=== PATIENT | female | born 1965 | race Caucasian/White ===

== ENCOUNTER 2016-07-30 20:09 | Emergency (ER) | payer MEDICAID ==
[2016-07-30 20:09] VITALS: BMI 21.4
[2016-07-30 20:19] VITALS: RESP 16; O2SAT 100
--- NOTE | 2016-07-30 21:01 | C.PDOC ---
History Of Present Illness Patient presents to the ER with to get checked out after falling on Thursday with a questionable LOC. Patient is speaking in complete sentences. Denies any nausea , vomiting, or fever. - HPI Time Seen by Provider: 07/30/16 21:01 Chief Complaint (Nursing): Trauma History Per: Patient History/Exam Limitations: no limitations Onset/Duration Of Symptoms: Days (incident occurred on Thursday) Past Medical History Reviewed: Historical Data, Nursing Documentation, Vital Signs Vital Signs: Last Vital Signs Temp 98.3 F 07/30/16 20:13 Pulse 87 07/30/16 20:13 Resp 16 07/30/16 20:13 BP 120/82 07/30/16 20:13 Pulse Ox 100 07/30/16 23:22 - Medical History PMH: Back Problems, Fibromyalgia, Fractures (Disc fx secondary t fall) - [facility] Procedures IMPLANT OR REPLACEMENT OF SPINAL NEUROSTIMULATOR LEAD(S) (07/10/14) Family History: States: No Known Family Hx - Social History Hx Tobacco Use: Yes Hx Alcohol Use: Yes Hx Substance Use: No - Immunization History Hx Tetanus Toxoid Vaccination: No Hx Influenza Vaccination: No Hx Pneumococcal Vaccination: No Review Of Systems Constitutional: Negative for: Fever, Chills Gastrointestinal: Negative for: Nausea, Vomiting Physical Exam - Physical Exam Appears: Well, Non-toxic Skin: Warm, Dry Oral Mucosa: Moist Chest: Symmetrical Cardiovascular: Rhythm Regular Respiratory: Normal Breath Sounds, No Rales, No Rhonchi, No Wheezing Gastrointestinal/Abdominal: Soft, No Tenderness Neurological/Psych: Oriented x3, Normal Speech, Normal Cognition ED Course And Treatment O2 Sat by Pulse Oximetry: 100 (Room air) Pulse Ox Interpretation: Normal - CT Scan/US CT of head w/o contrast Other Rad Studies (CT/US): Read By Radiologist, Radiology Report Reviewed CT/US Interpretation: IMPRESSION: No acute intracranial pathology is appreciated. Progress Note: CT of head w/o contrast ordered. Reevaluation Time: 23:17 Reassessment Condition: Improved Medical Decision Making Medical Decision Making: Upon provider reevaluation patient is feeling better, is medically stable, and requires no further treatment in the ED at this time. Patient will be discharged home with Rx for antivert . Counseling was provided and all questions were answered regarding diagnosis and need for follow up with the referred clinic. There is agreement to discharge plan. Return if symptoms persist or worsen. Disposition Counseled Patient/Family Regarding: Studies Performed, Diagnosis, Need For Followup - Disposition Referrals: Levar Du MD [Staff Provider] - Disposition: HOME/ ROUTINE Disposition Time: 21:01 Condition: FAIR Additional Instructions: Please return ifyou develop nausea, vomiting or just not feeling right Prescriptions: Meclizine [Meclizine*] 25 mg PO Q6 #30 tab Instructions: Head Injury (ED) - Clinical Impression Clinical Impression: Minor head injury - Scribe Statement The provider has reviewed the documentation as recorded by the Scribe Abdirahman Larson All medical record entries made by the Scribe were at my direction and personally dictated by me. I have reviewed the chart and agree that the record accurately reflects my personal performance of the history, physical exam, medical decision making, and the department course for this patient. I have also personally directed, reviewed, and agree with the discharge instructions and disposition.
[2016-07-30 23:34] VITALS: BP 94/50; PULSE 66; TEMP 98.2
--- NOTE | 2016-07-31 09:07 | CT ---
PROCEDURE: CT HEAD WITHOUT CONTRAST. HISTORY: fall, loc on thursday COMPARISON: None available. TECHNIQUE: Axial computed tomography images were obtained through the head/brain without intravenous contrast. Radiation dose: Total exam DLP = 857 mGy-cm. This CT exam was performed using one or more of the following dose reduction techniques: Automated exposure control, adjustment of the mA and/or kV according to patient size, and/or use of iterative reconstruction technique. FINDINGS: HEMORRHAGE: No intracranial hemorrhage. BRAIN: No mass effect or edema. No atrophy or chronic microvascular ischemic changes. VENTRICLES: Unremarkable. No hydrocephalus. CALVARIUM: Unremarkable. PARANASAL SINUSES: Unremarkable as visualized. No significant inflammatory changes. MASTOID AIR CELLS: Unremarkable as visualized. No inflammatory changes. OTHER FINDINGS: None. IMPRESSION: No acute intracranial abnormality. If focal neurologic deficit persists, consider MRI. These findings were preliminarily reported at 10:57 p.m. on 07/30/[address] She Chowdhury from [facility].
== END 2016-07-30 23:34 | disposition home or self-care (01) ==
LOC: C.ER 20:09
DX: S09.90XA Unspecified injury of head, initial encounter (principal); W19.XXXA Unspecified fall, initial encounter

== ENCOUNTER 2016-11-08 19:58 | Emergency (ER) | payer MEDICAID ==
[2016-11-08 19:58] VITALS: BMI 21.4
[2016-11-08 20:20] VITALS: TEMP 98.9; O2SAT 98
[2016-11-08] MEDS ORDERED: Lidocaine 5% Patch TD STA (21:26)
[2016-11-08] MEDS ORDERED: Lidocaine 5% Patch TD ONE (21:30)
--- NOTE | 2016-11-08 22:25 | C.PDOC ---
History Of Present Illness 50 year old female who presents to the ER with a complaint of back pain; she states she had back surgery 6 years ago and had a stimulator placed. Patient is currently on oxycodon and valium, however, she states the pain is not controlled. She tried to get in contact with her PMD, Dr. Galicia, but could not; she now presents to ER requesting an epidural. Denies recent trauma or urinary symptoms. Time Seen by Provider: 11/08/16 21:09 Chief Complaint (Nursing): Back Pain History Per: Patient History/Exam Limitations: no limitations Onset/Duration Of Symptoms: Days Current Symptoms Are (Timing): Still Present Quality Of Discomfort: Unable To Describe Previous Symptoms: Back Pain Associated Symptoms: None Exacerbating Factor(s): Nothing Recent travel outside of the [place]: No Past Medical History Reviewed: Historical Data, Nursing Documentation, Vital Signs Vital Signs: Last Vital Signs Temp 98.9 F 11/08/16 20:16 Pulse 78 11/08/16 22:27 Resp 16 11/08/16 22:27 BP 110/68 11/08/16 22:27 Pulse Ox 98 11/08/16 22:27 - Medical History PMH: Back Problems, Fibromyalgia, Fractures (Disc fx secondary t fall) - [facility] Procedures IMPLANT OR REPLACEMENT OF SPINAL NEUROSTIMULATOR LEAD(S) (07/10/14) Family History: States: Unknown Family Hx - Social History Hx Tobacco Use: Yes Hx Alcohol Use: Yes Hx Substance Use: No - Immunization History Hx Tetanus Toxoid Vaccination: No Hx Influenza Vaccination: No Hx Pneumococcal Vaccination: No Review Of Systems Genitourinary: Negative for: Dysuria, Incontinence, Hematuria Musculoskeletal: Positive for: Back Pain Physical Exam - Physical Exam Appears: Non-toxic, Other (Uncomfortable) Skin: Normal Color, Warm, Dry Head: Atraumatic, Normacephalic Oral Mucosa: Moist Gastrointestinal/Abdominal: Soft, No Tenderness Back: No CVA Tenderness, No Vertebral Tenderness, Paraspinal Tenderness (Lumbar) Neurological/Psych: Oriented x3, Normal Speech, Normal Cognition ED Course And Treatment O2 Sat by Pulse Oximetry: 98 (Room air) Pulse Ox Interpretation: Normal Progress Note: Explained to patient that epidural will not be done in the ER; administered toradol and applied lidoderm patch. On reevaluation, patient feels better; will discharge home with instructions to follow up with PMD. Disposition - Disposition Disposition: HOME/ ROUTINE Disposition Time: 22:24 Condition: STABLE Additional Instructions: Follow up with your international trade specialist AD. Return to ED if feel worse. Instructions: Chronic Back Pain (ED) - Clinical Impression Clinical Impression: Low back pain - Scribe Statement The provider has reviewed the documentation as recorded by the Scribe Abdirahman Larson All medical record entries made by the Scribe were at my direction and personally dictated by me. I have reviewed the chart and agree that the record accurately reflects my personal performance of the history, physical exam, medical decision making, and the department course for this patient. I have also personally directed, reviewed, and agree with the discharge instructions and disposition.
[2016-11-08 22:28] VITALS: BP 110/68; PULSE 78; RESP 16
== END 2016-11-08 22:27 | disposition home or self-care (01) ==
LOC: C.ER 19:58
DX: M54.5 Low back pain (principal)
CPT/HCPCS: 96372; 99283; J1885

== ENCOUNTER 2017-08-23 11:43 | Inpatient (IN) | payer MEDICAID ==
[2017-08-23 11:44] VITALS: BMI 21.4
[2017-08-23] MEDS ORDERED: Morphine 4 MG/ML VIAL ONE ×2 (13:01→14:25)
[2017-08-23 13:02] LABS: BASO # 0.1 K/uL (0.0-0.2); EOS # 0.1 K/uL (0.0-0.7); EOS % 1.7 % (0.0-4.0); LYMPH # 0.9 K/uL (1.0-4.3); MONO # 0.4 K/uL (0.0-0.8)
[2017-08-23 13:04] LABS: BASO % 0.9 % (0.0-2.0); HEMOGLOBIN 12.4 g/dL (11.0-16.0); LYMPH % 13.4 % (20.0-40.0); MEAN CELL VOLUME 94.9 fL (81.0-99.0); MEAN CORPUSCULAR HEMOGLOBIN 31.4 pg (27.0-31.0); MEAN CORPUSCULAR HGB CONC 33.1 g/dL (33.0-37.0); MEAN PLATELET VOLUME 7.8 fL (7.2-11.7); MONO % 6.3 % (0.0-10.0); NEUT # 5.2 K/uL (1.8-7.0); NEUT % 77.7 % (50.0-75.0); RBC 3.94 Mil/uL (3.80-5.20); RED CELL DISTRIBUTION WIDTH 15.4 % (11.5-14.5); WHITE BLOOD COUNT 6.7 K/uL (4.8-10.8)
[2017-08-23 13:17] LABS: ALB/GLOB RATIO 1.1 (1.0-2.1); ALBUMIN 4.2 g/dL (3.5-5.0); ALT/SGPT 22 U/L (9-52); AST/SGOT 22 U/L (14-36); BLOOD UREA NITROGEN 20 mg/dL (7-17); GFR AFRICAN-AMERICAN > 60; GFR NON-AFRICAN AMERICAN > 60
[2017-08-23] MEDS ORDERED: Iodixanol 320 MG/ML 100 ML BOTTLE IV ONE (13:32)
[2017-08-23] MEDS ORDERED: SODIUM CHLORIDE 0.9% IV STA (13:32)
[2017-08-23] MEDS ORDERED: LIDOCAINE IV STA (13:32)
[2017-08-23 13:53] LABS: LIPASE 3799 U/L (23-300)
[2017-08-23] MEDS ORDERED: Morphine 4 MG/ML VIAL IV STA (13:54)
--- NOTE | 2017-08-23 14:28 | RAD ---
PROCEDURE: CHEST RADIOGRAPH, 1 VIEW HISTORY: Abdominal pain COMPARISON: No prior study available for comparison FINDINGS: LUNGS: Clear. PLEURA: No pneumothorax or pleural fluid seen. CARDIOVASCULAR: Normal. OSSEOUS STRUCTURES: In situ pain stimulator electrodes are seen overlying the mid thoracic region. Electrode leads extend inferiorly from this level and to the right of midline in the abdomen. VISUALIZED UPPER ABDOMEN: Normal. OTHER FINDINGS: None. IMPRESSION: No acute cardiopulmonary disease
--- NOTE | 2017-08-23 14:50 | C.PDOC ---
History Of Present Illness 51 year old female presents to ED for evaluation of progressive worsening of abdominal pain over the past 2 weeks. Pt reports associated nausea and vomiting. Pt complains of chronic back pain, notes having history of spinal surgery in the past. Denies diarrhea, urinary symptoms, fever, chest pain, or shortness of breath. Time Seen by Provider: 08/23/17 12:26 Chief Complaint (Nursing): Abdominal Pain History Per: Patient History/Exam Limitations: no limitations Onset/Duration Of Symptoms: Days Current Symptoms Are (Timing): Still Present Location Of Pain/Discomfort: Diffuse Radiation Of Pain To:: None Quality Of Discomfort: "Pain" Associated Symptoms: Nausea, Vomiting. denies: Diarrhea, Back Pain, Chest Pain Exacerbating Factors: None Alleviating Factors: None Recent travel outside of the [place]: No Additional History Per: Patient Abnormal Vaginal Bleeding: No Past Medical History Reviewed: Historical Data, Nursing Documentation, Vital Signs Vital Signs: Last Vital Signs Temp 98.3 F 08/25/17 15:00 Pulse 72 08/25/17 15:00 Resp 20 08/25/17 15:00 BP 118/81 08/25/17 15:00 Pulse Ox 99 08/25/17 15:00 - Medical History PMH: Back Problems, Fibromyalgia, Fractures (Disc fx secondary t fall) Denies: Chronic Kidney Disease - [facility] Procedures IMPLANT OR REPLACEMENT OF SPINAL NEUROSTIMULATOR LEAD(S) (07/10/14) Family History: States: Unknown Family Hx - Social History Hx Tobacco Use: Yes Hx Alcohol Use: Yes Hx Substance Use: No - Immunization History Hx Tetanus Toxoid Vaccination: No Hx Influenza Vaccination: No Hx Pneumococcal Vaccination: No Review Of Systems Except As Marked, All Systems Reviewed And Found Negative. Constitutional: Negative for: Fever, Chills Cardiovascular: Negative for: Chest Pain, Palpitations Respiratory: Negative for: Shortness of Breath Gastrointestinal: Positive for: Nausea, Vomiting, Abdominal Pain. Negative for : Diarrhea, Constipation, Hematemesis Genitourinary: Negative for: Dysuria, Frequency, Hematuria, Vaginal Discharge Musculoskeletal: Positive for: Back Pain (chronic) Neurological: Negative for: Weakness, Numbness Physical Exam - Physical Exam Appears: Non-toxic, No Acute Distress Skin: Normal Color, Warm, Dry Head: Atraumatic, Normacephalic Eye(s): bilateral: Normal Inspection Oral Mucosa: Moist Chest: Symmetrical Cardiovascular: Rhythm Regular, No Murmur Respiratory: Normal Breath Sounds, No Rales, No Rhonchi, No Wheezing Gastrointestinal/Abdominal: Bowel Sounds, Soft, Tenderness (epigastric), No Guarding, No Rebound Back: No CVA Tenderness Extremity: Normal ROM Neurological/Psych: Oriented x3, Normal Speech ED Course And Treatment - Laboratory Results Result Diagrams: 08/25/17 07:35 08/25/17 07:35 ECG: Interpreted By Me, Viewed By Me ECG Rhythm: Sinus Rhythm ECG Interpretation: No Acute Changes Interpretation Of ECG: Normal intervals, normal axis. No acute ST/T wave changes. Rate From EC (bpm) O2 Sat by Pulse Oximetry: 100 (RA) Pulse Ox Interpretation: Normal - CT Scan/US Abd & Pelvis CT Other Rad Studies (CT/US): Read By Radiologist, Radiology Report Reviewed CT/US Interpretation: IMPRESSION: Mild fatty hepatic infiltration. Suspect underlying acute pancreatitis as detailed above. Clinical correlation with serum lipase recommended. Postoperative changes of the stomach. Clinical correlation with surgical history. See above discussion for additional details and findings. Findings discussed with Dr. Webb at approximately 2:55 p.m with written down and read back verification. Medical Decision Making Medical Decision Making: Plan: Blood work Urinalysis Abd & Pelvis CT EKG CXR Morphine, Zofran, IV fluids Reassess Case discussed with Dr. Sheldon who agrees upon med surge admission for pancreatitis. Disposition Discussed With : Hussein Sheldon Doctor Will See Patient In The: Hospital Counseled Patient/Family Regarding: Studies Performed, Diagnosis - Disposition Disposition: HOSPITALIZED Disposition Time: 15:14 Condition: FAIR - Clinical Impression Clinical Impression: Pancreatitis - Scribe Statement The provider has reviewed the documentation as recorded by the Júnior Gunter All medical record entries made by the Feliibnico were at my direction and personally dictated by me. I have reviewed the chart and agree that the record accurately reflects my personal performance of the history, physical exam, medical decision making, and the department course for this patient. I have also personally directed, reviewed, and agree with the discharge instructions and disposition.
--- NOTE | 2017-08-23 15:00 | CT ---
PROCEDURE: CT abdomen pelvis 08/23/2017. HISTORY: Abdominal pain COMPARISON: No prior TECHNIQUE: Contiguous helical/transaxial images of the abdomen and pelvis performed following intravenous injection of approximately 100 cc Visipaque 320 contrast material. Additional 2D sagittal and coronal reformats generated. Radiation dose: Total exam DLP = mGy-cm This CT exam was performed using one or more of the following dose reduction techniques: Automated exposure control, adjustment of the mA and/or kV according to patient size, and/or use of iterative reconstruction technique. FINDINGS: LOWER THORAX: Lung bases are clear. No infiltrate effusion or basilar pneumothorax. Moderate size hiatal hernia is present. There are postoperative changes seen along the stomach of which extend into the hiatal hernia. Clinical correlation with surgical history. LIVER: The liver exhibits normal size measuring approximately 14.2 cm in CC dimension. . Moderate fatty hepatic infiltration. No obvious hepatic mass or collection. Portal and splenic veins are opacified. GALLBLADDER AND BILE DUCTS: Gallbladder physiologically distended. No evidence of intraluminal gallbladder calculi. PANCREAS: The exhibits what is felt to represent an edematous infiltrated appearance particular at the level of the pancreatic head and midbody with some sparing the pancreatic tail, to represent underlying atrophy and fatty replacement. There also peripancreatic infiltration changes present as well. . Findings could represent an acute pancreatitis. Correlation with serum lipase recommended. No obvious pancreatic masses or collections SPLEEN: Spleen exhibits normal size and attenuation pattern without masses collections or calcifications. ADRENALS: No adrenal lesions. KIDNEYS AND URETERS: Kidneys demonstrate symmetric nephrograms. No evidence of nephrolithiasis or hydronephrosis. . Probable small right renal cyst BLADDER: Grossly unremarkable. Urinary bladder physiologically distended. No evidence of intraluminal urinary bladder calculi. REPRODUCTIVE: Apparent hysterectomy. APPENDIX: The appendix not seen with complete certainty however no obvious inflammatory changes right lower quadrant of the abdomen to suggest acute appendicitis BOWEL: Evaluation of the bowel is limited due to the lack of oral contrast material. As mentioned above, there are postoperative changes of the stomach. Clinical correlation with surgical history recommended. Visualized loops of small bowel exhibit normal contour and caliber. No evidence of acute mechanical small bowel obstruction. Stool and air seen throughout the large bowel. No definitive evidence of abnormal mural wall thickening. PERITONEUM: Unremarkable. No fluid collection. No free air. LYMPH NODES: Unremarkable. No enlarged lymph nodes. VASCULATURE: Unremarkable. No aortic aneurysm. BONES: Apparent fixation hardware attached to the posterior elements of the L4-L5 segments. The aforementioned posterior elements of L4-L5 also appear hypertrophic. Clinical correlation with surgical history. OTHER FINDINGS: None. IMPRESSION: Mild fatty hepatic infiltration. Suspect underlying acute pancreatitis as detailed above. Clinical correlation with serum lipase recommended. Postoperative changes of the stomach. Clinical correlation with surgical history. See above discussion for additional details and findings. Findings discussed with Dr. Webb at approximately 2:55 p.m with written down and read back verification.
--- NOTE | 2017-08-23 15:32 | CP.PCM.HP ---
History of Present Illness - History of Present Illness History of Present Illness: PGY2 Resident - Medicine H&P CC: stomach pain for the past 2 weeks HPI: This 51 year old female with PMHx of Chronic back pain, Scoliosis (wears brace since 05/2017), Fibromyalgia, Lumbar Fractures (2/2 Fall), Degenerative disk dz - presents to ED for evaluation of progressive worsening of abdominal pain over the past 3 weeks. She states it started as an "annoying" discomfort in the mid epigastric region with associated nausea. Into the second week, she began to vomit her food contents roughly 1hr after ingestion, nearly every- other day. She changed her diet to yogurt, however the nausea persisted with vomiting once every 2 days for the past 2 weeks. Her family became worrisome as her abdominal pain increased, spurring todays ED visit. She currently rate the abdominal pain 8/10. It is worst with food and lying flat, better with the pain medications the she takes for her chronic back pain. Her Neurosurgeon, Dr. Florez, told her that her scoliosis has become so severe, that the curvature in her spine is compressing her stomach. He plans to operate on her spine next month (metal shayne insertion). She denies fevers, chills, dizziness, chest pain, SOB, urinary symptoms, LE edema, or any additional acute complaints. PMHx: Chronic back pain, Scoliosis (wears brace since 05/2017), Fibromyalgia, Lumbar Fractures (2/2 Fall), Degenerative disk dz PSHx: spine surgery 2 lumbar disk fracture 2011; spinal neurostimulator 2014; gastric bypass 2007, Meds: see EMR Allergies: seafood, NKDA FamHx: father HLD, paternal grandfather of "stomach" cancer at 47y/o SocHx: 2 cigarettes/d x4 years; 2 tablespoons of wine daily for communion; denies illicit drug use; lives with family; prior work in [employer]. PMD: Dr. Arango Neurosurgeon: Dr. Florez. Review of Systems: -Gen: No fever, No chills, No headache, No lethargy, + weakness. -HEENT: No dizziness, No change in vision, No change in hearing, No sore throat , No dysphagia, No nasal congestion, No mucous. -Cardio: No chest pain, No palpitations, No lower extremity edema, No orthopnea. -Resp: No cough, No dyspnea, No hemoptysis, No wheezing, No pain on inspiration. -GI: +abdominal pain, + nausea/vomiting, No diarrhea/constipation, No hematochezia, No hematemesis. -: No dysuria, No urinary freq, No incontinence, No hematuria, No change in urinary stream. -MSK: + back pain, No muscle weakness, No radiating pain. -Skin: No itching, No rash, No lesions. -Neuro: No confusion, No numbness, No tingling, No focal weakness, No radicular pain, No syncope. -Psych: No anxiety, No depression, No H/I, No S/I, No hallucinations. Present on Admission - Present on Admission Any Indicators Present on Admission: No Past Patient History - Past Medical History & Family History Past Medical History?: Yes - Past Social History Smoking Status: Current Some Days Smoker - CARDIAC Hx Cardiac Disorders: No - PULMONARY Hx Respiratory Disorders: No - NEUROLOGICAL HX Cerebrovascular Accident: Yes (TIA) - HEENT Hx HEENT Problems: No - RENAL Hx Chronic Kidney Disease: No - ENDOCRINE/METABOLIC Hx Endocrine Disorders: No - HEMATOLOGICAL/ONCOLOGICAL Hx Blood Disorders: No - INTEGUMENTARY Hx Dermatological Problems: No - MUSCULOSKELETAL/RHEUMATOLOGICAL Hx Fractures: Yes (Disc fx secondary t fall) - GASTROINTESTINAL Hx Gastrointestinal Disorders: No - GENITOURINARY/GYNECOLOGICAL Hx Genitourinary Disorders: No - PSYCHIATRIC Hx Substance Use: No - SURGICAL HISTORY Hx Surgeries: Yes Hx Orthopedic Surgery: Yes (Back surgery) Other/Comment: Back Surgery - ANESTHESIA Hx Anesthesia: Yes Hx Anesthesia Reactions: No Hx Malignant Hyperthermia: No Meds Allergies/Adverse Reactions: Allergies Allergy/AdvReac Type Severity Reaction Status Date / Time seafood Allergy Uncoded 08/23/17 11:54 Physical Exam - Constitutional Appears: Non-toxic, In Acute Distress, Cachectic - Head Exam Head Exam: ATRAUMATIC, NORMAL INSPECTION - Eye Exam Eye Exam: EOMI, Normal appearance, PERRL - ENT Exam ENT Exam: Mucous Membranes Dry - Neck Exam Neck exam: Positive for: Normal Inspection. Negative for: Lymphadenopathy - Respiratory Exam Respiratory Exam: Decreased Breath Sounds, Clear to Auscultation Bilateral, NORMAL BREATHING PATTERN. absent: Rhonchi, Wheezes - Cardiovascular Exam Cardiovascular Exam: REGULAR RHYTHM, +S1, +S2. absent: Systolic Murmur - GI/Abdominal Exam GI & Abdominal Exam: Guarding, Hypoactive Bowel Sounds, Tenderness (mid epigastric). absent: Distended - Extremities Exam Extremities exam: Positive for: full ROM. Negative for: pedal edema, tenderness - Back Exam Back exam: paraspinal tenderness, tenderness (thoracic paraspinals). absent: NORMAL INSPECTION (scoliosis requring brace; mid thoracic vertical scar 2/2 neuro stim surgery; b/l lateral thoracic horizontal scar 2/2 loose skin removal s/p gastric bypass/weight loss; lumbar vertical scar s/p lumbar vertebrate surgery) - Neurological Exam Neurological exam: Alert, CN II-XII Intact, Oriented x3 - Psychiatric Exam Psychiatric exam: Depressed, Flat Affect - Skin Skin Exam: Dry, Intact, Normal Color, Warm Results - Vital Signs Recent Vital Signs: Last Vital Signs Temp 98.2 F 08/23/17 11:53 Pulse 77 08/23/17 15:16 Resp 16 08/23/17 15:16 BP 127/78 08/23/17 15:16 Pulse Ox 100 08/23/17 15:19 - Labs Result Diagrams: 08/23/17 12:59 08/23/17 12:59 Labs: Laboratory Results - last 24 hr 08/23/17 08/23/17 12:59 12:59 WBC 6.7 RBC 3.94 Hgb 12.4 D Hct 37.4 MCV 94.9 D MCH 31.4 H MCHC 33.1 RDW 15.4 H Plt Count 511 H D MPV 7.8 Neut % (Auto) 77.7 H Lymph % (Auto) 13.4 L [place] % (Auto) 6.3 Eos % (Auto) 1.7 Baso % (Auto) 0.9 Neut # (Auto) 5.2 Lymph # (Auto) 0.9 L [place] # (Auto) 0.4 Eos # (Auto) 0.1 Baso # (Auto) 0.1 Sodium 137 Potassium 3.8 Chloride 104 Carbon Dioxide 18 L Anion Gap 19 BUN 20 H Creatinine 0.7 Est GFR ( Amer) > 60 Est GFR (Non-Af Amer) > 60 Random Glucose 66 Calcium 9.0 Total Bilirubin 0.4 AST 22 ALT 22 Alkaline Phosphatase 160 H Troponin I < 0.0120 Total Protein 8.1 Albumin 4.2 Globulin 3.9 Albumin/Globulin Ratio 1.1 Lipase 3799 H Assessment & Plan - Assessment and Plan (Free Text) Assessment: Acute Pancreatitis * NPO except meds. Advance to liquid in 2d as tolerated * Lactated ringers at 150cc/hr * Labs: Lipase 3799; * Morphine 4mg IVP Q6H PRN pain * Lidocain 5% cream * Zofran 4mg IVP Q6H PRN n/v * CT abd pelvis - fatty hepatic infiltrate; suspected acute pancreatitis, stomach post op changes (gastric bypass 2007). follow up official read. * CXR negative. * EKG no acute changes, no ST changes, 92bpm. follow up official read. * f/u LDH to calculate Ransons criteria after 48hrs * f/u repeat Lipase in AM * f/u abd ultrasound * f/u FLP and AM labs Chronic Back Pain * 2/2 scoliosis, and degenerative disk disease * see pain control above. * Morphine 4mg IVP Q6H PRN pain * Lidocain 5% cream Fibromyalgia * Continue home Amitryptiline and Neurontin. Anxiety * Xanax 0.5mg PO qD PRN Prophylaxis * VTE therapy C/I 2/2 pancreatitis * Hold pepcid * SCDs Case discussed with Dr. Sheldon - Date & Time Date: 08/23/17 Time: 15:31
[2017-08-23 15:48] LABS: SQUAMOUS EPITHIAL 3 /hpf (0-5); URINE BILIRUBIN NEGATIVE (NEGATIVE); URINE BLOOD NEGATIVE (NEGATIVE); URINE CLARITY Clear (Clear); URINE COLOR Yellow (YELLOW); URINE GLUCOSE (UA) NORMAL (Normal); URINE LEUKOCYTE ESTERASE NEG Leu/uL (Negative); URINE PROTEIN 1+ mg/dL (NEGATIVE); URINE UROBILINOGEN NORMAL mg/dL (0.2-1.0)
[2017-08-23 16:45] VITALS: RESP 20
[2017-08-23] MEDS: Morphine 4 MG/ML VIAL IVP PRN (17:53)
[2017-08-23] MEDS: Lactated Ringer's 1,000 ML IV SCH (18:06)
[2017-08-24] MEDS: Lactated Ringer's 1,000 ML IV SCH ×5 (00:40→21:55)
[2017-08-24] MEDS: Morphine 4 MG/ML VIAL IVP PRN ×5 (06:00→23:47)
[2017-08-24 06:52] LABS: LDL CHOLESTEROL 94 mg/dL (0-129)
[2017-08-24 06:53] LABS: ALBUMIN 3.3 g/dL (3.5-5.0); ALT/SGPT 19 U/L (9-52); AST/SGOT 21 U/L (14-36); BLOOD UREA NITROGEN 9 mg/dL (7-17); GFR AFRICAN-AMERICAN > 60; GFR NON-AFRICAN AMERICAN > 60; HDL CHOLESTEROL 64 mg/dL (30-70)
[2017-08-24 06:57] LABS: BASO % 0.3 % (0.0-2.0); EOS # 0.1 K/uL (0.0-0.7); EOS % 0.7 % (0.0-4.0); HEMOGLOBIN 11.8 g/dL (11.0-16.0); LYMPH # 0.9 K/uL (1.0-4.3); LYMPH % 8.7 % (20.0-40.0); MEAN CORPUSCULAR HEMOGLOBIN 31.9 pg (27.0-31.0); MEAN CORPUSCULAR HGB CONC 34.7 g/dL (33.0-37.0); MEAN PLATELET VOLUME 7.7 fL (7.2-11.7); MONO # 0.6 K/uL (0.0-0.8); MONO % 5.8 % (0.0-10.0); NEUT # 9.3 K/uL (1.8-7.0); NEUT % 84.5 % (50.0-75.0); PLATELET COUNT 500 K/uL (130-400); RBC 3.71 Mil/uL (3.80-5.20); RED CELL DISTRIBUTION WIDTH 14.8 % (11.5-14.5)
[2017-08-24 08:16] LABS: LIPASE 2793 U/L (23-300)
--- NOTE | 2017-08-24 08:40 | CP.PCM.PN ---
<Jenni Morales - Last Filed: 08/24/17 14:45> Subjective - Date & Time of Evaluation Date of Evaluation: 08/24/17 Time of Evaluation: 07:00 - Subjective Subjective: Progress note for Dr. Linares Patient seen and examined at bedside. Patient still has abdominal pain, patient denies nausea and vomiting. Objective - Vital Signs/Intake and Output Vital Signs (last 24 hours): Temp Pulse Resp BP Pulse Ox 98.2 F 88 20 121/78 98 08/24/17 08:05 08/24/17 08:05 08/24/17 08:05 08/24/17 08:05 08/24/17 08:05 Intake and Output: 08/24/17 08/24/17 06:59 18:59 Intake Total 1950 Output Total 0 Balance 1950 - Medications Medications: Current Medications Acetaminophen/Butalbital/Caffeine (Fioricet) 1 tab PO DAILY [facility] Alprazolam (Xanax) 0.5 mg PO DAILY PRN PRN Reason: Anxiety Amitriptyline HCl (Elavil) 25 mg PO DAILY [facility] Cyclobenzaprine HCl (Flexeril) 10 mg PO HS [facility] Last Admin: 08/23/17 21:03 Dose: 10 mg Gabapentin (Neurontin) 600 mg PO DAILY [facility] Last Admin: 08/23/17 19:00 Dose: 600 mg Lactated Ringer's (Lactated Ringer's) 1,000 mls @ 150 mls/hr IV .Q6H40M [facility] Last Admin: 08/24/17 00:40 Dose: 150 mls/hr Lidocaine (Lidocaine 5%) 1 gm TOP DAILY [facility] Morphine Sulfate (Morphine) 4 mg IVP Q6H PRN PRN Reason: Pain, severe (8-10) Last Admin: 08/24/17 06:00 Dose: 4 mg Ondansetron HCl (Zofran Inj) 4 mg IVP Q6H PRN PRN Reason: Nausea/Vomiting - Labs Labs: 08/24/17 05:59 08/24/17 05:59 - Additional Findings Additional findings: - Constitutional Appears: Non-toxic, In Acute Distress, Cachectic - Head Exam Head Exam: ATRAUMATIC, NORMAL INSPECTION - Eye Exam Eye Exam: EOMI, Normal appearance, PERRL - ENT Exam ENT Exam: Mucous Membranes Dry - Neck Exam Neck exam: Positive for: Normal Inspection. Negative for: Lymphadenopathy - Respiratory Exam Respiratory Exam: Decreased Breath Sounds, Clear to Auscultation Bilateral, NORMAL BREATHING PATTERN. absent: Rhonchi, Wheezes - Cardiovascular Exam Cardiovascular Exam: REGULAR RHYTHM, +S1, +S2. absent: Systolic Murmur - GI/Abdominal Exam GI & Abdominal Exam: Guarding, Hypoactive Bowel Sounds, Tenderness (mid epigastric). absent: Distended - Extremities Exam Extremities exam: Positive for: full ROM. Negative for: pedal edema, tenderness - Back Exam Back exam: paraspinal tenderness, tenderness of thoracic paraspinal muscles scoliosis requiring brace; mid thoracic vertical scar 2/2 neuro stim surgery bilateral lateral thoracic horizontal scar 2/2 loose skin removal s/p gastric bypass/weight loss lumbar vertical scar s/p lumbar vertebrate surgery - Neurological Exam Neurological exam: Alert, CN II-XII Intact, Oriented x3 - Psychiatric Exam Psychiatric exam: Depressed, Flat Affect - Skin Skin Exam: Dry, Intact, Normal Color, Warm Assessment and Plan - Assessment and Plan (Free Text) Assessment: Acute Pancreatitis * 08/24 Diet: NPO except meds, sips and ice chips as tolerated. * Lactated ringers at 150cc/hr * Labs: * 08/23 Lipase 3799 * 08/24 Lipase: 80860 * [place]'s criteria 1% (1 point due to >10% dec in Hct within 48 hrs) * 08/24 LDH <350 (see above for [place]'s Criteria score) * CT abd pelvis - fatty hepatic infiltrate; suspected acute pancreatitis, stomach post op changes (gastric bypass 2007). * CXR negative. * EKG no acute changes, no ST changes, 92bpm. follow up official read. * Morphine 4mg IVP Q6H PRN pain * Lidocaine 5% cream * Zofran 4mg IVP Q6H PRN n/v * f/u abd ultrasound * f/u FLP and AM labs * 08/24 GI Consult: Dr. Potts Chronic Back Pain * 2/2 scoliosis, and degenerative disk disease * see pain control above. * Morphine 4mg IVP Q6H PRN pain * Lidocaine 5% cream Fibromyalgia * Continue home Amitriptyline and Neurontin. Anxiety * Xanax 0.5mg PO qD PRN Prophylaxis * VTE therapy C/I 2/2 pancreatitis * Hold pepcid * SCDs Jenni Morales DO PGY1 discussed with Dr. Linraes <Sree Linares - Last Filed: 08/24/17 17:47> Objective - Vital Signs/Intake and Output Vital Signs (last 24 hours): Temp Pulse Resp BP Pulse Ox 98.1 F 70 20 111/66 99 08/24/17 16:00 08/24/17 16:00 08/24/17 16:00 08/24/17 16:00 08/24/17 16:00 Intake and Output: 08/24/17 08/24/17 06:59 18:59 Intake Total 1950 1200 Output Total 0 Balance 1950 1200 - Medications Medications: Current Medications Acetaminophen/Butalbital/Caffeine (Fioricet) 1 tab PO DAILY [facility] Last Admin: 08/24/17 11:07 Dose: 1 tab Alprazolam (Xanax) 0.5 mg PO DAILY PRN PRN Reason: Anxiety Amitriptyline HCl (Elavil) [address] [facility] Cyclobenzaprine HCl (Flexeril) [address] [facility] Last Admin: 08/23/17 21:03 Dose: 10 mg Gabapentin (Neurontin) 600 mg PO DAILY [facility] Last Admin: 08/24/17 11:06 Dose: 600 mg Lactated Ringer's (Lactated Ringer's) 1,000 mls @ 150 mls/hr IV .Q6H40M [facility] Last Admin: 08/24/17 15:00 Dose: Not Given Lidocaine (Lidocaine 5%) 1 gm TOP DAILY [facility] Last Admin: 08/24/17 12:15 Dose: Not Given Morphine Sulfate (Morphine) 4 mg IVP Q6H PRN PRN Reason: Pain, severe (8-10) Last Admin: 08/24/17 12:23 Dose: 4 mg Ondansetron HCl (Zofran Inj) 4 mg IVP Q6H PRN PRN Reason: Nausea/Vomiting - Labs Labs: 08/24/17 05:59 08/24/17 05:59 Attending/Attestation - Attestation I have personally seen and examined this patient.: Yes I have fully participated in the care of the patient.: Yes I have reviewed all pertinent clinical information, including history, physical exam and plan: Yes Notes (Text): This is a 51years old female with history of Chronic back pain and Gastric by pass surgery in the past came for abdominal pain. CT abdomen shows acute pancreatitis,no Gall stone,no dilated ducts,n Patient has normal TG,denies alcohol abuse,takes 2 table spoons of vine during daily communion ,she is a smoker.Home meds not likely the cause of pancreatitis US abdomen without gall stone 1.Acute pancreatitis 2.Chronic Back Pain 3.Fibromyalgia 3 Anxiety patient was seen and examined she has epigastric pain and tenderness. No guarding,no rigidity has elevated lipase keep npo,fluids and we will get GI consult d/w resident I agree with the resident's documentation of the assessment and the plan
[2017-08-24 08:46] LABS: EOSINOPHIL 1 % (0-4); LYMPHOCYTE 4 % (20-40); MONOCYTE 8 % (0-10); NEUTROPHIL 87 % (50-75); PLATELET ESTIMATE INCREASED (NORMAL); TOTAL CELLS COUNTED 100
[2017-08-24 08:47] LABS: ANISOCYTOSIS SLIGHT; OVALOCYTES SLIGHT; POIKILOCYTOSIS SLIGHT; TEARDROP CELLS SLIGHT
--- NOTE | 2017-08-24 11:06 | US ---
HISTORY: mid-epigastric abdominal pain, pancreatitis COMPARISON: None. TECHNIQUE: Sonographic evaluation of the abdomen. FINDINGS: LIVER: Measures 13.5 cm. Normal echogenicity of the liver parenchyma. No mass. No intrahepatic bile duct dilatation. GALLBLADDER: Unremarkable. No gallstones. COMMON BILE DUCT: Measures 6 mm. No stones. No dilatation. PANCREAS: Poorly visualized RIGHT KIDNEY: Measures 10.3cm. Normal cortical echogenicity. No calculus or hydronephrosis. Lower pole simple cyst, 9 x 9 x 10 millimeters. No solid mass. LEFT KIDNEY: Measures 9.9cm. Normal echogenicity. No calculus, mass, or hydronephrosis. SPLEEN: Normal in size and contour. No mass. AORTA: No aneurysmal dilatation. IVC: Unremarkable. OTHER FINDINGS: None. IMPRESSION: No evidence of cholelithiasis or cholecystitis. Pancreas poorly visualized due to overlying bowel gas. No evidence of biliary obstruction. Incidental 10 millimeter right lower pole renal cortical cyst.
[2017-08-24] MEDS: Apap-Butalbital-Caffeine 325-50-40mg Tab PO SCH (11:07)
[2017-08-24] MEDS: Lidocaine 5% Oint(35 gm) TOP SCH (12:15)
--- NOTE | 2017-08-24 16:04 | CARD ---
APPROVED REPORT EKG Measurement Heart [id number] <Conclusion> Normal sinus rhythm Normal ECG
[2017-08-25] MEDS: Lactated Ringer's 1,000 ML IV SCH ×4 (06:26→23:06)
[2017-08-25] MEDS: Morphine 4 MG/ML VIAL IVP PRN ×3 (07:16→20:17)
--- NOTE | 2017-08-25 07:18 | CP.PCM.PN ---
Addendum entered and electronically signed by Jenni Morales DO 08/25/17 09:19: per Dr. Mukherjee: begin once daily PPI therapy NSAID avoidance outpatient elective GI endoscopic follow up dedicated pancreatic CT imaging a few weeks following resolution of acute symptoms Original Note: <Jenni Moralse - Last Filed: 08/25/17 09:16> Subjective - Date & Time of Evaluation Date of Evaluation: 08/25/17 Time of Evaluation: 07:12 - Subjective Subjective: Progress Note for Dr. Linares Patient seen and examined at bedside. No acute events overnight. Patient tolerating pain well, but still has midepigastric abdominal pain. Patient states she's feeling better today. Patient states GI doctor came and advanced diet to liquid diet. Patient denies flatus, bowel movements, diarrhea, fever, chills. Patient admits to abdominal pain. Objective - Vital Signs/Intake and Output Vital Signs (last 24 hours): Temp Pulse Resp BP Pulse Ox 99.1 F 92 H 20 115/72 96 08/25/17 00:00 08/25/17 00:00 08/25/17 00:00 08/25/17 00:00 08/25/17 00:00 Intake and Output: 08/25/17 08/25/17 06:59 18:59 Intake Total 2410 Balance 2410 - Medications Medications: Current Medications Acetaminophen/Butalbital/Caffeine (Fioricet) 1 tab PO DAILY [facility] Last Admin: 08/24/17 11:07 Dose: 1 tab Alprazolam (Xanax) 0.5 mg PO DAILY PRN PRN Reason: Anxiety Amitriptyline HCl (Elavil) 25 mg PO HS [facility] Last Admin: 08/24/17 21:05 Dose: 25 mg Cyclobenzaprine HCl (Flexeril) 10 mg PO HS [facility] Last Admin: 08/24/17 21:05 Dose: 10 mg Gabapentin (Neurontin) 600 mg PO DAILY [facility] Last Admin: 08/24/17 11:06 Dose: 600 mg Lactated Ringer's (Lactated Ringer's) 1,000 mls @ 150 mls/hr IV .Q6H40M [facility] Last Admin: 08/25/17 06:26 Dose: Not Given Lidocaine (Lidocaine 5%) 1 gm TOP DAILY [facility] Last Admin: 08/24/17 12:15 Dose: Not Given Morphine Sulfate (Morphine) 4 mg IVP Q6H PRN PRN Reason: Pain, severe (8-10) Last Admin: 08/24/17 23:47 Dose: 4 mg Ondansetron HCl (Zofran Inj) 4 mg IVP Q6H PRN PRN Reason: Nausea/Vomiting - Labs Labs: 08/24/17 05:59 08/24/17 05:59 - Constitutional Appears: Non-toxic, No Acute Distress - Head Exam Head Exam: NORMAL INSPECTION, NORMOCEPHALIC - Eye Exam Eye Exam: EOMI, Normal appearance - Neck Exam Neck Exam: absent: Lymphadenopathy, Tenderness, Thyromegaly - Respiratory Exam Respiratory Exam: Clear to Ausculation Bilateral, NORMAL BREATHING PATTERN. absent: Rhonchi, Wheezes - Cardiovascular Exam Cardiovascular Exam: REGULAR RHYTHM, +S1, +S2. absent: Bradycardia, Tachycardia - GI/Abdominal Exam GI & Abdominal Exam: Soft, Normal Bowel Sounds. absent: Tenderness - Extremities Exam Extremities Exam: Full ROM. absent: Pedal Edema - Back Exam Additional comments: patient has severe scoliosis - Neurological Exam Neurological Exam: Awake, CN II-XII Intact, Oriented x3 - Psychiatric Exam Psychiatric exam: Normal Affect, Normal Mood - Skin Skin Exam: Dry, Intact, Normal Color, Warm Assessment and Plan - Assessment and Plan (Free Text) Assessment: 51F with pasta medical history of scoliosis, degenerative disc disease and fibromyalgia presents with abdominal pain worsening for the past 3 weeks with vomiting beginning the second week, worsens with food and lying back. Her neurosurgeon stated her curvature has been compressing her stomach. There is plan for spinal surgery next month. Patient was found to have pancreatitis on CT abdomen/pelvis. Acute Pancreatitis Social history: daily communion with wine (small sip - 2 tsp), no alcohol history. 08/24 Diet: NPO except meds, sips and ice chips as tolerated. Lactated ringers at 150cc/hr Labs: 08/23 Lipase 3799 5/ Lipase: 70067 [place]'s criteria 1% (1 point due to >10% dec in Hct within 48 hrs) 5/ LDH <350 (see above for [place]'s Criteria score) Imaging: CT abd pelvis - fatty hepatic infiltrate; suspected acute pancreatitis, stomach post op changes (gastric bypass 2007). CXR negative for active disease EKG no acute changes, no ST changes, 92bpm. follow up official read. Abdominal US: no gallstones, gallbladder wall thickness, common bile duct dilatation. f/u FLP and AM labs 08/24 GI Consult: Dr. Potts Morphine 4mg IVP Q6H PRN pain Zofran 4mg IVP Q6H PRN n/v Chronic Back Pain 2/2 scoliosis, and degenerative disk disease see pain control above. Morphine 4mg IVP Q6H PRN pain Lidocaine 5% cream Fibromyalgia Continue home Amitriptyline and Neurontin. Anxiety Xanax 0.5mg PO qD PRN 08/24 hgb drop from 11.8 to 9.6, likely dilutional will monitor hgb /7 Hypokalemia, repleted likely dilutional, no diarrhea, no vomiting, on LR @ 150cc/hr will continue to monitor Prophylaxis VTE therapy C/I 2/2 pancreatitis Hold pepcid SCDs Jenni Morales DO PGY1 discussed with Dr. Linares <Sree Linares - Last Filed: 08/25/17 17:33> Objective - Vital Signs/Intake and Output Vital Signs (last 24 hours): Temp Pulse Resp BP Pulse Ox 98.3 F 72 20 118/81 99 08/25/17 15:00 08/25/17 15:00 08/25/17 15:00 08/25/17 15:00 08/25/17 15:00 Intake and Output: 08/25/17 08/25/17 06:59 18:59 Intake Total 2410 1500 Balance 2410 1500 - Medications Medications: Current Medications Acetaminophen/Butalbital/Caffeine (Fioricet) 1 tab PO DAILY [facility] Last Admin: 08/25/17 10:24 Dose: 1 tab Alprazolam (Xanax) 0.5 mg PO DAILY PRN PRN Reason: Anxiety Amitriptyline HCl (Elavil) 25 mg PO HS [facility] Last Admin: 08/24/17 21:05 Dose: 25 mg Cyclobenzaprine HCl (Flexeril) 10 mg PO HS [facility] Last Admin: 08/24/17 21:05 Dose: 10 mg Gabapentin (Neurontin) 600 mg PO DAILY [facility] Last Admin: 08/25/17 10:24 Dose: 600 mg Lactated Ringer's (Lactated Ringer's) 1,000 mls @ 150 mls/hr IV .Q6H40M [facility] Last Admin: 08/25/17 10:31 Dose: 150 mls/hr Lidocaine (Lidocaine 5%) 1 gm TOP DAILY [facility] Last Admin: 08/25/17 10:36 Dose: 1 gm Morphine Sulfate (Morphine) 4 mg IVP Q6H PRN PRN Reason: Pain, severe (8-10) Last Admin: 08/25/17 14:04 Dose: 4 mg Ondansetron HCl (Zofran Inj) 4 mg IVP Q6H PRN PRN Reason: Nausea/Vomiting Pantoprazole Sodium (Protonix Ec Tab) 40 mg PO DAILY [facility] Last Admin: 08/25/17 10:24 Dose: 40 mg Potassium Chloride (K-Dur 20 Meq Er Tab) 20 meq PO DAILY [facility] Stop: 08/26/17 10:01 Last Admin: 08/25/17 10:24 Dose: 20 meq - Labs Labs: 08/25/17 07:35 08/25/17 07:35 Attending/Attestation - Attestation I have personally seen and examined this patient.: Yes I have fully participated in the care of the patient.: Yes I have reviewed all pertinent clinical information, including history, physical exam and plan: Yes Notes (Text): Seen and examined me today,Looks better today.Her pain is better and able to tolerate liquids D/W Resident Appreciate GI consult Continue protonix,liquid diet and home meds.may upgrade her diet as tolerated tomorrow I agree with the resident's documentation
[2017-08-25 07:56] LABS: BASO % 0.3 % (0.0-2.0); EOS # 0.4 K/uL (0.0-0.7); EOS % 4.6 % (0.0-4.0); LYMPH % 11.7 % (20.0-40.0); MEAN CELL VOLUME 91.9 fL (81.0-99.0); MEAN CORPUSCULAR HEMOGLOBIN 31.6 pg (27.0-31.0); MEAN CORPUSCULAR HGB CONC 34.3 g/dL (33.0-37.0); MEAN PLATELET VOLUME 7.4 fL (7.2-11.7); MONO # 0.6 K/uL (0.0-0.8); MONO % 6.9 % (0.0-10.0); NEUT # 6.3 K/uL (1.8-7.0); NEUT % 76.5 % (50.0-75.0); RBC 3.04 Mil/uL (3.80-5.20); RED CELL DISTRIBUTION WIDTH 14.7 % (11.5-14.5); WHITE BLOOD COUNT 8.2 K/uL (4.8-10.8)
[2017-08-25 08:01] LABS: ALB/GLOB RATIO 0.9 (1.0-2.1); ALBUMIN 2.5 g/dL (3.5-5.0); ALT/SGPT 16 U/L (9-52); AST/SGOT 23 U/L (14-36); BLOOD UREA NITROGEN 6 mg/dL (7-17); CALCIUM 8.4 mg/dl (8.6-10.4); GFR AFRICAN-AMERICAN > 60; GFR NON-AFRICAN AMERICAN > 60; HEMOGLOBIN 9.6 g/dL (11.0-16.0)
--- NOTE | 2017-08-25 08:52 | CP.PCM.CON ---
History of Present Illness - History of Present Illness History of Present Illness: Asked by hospitalist team for a GI consultation on this patient. 51 year old female with history of scoliosis, fibromyalgia, chronic lower back pain, obesity s/p gastric bypass surgery 11 years ago who presents to hospital with complaint of abdominal pain. She describes a progressive epigastric abdominal pain for the past 3 weeks which got worse over the past 2 days. She endorses a sharp 8/10 intensity epigastric pain which radiates to back and was initially associated with nausea and multiple episodes of non bloody emesis. She also reports an associated weight loss of nearly 20 pounds during this time period which she attributes to loss of appetite secondary to pain. She admits to ongoing NSAID use for relief of back pain. She denies fever/chills, melena. No prior endoscopic evaluation. She follows with a surgeon in [place], [place] who is apparently planning lower back surgery next month. Social history: no ETOH use, +smoker 1/4 ppd cigarettes Family history: reviewed, patient denies history of GI malignancy Review of Systems - Review of Systems Review of Systems: - All other comprehensive 12 point review of systems performed, negative - Constitutional Constitutional: Weight Loss - Cardiovascular Cardiovascular: absent: Acrocyanosis, Chest Pain, Chest Pain at Rest, Chest Pain with Activity, Claudication, Diaphoresis, Dyspnea, Dyspnea on Exertion, Edema, Irregular Heart Rhythm, Pain Radiating to Arm/Neck/Jaw, Leg Edema, Leg Ulcers, Lightheadedness, Orthopnea, Palpitations, Paroxysmal Nocturnal Dyspnea, Pedal Edema, Radiating Pain, Rapid Heart Rate, Slow Heart Rate, Syncope, Other - Respiratory Respiratory: absent: Cough, Dyspnea, Hemoptysis, Dyspnea on Exertion, Wheezing, Snoring, Stridor, Pain on Inspiration, Chest Congestion, Excessive Mucous Production, Change in Mucous Color, Pain with Coughing, Other - Gastrointestinal Gastrointestinal: Abdominal Pain, Nausea, Vomiting - Musculoskeletal Musculoskeletal: Back Pain - Neurological Neurological: absent: Abnormal Gait, Abnormal Hearing, Abnormal Movements, Abnormal Speech, Behavioral Changes, Burning Sensations, Confusion, Convulsions , Disequilibrium, Dizziness, Numbness, Focal Weakness, Frequent Falls, Headaches , Lack of Coordination, Loss of Vision, Memory Loss, Paresthesias, Radicular Pain, Restless Legs, Sensory Deficit, Syncope, Tingling, Tremor, Vertigo, Weakness, Other Visual Disturbances, Other Past Patient History - Past Medical History & Family History Past Medical History?: Yes - Past Social History Smoking Status: Current Some Days Smoker - CARDIAC Hx Cardiac Disorders: No - PULMONARY Hx Respiratory Disorders: No - NEUROLOGICAL HX Cerebrovascular Accident: Yes (TIA) - HEENT Hx HEENT Problems: No - RENAL Hx Chronic Kidney Disease: No - ENDOCRINE/METABOLIC Hx Endocrine Disorders: No - HEMATOLOGICAL/ONCOLOGICAL Hx Blood Disorders: No - INTEGUMENTARY Hx Dermatological Problems: No - MUSCULOSKELETAL/RHEUMATOLOGICAL Hx Fractures: Yes (Disc fx secondary t fall) - GASTROINTESTINAL Hx Gastrointestinal Disorders: No - GENITOURINARY/GYNECOLOGICAL Hx Genitourinary Disorders: No - PSYCHIATRIC Hx Substance Use: No - SURGICAL HISTORY Hx Surgeries: Yes Hx Orthopedic Surgery: Yes (Back surgery) Other/Comment: Back Surgery - ANESTHESIA Hx Anesthesia: Yes Hx Anesthesia Reactions: No Hx Malignant Hyperthermia: No Meds Allergies/Adverse Reactions: Allergies Allergy/AdvReac Type Severity Reaction Status Date / Time seafood Allergy Uncoded 08/23/17 11:54 - Medications Medications: Current Medications Acetaminophen/Butalbital/Caffeine (Fioricet) 1 tab PO DAILY [facility] Last Admin: 08/24/17 11:07 Dose: 1 tab Alprazolam (Xanax) 0.5 mg PO DAILY PRN PRN Reason: Anxiety Amitriptyline HCl (Elavil) 25 mg PO HS [facility] Last Admin: 08/24/17 21:05 Dose: 25 mg Cyclobenzaprine HCl (Flexeril) 10 mg PO HS [facility] Last Admin: 08/24/17 21:05 Dose: 10 mg Gabapentin (Neurontin) 600 mg PO DAILY [facility] Last Admin: 08/24/17 11:06 Dose: 600 mg Lactated Ringer's (Lactated Ringer's) 1,000 mls @ 150 mls/hr IV .Q6H40M [facility] Last Admin: 08/25/17 06:26 Dose: Not Given Lidocaine (Lidocaine 5%) 1 gm TOP DAILY [facility] Last Admin: 08/24/17 12:15 Dose: Not Given Morphine Sulfate (Morphine) 4 mg IVP Q6H PRN PRN Reason: Pain, severe (8-10) Last Admin: 08/25/17 07:16 Dose: 4 mg Ondansetron HCl (Zofran Inj) 4 mg IVP Q6H PRN PRN Reason: Nausea/Vomiting Physical Exam - Constitutional Appears: Non-toxic, No Acute Distress - Head Exam Head Exam: NORMAL INSPECTION - Eye Exam Eye Exam: EOMI, Normal appearance - ENT Exam ENT Exam: Mucous Membranes Moist - Respiratory Exam Respiratory Exam: Clear to Auscultation Bilateral - Cardiovascular Exam Cardiovascular Exam: +S1, +S2 - GI/Abdominal Exam GI & Abdominal Exam: Normal Bowel Sounds, Soft, Tenderness Additional comments: epigastric tenderness to palpation no palpable hepato/splenomegaly - Extremities Exam Extremities exam: Positive for: normal inspection - Back Exam Back exam: vertebral tenderness - Neurological Exam Neurological exam: Alert, CN II-XII Intact, Oriented x3, Reflexes Normal - Psychiatric Exam Psychiatric exam: Normal Affect, Normal Mood - Skin Skin Exam: Dry, Intact, Normal Color, Warm Results - Vital Signs Recent Vital Signs: Last Vital Signs Temp 97.9 F 08/25/17 08:09 Pulse 70 08/25/17 08:09 Resp 20 08/25/17 08:09 BP 97/61 L 08/25/17 08:09 Pulse Ox 98 08/25/17 08:09 - Labs Result Diagrams: 08/25/17 07:35 08/25/17 07:35 Labs: Laboratory Results - last 24 hr 08/24/17 08/25/17 08/25/17 05:59 07:35 07:35 WBC 8.2 RBC 3.04 L Hgb 9.6 L D Hct 27.9 L MCV 91.9 MCH 31.6 H MCHC 34.3 RDW 14.7 H Plt Count 422 H MPV 7.4 Neut % (Auto) 76.5 H Lymph % (Auto) 11.7 L Stokes % (Auto) 6.9 Eos % (Auto) 4.6 H Baso % (Auto) 0.3 Neut # (Auto) 6.3 Lymph # (Auto) 1.0 Stokes # (Auto) 0.6 Eos # (Auto) 0.4 Baso # (Auto) 0.0 Neutrophils % (Manual) 87 H Lymphocytes % (Manual) 4 L Monocytes % (Manual) 8 Eosinophils % (Manual) 1 Platelet Estimate Increased H Poikilocytosis (manual Slight Anisocytosis (manual) Slight Tear Drop Cells Slight Ovalocytes Slight Sodium 137 Potassium 3.2 L Chloride 104 Carbon Dioxide 24 Anion Gap 12 BUN 6 L Creatinine 0.5 L Est GFR ( Amer) > 60 Est GFR (Non-Af Amer) > 60 Random Glucose 43 L Calcium 8.4 L Phosphorus 2.6 Magnesium 1.7 Total Bilirubin 0.3 AST 23 ALT 16 Alkaline Phosphatase 104 Total Protein 5.3 L Albumin 2.5 L D Globulin 2.9 Albumin/Globulin Ratio 0.9 L Assessment & Plan - Assessment and Plan (Free Text) Assessment: Chronic lower back pain, scoliosis Fibromylagia Obesity s/p gastric bypass Abdominal pain - acute pancreatitis, etiology unclear though could be related to PUD given ongoing recent NSAID use CT and US imaging reviewed by me showing rosa isela-pancreatic edema, no evidence of cholelithiasis Plan: - Full liquid diet as tolerated - Begin once daily PPI therapy - Continue with IVF hydration, supportive care, pain control - Anti-emetic therapy PRN - Patient would benefit from dedicated pancreatic CT imaging a few weeks following resolution of acute symptoms - NSAID avoidance - Patient would also benefit from outpatient elective GI endoscopic follow up. Will continue to monitor patient clinical course.
[2017-08-25] MEDS: Potassium Chloride 20 mEq ER Tab PO SCH (10:24)
[2017-08-25] MEDS: Pantoprazole 40 mg EC Tab PO SCH (10:24)
[2017-08-25] MEDS: Apap-Butalbital-Caffeine 325-50-40mg Tab PO SCH (10:24)
[2017-08-25] MEDS: Lidocaine 5% Oint(35 gm) TOP SCH (10:36)
[2017-08-26] MEDS: Lactated Ringer's 1,000 ML IV SCH ×4 (00:33→12:25)
[2017-08-26] MEDS: Morphine 4 MG/ML VIAL IVP PRN ×3 (02:45→16:11)
[2017-08-26 07:19] LABS: BASO % 0.6 % (0.0-2.0); EOS # 0.4 K/uL (0.0-0.7); EOS % 5.6 % (0.0-4.0); HEMOGLOBIN 9.6 g/dL (11.0-16.0); LYMPH # 1.3 K/uL (1.0-4.3); LYMPH % 19.1 % (20.0-40.0); MEAN CELL VOLUME 92.4 fL (81.0-99.0); MEAN CORPUSCULAR HEMOGLOBIN 31.5 pg (27.0-31.0); MEAN CORPUSCULAR HGB CONC 34.1 g/dL (33.0-37.0); MEAN PLATELET VOLUME 7.9 fL (7.2-11.7); MONO # 0.5 K/uL (0.0-0.8); MONO % 7.1 % (0.0-10.0); NEUT # 4.6 K/uL (1.8-7.0); NEUT % 67.6 % (50.0-75.0); RBC 3.04 Mil/uL (3.80-5.20); RED CELL DISTRIBUTION WIDTH 14.6 % (11.5-14.5); WHITE BLOOD COUNT 6.8 K/uL (4.8-10.8)
[2017-08-26 07:47] LABS: ALB/GLOB RATIO 0.8 (1.0-2.1); ALBUMIN 2.4 g/dL (3.5-5.0); ALT/SGPT 26 U/L (9-52); AST/SGOT 23 U/L (14-36); BLOOD UREA NITROGEN 6 mg/dL (7-17); CALCIUM 8.8 mg/dl (8.6-10.4); GFR AFRICAN-AMERICAN > 60; GFR NON-AFRICAN AMERICAN > 60
[2017-08-26] MEDS: Potassium Chloride 20 mEq ER Tab PO SCH (09:03)
[2017-08-26] MEDS: Pantoprazole 40 mg EC Tab PO SCH (09:03)
--- NOTE | 2017-08-26 10:26 | CP.PCM.PN ---
Objective - Vital Signs/Intake and Output Vital Signs (last 24 hours): Temp Pulse Resp BP Pulse Ox 98 F 73 20 100/62 100 08/26/17 07:48 08/26/17 07:48 08/26/17 07:48 08/26/17 07:48 08/26/17 07:48 Intake and Output: 08/26/17 08/26/17 06:59 18:59 Intake Total 2940 Balance 2940 - Medications Medications: Current Medications Acetaminophen/Butalbital/Caffeine (Fioricet) 1 tab PO DAILY [facility] Last Admin: 08/25/17 10:24 Dose: 1 tab Alprazolam (Xanax) 0.5 mg PO DAILY PRN PRN Reason: Anxiety Amitriptyline HCl (Elavil) 25 mg PO HS [facility] Last Admin: 08/25/17 21:20 Dose: 25 mg Cyclobenzaprine HCl (Flexeril) 10 mg PO HS [facility] Last Admin: 08/25/17 21:20 Dose: 10 mg Gabapentin (Neurontin) 600 mg PO DAILY [facility] Last Admin: 08/26/17 09:03 Dose: 600 mg Lactated Ringer's (Lactated Ringer's) 1,000 mls @ 150 mls/hr IV .Q6H40M [facility] Last Admin: 08/26/17 07:36 Dose: 150 mls/hr Lidocaine (Lidocaine 5%) 1 gm TOP DAILY [facility] Last Admin: 08/25/17 10:36 Dose: 1 gm Morphine Sulfate (Morphine) 4 mg IVP Q6H PRN PRN Reason: Pain, severe (8-10) Last Admin: 08/26/17 09:03 Dose: 4 mg Ondansetron HCl (Zofran Inj) 4 mg IVP Q6H PRN PRN Reason: Nausea/Vomiting Pantoprazole Sodium (Protonix Ec Tab) 40 mg PO DAILY [facility] Last Admin: 08/26/17 09:03 Dose: 40 mg - Labs Labs: 08/26/17 06:59 08/26/17 06:59 Assessment and Plan - Assessment and Plan (Free Text) Assessment: 51F with pasta medical history of scoliosis, degenerative disc disease and fibromyalgia presents with abdominal pain worsening for the past 3 weeks with vomiting beginning the second week, worsens with food and lying back. Her neurosurgeon stated her curvature has been compressing her stomach. There is plan for spinal surgery next month. Patient was found to have pancreatitis on CT abdomen/pelvis. Acute Pancreatitis Social history: daily communion with wine (small sip - 2 tsp), no alcohol history. 08/24 Diet: NPO except meds, sips and ice chips as tolerated. 08/25 Diet: liquid diet Lactated ringers at 150cc/hr Labs: 08/23 Lipase 3799 08/24 Lipase: 18548 Alphonso's criteria 1% (1 point due to >10% dec in Hct within 48 hrs) 08/24 LDH <350 (see above for Alphonso's Criteria score) Imaging: CT abd pelvis - fatty hepatic infiltrate; suspected acute pancreatitis, stomach post op changes (gastric bypass 2007). CXR negative for active disease EKG no acute changes, no ST changes, 92bpm. follow up official read. Abdominal US: no gallstones, gallbladder wall thickness, common bile duct dilatation. f/u FLP and AM labs 08/24 GI Consult: Dr. Potts per Dr. Mukherjee: begin once daily PPI therapy, NSAID avoidance, outpatient elective GI endoscopic follow up, dedicated pancreatic CT imaging a few weeks following resolution of acute symptoms Morphine 4mg IVP Q6H PRN pain Zofran 4mg IVP Q6H PRN n/v Chronic Back Pain 2/2 scoliosis, and degenerative disk disease see pain control above. Morphine 4mg IVP Q6H PRN pain Lidocaine 5% cream Fibromyalgia Continue home Amitriptyline and Neurontin. Anxiety Xanax 0.5mg PO qD PRN 08/24 hgb drop from 11.8 to 9.6, likely dilutional will monitor hgb /7 Hypokalemia, repleted likely dilutional, no diarrhea, no vomiting, on LR @ 150cc/hr will continue to monitor Prophylaxis VTE therapy C/I 2/2 pancreatitis Hold pepcid SCDs Jenni Morales DO PGY1 discussed with Dr. Linares
--- NOTE | 2017-08-26 10:36 | CP.PCM.DIS ---
Addendum entered and electronically signed by Jenni Morales DO 08/26/17 16:29: addendum Patient discharged with instructions to: follow up with primary care doctor continue taking PPI, avoid NSAID take Zofran as needed for nausea follow up with GI doctor for CT scan of pancreas, endoscopy and further evaluation and treatment as well as EUS in one month. Patient advised to eat softer diet initially at home and slowly advance to regular diet keeping a higher fiber diet for her constipation. Patient to return to Emergency room if abdominal pain, nausea, vomiting, extreme abdominal pain. Original Note: <Jenni Morales - Last Filed: 08/26/17 15:50> Provider - Provider Date of Admission: 08/23/17 15:10 Attending physician: Sree Linares MD Consults: GI Dr. Katlyn Mukherjee Time Spent in preparation of Discharge (in minutes): 35 Diagnosis - Discharge Diagnosis (1) Pancreatitis Status: Resolved Comment: resolving. no abdominal pain 08/26 Hospital Course - Lab Results Lab Results: Most Recent Lab Values WBC 6.8 K/uL (4.8-10.8) 08/26/17 06:59 RBC 3.04 Mil/uL (3.80-5.20) L 08/26/17 06:59 Hgb 9.6 g/dL (11.0-16.0) L 08/26/17 06:59 Hct 28.0 % (34.0-47.0) L 08/26/17 06:59 MCV 92.4 fL (81.0-99.0) 08/26/17 06:59 MCH 31.5 pg (27.0-31.0) H 08/26/17 06:59 MCHC 34.1 g/dL (33.0-37.0) 08/26/17 06:59 RDW 14.6 % (11.5-14.5) H 08/26/17 06:59 Plt Count 419 K/uL (130-400) H 08/26/17 06:59 MPV 7.9 fL (7.2-11.7) 08/26/17 06:59 Neut % (Auto) 67.6 % (50.0-75.0) 08/26/17 06:59 Lymph % (Auto) 19.1 % (20.0-40.0) L 08/26/17 06:59 [place] % (Auto) 7.1 % (0.0-10.0) 08/26/17 06:59 Eos % (Auto) 5.6 % (0.0-4.0) H 08/26/17 06:59 Baso % (Auto) 0.6 % (0.0-2.0) 08/26/17 06:59 Neut # (Auto) 4.6 K/uL (1.8-7.0) 08/26/17 06:59 Lymph # (Auto) 1.3 K/uL (1.0-4.3) 08/26/17 06:59 [place] # (Auto) 0.5 K/uL (0.0-0.8) 08/26/17 06:59 Eos # (Auto) 0.4 K/uL (0.0-0.7) 08/26/17 06:59 Baso # (Auto) 0.0 K/uL (0.0-0.2) 08/26/17 06:59 Neutrophils % (Manual) 87 % (50-75) H 08/24/17 05:59 Lymphocytes % (Manual) 4 % (20-40) L 08/24/17 05:59 Monocytes % (Manual) 8 % (0-10) 08/24/17 05:59 Eosinophils % (Manual) 1 % (0-4) 08/24/17 05:59 Platelet Estimate Increased (NORMAL) H 08/24/17 05:59 Poikilocytosis (manual Slight 08/24/17 05:59 Anisocytosis (manual) Slight 08/24/17 05:59 Tear Drop Cells Slight 08/24/17 05:59 Ovalocytes Slight 08/24/17 05:59 Sodium 141 mmol/L (132-148) 08/26/17 06:59 Potassium 4.0 mmol/L (3.6-5.2) 08/26/17 06:59 Chloride 104 mmol/L (98-107) 08/26/17 06:59 Carbon Dioxide 31 mmol/L (22-30) H 08/26/17 06:59 Anion Gap 10 (10-20) 08/26/17 06:59 BUN 6 mg/dL (7-17) L 05/09/18 06:59 Creatinine 0.5 mg/dL (0.7-1.2) L 08/26/17 06:59 Est GFR ( Amer) > 60 05 06:59 Est GFR (Non-Af Amer) > 60 08/26/17 06:59 Random Glucose 77 mg/dL (65-105) 08/26/17 06:59 Hemoglobin A1c 5.1 % (4.2-6.5) 08/24/17 05:59 Calcium 8.8 mg/dl (8.6-10.4) 08/26/17 06:59 Phosphorus 2.8 mg/dL (2.5-4.5) 08/26/17 06:59 Magnesium 1.7 mg/dL (1.6-2.3) 08/26/17 06:59 Total Bilirubin 0.6 mg/dL (0.2-1.3) 08/26/17 06:59 AST 23 U/L (14-36) 08/26/17 06:59 ALT 26 U/L (9-52) 08/26/17 06:59 Alkaline Phosphatase 104 U/L (38-126) 08/26/17 06:59 Lactate Dehydrogenase 334 U/L (313-618) 08/24/17 05:59 Troponin I < 0.0120 ng/mL (0.00-0.120) 08/23/17 12:59 Total Protein 5.4 g/dL (6.3-8.3) L 08/26/17 06:59 Albumin 2.4 g/dL (3.5-5.0) L 08/26/17 06:59 Globulin 2.9 gm/dL (2.2-3.9) 08/26/17 06:59 Albumin/Globulin Ratio 0.8 (1.0-2.1) L 08/26/17 06:59 Triglycerides 114 mg/dL (0-149) 08/24/17 05:59 Cholesterol 198 mg/dL (0-199) 08/24/17 05:59 LDL Cholesterol Direct 94 mg/dL (0-129) 08/24/17 05:59 HDL Cholesterol 64 mg/dL (30-70) 08/24/17 05:59 Lipase 2793 U/L (23-300) H 08/24/17 05:59 Free T4 1.17 ng/dL (0.78-2.19) 08/24/17 05:59 TSH 3rd Generation 0.62 mIU/L (0.46-4.68) 08/24/17 05:59 Urine Color Yellow (YELLOW) 08/23/17 15:36 Urine Clarity Clear (Clear) 08/23/17 15:36 Urine pH 5.0 (5.0-8.0) 08/23/17 15:36 Ur Specific [place] 1.047 (1.003-1.030) H 08/23/17 15:36 Urine Protein 1+ mg/dL (NEGATIVE) H 08/23/17 15:36 Urine Glucose (UA) Normal mg/dL (Normal) 08/23/17 15:36 Urine Ketones 2+ mg/dL (NEGATIVE) H 08/23/17 15:36 Urine Blood Negative (NEGATIVE) 08/23/17 15:36 Urine Nitrate Negative (NEGATIVE) 08/23/17 15:36 Urine Bilirubin Negative (NEGATIVE) 08/23/17 15:36 Urine Urobilinogen Normal mg/dL (0.2-1.0) 08/23/17 15:36 Ur Leukocyte Esterase Neg Rbayan/uL (Negative) 08/23/17 15:36 Urine WBC (Auto) 2 /hpf (0-5) 08/23/17 15:36 Urine RBC (Auto) 2 /hpf (0-3) 08/23/17 15:36 Ur Squamous Epith Cells 3 /hpf (0-5) 08/23/17 15:36 - Hospital Course Hospital Course: Hospital Stay Patient was treated for pancreatitis with LR @150cc/hr. Patient's diet was advanced as tolerated. Patient seen by GI consult, who recommended to follow up outpatient for endoscopy. Patient states she feels much better on day of discharge. Patient denies abdominal pain and admits to . Patient denied fever , chills, nausea, vomiting. Diarrhea. Patient discharged with instructions to: follow up with primary care doctor avoid NSAID take PPI follow up with GI doctor for endoscopy and further evaluation and treatment as well as EUS in one month. Patient advised to eat softer diet initially at home and slowly advance to regular diet keeping a higher fiber diet for her constipation. Patient to return to Emergency room if abdominal pain, nausea, vomiting, extreme abdominal pain. Discharge Medications: PPI Zofran continue home medications try to avoid taking percocet as necessary because of increased risk of constipation - Date & Time of H&P Date of H&P: 08/26/17 Time of H&P: 12:42 Discharge Exam - Head Exam Head Exam: NORMAL INSPECTION, NORMOCEPHALIC Discharge Plan - Discharge Medications Prescriptions: Ondansetron HCl [Zofran] 4 mg PO Q6H #20 tablet Pantoprazole [Protonix EC Tab] 40 mg PO DAILY #30 ect - Follow Up Plan Condition: FAIR Disposition: OTHER INSTITUTION Instructions: Pancreatitis (DC) Additional Instructions: Patient discharged with instructions to: follow up with primary care doctor continue taking PPI, avoid NSAID take Zofran as needed for nausea follow up with GI doctor for CT scan of pancreas, endoscopy and further evaluation and treatment as well as EUS in one month. Patient advised to eat softer diet initially at home and slowly advance to regular diet keeping a higher fiber diet for her constipation. Patient to return to Emergency room if abdominal pain, nausea, vomiting, extreme abdominal pain. Referrals: Jesus Potts MD [Staff Provider] - <Sree Linares - Last Filed: 08/26/17 16:44> Provider - Provider Date of Admission: 08/23/17 15:10 Attending physician: Sree Lianres MD Hospital Course - Lab Results Lab Results: Most Recent Lab Values WBC 6.8 K/uL (4.8-10.8) 08/26/17 06:59 RBC 3.04 Mil/uL (3.80-5.20) L 08/26/17 06:59 Hgb 9.6 g/dL (11.0-16.0) L 08/26/17 06:59 Hct 28.0 % (34.0-47.0) L 08/26/17 06:59 MCV 92.4 fL (81.0-99.0) 08/26/17 06:59 MCH 31.5 pg (27.0-31.0) H 08/26/17 06:59 MCHC 34.1 g/dL (33.0-37.0) 08/26/17 06:59 RDW 14.6 % (11.5-14.5) H 08/26/17 06:59 Plt Count 419 K/uL (130-400) H 08/26/17 06:59 MPV 7.9 fL (7.2-11.7) 08/26/17 06:59 Neut % (Auto) 67.6 % (50.0-75.0) 08/26/17 06:59 Lymph % (Auto) 19.1 % (20.0-40.0) L 08/26/17 06:59 [place] % (Auto) 7.1 % (0.0-10.0) 08/26/17 06:59 Eos % (Auto) 5.6 % (0.0-4.0) H 08/26/17 06:59 Baso % (Auto) 0.6 % (0.0-2.0) 08/26/17 06:59 Neut # (Auto) 4.6 K/uL (1.8-7.0) 08/26/17 06:59 Lymph # (Auto) 1.3 K/uL (1.0-4.3) 08/26/17 06:59 [place] # (Auto) 0.5 K/uL (0.0-0.8) 08/26/17 06:59 Eos # (Auto) 0.4 K/uL (0.0-0.7) 08/26/17 06:59 Baso # (Auto) 0.0 K/uL (0.0-0.2) 08/26/17 06:59 Neutrophils % (Manual) 87 % (50-75) H 08/24/17 05:59 Lymphocytes % (Manual) 4 % (20-40) L 08/24/17 05:59 Monocytes % (Manual) 8 % (0-10) 08/24/17 05:59 Eosinophils % (Manual) 1 % (0-4) 08/24/17 05:59 Platelet Estimate Increased (NORMAL) H 08/24/17 05:59 Poikilocytosis (manual Slight 08/24/17 05:59 Anisocytosis (manual) Slight 08/24/17 05:59 Tear Drop Cells Slight 08/24/17 05:59 Ovalocytes Slight 08/24/17 05:59 Sodium 141 mmol/L (132-148) 08/26/17 06:59 Potassium 4.0 mmol/L (3.6-5.2) 08/26/17 06:59 Chloride 104 mmol/L (98-107) 08/26/17 06:59 Carbon Dioxide 31 mmol/L (22-30) H 08/26/17 06:59 Anion Gap 10 (10-20) 08/26/17 06:59 BUN 6 mg/dL (7-17) L 08/26/17 06:59 Creatinine 0.5 mg/dL (0.7-1.2) L 08/26/17 06:59 Est GFR ( Amer) > 60 05 06:59 Est GFR (Non-Af Amer) > 60 08/26/17 06:59 Random Glucose 77 mg/dL (65-105) 08/26/17 06:59 Hemoglobin A1c 5.1 % (4.2-6.5) 08/24/17 05:59 Calcium 8.8 mg/dl (8.6-10.4) 08/26/17 06:59 Phosphorus 2.8 mg/dL (2.5-4.5) 08/26/17 06:59 Magnesium 1.7 mg/dL (1.6-2.3) 08/26/17 06:59 Total Bilirubin 0.6 mg/dL (0.2-1.3) 08/26/17 06:59 AST 23 U/L (14-36) 08/26/17 06:59 ALT 26 U/L (9-52) 08/26/17 06:59 Alkaline Phosphatase 104 U/L (38-126) 08/26/17 06:59 Lactate Dehydrogenase 334 U/L (313-618) 08/24/17 05:59 Troponin I < 0.0120 ng/mL (0.00-0.120) 08/23/17 12:59 Total Protein 5.4 g/dL (6.3-8.3) L 08/26/17 06:59 Albumin 2.4 g/dL (3.5-5.0) L 08/26/17 06:59 Globulin 2.9 gm/dL (2.2-3.9) 08/26/17 06:59 Albumin/Globulin Ratio 0.8 (1.0-2.1) L 08/26/17 06:59 Triglycerides 114 mg/dL (0-149) 08/24/17 05:59 Cholesterol 198 mg/dL (0-199) 08/24/17 05:59 LDL Cholesterol Direct 94 mg/dL (0-129) 08/24/17 05:59 HDL Cholesterol 64 mg/dL (30-70) 08/24/17 05:59 Lipase 2793 U/L (23-300) H 08/24/17 05:59 Free T4 1.17 ng/dL (0.78-2.19) 08/24/17 05:59 TSH 3rd Generation 0.62 mIU/L (0.46-4.68) 08/24/17 05:59 Urine Color Yellow (YELLOW) 08/23/17 15:36 Urine Clarity Clear (Clear) 08/23/17 15:36 Urine pH 5.0 (5.0-8.0) 08/23/17 15:36 Ur Specific [place] 1.047 (1.003-1.030) H 08/23/17 15:36 Urine Protein 1+ mg/dL (NEGATIVE) H 08/23/17 15:36 Urine Glucose (UA) Normal mg/dL (Normal) 08/23/17 15:36 Urine Ketones 2+ mg/dL (NEGATIVE) H 08/23/17 15:36 Urine Blood Negative (NEGATIVE) 08/23/17 15:36 Urine Nitrate Negative (NEGATIVE) 08/23/17 15:36 Urine Bilirubin Negative (NEGATIVE) 08/23/17 15:36 Urine Urobilinogen Normal mg/dL (0.2-1.0) 08/23/17 15:36 Ur Leukocyte Esterase Neg Brayan/uL (Negative) 08/23/17 15:36 Urine WBC (Auto) 2 /hpf (0-5) 08/23/17 15:36 Urine RBC (Auto) 2 /hpf (0-3) 08/23/17 15:36 Ur Squamous Epith Cells 3 /hpf (0-5) 08/23/17 15:36 Attending/Attestation - Attestation I have personally seen and examined this patient.: Yes I have fully participated in the care of the patient.: Yes I have reviewed all pertinent clinical information, including history, physical exam and plan: Yes Notes (Text): Seen and examined this morning. No pain,doing better. Tolerating liquids. Tolerating full diet Discharge plan discussed with the resident.
[2017-08-26] MEDS: Apap-Butalbital-Caffeine 325-50-40mg Tab PO SCH (12:23)
--- NOTE | 2017-08-26 12:28 | CP.PCM.PN ---
<oNe Gunter - Last Filed: 08/26/17 12:28> Subjective - Date & Time of Evaluation Date of Evaluation: 08/26/17 Time of Evaluation: 09:15 - Subjective Subjective: PGY4 GI follow-up Pt seen and examined bedside Denies any abd pain Tolerated diet yesterday + BM ROS: 12 point ROS conducted, neg other than above Objective - Vital Signs/Intake and Output Vital Signs (last 24 hours): Temp Pulse Resp BP Pulse Ox 98 F 73 20 100/62 100 08/26/17 07:48 08/26/17 07:48 08/26/17 07:48 08/26/17 07:48 08/26/17 07:48 Intake and Output: 08/26/17 08/26/17 06:59 18:59 Intake Total 2940 Balance 2940 - Medications Medications: Current Medications Acetaminophen/Butalbital/Caffeine (Fioricet) 1 tab PO DAILY [facility] Last Admin: 08/26/17 12:23 Dose: 1 tab Alprazolam (Xanax) 0.5 mg PO DAILY PRN PRN Reason: Anxiety Amitriptyline HCl (Elavil) 25 mg PO HS [facility] Last Admin: 08/25/17 21:20 Dose: 25 mg Cyclobenzaprine HCl (Flexeril) 10 mg PO HS [facility] Last Admin: 08/25/17 21:20 Dose: 10 mg Gabapentin (Neurontin) 600 mg PO DAILY [facility] Last Admin: 08/26/17 09:03 Dose: 600 mg Lactated Ringer's (Lactated Ringer's) 1,000 mls @ 150 mls/hr IV .Q6H40M [facility] Last Admin: 08/26/17 12:25 Dose: Not Given Lidocaine (Lidocaine 5%) 1 gm TOP DAILY [facility] Last Admin: 08/25/17 10:36 Dose: 1 gm Morphine Sulfate (Morphine) 4 mg IVP Q6H PRN PRN Reason: Pain, severe (8-10) Last Admin: 08/26/17 09:03 Dose: 4 mg Ondansetron HCl (Zofran Inj) 4 mg IVP Q6H PRN PRN Reason: Nausea/Vomiting Pantoprazole Sodium (Protonix Ec Tab) 40 mg PO DAILY [facility] Last Admin: 08/26/17 09:03 Dose: 40 mg - Labs Labs: 08/26/17 06:59 08/26/17 06:59 - Constitutional Appears: Well, No Acute Distress - Head Exam Head Exam: ATRAUMATIC, NORMOCEPHALIC - Eye Exam Eye Exam: Normal appearance - ENT Exam ENT Exam: Mucous Membranes Moist - Neck Exam Neck Exam: Normal Inspection - Respiratory Exam Respiratory Exam: Clear to Ausculation Bilateral, NORMAL BREATHING PATTERN. absent: Rales, Rhonchi, Wheezes, Respiratory Distress - Cardiovascular Exam Cardiovascular Exam: REGULAR RHYTHM, +S1, +S2 - GI/Abdominal Exam GI & Abdominal Exam: Soft, Normal Bowel Sounds. absent: Distended, Firm, Guarding, Rigid, Tenderness, Organomegaly, Rebound - Extremities Exam Extremities Exam: absent: Joint Swelling, Pedal Edema - Neurological Exam Neurological Exam: Alert, Awake, Oriented x3 - Skin Skin Exam: Dry, Intact, Normal Color, Warm Assessment and Plan - Assessment and Plan (Free Text) Assessment: acute pancreatitis, etiology unknown, idiopathic Chronic lower back pain, scoliosis Fibromylagia Obesity s/p gastric bypass CT and US imaging reviewed by me showing rosa isela-pancreatic edema, no evidence of cholelithiasis Plan: - advance diet as tolerated - continue once daily PPI therapy - Continue with IVF hydration, supportive care, pain control - Anti-emetic therapy PRN - recommend outpt EUS w/ Dr. Potts as oupt in 1 month - NSAID avoidance - Patient would also benefit from outpatient elective GI endoscopic follow up. D/W Dr. potts <Jesus Potts - Last Filed: 08/26/17 14:03> Objective - Vital Signs/Intake and Output Vital Signs (last 24 hours): Temp Pulse Resp BP Pulse Ox 98 F 73 20 100/62 100 08/26/17 07:48 08/26/17 07:48 08/26/17 07:48 08/26/17 07:48 08/26/17 07:48 Intake and Output: 08/26/17 08/26/17 06:59 18:59 Intake Total 2940 Balance 2940 - Medications Medications: Current Medications Acetaminophen/Butalbital/Caffeine (Fioricet) 1 tab PO DAILY [facility] Last Admin: 08/26/17 12:23 Dose: 1 tab Alprazolam (Xanax) 0.5 mg PO DAILY PRN PRN Reason: Anxiety Amitriptyline HCl (Elavil) 25 mg PO HS [facility] Last Admin: 08/25/17 21:20 Dose: 25 mg Cyclobenzaprine HCl (Flexeril) 10 mg PO HS [facility] Last Admin: 08/25/17 21:20 Dose: 10 mg Gabapentin (Neurontin) 600 mg PO DAILY [facility] Last Admin: 08/26/17 09:03 Dose: 600 mg Lactated Ringer's (Lactated Ringer's) 1,000 mls @ 150 mls/hr IV .Q6H40M [facility] Last Admin: 08/26/17 12:25 Dose: Not Given Lidocaine (Lidocaine 5%) 1 gm TOP DAILY [facility] Last Admin: 08/26/17 12:50 Dose: 1 gm Morphine Sulfate (Morphine) 4 mg IVP Q6H PRN PRN Reason: Pain, severe (8-10) Last Admin: 08/26/17 09:03 Dose: 4 mg Ondansetron HCl (Zofran Inj) 4 mg IVP Q6H PRN PRN Reason: Nausea/Vomiting Pantoprazole Sodium (Protonix Ec Tab) 40 mg PO DAILY [facility] Last Admin: 08/26/17 09:03 Dose: 40 mg - Labs Labs: 08/26/17 06:59 08/26/17 06:59 Attending/Attestation - Attestation I have personally seen and examined this patient.: Yes I have fully participated in the care of the patient.: Yes I have reviewed all pertinent clinical information, including history, physical exam and plan: Yes Notes (Text): 08/26/17 14:03 51 year old female with acute pancreatitis of uncertain etiology. Resolved/ mild. Low fat diet. Ok for discharge. Outpatient EUS in 4 weeks.
[2017-08-26] MEDS: Lidocaine 5% Oint(35 gm) TOP SCH (12:50)
[2017-08-26 16:54] VITALS: BP 109/69; PULSE 80; TEMP 98.7; O2SAT 97
== END 2017-08-26 20:45 | disposition home or self-care (01) | DRG 204 ==
LOC: C.ER 11:43 → C.9E 15:10 → C.3T 15:29
PROVIDERS: ADMIT Hospitalist; ATTEND Internal Medicine
DX: K85.90 Acute pancreatitis without necrosis or infection, unspecified (principal); K27.9 Peptic ulcer, site unspecified, unspecified as acute or chronic, without hemorrhage or perforation; F41.9 Anxiety disorder, unspecified; K59.00 Constipation, unspecified; M41.9 Scoliosis, unspecified; M79.7 Fibromyalgia; Z86.73 Personal history of transient ischemic attack (TIA), and cerebral infarction without residual deficits; Z98.84 Bariatric surgery status; M51.36 Other intervertebral disc degeneration, lumbar region; F17.210 Nicotine dependence, cigarettes, uncomplicated

== ENCOUNTER 2017-10-23 14:45 | Emergency (ER) | payer MEDICAID ==
[2017-10-23 14:50] VITALS: BMI 14.8
--- NOTE | 2017-10-23 16:15 | C.PDOC ---
History Of Present Illness 51 y/o female with history of Stroke, Scoliosis, Kyphosis and Fibromyalgia presents to ED with c/o dizziness, slurring speech and falling asleep after obtaining monthly medication of oxycodone. Patient takes oxycodone 30mg daily for pain and states this month when she took medication although label had same dose, symptoms developed. Patient states she is pending Spinal surgery and is concern she is having a stroke since she has hx of prior stroke. . Patient denies headache, nausea, vomiting, fever or any other complaints at this time. Time Seen by Provider: 10/23/17 15:05 Chief Complaint (Nursing): Weakness/Neurological Deficit History Per: Patient History/Exam Limitations: no limitations Onset/Duration Of Symptoms: Days Current Symptoms Are (Timing): Still Present Past Medical History Reviewed: Historical Data, Nursing Documentation, Vital Signs Vital Signs: Last Vital Signs Temp 98.0 F 10/23/17 14:53 Pulse 81 10/23/17 14:53 Resp 16 10/23/17 14:53 BP 118/81 10/23/17 14:53 Pulse Ox 97 10/23/17 16:42 - Medical History PMH: Back Problems, Fibromyalgia, Fractures (Disc fx secondary t fall) Surgical History: No Surg Hx - [facility] IMPLANT OR REPLACEMENT OF SPINAL NEUROSTIMULATOR LEAD(S) (07/10/14) Family History: States: No Known Family Hx - Social History Hx Tobacco Use: Yes Hx Alcohol Use: Yes Hx Substance Use: No - Immunization History Hx Tetanus Toxoid Vaccination: No Hx Influenza Vaccination: No Hx Pneumococcal Vaccination: No Review Of Systems Constitutional: Negative for: Fever, Chills Gastrointestinal: Negative for: Nausea, Vomiting Neurological: Positive for: Weakness, Change in Speech, Dizziness. Negative for : Headache Physical Exam - Physical Exam Appears: Other (pettite, frail and thin. Severe spinal deformity) Skin: Warm, Dry, No Rash Head: Atraumatic Eye(s): bilateral: Normal Inspection Oral Mucosa: Moist Neck: Normal ROM, Supple Cardiovascular: Rhythm Regular Respiratory: Normal Breath Sounds, No Rales, No Rhonchi, No Wheezing Gastrointestinal/Abdominal: Soft, No Tenderness, No Guarding, No Rebound Extremity: No Pedal Edema, Capillary Refill (<2 seconds), Other (weakness to lower extremities) Neurological/Psych: Oriented x3, Normal Speech, Normal Cognition, Normal Motor, Normal Sensation ED Course And Treatment O2 Sat by Pulse Oximetry: 97 (RA) Pulse Ox Interpretation: Normal Medical Decision Making Medical Decision Making: Progress: Looked at HOSTESS HOST Aware, patient medication is unchanged from last month. Patient's main concern was to determine if her symptoms were from her medication or from stroke. CT head unremarcable. Patient will be discharged. Disposition Counseled Patient/Family Regarding: Diagnosis, Need For Followup - Disposition Disposition: HOME/ ROUTINE Disposition Time: 17:45 Condition: STABLE Instructions: Chronic Pain (DC) Forms: [facility] ([place] Islander), General Discharge Instructions - Clinical Impression Clinical Impression: Chronic pain - Scribe Statement The provider has reviewed the documentation as recorded by the Feliibnico Monzon All medical record entries made by the Feliibnico were at my direction and personally dictated by me. I have reviewed the chart and agree that the record accurately reflects my personal performance of the history, physical exam, medical decision making, and the department course for this patient. I have also personally directed, reviewed, and agree with the discharge instructions and disposition.
--- NOTE | 2017-10-23 16:35 | CT ---
PROCEDURE: CT HEAD WITHOUT CONTRAST. HISTORY: Slurred speech COMPARISON: Comparison made with CT scan of the brain 07/30/2014. TECHNIQUE: Contiguous helical/ transaxial sections were obtained through the head/brain without intravenous contrast. Radiation dose: Total exam DLP = 873.67 mGy-cm. This CT exam was performed using one or more of the following dose reduction techniques: Automated exposure control, adjustment of the mA and/or kV according to patient size, and/or use of iterative reconstruction technique. FINDINGS: HEMORRHAGE: No acute parenchymal, subarachnoid nor extra-axial hemorrhage. BRAIN: No evidence of large acute infarct however note that the possibility of a small hyperacute infarct cannot be exclude on this study. Note again made of a small round/elliptical shaped extra-axial calcification which appears contiguous with the the inner table left posterior temporal region. This could represent a small exostosis or or osteoma. Is not felt to represent a meningioma. Ventricular and sulcal size are within range normal for this patient's stated age. Minimal vascular calcifications both carotid siphons and left vertebral artery VENTRICLES: No obstructive hydrocephalus. CALVARIUM: There are no acute calvarial fractures. PARANASAL SINUSES: Unremarkable as visualized. No significant inflammatory changes. MASTOID AIR CELLS: Unremarkable as visualized. No inflammatory changes. OTHER FINDINGS: None. IMPRESSION: No acute intracranial hemorrhage or large acute infarcts seen. Note possibility of a small hyperacute infarct cannot be excluded clinical correlation recommended
[2017-10-23 18:03] VITALS: BP 119/81; PULSE 101; RESP 18; TEMP 97.8; O2SAT 96
== END 2017-10-23 18:18 | disposition home or self-care (01) ==
LOC: C.ER 14:45
DX: G89.29 Other chronic pain (principal)

== ENCOUNTER 2017-11-03 20:12 | Inpatient (IN) | payer MEDICAID ==
[2017-11-03 20:12] VITALS: BMI 14.8
[2017-11-03] MEDS ORDERED: Sodium Chloride 0.9% 500 ML IV ONE ×2 (20:29→20:47)
[2017-11-03] MEDS ORDERED: Sodium Chloride 0.9% 1,000 ML IV ONE ×2 (20:30→22:29)
--- NOTE | 2017-11-03 20:33 | C.PDOC ---
History Of Present Illness 51 year old female presents to the ER with a complaint of weakness for the past few days. Patient has not eaten in the past 2 days. Patient has a Hx of MS and chronic back pain. Denies fever or chills. Chief Complaint (Nursing): Weakness/Neurological Deficit History Per: Patient History/Exam Limitations: no limitations Onset/Duration Of Symptoms: Days Current Symptoms Are (Timing): Still Present Seizure Or Post-ictal Symptoms: None Fall Associated With With Symptoms: No Recent travel outside of the [place]: No Past Medical History Reviewed: Historical Data, Nursing Documentation, Vital Signs Vital Signs: Last Vital Signs Temp 97.8 F 11/03/17 20:16 Pulse 155 H 11/03/17 20:16 Resp 25 H 11/03/17 20:16 BP 116/80 11/03/17 20:16 Pulse Ox 94 L 11/03/17 23:16 - Medical History PMH: Back Problems, Fibromyalgia, Fractures (Disc fx secondary t fall), Multiple Sclerosis - [facility] Procedures IMPLANT OR REPLACEMENT OF SPINAL NEUROSTIMULATOR LEAD(S) (07/10/14) Family History: States: Unknown Family Hx - Social History Hx Tobacco Use: Yes Hx Alcohol Use: Yes Hx Substance Use: No - Immunization History Hx Tetanus Toxoid Vaccination: No Hx Influenza Vaccination: No Hx Pneumococcal Vaccination: No Review Of Systems Constitutional: Positive for: Weakness. Negative for: Fever, Chills Cardiovascular: Negative for: Chest Pain, Palpitations Respiratory: Negative for: Cough, Shortness of Breath Gastrointestinal: Negative for: Nausea, Vomiting Genitourinary: Negative for: Dysuria, Hematuria Physical Exam - Physical Exam Appears: In Acute Distress Skin: Warm, Dry, Pale Head: Atraumatic, Normacephalic Eye(s): bilateral: Normal Inspection Oral Mucosa: Moist Neck: Normal, Supple Chest: Symmetrical, No Tenderness Cardiovascular: Rhythm Regular (Tachycardic) Respiratory: Normal Breath Sounds, No Rales, No Rhonchi, No Wheezing Gastrointestinal/Abdominal: Soft, No Tenderness Back: No CVA Tenderness Extremity: Normal ROM (x4) Neurological/Psych: Oriented x3, Normal Speech ED Course And Treatment - Laboratory Results Result Diagrams: 11/03/17 20:42 11/03/17 20:42 O2 Sat by Pulse Oximetry: 94 (Room air) Pulse Ox Interpretation: Normal Progress Note: Blood work, EKG, CXR, and urinalysis ordered. Cardizem, morphine , and IV fluids administered. Dr. Chavez notified and will come evaluation patient for ICU. Dr. Dan notified for admission. Disposition Discussed With Dr.: Kevin Dan Doctor Will See Patient In The: Hospital Counseled Patient/Family Regarding: Diagnosis - Disposition Disposition: HOSPITALIZED Disposition Time: 23:33 Condition: GUARDED Forms: [facility] (Urdu) - POA Present On Arrival: None - Clinical Impression Clinical Impression: Pneumonia, Sepsis, Muscle weakness, Multiple sclerosis - Scribe Statement The provider has reviewed the documentation as recorded by the Scribe Abdirahman Larson All medical record entries made by the Scribe were at my direction and personally dictated by me. I have reviewed the chart and agree that the record accurately reflects my personal performance of the history, physical exam, medical decision making, and the department course for this patient. I have also personally directed, reviewed, and agree with the discharge instructions and disposition.
[2017-11-03 20:47] LABS: HEMOGLOBIN 10.5 g/dL (11.0-16.0)
[2017-11-03] MEDS ORDERED: Sodium Chloride 0.9% 1,000 ML ONE ×3 (20:47→23:24)
[2017-11-03 20:52] LABS: MEAN CELL VOLUME 98.6 fL (81.0-99.0); MEAN CORPUSCULAR HGB CONC 33.5 g/dL (33.0-37.0); MEAN PLATELET VOLUME 8.6 fL (7.2-11.7); PLATELET COUNT 370 K/uL (130-400); RBC 3.19 Mil/uL (3.80-5.20); RED CELL DISTRIBUTION WIDTH 21.3 % (11.5-14.5)
[2017-11-03 20:54] LABS: INR 1.5
[2017-11-03 20:59] LABS: ALB/GLOB RATIO 0.9 (1.0-2.1); ALBUMIN 3.1 g/dL (3.5-5.0); ALT/SGPT 151 U/L (9-52); AST/SGOT 25 U/L (14-36); BLOOD UREA NITROGEN 21 mg/dL (7-17); GFR AFRICAN-AMERICAN > 60; GFR NON-AFRICAN AMERICAN 53
[2017-11-03] MEDS ORDERED: Morphine 4 MG/ML VIAL IV STA ×2 (21:00→21:10)
[2017-11-03 21:02] LABS: PROTHROMBIN TIME 16.9 SECONDS (9.7-12.2)
[2017-11-03 21:17] LABS: LYMPH # 0.4 K/uL (1.0-4.3); MONO # 0.2 K/uL (0.0-0.8); NEUT # 6.4 K/uL (1.8-7.0)
[2017-11-03 21:19] LABS: BANDS 6 % (0-2); LYMPHOCYTE 9 % (20-40); MONOCYTE 1 % (0-10); NEUTROPHIL 84 % (50-75); TOTAL CELLS COUNTED 100
[2017-11-03 21:20] LABS: ANISOCYTOSIS SLIGHT; HYPOCHROMIC SLIGHT; PLATELET ESTIMATE NORMAL (NORMAL); POIKILOCYTOSIS SLIGHT; TARGET CELLS SLIGHT
[2017-11-03 21:21] LABS: GIANT PLATELETS PRESENT; LARGE PLATELETS PRESENT; MICROCYTOSIS SLIGHT; POLYCHROMIC SLIGHT
[2017-11-03] MEDS ORDERED: Dextrose 50% SYRINGE Inj (50 ml) ONE (21:42)
[2017-11-03] MEDS ORDERED: Dextrose 50% SYRINGE Inj (50 ml) IV STA (21:45)
[2017-11-03] MEDS ORDERED: cefTRIAXone IV 1 gm in Dextros 50 ML IVPB ONE ×2 (22:21→22:32)
[2017-11-03] MEDS ORDERED: Azithromycin 500mg/250ML NS 500 MG/250 ML BAG IV STA (22:22)
[2017-11-03 23:00] LABS: ARTERIAL BLOOD GAS HCO3 15.6 mmol/L (21-28); ARTERIAL BLOOD GAS O2 SAT 86.7 % (95-98); ARTERIAL BLOOD GAS PCO2 25 mm/Hg (35-45); ARTERIAL BLOOD GAS PH 7.32 (7.35-7.45); ARTERIAL BLOOD GAS PO2 50 mm/Hg (80-100); ARTERIAL BLOOD GAS TCO2 13.7 mmol/L (22-28)
[2017-11-03] MEDS ORDERED: Albuterol-Ipratrop 3 mg / 0.5 (3 ml) UD INH STA (23:03)
[2017-11-03] MEDS ORDERED: Albuterol-Ipratrop 3 mg / 0.5 (3 ml) UD ONE (23:08)
--- NOTE | 2017-11-03 23:28 | PCM.SEPTIC ---
Sepsis Progress Note - Reassessment Type Date of Evaluation: 11/03/17 Time of Evaluation: 23:00 Reassessment Type: Non-invasive reassessment - Non Invasive Reassessment Were the most recent vital sign reviewed: Yes Vital Sign (Latest): Temp Pulse Resp BP Pulse Ox 97.8 F 155 H 25 H 116/80 94 L 11/03/17 20:16 11/03/17 20:16 11/03/17 20:16 11/03/17 20:16 11/03/17 23:16 Cardiovascular: Yes: Tachycardia Respiratory: Yes: Decreased Breath Sounds Capillary Refill: Normal (Less than 2 sec) Pulses: Normal Radial, Normal Dorsalis Pedis, Normal Posterior Tibialis Skin: Warm, Dry Fluid Challenge performed: Yes
--- NOTE | 2017-11-03 23:28 | CP.PCM.HP ---
<Leah Graham - Last Filed: 11/04/17 05:14> History of Present Illness - History of Present Illness History of Present Illness: Medicine Note for Hospitalist Service CC: shortness of breath, productive cough, weakness HPI: This 51 year old female with PMHx of Chronic back pain, Scoliosis (wears brace since 05/2017), Fibromyalgia, Lumbar Fractures (2/2 Fall), Degenerative disk disease, recently admitted 08/2017 for pancreatitis presents to the ED fever , chills, productive cough and weakness x 1 week. History obtained from ICU attending, as family was no longer at bedside and patient was in distress. She presented with similar symptoms to [facility] ED on 10/23 and spent 1 night in [facility] 10/25. On this admission patient was found to be running in atrial flutter with HR 150s, sepsis 2/2 RML, RLL pnemonia with lactate of 5.1, and hypotensive. She was given multiple doses of IV cardizem and was later started on cardizem drip. She is currently on BiPAP. ROS: unattainable from patient PMHx: Chronic back pain, Scoliosis (wears brace since 05/2017), Fibromyalgia, Lumbar Fractures (2/2 Fall), Degenerative disk dz PSHx: spine surgery 05/22 lumbar disk fracture 2011; spinal neurostimulator 2014; gastric bypass 2007, Meds: see EMR Allergies: seafood, NKDA FamHx: father HLD, paternal grandfather of "stomach" cancer at 47y/o SocHx: 2 cigarettes/d x4 years; 2 tablespoons of wine daily for communion; denies illicit drug use; lives with family; prior work in [employer]. PMD: Dr. Arango Neurosurgeon: Dr. Florez Present on Admission - Present on Admission Any Indicators Present on Admission: No Past Patient History - Past Medical History & Family History Past Medical History?: Yes - Past Social History Smoking Status: Light Smoker < 10 Cigarettes Daily - CARDIAC Hx Cardiac Disorders: No - PULMONARY Hx Respiratory Disorders: No - NEUROLOGICAL Hx Multiple Sclerosis: Yes - HEENT Hx HEENT Problems: No - RENAL Hx Chronic Kidney Disease: No - ENDOCRINE/METABOLIC Hx Endocrine Disorders: No - HEMATOLOGICAL/ONCOLOGICAL Hx Blood Disorders: No - INTEGUMENTARY Hx Dermatological Problems: No - MUSCULOSKELETAL/RHEUMATOLOGICAL Hx Fractures: Yes (Disc fx secondary t fall) - GASTROINTESTINAL Hx Gastrointestinal Disorders: No - GENITOURINARY/GYNECOLOGICAL Hx Genitourinary Disorders: No - PSYCHIATRIC Hx Substance Use: No - SURGICAL HISTORY Hx Surgeries: Yes Hx Orthopedic Surgery: Yes (Back surgery) Other/Comment: Back Surgery - ANESTHESIA Hx Anesthesia: Yes Hx Anesthesia Reactions: No Hx Malignant Hyperthermia: No Meds Allergies/Adverse Reactions: Allergies Allergy/AdvReac Type Severity Reaction Status Date / Time seafood Allergy Uncoded 11/03/17 20:20 Physical Exam - Constitutional Appears: Toxic, Chronically Ill - Head Exam Head Exam: ATRAUMATIC, NORMAL INSPECTION, NORMOCEPHALIC - Eye Exam Eye Exam: EOMI, Normal appearance, PERRL. absent: Nystagmus, Scleral icterus - ENT Exam ENT Exam: Mucous Membranes Dry - Respiratory Exam Respiratory Exam: Decreased Breath Sounds (RML, RLL ) - Cardiovascular Exam Cardiovascular Exam: Tachycardia, Irregular Rhythm - GI/Abdominal Exam GI & Abdominal Exam: Normal Bowel Sounds, Soft. absent: Distended, Tenderness - Extremities Exam Extremities exam: Positive for: normal inspection, pedal pulses present. Negative for: pedal edema, tenderness - Back Exam Back exam: NORMAL INSPECTION. absent: CVA tenderness (L), CVA tenderness (R) - Neurological Exam Neurological exam: Alert, CN II-XII Intact, Oriented x3 - Psychiatric Exam Psychiatric exam: Normal Affect, Normal Mood - Skin Skin Exam: Dry, Intact, Normal Color, Warm Results - Vital Signs Recent Vital Signs: Last Vital Signs Temp 97.8 F 11/03/17 20:16 Pulse 155 H 11/03/17 20:16 Resp 25 H 11/03/17 20:16 BP 116/80 11/03/17 20:16 Pulse Ox 94 L 11/03/17 23:16 - Labs Result Diagrams: 11/03/17 20:42 11/03/17 20:42 Labs: Laboratory Results - last 24 hr 11/03/17 11/03/17 11/03/17 20:42 20:42 20:42 WBC 7.0 RBC 3.19 L Hgb 10.5 L Hct 31.4 L MCV 98.6 D MCH 33.0 H MCHC 33.5 RDW 21.3 H Plt Count 370 MPV 8.6 Neut % (Auto) 91.0 H Lymph % (Auto) 6.0 L [place] % (Auto) 3.0 Eos % (Auto) 0.0 Baso % (Auto) 0.0 Neut # (Auto) 6.4 Lymph # (Auto) 0.4 L [place] # (Auto) 0.2 Eos # (Auto) 0.0 Baso # (Auto) 0.0 Neutrophils % (Manual) 84 H Band Neutrophils % 6 H Lymphocytes % (Manual) 9 L Monocytes % (Manual) 1 Platelet Estimate Normal Large Platelets Present Giant Platelets Present Polychromasia Slight Hypochromasia (manual) Slight Poikilocytosis (manual Slight Anisocytosis (manual) Slight Microcytosis (manual) Slight Macrocytosis (manual) Slight Target Cells Slight PT 16.9 H INR 1.5 APTT 34 Puncture Site pCO2 pO2 HCO3 ABG pH ABG Total CO2 ABG O2 Saturation ABG Base Excess Romero Test ABG Potassium Glucose Lactate Liter Flow Crit Value Called To Crit Value Called By Crit Value Read Back Blood Gas Notified Time Sodium 136 Potassium 4.2 Chloride 103 Carbon Dioxide 17 L Anion Gap 20 BUN 21 H Creatinine 1.1 Est GFR ( Amer) > 60 Est GFR (Non-Af Amer) 53 Random Glucose 79 Lactic Acid Calcium 9.0 Total Bilirubin 1.3 AST 25 ALT 151 H D Alkaline Phosphatase 406 H D Troponin I < 0.0120 Total Protein 6.7 Albumin 3.1 L D Globulin 3.6 Albumin/Globulin Ratio 0.9 L Arterial Blood Potassium Blood Type Antibody Screen 11/03/17 11/03/17 11/03/17 20:42 22:36 22:55 WBC RBC Hgb Hct MCV MCH MCHC RDW Plt Count MPV Neut % (Auto) Lymph % (Auto) [place] % (Auto) Eos % (Auto) Baso % (Auto) Neut # (Auto) Lymph # (Auto) [place] # (Auto) Eos # (Auto) Baso # (Auto) Neutrophils % (Manual) Band Neutrophils % Lymphocytes % (Manual) Monocytes % (Manual) Platelet Estimate Large Platelets Giant Platelets Polychromasia Hypochromasia (manual) Poikilocytosis (manual Anisocytosis (manual) Microcytosis (manual) Macrocytosis (manual) Target Cells PT INR APTT Puncture Site Rra pCO2 25 L pO2 50 L HCO3 15.6 L ABG pH 7.32 L ABG Total CO2 13.7 L ABG O2 Saturation 86.7 L ABG Base Excess -11.4 L Romero Test Na ABG Potassium 3.4 L Glucose 129 H Lactate 5.1 H* Liter Flow 2.0 Crit Value Called To Cj dougherty Crit Value Called By Dakota Crit Value Read Back Y Blood Gas Notified Time 2300 Sodium 137.0 Potassium Chloride 106.0 Carbon Dioxide Anion Gap BUN Creatinine Est GFR ( Amer) Est GFR (Non-Af Amer) Random Glucose Lactic Acid 4.5 H* Calcium Total Bilirubin AST ALT Alkaline Phosphatase Troponin I Total Protein Albumin Globulin Albumin/Globulin Ratio Arterial Blood Potassium 3.4 L Blood Type A NEGATIVE Antibody Screen Negative Assessment & Plan - Assessment and Plan (Free Text) Plan: Sepsis 2/2 RML, RLL PNA - Afebrile, no leukocytosis, left shift noted with lactate 5.1 with repeat 6.0 - Prelim reading of CT shows RML, RLL PNA - Official CT Chest reading: - Vera cultures pending - IVF, Zosyn Respiratory Failure - Hypoxic on ABG - Currently on BiPAP Atrial Flutter - Was given multiple doses of Cardizem, Cardizem Drip and Lopressor Anemia - F/u iron studies Hx MS - Currently not on medication - Diagnosed 8 years ago as per son - No findings noted on current or previous CT Scans Hx Pancreatitis - Noted on 08/2017 admission - Recommended outpatient EUS Chronic Back Pain - Secondary to Scoliosis Fibromylagia - Continue Gabapentin, Amitriptyline Prophylactic Measures - GI PPX: Protonix, florastor - DVT PPX: SCDs, Lovenox DW Leah Keen DO, PGY-2 <Kevin Dan - Last Filed: 11/04/17 06:26> Results - Vital Signs Recent Vital Signs: Last Vital Signs Temp 98.6 F 11/04/17 00:40 Pulse 130 H 11/04/17 05:44 Resp 17 11/04/17 03:00 BP 96/58 L 11/04/17 03:00 Pulse Ox 94 L 11/04/17 00:00 - Labs Result Diagrams: 11/03/17 20:42 11/03/17 20:42 Labs: Laboratory Results - last 24 hr 11/03/17 11/03/17 11/03/17 20:42 20:42 20:42 WBC 7.0 RBC 3.19 L Hgb 10.5 L Hct 31.4 L MCV 98.6 D MCH 33.0 H MCHC 33.5 RDW 21.3 H Plt Count 370 MPV 8.6 Neut % (Auto) 91.0 H Lymph % (Auto) 6.0 L [place] % (Auto) 3.0 Eos % (Auto) 0.0 Baso % (Auto) 0.0 Neut # (Auto) 6.4 Lymph # (Auto) 0.4 L [place] # (Auto) 0.2 Eos # (Auto) 0.0 Baso # (Auto) 0.0 Neutrophils % (Manual) 84 H Band Neutrophils % 6 H Lymphocytes % (Manual) 9 L Monocytes % (Manual) 1 Platelet Estimate Normal Large Platelets Present Giant Platelets Present Polychromasia Slight Hypochromasia (manual) Slight Poikilocytosis (manual Slight Anisocytosis (manual) Slight Microcytosis (manual) Slight Macrocytosis (manual) Slight Target Cells Slight PT 16.9 H INR 1.5 APTT 34 Puncture Site pCO2 pO2 HCO3 ABG pH ABG Total CO2 ABG O2 Saturation ABG Base Excess Romero Test ABG Potassium A-a O2 Difference Respiratory Index Glucose Lactate Liter Flow Vent Mode FiO2 Inspiratory BiPAP Expiratory BiPAP Crit Value Called To Crit Value Called By Crit Value Read Back Blood Gas Notified Time Sodium 136 Potassium 4.2 Chloride 103 Carbon Dioxide 17 L Anion Gap 20 BUN 21 H Creatinine 1.1 Est GFR ( Amer) > 60 Est GFR (Non-Af Amer) 53 Random Glucose 79 Lactic Acid Calcium 9.0 Total Bilirubin 1.3 AST 25 ALT 151 H D Alkaline Phosphatase 406 H D Troponin I < 0.0120 Total Protein 6.7 Albumin 3.1 L D Globulin 3.6 Albumin/Globulin Ratio 0.9 L Arterial Blood Potassium Blood Type Antibody Screen 11/03/17 11/03/17 11/03/17 20:42 22:36 22:55 WBC RBC Hgb Hct MCV MCH MCHC RDW Plt Count MPV Neut % (Auto) Lymph % (Auto) [place] % (Auto) Eos % (Auto) Baso % (Auto) Neut # (Auto) Lymph # (Auto) [place] # (Auto) Eos # (Auto) Baso # (Auto) Neutrophils % (Manual) Band Neutrophils % Lymphocytes % (Manual) Monocytes % (Manual) Platelet Estimate Large Platelets Giant Platelets Polychromasia Hypochromasia (manual) Poikilocytosis (manual Anisocytosis (manual) Microcytosis (manual) Macrocytosis (manual) Target Cells PT INR APTT Puncture Site Rra pCO2 25 L pO2 50 L HCO3 15.6 L ABG pH 7.32 L ABG Total CO2 13.7 L ABG O2 Saturation 86.7 L ABG Base Excess -11.4 L Romero Test Na ABG Potassium 3.4 L A-a O2 Difference Respiratory Index Glucose 129 H Lactate 5.1 H* Liter Flow 2.0 Vent Mode FiO2 Inspiratory BiPAP Expiratory BiPAP Crit Value Called To Cj dougherty Crit Value Called By Dakota Crit Value Read Back Y Blood Gas Notified Time 2300 Sodium 137.0 Potassium Chloride 106.0 Carbon Dioxide Anion Gap BUN Creatinine Est GFR ( Amer) Est GFR (Non-Af Amer) Random Glucose Lactic Acid 4.5 H* Calcium Total Bilirubin AST ALT Alkaline Phosphatase Troponin I Total Protein Albumin Globulin Albumin/Globulin Ratio Arterial Blood Potassium 3.4 L Blood Type A NEGATIVE Antibody Screen Negative 11/04/17 11/04/17 03:06 05:00 WBC RBC Hgb Hct MCV MCH MCHC RDW Plt Count MPV Neut % (Auto) Lymph % (Auto) [place] % (Auto) Eos % (Auto) Baso % (Auto) Neut # (Auto) Lymph # (Auto) [place] # (Auto) Eos # (Auto) Baso # (Auto) Neutrophils % (Manual) Band Neutrophils % Lymphocytes % (Manual) Monocytes % (Manual) Platelet Estimate Large Platelets Giant Platelets Polychromasia Hypochromasia (manual) Poikilocytosis (manual Anisocytosis (manual) Microcytosis (manual) Macrocytosis (manual) Target Cells PT INR APTT Puncture Site Rb pCO2 29 L pO2 75 L HCO3 16.1 L ABG pH 7.29 L ABG Total CO2 14.8 L ABG O2 Saturation 95.3 ABG Base Excess -11.2 L Romero Test Na ABG Potassium 3.2 L A-a O2 Difference 602.0 Respiratory Index 8.0 Glucose 103 Lactate 4.1 H* Liter Flow Vent Mode Bipap FiO2 100.0 Inspiratory BiPAP 10 Expiratory BiPAP 5 Crit Value Called To Howard rivera Crit Value Called By Shine mds nurse Crit Value Read Back Y Blood Gas Notified Time 535 Sodium 138.0 Potassium Chloride 112.0 H Carbon Dioxide Anion Gap BUN Creatinine Est GFR ( Amer) Est GFR (Non-Af Amer) Random Glucose Lactic Acid 6.0 H* Calcium Total Bilirubin AST ALT Alkaline Phosphatase Troponin I Total Protein Albumin Globulin Albumin/Globulin Ratio Arterial Blood Potassium 3.2 L Blood Type Antibody Screen Assessment & Plan - Date & Time Date: 11/04/17 (I have seen and examined the patient. I agree with the findings and plan of care as documented by Dr. Graham. Patient with acute respiratory failure due to pnemonia. Zosyn for now. Sputum and blood cultures. Code sepsis called. BIPAP. Also with atrial flutter. Cardizem drip. Admit to ICU. Monitor for acute changes.) Time: 06:25 Attending/Attestation - Attestation I have personally seen and examined this patient.: Yes I have fully participated in the care of the patient.: Yes I have reviewed all pertinent clinical information: Yes
[2017-11-03] MEDS ORDERED: Digoxin 500 mcg/2ml (0.5 mg/2ml) Inj ONE (23:30)
--- NOTE | 2017-11-04 00:21 | CP.PCM.CON ---
History of Present Illness - History of Present Illness History of Present Illness: 51 year old female with h/o scoliosis,multiple sclerosis,fibromyalgia,chronic back pain,gastric bypass surgery 11yrs ago presents to the ER with a complaint of weakness for the past few days. Patient has not eaten in the past 2 days. Denies fever or chills.Cough and difficulty breathing x 1 day. was seen in [facility] ER 10/23/17 for weakness and 10/25 [facility] [place] (stayed overnight) In ER patient in atrial flutter with rapid rate received IV cardizem,became hypotensive.BP improved with fluids.Lactic acid elevated at 5.1 history from patient and son Review of Systems - Review of Systems Systems not reviewed;Unavailable: Unstable Vital Signs - Constitutional Constitutional: Anorexia, Weight Loss, Weakness. absent: Chills - EENT Eyes: absent: Blurred Vision, Change in Vision Ears: absent: Ear Pain Nose/Mouth/Throat: absent: Nasal Congestion, Sore Throat - Cardiovascular Cardiovascular: Rapid Heart Rate. absent: Chest Pain - Respiratory Respiratory: Cough, Dyspnea. absent: Chest Congestion - Gastrointestinal Gastrointestinal: Nausea. absent: Abdominal Pain, Vomiting - Genitourinary Genitourinary: absent: Dysuria - Musculoskeletal Musculoskeletal: Stiffness - Integumentary Integumentary: absent: Bleeding Lesions - Neurological Neurological: absent: Confusion, Tremor Past Patient History - Past Medical History & Family History Past Medical History?: Yes - Past Social History Smoking Status: Light Smoker < 10 Cigarettes Daily Home Situation {Lives}: With Family - CARDIAC Hx Cardiac Disorders: No - PULMONARY Hx Respiratory Disorders: No - NEUROLOGICAL Hx Multiple Sclerosis: Yes - HEENT Hx HEENT Problems: No - RENAL Hx Chronic Kidney Disease: No - ENDOCRINE/METABOLIC Hx Endocrine Disorders: No - HEMATOLOGICAL/ONCOLOGICAL Hx Blood Disorders: No - INTEGUMENTARY Hx Dermatological Problems: No - MUSCULOSKELETAL/RHEUMATOLOGICAL Hx Fractures: Yes (Disc fx secondary t fall) - GASTROINTESTINAL Hx Gastrointestinal Disorders: No - GENITOURINARY/GYNECOLOGICAL Hx Genitourinary Disorders: No - PSYCHIATRIC Hx Substance Use: No - SURGICAL HISTORY Hx Surgeries: Yes Hx Orthopedic Surgery: Yes (Back surgery) Other/Comment: Back Surgery - ANESTHESIA Hx Anesthesia: Yes Hx Anesthesia Reactions: No Hx Malignant Hyperthermia: No Meds Allergies/Adverse Reactions: Allergies Allergy/AdvReac Type Severity Reaction Status Date / Time seafood Allergy Uncoded 11/03/17 20:20 - Medications Medications: Current Medications Sodium Chloride (Sodium Chloride 0.9%) 1,000 mls @ 100 mls/hr IV .Q10H ONE Stop: 11/04/17 06:29 Last Admin: 11/03/17 21:40 Dose: 100 mls/hr Diltiazem HCl 125 mg/ Dextrose 125 mls @ 10 mls/hr IV .[id number] EMPERATRIZ; 10 MG/HR PRN Reason: Protocol Last Admin: 11/04/17 00:00 Dose: 10 mls/hr Physical Exam - Constitutional Appears: In Acute Distress, Cachectic, Chronically Ill - Head Exam Head Exam: ATRAUMATIC, NORMAL INSPECTION, NORMOCEPHALIC - Eye Exam Eye Exam: EOMI, PERRL. absent: Conjunctival injection, Scleral icterus - ENT Exam ENT Exam: Mucous Membranes Dry - Neck Exam Neck exam: Positive for: Normal Inspection - Respiratory Exam Respiratory Exam: absent: Respiratory Distress Additional comments: rales right mid and lower chest - Cardiovascular Exam Cardiovascular Exam: Tachycardia, Irregular Rhythm - GI/Abdominal Exam GI & Abdominal Exam: Normal Bowel Sounds, Soft. absent: Tenderness - Extremities Exam Extremities exam: Positive for: normal inspection, pedal edema, pedal pulses present - Neurological Exam Neurological exam: Alert, Oriented x3 - Skin Skin Exam: Normal Color, Warm Results - Vital Signs Recent Vital Signs: Last Vital Signs Temp 98.6 F 11/03/17 23:10 Pulse 157 H 11/04/17 00:00 Resp 18 11/04/17 00:00 BP 127/79 11/04/17 00:00 Pulse Ox 94 L 11/04/17 00:00 - Labs Result Diagrams: 11/03/17 20:42 11/03/17 20:42 Labs: Laboratory Results - last 24 hr 11/03/17 11/03/17 11/03/17 20:42 20:42 20:42 WBC 7.0 RBC 3.19 L Hgb 10.5 L Hct 31.4 L MCV 98.6 D MCH 33.0 H MCHC 33.5 RDW 21.3 H Plt Count 370 MPV 8.6 Neut % (Auto) 91.0 H Lymph % (Auto) 6.0 L Brown % (Auto) 3.0 Eos % (Auto) 0.0 Baso % (Auto) 0.0 Neut # (Auto) 6.4 Lymph # (Auto) 0.4 L Brown # (Auto) 0.2 Eos # (Auto) 0.0 Baso # (Auto) 0.0 Neutrophils % (Manual) 84 H Band Neutrophils % 6 H Lymphocytes % (Manual) 9 L Monocytes % (Manual) 1 Platelet Estimate Normal Large Platelets Present Giant Platelets Present Polychromasia Slight Hypochromasia (manual) Slight Poikilocytosis (manual Slight Anisocytosis (manual) Slight Microcytosis (manual) Slight Macrocytosis (manual) Slight Target Cells Slight PT 16.9 H INR 1.5 APTT 34 Puncture Site pCO2 pO2 HCO3 ABG pH ABG Total CO2 ABG O2 Saturation ABG Base Excess Romero Test ABG Potassium Glucose Lactate Liter Flow Crit Value Called To Crit Value Called By Crit Value Read Back Blood Gas Notified Time Sodium 136 Potassium 4.2 Chloride 103 Carbon Dioxide 17 L Anion Gap 20 BUN 21 H Creatinine 1.1 Est GFR ( Amer) > 60 Est GFR (Non-Af Amer) 53 Random Glucose 79 Lactic Acid Calcium 9.0 Total Bilirubin 1.3 AST 25 ALT 151 H D Alkaline Phosphatase 406 H D Troponin I < 0.0120 Total Protein 6.7 Albumin 3.1 L D Globulin 3.6 Albumin/Globulin Ratio 0.9 L Arterial Blood Potassium Blood Type Antibody Screen 11/03/17 11/03/17 11/03/17 20:42 22:36 22:55 WBC RBC Hgb Hct MCV MCH MCHC RDW Plt Count MPV Neut % (Auto) Lymph % (Auto) Brown % (Auto) Eos % (Auto) Baso % (Auto) Neut # (Auto) Lymph # (Auto) Brown # (Auto) Eos # (Auto) Baso # (Auto) Neutrophils % (Manual) Band Neutrophils % Lymphocytes % (Manual) Monocytes % (Manual) Platelet Estimate Large Platelets Giant Platelets Polychromasia Hypochromasia (manual) Poikilocytosis (manual Anisocytosis (manual) Microcytosis (manual) Macrocytosis (manual) Target Cells PT INR APTT Puncture Site Rra pCO2 25 L pO2 50 L HCO3 15.6 L ABG pH 7.32 L ABG Total CO2 13.7 L ABG O2 Saturation 86.7 L ABG Base Excess -11.4 L Romero Test Na ABG Potassium 3.4 L Glucose 129 H Lactate 5.1 H* Liter Flow 2.0 Crit Value Called To Cj dougherty Crit Value Called By Dakota Crit Value Read Back Y Blood Gas Notified Time 2300 Sodium 137.0 Potassium Chloride 106.0 Carbon Dioxide Anion Gap BUN Creatinine Est GFR ( Amer) Est GFR (Non-Af Amer) Random Glucose Lactic Acid 4.5 H* Calcium Total Bilirubin AST ALT Alkaline Phosphatase Troponin I Total Protein Albumin Globulin Albumin/Globulin Ratio Arterial Blood Potassium 3.4 L Blood Type A NEGATIVE Antibody Screen Negative - EKG Data EKG Interpreted by: Myself - Imaging and Cardiology CT scan - chest Status: Image reviewed by me, Report reviewed by me Assessment & Plan - Assessment and Plan (Free Text) Assessment: 1.Right sided Pneumonia/Respiratory failure BIPAP Antibiotics follow up cultures 2.h/o Multiple sclerosis not on medications- 3.Fibromyalgia/chronic back pain /scoliosis on multiple pain meds 4.Anemia Chronic
[2017-11-04] MEDS ORDERED: Metoprolol 1 mg/ml Inj IVP ONE ×3 (00:57→08:39)
[2017-11-04] MEDS ORDERED: Sodium Chloride 0.9% 1,000 ML IV SCH ×2 (01:00→07:00)
[2017-11-04] MEDS ORDERED: Dextrose 5%/0.9% NS 1,000 ML IV SCH (01:30)
[2017-11-04] MEDS: Piperacill/Tazo 3.375gm in Dex 3.375 GM/50 ML BAG IVPB SCH ×4 (04:02→22:05)
[2017-11-04 05:35] LABS: ARTERIAL BLOOD GAS HCO3 16.1 mmol/L (21-28); ARTERIAL BLOOD GAS O2 SAT 95.3 % (95-98); ARTERIAL BLOOD GAS PCO2 29 mm/Hg (35-45); ARTERIAL BLOOD GAS PH 7.29 (7.35-7.45); ARTERIAL BLOOD GAS PO2 75 mm/Hg (80-100); ARTERIAL BLOOD GAS TCO2 14.8 mmol/L (22-28)
[2017-11-04 06:22] LABS: HEMOGLOBIN 8.2 g/dL (11.0-16.0); MEAN CELL VOLUME 100.1 fL (81.0-99.0); MEAN CORPUSCULAR HEMOGLOBIN 33.5 pg (27.0-31.0); MEAN CORPUSCULAR HGB CONC 33.5 g/dL (33.0-37.0); MEAN PLATELET VOLUME 8.5 fL (7.2-11.7); PLATELET COUNT 196 K/uL (130-400); RBC 2.44 Mil/uL (3.80-5.20); RED CELL DISTRIBUTION WIDTH 21.3 % (11.5-14.5); WHITE BLOOD COUNT 4.4 K/uL (4.8-10.8)
[2017-11-04 06:33] LABS: ALB/GLOB RATIO 0.7 (1.0-2.1); ALBUMIN 1.9 g/dL (3.5-5.0); ALT/SGPT 92 U/L (9-52); AST/SGOT 22 U/L (14-36); BLOOD UREA NITROGEN 16 mg/dL (7-17); CALCIUM 7.4 mg/dl (8.6-10.4); GFR AFRICAN-AMERICAN > 60; GFR NON-AFRICAN AMERICAN > 60
[2017-11-04 06:53] LABS: IRON 10 ug/dL (37-170); TOTAL IRON BINDING CAPACITY 145 ug/dL (250-450)
[2017-11-04 06:54] LABS: % IRON SATURATION 6.9 (20-55)
[2017-11-04 07:35] LABS: FOLATE 13.4 ng/mL
--- NOTE | 2017-11-04 08:19 | CP.PCM.PN ---
Subjective - Date & Time of Evaluation Date of Evaluation: 11/04/17 Time of Evaluation: 08:15 - Subjective Subjective: Medical Attending Note: patient seen at bedside this morning. Patient reports would like to eat. Patient is currently on Bipap however tachycardic and hypertensive on the monitor. Patient reports she has low back pain and has been going on for 2 years. Unable to discern further history since patient is on Bipap. Objective - Vital Signs/Intake and Output Vital Signs (last 24 hours): Temp Pulse Resp BP Pulse Ox 98.2 F 128 H 18 90/63 L 100 11/04/17 04:00 11/04/17 06:00 11/04/17 06:00 11/04/17 06:00 11/04/17 05:55 Intake and Output: 11/04/17 11/04/17 06:59 18:59 Intake Total 1600 Output Total 400 Balance 1200 - Medications Medications: Current Medications Acetaminophen/Butalbital/Caffeine (Fioricet) 1 tab PO DAILY [facility] Amitriptyline HCl (Elavil) 25 mg PO DAILY [facility] Enoxaparin Sodium (Lovenox) 30 mg SC DAILY [facility] Gabapentin (Neurontin) 600 mg PO DAILY [facility] Piperacillin Sod/Tazobactam Sod (Zosyn 3.375 Gm Iv Premix) 3.375 gm in 50 mls @ 100 mls/hr IVPB Q6H EMPERATRIZ PRN Reason: Protocol Last Admin: 11/04/17 04:02 Dose: 100 mls/hr Dextrose/Sodium Chloride (Dextrose 5%/0.9% Ns 1000 Ml) 1,000 mls @ 100 mls/hr IV .Q10H [facility] Last Admin: 11/04/17 01:30 Dose: 100 mls/hr Ibuprofen (Motrin Tab) 400 mg PO Q6H PRN PRN Reason: Fever >100.4 F Pantoprazole Sodium (Protonix Inj) 40 mg IVP DAILY [facility] Saccharomyces Boulardii (Florastor) 250 mg PO BID [facility] - Labs Labs: 11/04/17 06:10 11/04/17 06:10 PT 16.9 SECONDS (9.7-12.2) H 11/03/17 20:42 INR 1.5 11/03/17 20:42 APTT 34 SECONDS (21-34) 11/03/17 20:42 - Constitutional Appears: Unkempt, Agitated, Cachectic, Chronically Ill - Head Exam Head Exam: NORMAL INSPECTION - Eye Exam Eye Exam: EOMI - ENT Exam ENT Exam: Mucous Membranes Dry - Respiratory Exam Respiratory Exam: Decreased Breath Sounds. absent: Rales, Stridor Additional comments: on bipap - GI/Abdominal Exam GI & Abdominal Exam: Guarding (mild guarding), Soft, Normal Bowel Sounds. absent: Distended, Firm, Rigid, Tenderness, Rebound - Extremities Exam Extremities Exam: absent: Pedal Edema, Tenderness Additional comments: scds b/l - Neurological Exam Neurological Exam: Alert, Awake, Oriented x3 - Skin Skin Exam: Dry, Intact, Normal Color, Warm Additional comments: multiple tatoos-->do not appear infected Assessment and Plan - Assessment and Plan (Free Text) Assessment: 1) Acute Respiratory Distress Pneumonia Health Care Associated Pneumonia Sepsis Assessment/Plan * Criteria: Afebrile, no leukocytosis, left shift noted with lactate 5.1 with repeat 6.0 * in the ED, given Rocephin and Azithromycin in the ED * Patient is currently on Bipap * Possible HCAP prior hospitalization * Lactate: 4.5-->6.0-->4.4 * pending ABG for this morning * Prelim reading of CT shows RML, RLL PNA-->pending official read of CT Chest * Infectious Disease (Dr. Veras) on board-->help appreciated * Duonebs RQ4 PRN shortness of breathe * Florastor 250mg PO BID * Zosyn 3.375 gm IV Q6H (active since 11/04/17) 2) Atrial Flutter with rapid rate Assessment/Plan * Unclear if related to sepsis * Became Hypotensive-->brought to ICU * Given Cardizem 20mg IVPX1, Cardizem 5mg IVP X3 in the ED * Cardizem drip d/c overnight * Given Metoprol 5mg IVP X1 * Needed IV fluids to increase blood pressure * Cardiology avionics electronics technician (Dr. Contreras) avionics electronics technician-->help appreciated * Ordered for echocardiogram * Will need to f/u if patient will need chemical anticoagulation or not. * Prelim reading of CT shows RML, RLL PNA-->pending official read of CT Chest * Order for a1c, TSH, Free T4, lipid panel to check for cardiac risk factors 3)History of Chronic Back Pain History of Scoliosis Fibromylagia Assessment/Plan * Will need to check with either PMD or the [place] to confirm medications * held gabapentin given respiratory status * held amitriptyline-->cardio side effects and patient is currently in flutter 4) Tobacco History Assessment/Plan * Start Nicotone Patch 5) History of Gastric Bypass Assessment/Plan * About 11 years ago * Order for a1c, TSH, Free T4, lipid panel to check for cardiac risk factors * Will start MVI 1 tab PO daily 6) Anemia Assessment/Plan * H/H downtrending; Received IV fluids * Iron low, TIBC low, * will need to check ferritin, reticulocyte count * B12 normal, folate within range 7) Unclear regarding to Multiple Sclerosis Hx Assessment/Plan * Currently not on medication * Diagnosed 8 years ago as per son * Will need to clarify with son how was diagnosed 8) Hx Pancreatitis * Noted on 08/2017 admission * Recommended outpatient EUS 9) Transaminitis * possible acute phase reactant * Check abd US * Check hepatitis panel * Check HIV 10) Electrolyte abnormalities * Will need to be replete 11) Abdominal Pain * check lipase, amylase * order for abdominal US 12) Prophylactic Measures * GI PPX: Protonix 40mg PO daily * Florastor 250mg PO bid * Lovenox 30mg subq daily
[2017-11-04 08:57] LABS: ABG ALLEN TEST POS; ARTERIAL BLOOD GAS HCO3 17.8 mmol/L (21-28); ARTERIAL BLOOD GAS O2 SAT 97.4 % (95-98); ARTERIAL BLOOD GAS PCO2 26 mm/Hg (35-45); ARTERIAL BLOOD GAS PH 7.36 (7.35-7.45); ARTERIAL BLOOD GAS PO2 93 mm/Hg (80-100); ARTERIAL BLOOD GAS TCO2 15.5 mmol/L (22-28)
[2017-11-04] MEDS ORDERED: Albumin Human 25% (12.5 gm/50 ml) IV ONE ×2 (09:10→16:41)
[2017-11-04 09:23] LABS: LYMPH # 0.4 K/uL (1.0-4.3); MONO # 0.2 K/uL (0.0-0.8); NEUT # 3.8 K/uL (1.8-7.0)
[2017-11-04 09:28] LABS: BANDS 20 % (0-2); LYMPHOCYTE 7 % (20-40); METAMYELOCYTE 3 % (0-0); MONOCYTE 7 % (0-10); NEUTROPHIL 63 % (50-75); PLATELET ESTIMATE NORMAL (NORMAL); TOTAL CELLS COUNTED 100
[2017-11-04 09:29] LABS: ANISOCYTOSIS MODERATE; HYPOCHROMIC SLIGHT
[2017-11-04 09:30] LABS: TARGET CELLS SLIGHT; TOXIC GRANULATION PRESENT
[2017-11-04 09:38] LABS: AMYLASE 67 U/L (30-110); LIPASE 62 U/L (23-300)
[2017-11-04] MEDS: Enoxaparin 30 mg Syringe SC SCH (09:45)
[2017-11-04] MEDS ORDERED: Potassium Phosphate 15 MMOLE in Sodium Chloride 0.9% 250 ML IVPB ONE (10:00)
[2017-11-04 10:11] LABS: HEPATITIS B SURFACE AG Negative (NEGATIVE)
[2017-11-04] MEDS: Saccharomyces Boulardi 250 mg Cap PO SCH ×3 (10:16→18:19)
[2017-11-04 10:17] LABS: HEPATITIS A IGM NEGATIVE (NEGATIVE); HEPATITIS B CORE AB NEGATIVE (NEGATIVE)
[2017-11-04 10:19] LABS: HIV 1&2 ANTIBODY NEGATIVE (NEGATIVE)
[2017-11-04 10:28] LABS: HEPATITIS C ANTIBODY NEGATIVE (NEGATIVE)
[2017-11-04] MEDS: Azithromycin 500 MG in Sodium Chloride 0.9% 250 ML IVPB SCH (10:48)
[2017-11-04] MEDS ORDERED: Vancomycin 1 gm/NS 200 ml 1 GM/200 ML BAG IVPB STA (11:10)
[2017-11-04] MEDS: Apap-Butalbital-Caffeine 325-50-40mg Tab PO SCH (11:59)
[2017-11-04] MEDS ORDERED: Albuterol-Ipratrop 3 mg / 0.5 (3 ml) UD INH SCH (12:00)
[2017-11-04 12:02] LABS: SQUAMOUS EPITHIAL 1 /hpf (0-5); URINE BILIRUBIN NEGATIVE (NEGATIVE); URINE BLOOD NEGATIVE (NEGATIVE); URINE CLARITY Clear (Clear); URINE COLOR Yellow (YELLOW); URINE GLUCOSE (UA) NORMAL (Normal); URINE LEUKOCYTE ESTERASE NEG Leu/uL (Negative); URINE PROTEIN NEGATIVE (NEGATIVE); URINE UROBILINOGEN NORMAL mg/dL (0.2-1.0)
--- NOTE | 2017-11-04 12:21 | CT ---
Date of service: 11/03/2017 PROCEDURE: CT Chest without contrast HISTORY: SOB/ tachycardia COMPARISON: None. TECHNIQUE: Contiguous axial images were obtained through the chest without intravenous contrast enhancement. Sagittal and coronal reconstructions were performed. Radiation dose (DLP): 205.15 mGy-cm. This CT exam was performed using one or more of the following dose reduction techniques: Automated exposure control, adjustment of the mA and/or kV according to patient size, and/or use of iterative reconstruction technique. FINDINGS: LUNGS: Extensive right lower lobe consolidation. Consolidation in the right middle lobe. Patchy infiltrates throughout the right upper lobe. No left-sided infiltrate. Likely multi lobar pneumonia in the right lung. No pulmonary mass. MEDIASTINUM: Unremarkable thoracic aorta. No aneurysm. Normal sized heart. Main pulmonary artery unremarkable. No vascular congestion. No lymphadenopathy. Small hiatal hernia. PLEURA: No pleural fluid. No pneumothorax. BONES: No fracture. No destructive lesion. UPPER ABDOMEN: Multiple surgical clips about the stomach consistent with prior partial gastrectomy. Please correlate with history. OTHER FINDINGS: None. IMPRESSION: Multi lobar pneumonia in the right lung. Small hiatal hernia. The preliminary findings for this examination were reported by [facility] at 10:54 p.m. on 11/03/2017. There is concurrence of this report with the preliminary findings.
--- NOTE | 2017-11-04 12:31 | RAD ---
Date of service: 11/03/2017 PROCEDURE: CHEST RADIOGRAPH, 1 VIEW HISTORY: chest pain COMPARISON: None available. FINDINGS: LUNGS: Extensive infiltrate right mid and lower lung. Possible pneumonia. No left-sided infiltrate. PLEURA: No pneumothorax or pleural fluid seen. CARDIOVASCULAR: Normal. OSSEOUS STRUCTURES: No significant abnormalities. VISUALIZED UPPER ABDOMEN: Normal. OTHER FINDINGS: None. IMPRESSION: Extensive right mid and lower lung infiltrate.
--- NOTE | 2017-11-04 13:08 | PCM.PROC ---
Procedures Attestation:: I certify that I have explained the specified Operation(s) or Procedure(s), risks, benefits and reasonable alternatives to the Patient and/or other person responsible. The opportunity was given to ask questions and all questions answered - Central Line Placement Right Internal Jugular Triple Lumen Catheter Aseptic technique was employed throughout the procedure: Hand Hygiene done prior to procedure, Full sterile barriers (mask, hair cover, sterile gown, sterile gloves), Full body sterile drape, Chloraprep Antiseptic: 30 second prep for IJ or SC sites CVP Time Out Performed: Yes Pt. Placed on Pulse Ox Monitor: Yes Central Line Prep: Chlorhexidine-Alcohol Combination Local Anesthesia Used: Lidocaine 1% Amount of Anesthesia Used (mls): 1 Ultrasound Used for Placement: Yes Central Line Lumen Inserted: triple Central Line Length: 16 cm Post Procedure: Sutured in Place, Good Blood Return, All Ports Aspirated, Flushed, Capped, Sterile Dressing Applied Secured by: Suture Post procedure dressing: Chlorhexidine disc (Biopatch) Post Procedure X-Ray: Yes Patient Tolerated Procedure: Well Immediate Complications: None
--- NOTE | 2017-11-04 13:14 | US ---
Date of service: 11/04/2017 HISTORY: transaminitis COMPARISON: Abdomen ultrasound exam 08/24/2017. TECHNIQUE: Sonographic evaluation of the abdomen. FINDINGS: LIVER: Measures 12.8 cm. Diffusely increased echogenicity of the liver parenchyma is now seen in the interval suggestive of diffuse fatty infiltration. No mass. No intrahepatic bile duct dilatation. GALLBLADDER: Unremarkable. No gallstones. COMMON BILE DUCT: Measures 5.7 mm. No stones. No dilatation. PANCREAS: The pancreas is obscured by overlying bowel gas. RIGHT KIDNEY: Measures 10.5cm. Previously demonstrated small lower pole right renal cyst is not identified currently, possibly due to its small size. No calculus, mass, or hydronephrosis. LEFT KIDNEY: Measures 10.2cm. Normal echogenicity. No calculus, mass, or hydronephrosis. SPLEEN: Normal in size and contour. No mass. AORTA: No aneurysmal dilatation. IVC: Unremarkable. OTHER FINDINGS: Incidental note is made of a right pleural effusion IMPRESSION: 1. Hyperechoic hepatic parenchyma in the interval may indicate diffuse fatty infiltration though other etiologies are possible. No common bile duct or intrahepatic biliary dilatation is identified throughout. 2. Moderately distended but otherwise unremarkable appearing gallbladder. 3. Pancreas is poorly visualized due to extensive overlying bowel or stomach gas. 4. Previously demonstrated small right renal cyst is not identified currently. 5. Incidental right pleural effusion is noted.
--- NOTE | 2017-11-04 14:12 | CP.CCUPN ---
<Kendra Pate - Last Filed: 11/04/17 18:24> CCU Subjective - Physician Review Subjective (Free Text): 11/04/17 13:49 51 yo F w/ PMHx of chronic back pain, scoliosis, fibromyalgia, multiple sclerosis, gastric bypass, presented to ED with weakness, anorexia, dyspnea, cough x1day. In ED pt found to be in A flutter w/ rapid rate @155. Cardizem given and pt became hypotensive; however responded to IVF. Admitted to ICU for sepsis management. 11/04/17 18:23 CCU Objective - Vital Signs / Intake & Output Vital Signs (Last 4 hours): Vital Signs Temp Pulse Resp BP Pulse Ox 11/04/17 13:16 120 H 11/04/17 13:00 120 H 100 11/04/17 12:53 119 H 91/58 L 89 L 11/04/17 12:00 98.4 F 122 H 27 H 100 11/04/17 11:53 99/63 L 11/04/17 11:44 130 H 11/04/17 11:18 91/61 L 11/04/17 11:00 121 H 26 H 100 11/04/17 10:00 119 H 17 11/04/17 09:54 118 H 22 91/67 L 81 L Intake and Output (Last 8hrs): Intake & Output 11/03/17 11/04/17 11/04/17 22:59 06:59 14:59 Intake Total 1600 1220.0 Output Total 400 300 Balance 1200 920.0 Weight 105 lb 124 lb 4.8 oz Intake: Intake, IV Amount 1600 1220.0 Left Wrist 600 650 Left wrist 2 170.0 Right Antecubital 1000 Right Forearm 0 400 Output: Urine 400 300 Urine, Voided 400 300 Other: # Voids Urine, Voided 1 - Medications Active Medications: Active Medications Generic Name Dose Route Start Last Admin Trade Name Freq PRN Reason Stop Dose Admin Acetaminophen/Butalbital/Caffeine 1 tab 11/04/17 10:00 11/04/17 11:59 Fioricet PO Not Given DAILY EMPERATRIZ Albuterol/Ipratropium 3 ml 11/04/17 08:25 Duoneb 3 Mg/0.5 Mg (3 Ml) Ud INH RQ4 PRN Shortness of Breath Amitriptyline HCl 25 mg 11/04/17 10:00 Elavil PO DAILY EMPERATRIZ Enoxaparin Sodium 30 mg 11/04/17 10:00 11/04/17 09:45 Lovenox SC 30 mg DAILY EMPERATRIZ Administration Gabapentin 600 mg 11/04/17 10:00 Neurontin PO DAILY EMPERATRIZ Piperacillin Sod/Tazobactam Sod 3.375 gm in 50 mls @ 100 mls/hr 11/04/17 05: 00 11/04/17 12:05 Zosyn 3.375 Gm Iv Premix IVPB 100 mls/hr Q6H EMPERATRIZ Administration Protocol Potassium Phosphate 15 mmole/ 255 mls @ 42.5 mls/hr 11/04/17 10:00 11/04/17 10:37 Sodium Chloride IVPB 11/04/17 15:59 42.5 mls/hr ONCE ONE Administration Sodium Bicarbonate 100 meq/ 1,100 mls @ 75 mls/hr 11/04/17 10:00 11/04/17 10: 36 Sodium Chloride IV 75 mls/hr .[id number] EMPERATRIZ Administration Azithromycin 500 mg/ Sodium 250 mls @ 250 mls/hr 11/04/17 10:00 11/04/17 10: 48 Chloride IVPB 250 mls/hr DAILY EMPERATRIZ Administration Protocol Multivitamins/Vitamin C 10 ml/ 1,035.9052 mls @ 42 mls/hr 11/04/17 18:00 Chromium/Copper/Manganese/ IV 11/05/17 17:59 Zinc 1 ml/ Magnesium Sulfate 6 .Q24H ONE meq/ Sodium Chloride 35 meq/ Calcium Gluconate 4.5 meq/ Potassium Phosphate 15 mmole/ Amino Acids Magnesium Sulfate/Dextrose 1 gm in 100 mls @ 200 mls/hr 11/04/17 13:15 Magnesium Sulfate 1 Gm/100 Ml D5w IVPB 11/04/17 15:44 Q2H EMPERATRIZ Ibuprofen 400 mg 11/04/17 01:02 Motrin Tab PO Q6H PRN Fever >100.4 F Nicotine 1 patch 11/04/17 10:00 11/04/17 12:05 Nicoderm Cq TD 1 patch DAILY EMPERATRIZ Administration Pantoprazole Sodium 40 mg 11/04/17 10:00 11/04/17 09:45 Protonix Inj IVP 40 mg DAILY EMPERATRIZ Administration Saccharomyces Boulardii 250 mg 11/04/17 08:00 11/04/17 11:59 Florastor PO Not Given BID EMPERATRIZ Vitamin A 1 ea 11/04/17 10:30 Vitamin A & D Oint Ud Foilpak TOP Q6H PRN Dry mouth - Patient Studies Lab Studies: Lab Studies 11/04/17 11/04/17 11/04/17 Range/Units 11:46 11:00 09:25 WBC (4.8-10.8) K/uL RBC (3.80-5.20) Mil/uL Hgb (11.0-16.0) g/dL Hct (34.0-47.0) % MCV (81.0-99.0) fL MCH (27.0-31.0) pg MCHC (33.0-37.0) g/dL RDW (11.5-14.5) % Plt Count (130-400) K/uL MPV (7.2-11.7) fL Neut % (Auto) (50.0-75.0) % Lymph % (Auto) (20.0-40.0) % [place] % (Auto) (0.0-10.0) % Eos % (Auto) (0.0-4.0) % Baso % (Auto) (0.0-2.0) % Neut # (Auto) (1.8-7.0) K/uL Lymph # (Auto) (1.0-4.3) K/uL [place] # (Auto) (0.0-0.8) K/uL Eos # (Auto) (0.0-0.7) K/uL Baso # (Auto) (0.0-0.2) K/uL Neutrophils % (Manual) (50-75) % Band Neutrophils % (0-2) % Lymphocytes % (Manual) (20-40) % Monocytes % (Manual) (0-10) % Metamyelocytes % (0-0) % Toxic Granulation Dohle Bodies Platelet Estimate (NORMAL) Large Platelets Giant Platelets Polychromasia Hypochromasia (manual) Poikilocytosis (manual Anisocytosis (manual) Microcytosis (manual) Macrocytosis (manual) Target Cells Retic Count (0.5-1.5) % PT (9.7-12.2) SECONDS INR APTT (21-34) SECONDS Puncture Site pCO2 (35-45) mm/Hg pO2 (80-100) mm/Hg HCO3 (21-28) mmol/L ABG pH (7.35-7.45) ABG Total CO2 (22-28) mmol/L ABG O2 Saturation (95-98) % ABG Base Excess (-2.0-3.0) mmol/L Romero Test ABG Potassium (3.6-5.2) mmol/L A-a O2 Difference mm/Hg Respiratory Index Glucose (65-105) mg/dl Lactate (0.7-2.1) mmol/L Liter Flow Vent Mode FiO2 % Inspiratory BiPAP Expiratory BiPAP Crit Value Called To Crit Value Called By Crit Value Read Back Blood Gas Notified Time Sodium (132-148) mmol/L Potassium (3.6-5.2) mmol/L Chloride (98-107) mmol/L Carbon Dioxide (22-30) mmol/L Anion Gap (10-20) BUN (7-17) mg/dL Creatinine (0.7-1.2) mg/dL Est GFR ( Amer) Est GFR (Non-Af Amer) Random Glucose (65-105) mg/dL Lactic Acid (0.7-2.1) mmol/L Calcium (8.6-10.4) mg/dl Phosphorus (2.5-4.5) mg/dL Magnesium (1.6-2.3) mg/dL Iron (37-170) ug/dL TIBC (250-450) ug/dL % Saturation (20-55) Ferritin ng/mL Total Bilirubin (0.2-1.3) mg/dL AST (14-36) U/L ALT (9-52) U/L Alkaline Phosphatase (38-126) U/L Troponin I (0.00-0.120) ng/mL Total Protein (6.3-8.3) g/dL Albumin (3.5-5.0) g/dL Globulin (2.2-3.9) gm/dL Albumin/Globulin Ratio (1.0-2.1) Amylase (30-110) U/L Lipase (23-300) U/L Vitamin B12 (239-931) pg/mL Folate ng/mL Arterial Blood Potassium (3.6-5.2) mmol/L Urine Color Yellow (YELLOW) Urine Clarity Clear (Clear) Urine pH 5.0 (5.0-8.0) Ur Specific Desdemona 1.013 (1.003-1.030) Urine Protein Negative (NEGATIVE) mg/dL Urine Glucose (UA) Normal (Normal) mg/dL Urine Ketones Negative (NEGATIVE) mg/dL Urine Blood Negative (NEGATIVE) Urine Nitrate Negative (NEGATIVE) Urine Bilirubin Negative (NEGATIVE) Urine Urobilinogen Normal (0.2-1.0) mg/dL Ur Leukocyte Esterase Neg (Negative) Brayan/uL Urine WBC (Auto) 2 (0-5) /hpf Urine RBC (Auto) < 1 (0-3) /hpf Ur Squamous Epith Cells 1 (0-5) /hpf Hepatitis A IgM Ab Negative (NEGATIVE) Hep Bs Antigen Negative (NEGATIVE) Hep B Core IgM Ab Negative (NEGATIVE) Hepatitis C Antibody Negative (NEGATIVE) HIV 1&2 Antibody Screen (NEGATIVE) Ur L.pneumophila Ag Negative (NEGATIVE) Blood Type Antibody Screen 11/04/17 11/04/17 11/04/17 Range/Units 08:53 06:10 06:10 WBC (4.8-10.8) K/uL RBC (3.80-5.20) Mil/uL Hgb (11.0-16.0) g/dL Hct (34.0-47.0) % MCV (81.0-99.0) fL MCH (27.0-31.0) pg MCHC (33.0-37.0) g/dL RDW (11.5-14.5) % Plt Count (130-400) K/uL MPV (7.2-11.7) fL Neut % (Auto) (50.0-75.0) % Lymph % (Auto) (20.0-40.0) % [place] % (Auto) (0.0-10.0) % Eos % (Auto) (0.0-4.0) % Baso % (Auto) (0.0-2.0) % Neut # (Auto) (1.8-7.0) K/uL Lymph # (Auto) (1.0-4.3) K/uL [place] # (Auto) (0.0-0.8) K/uL Eos # (Auto) (0.0-0.7) K/uL Baso # (Auto) (0.0-0.2) K/uL Neutrophils % (Manual) (50-75) % Band Neutrophils % (0-2) % Lymphocytes % (Manual) (20-40) % Monocytes % (Manual) (0-10) % Metamyelocytes % (0-0) % Toxic Granulation Dohle Bodies Platelet Estimate (NORMAL) Large Platelets Giant Platelets Polychromasia Hypochromasia (manual) Poikilocytosis (manual Anisocytosis (manual) Microcytosis (manual) Macrocytosis (manual) Target Cells Retic Count (0.5-1.5) % PT (9.7-12.2) SECONDS INR APTT (21-34) SECONDS Puncture Site Rr pCO2 26 L (35-45) mm/Hg pO2 93 (80-100) mm/Hg HCO3 17.8 L (21-28) mmol/L ABG pH 7.36 (7.35-7.45) ABG Total CO2 15.5 L (22-28) mmol/L ABG O2 Saturation 97.4 (95-98) % ABG Base Excess -9.1 L (-2.0-3.0) mmol/L Romero Test Pos ABG Potassium 2.8 L (3.6-5.2) mmol/L A-a O2 Difference 516.0 mm/Hg Respiratory Index 5.5 Glucose 111 H (65-105) mg/dl Lactate 3.6 H (0.7-2.1) mmol/L Liter Flow Vent Mode Bipap FiO2 90.0 % Inspiratory BiPAP 15 Expiratory BiPAP 8 Crit Value Called To Crit Value Called By Crit Value Read Back Blood Gas Notified Time Sodium 140.0 (132-148) mmol/L Potassium (3.6-5.2) mmol/L Chloride 114.0 H (98-107) mmol/L Carbon Dioxide (22-30) mmol/L Anion Gap (10-20) BUN (7-17) mg/dL Creatinine (0.7-1.2) mg/dL Est GFR ( Amer) Est GFR (Non-Af Amer) Random Glucose (65-105) mg/dL Lactic Acid (0.7-2.1) mmol/L Calcium (8.6-10.4) mg/dl Phosphorus (2.5-4.5) mg/dL Magnesium (1.6-2.3) mg/dL Iron 10 L (37-170) ug/dL TIBC 145 L (250-450) ug/dL % Saturation 6.9 L (20-55) Ferritin 351.0 ng/mL Total Bilirubin (0.2-1.3) mg/dL AST (14-36) U/L ALT (9-52) U/L Alkaline Phosphatase (38-126) U/L Troponin I (0.00-0.120) ng/mL Total Protein (6.3-8.3) g/dL Albumin (3.5-5.0) g/dL Globulin (2.2-3.9) gm/dL Albumin/Globulin Ratio (1.0-2.1) Amylase 67 (30-110) U/L Lipase 62 (23-300) U/L Vitamin B12 > 1000 H (239-931) pg/mL Folate 13.4 ng/mL Arterial Blood Potassium 2.8 L (3.6-5.2) mmol/L Urine Color (YELLOW) Urine Clarity (Clear) Urine pH (5.0-8.0) Ur Specific [place]ona (1.003-1.030) Urine Protein (NEGATIVE) mg/dL Urine Glucose (UA) (Normal) mg/dL Urine Ketones (NEGATIVE) mg/dL Urine Blood (NEGATIVE) Urine Nitrate (NEGATIVE) Urine Bilirubin (NEGATIVE) Urine Urobilinogen (0.2-1.0) mg/dL Ur Leukocyte Esterase (Negative) Brayan/uL Urine WBC (Auto) (0-5) /hpf Urine RBC (Auto) (0-3) /hpf Ur Squamous Epith Cells (0-5) /hpf Hepatitis A IgM Ab (NEGATIVE) Hep Bs Antigen (NEGATIVE) Hep B Core IgM Ab (NEGATIVE) Hepatitis C Antibody (NEGATIVE) HIV 1&2 Antibody Screen Negative (NEGATIVE) Ur L.pneumophila Ag (NEGATIVE) Blood Type Antibody Screen 11/04/17 11/04/17 11/04/17 Range/Units 06:10 06:10 06:10 WBC 4.4 L (4.8-10.8) K/uL RBC 2.44 L (3.80-5.20) Mil/uL Hgb 8.2 L D (11.0-16.0) g/dL Hct 24.5 L (34.0-47.0) % MCV 100.1 H (81.0-99.0) fL MCH 33.5 H (27.0-31.0) pg MCHC 33.5 (33.0-37.0) g/dL RDW 21.3 H (11.5-14.5) % Plt Count 196 D (130-400) K/uL MPV 8.5 (7.2-11.7) fL Neut % (Auto) 86.0 H (50.0-75.0) % Lymph % (Auto) 9.0 L (20.0-40.0) % [place] % (Auto) 5.0 (0.0-10.0) % Eos % (Auto) 0.0 (0.0-4.0) % Baso % (Auto) 0.0 (0.0-2.0) % Neut # (Auto) 3.8 (1.8-7.0) K/uL Lymph # (Auto) 0.4 L (1.0-4.3) K/uL [place] # (Auto) 0.2 (0.0-0.8) K/uL Eos # (Auto) 0.0 (0.0-0.7) K/uL Baso # (Auto) 0.0 (0.0-0.2) K/uL Neutrophils % (Manual) 63 (50-75) % Band Neutrophils % 20 H* (0-2) % Lymphocytes % (Manual) 7 L (20-40) % Monocytes % (Manual) 7 (0-10) % Metamyelocytes % 3 H (0-0) % Toxic Granulation Present Dohle Bodies Present Platelet Estimate Normal (NORMAL) Large Platelets Giant Platelets Polychromasia Hypochromasia (manual) Slight Poikilocytosis (manual Anisocytosis (manual) Moderate Microcytosis (manual) Macrocytosis (manual) Moderate Target Cells Slight Retic Count 2.2 H (0.5-1.5) % PT (9.7-12.2) SECONDS INR APTT (21-34) SECONDS Puncture Site pCO2 (35-45) mm/Hg pO2 (80-100) mm/Hg HCO3 (21-28) mmol/L ABG pH (7.35-7.45) ABG Total CO2 (22-28) mmol/L ABG O2 Saturation (95-98) % ABG Base Excess (-2.0-3.0) mmol/L Romero Test ABG Potassium (3.6-5.2) mmol/L A-a O2 Difference mm/Hg Respiratory Index Glucose (65-105) mg/dl Lactate (0.7-2.1) mmol/L Liter Flow Vent Mode FiO2 % Inspiratory BiPAP Expiratory BiPAP Crit Value Called To Crit Value Called By Crit Value Read Back Blood Gas Notified Time Sodium 139 (132-148) mmol/L Potassium 3.5 L (3.6-5.2) mmol/L Chloride 112 H (98-107) mmol/L Carbon Dioxide 13 L (22-30) mmol/L Anion Gap 18 (10-20) BUN 16 (7-17) mg/dL Creatinine 0.7 (0.7-1.2) mg/dL Est GFR ( Amer) > 60 Est GFR (Non-Af Amer) > 60 Random Glucose 102 (65-105) mg/dL Lactic Acid 4.4 H* (0.7-2.1) mmol/L Calcium 7.4 L (8.6-10.4) mg/dl Phosphorus 1.7 L (2.5-4.5) mg/dL Magnesium 1.6 (1.6-2.3) mg/dL Iron (37-170) ug/dL TIBC (250-450) ug/dL % Saturation (20-55) Ferritin ng/mL Total Bilirubin 0.9 (0.2-1.3) mg/dL AST 22 (14-36) U/L ALT 92 H D (9-52) U/L Alkaline Phosphatase 199 H D (38-126) U/L Troponin I (0.00-0.120) ng/mL Total Protein 4.5 L (6.3-8.3) g/dL Albumin 1.9 L D (3.5-5.0) g/dL Globulin 2.6 (2.2-3.9) gm/dL Albumin/Globulin Ratio 0.7 L (1.0-2.1) Amylase (30-110) U/L Lipase (23-300) U/L Vitamin B12 (239-931) pg/mL Folate ng/mL Arterial Blood Potassium (3.6-5.2) mmol/L Urine Color (YELLOW) Urine Clarity (Clear) Urine pH (5.0-8.0) Ur Specific [place] (1.003-1.030) Urine Protein (NEGATIVE) mg/dL Urine Glucose (UA) (Normal) mg/dL Urine Ketones (NEGATIVE) mg/dL Urine Blood (NEGATIVE) Urine Nitrate (NEGATIVE) Urine Bilirubin (NEGATIVE) Urine Urobilinogen (0.2-1.0) mg/dL Ur Leukocyte Esterase (Negative) Brayan/uL Urine WBC (Auto) (0-5) /hpf Urine RBC (Auto) (0-3) /hpf Ur Squamous Epith Cells (0-5) /hpf Hepatitis A IgM Ab (NEGATIVE) Hep Bs Antigen (NEGATIVE) Hep B Core IgM Ab (NEGATIVE) Hepatitis C Antibody (NEGATIVE) HIV 1&2 Antibody Screen (NEGATIVE) Ur L.pneumophila Ag (NEGATIVE) Blood Type Antibody Screen 11/04/17 11/04/17 11/03/17 Range/Units 05:00 03:06 22:55 WBC (4.8-10.8) K/uL RBC (3.80-5.20) Mil/uL Hgb (11.0-16.0) g/dL Hct (34.0-47.0) % MCV (81.0-99.0) fL MCH (27.0-31.0) pg MCHC (33.0-37.0) g/dL RDW (11.5-14.5) % Plt Count (130-400) K/uL MPV (7.2-11.7) fL Neut % (Auto) (50.0-75.0) % Lymph % (Auto) (20.0-40.0) % [place] % (Auto) (0.0-10.0) % Eos % (Auto) (0.0-4.0) % Baso % (Auto) (0.0-2.0) % Neut # (Auto) (1.8-7.0) K/uL Lymph # (Auto) (1.0-4.3) K/uL [place] # (Auto) (0.0-0.8) K/uL Eos # (Auto) (0.0-0.7) K/uL Baso # (Auto) (0.0-0.2) K/uL Neutrophils % (Manual) (50-75) % Band Neutrophils % (0-2) % Lymphocytes % (Manual) (20-40) % Monocytes % (Manual) (0-10) % Metamyelocytes % (0-0) % Toxic Granulation Dohle Bodies Platelet Estimate (NORMAL) Large Platelets Giant Platelets Polychromasia Hypochromasia (manual) Poikilocytosis (manual Anisocytosis (manual) Microcytosis (manual) Macrocytosis (manual) Target Cells Retic Count (0.5-1.5) % PT (9.7-12.2) SECONDS INR APTT (21-34) SECONDS Puncture Site Rb Rra pCO2 29 L 25 L (35-45) mm/Hg pO2 75 L 50 L (80-100) mm/Hg HCO3 16.1 L 15.6 L (21-28) mmol/L ABG pH 7.29 L 7.32 L (7.35-7.45) ABG Total CO2 14.8 L 13.7 L (22-28) mmol/L ABG O2 Saturation 95.3 86.7 L (95-98) % ABG Base Excess -11.2 L -11.4 L (-2.0-3.0) mmol/L Romero Test Na Na ABG Potassium 3.2 L 3.4 L (3.6-5.2) mmol/L A-a O2 Difference 602.0 mm/Hg Respiratory Index 8.0 Glucose 103 129 H (65-105) mg/dl Lactate 4.1 H* 5.1 H* (0.7-2.1) mmol/L Liter Flow 2.0 Vent Mode Bipap FiO2 100.0 % Inspiratory BiPAP 10 Expiratory BiPAP 5 Crit Value Called To Howard Corona md 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 Lendl Crit Value Read Back Y Y Blood Gas Notified Time 535 2300 Sodium 138.0 137.0 (132-148) mmol/L Potassium (3.6-5.2) mmol/L Chloride 112.0 H 106.0 (98-107) mmol/L Carbon Dioxide (22-30) mmol/L Anion Gap (10-20) BUN (7-17) mg/dL Creatinine (0.7-1.2) mg/dL Est GFR ( Amer) Est GFR (Non-Af Amer) Random Glucose (65-105) mg/dL Lactic Acid 6.0 H* (0.7-2.1) mmol/L Calcium (8.6-10.4) mg/dl Phosphorus (2.5-4.5) mg/dL Magnesium (1.6-2.3) mg/dL Iron (37-170) ug/dL TIBC (250-450) ug/dL % Saturation (20-55) Ferritin ng/mL Total Bilirubin (0.2-1.3) mg/dL AST (14-36) U/L ALT (9-52) U/L Alkaline Phosphatase (38-126) U/L Troponin I (0.00-0.120) ng/mL Total Protein (6.3-8.3) g/dL Albumin (3.5-5.0) g/dL Globulin (2.2-3.9) gm/dL Albumin/Globulin Ratio (1.0-2.1) Amylase (30-110) U/L Lipase (23-300) U/L Vitamin B12 (239-931) pg/mL Folate ng/mL Arterial Blood Potassium 3.2 L 3.4 L (3.6-5.2) mmol/L Urine Color (YELLOW) Urine Clarity (Clear) Urine pH (5.0-8.0) Ur Specific [place]demona (1.003-1.030) Urine Protein (NEGATIVE) mg/dL Urine Glucose (UA) (Normal) mg/dL Urine Ketones (NEGATIVE) mg/dL Urine Blood (NEGATIVE) Urine Nitrate (NEGATIVE) Urine Bilirubin (NEGATIVE) Urine Urobilinogen (0.2-1.0) mg/dL Ur Leukocyte Esterase (Negative) Brayan/uL Urine WBC (Auto) (0-5) /hpf Urine RBC (Auto) (0-3) /hpf Ur Squamous Epith Cells (0-5) /hpf Hepatitis A IgM Ab (NEGATIVE) Hep Bs Antigen (NEGATIVE) Hep B Core IgM Ab (NEGATIVE) Hepatitis C Antibody (NEGATIVE) HIV 1&2 Antibody Screen (NEGATIVE) Ur L.pneumophila Ag (NEGATIVE) Blood Type Antibody Screen 11/03/17 11/03/17 11/03/17 Range/Units 22:36 20:42 20:42 WBC (4.8-10.8) K/uL RBC (3.80-5.20) Mil/uL Hgb (11.0-16.0) g/dL Hct (34.0-47.0) % MCV (81.0-99.0) fL MCH (27.0-31.0) pg MCHC (33.0-37.0) g/dL RDW (11.5-14.5) % Plt Count (130-400) K/uL MPV (7.2-11.7) fL Neut % (Auto) (50.0-75.0) % Lymph % (Auto) (20.0-40.0) % [place] % (Auto) (0.0-10.0) % Eos % (Auto) (0.0-4.0) % Baso % (Auto) (0.0-2.0) % Neut # (Auto) (1.8-7.0) K/uL Lymph # (Auto) (1.0-4.3) K/uL [place] # (Auto) (0.0-0.8) K/uL Eos # (Auto) (0.0-0.7) K/uL Baso # (Auto) (0.0-0.2) K/uL Neutrophils % (Manual) (50-75) % Band Neutrophils % (0-2) % Lymphocytes % (Manual) (20-40) % Monocytes % (Manual) (0-10) % Metamyelocytes % (0-0) % Toxic Granulation Dohle Bodies Platelet Estimate (NORMAL) Large Platelets Giant Platelets Polychromasia Hypochromasia (manual) Poikilocytosis (manual Anisocytosis (manual) Microcytosis (manual) Macrocytosis (manual) Target Cells Retic Count (0.5-1.5) % PT (9.7-12.2) SECONDS INR APTT (21-34) SECONDS Puncture Site pCO2 (35-45) mm/Hg pO2 (80-100) mm/Hg HCO3 (21-28) mmol/L ABG pH (7.35-7.45) ABG Total CO2 (22-28) mmol/L ABG O2 Saturation (95-98) % ABG Base Excess (-2.0-3.0) mmol/L Romero Test ABG Potassium (3.6-5.2) mmol/L A-a O2 Difference mm/Hg Respiratory Index Glucose (65-105) mg/dl Lactate (0.7-2.1) mmol/L Liter Flow Vent Mode FiO2 % Inspiratory BiPAP Expiratory BiPAP Crit Value Called To Crit Value Called By Crit Value Read Back Blood Gas Notified Time Sodium 136 (132-148) mmol/L Potassium 4.2 (3.6-5.2) mmol/L Chloride 103 (98-107) mmol/L Carbon Dioxide 17 L (22-30) mmol/L Anion Gap 20 (10-20) BUN 21 H (7-17) mg/dL Creatinine 1.1 (0.7-1.2) mg/dL Est GFR ( Amer) > 60 Est GFR (Non-Af Amer) 53 Random Glucose 79 (65-105) mg/dL Lactic Acid 4.5 H* (0.7-2.1) mmol/L Calcium 9.0 (8.6-10.4) mg/dl Phosphorus (2.5-4.5) mg/dL Magnesium (1.6-2.3) mg/dL Iron (37-170) ug/dL TIBC (250-450) ug/dL % Saturation (20-55) Ferritin ng/mL Total Bilirubin 1.3 (0.2-1.3) mg/dL AST 25 (14-36) U/L ALT 151 H D (9-52) U/L Alkaline Phosphatase 406 H D (38-126) U/L Troponin I < 0.0120 (0.00-0.120) ng/mL Total Protein 6.7 (6.3-8.3) g/dL Albumin 3.1 L D (3.5-5.0) g/dL Globulin 3.6 (2.2-3.9) gm/dL Albumin/Globulin Ratio 0.9 L (1.0-2.1) Amylase (30-110) U/L Lipase (23-300) U/L Vitamin B12 (239-931) pg/mL Folate ng/mL Arterial Blood Potassium (3.6-5.2) mmol/L Urine Color (YELLOW) Urine Clarity (Clear) Urine pH (5.0-8.0) Ur Specific [place]demona (1.003-1.030) Urine Protein (NEGATIVE) mg/dL Urine Glucose (UA) (Normal) mg/dL Urine Ketones (NEGATIVE) mg/dL Urine Blood (NEGATIVE) Urine Nitrate (NEGATIVE) Urine Bilirubin (NEGATIVE) Urine Urobilinogen (0.2-1.0) mg/dL Ur Leukocyte Esterase (Negative) Brayan/uL Urine WBC (Auto) (0-5) /hpf Urine RBC (Auto) (0-3) /hpf Ur Squamous Epith Cells (0-5) /hpf Hepatitis A IgM Ab (NEGATIVE) Hep Bs Antigen (NEGATIVE) Hep B Core IgM Ab (NEGATIVE) Hepatitis C Antibody (NEGATIVE) HIV 1&2 Antibody Screen (NEGATIVE) Ur L.pneumophila Ag (NEGATIVE) Blood Type A NEGATIVE Antibody Screen Negative 11/03/17 11/03/17 Range/Units 20:42 20:42 WBC 7.0 (4.8-10.8) K/uL RBC 3.19 L (3.80-5.20) Mil/uL Hgb 10.5 L (11.0-16.0) g/dL Hct 31.4 L (34.0-47.0) % MCV 98.6 D (81.0-99.0) fL MCH 33.0 H (27.0-31.0) pg MCHC 33.5 (33.0-37.0) g/dL RDW 21.3 H (11.5-14.5) % Plt Count 370 (130-400) K/uL MPV 8.6 (7.2-11.7) fL Neut % (Auto) 91.0 H (50.0-75.0) % Lymph % (Auto) 6.0 L (20.0-40.0) % [place] % (Auto) 3.0 (0.0-10.0) % Eos % (Auto) 0.0 (0.0-4.0) % Baso % (Auto) 0.0 (0.0-2.0) % Neut # (Auto) 6.4 (1.8-7.0) K/uL Lymph # (Auto) 0.4 L (1.0-4.3) K/uL [place] # (Auto) 0.2 (0.0-0.8) K/uL Eos # (Auto) 0.0 (0.0-0.7) K/uL Baso # (Auto) 0.0 (0.0-0.2) K/uL Neutrophils % (Manual) 84 H (50-75) % Band Neutrophils % 6 H (0-2) % Lymphocytes % (Manual) 9 L (20-40) % Monocytes % (Manual) 1 (0-10) % Metamyelocytes % (0-0) % Toxic Granulation Dohle Bodies Platelet Estimate Normal (NORMAL) Large Platelets Present Giant Platelets Present Polychromasia Slight Hypochromasia (manual) Slight Poikilocytosis (manual Slight Anisocytosis (manual) Slight Microcytosis (manual) Slight Macrocytosis (manual) Slight Target Cells Slight Retic Count (0.5-1.5) % PT 16.9 H (9.7-12.2) SECONDS INR 1.5 APTT 34 (21-34) SECONDS Puncture Site pCO2 (35-45) mm/Hg pO2 (80-100) mm/Hg HCO3 (21-28) mmol/L ABG pH (7.35-7.45) ABG Total CO2 (22-28) mmol/L ABG O2 Saturation (95-98) % ABG Base Excess (-2.0-3.0) mmol/L Romero Test ABG Potassium (3.6-5.2) mmol/L A-a O2 Difference mm/Hg Respiratory Index Glucose (65-105) mg/dl Lactate (0.7-2.1) mmol/L Liter Flow Vent Mode FiO2 % Inspiratory BiPAP Expiratory BiPAP Crit Value Called To Crit Value Called By Crit Value Read Back Blood Gas Notified Time Sodium (132-148) mmol/L Potassium (3.6-5.2) mmol/L Chloride (98-107) mmol/L Carbon Dioxide (22-30) mmol/L Anion Gap (10-20) BUN (7-17) mg/dL Creatinine (0.7-1.2) mg/dL Est GFR ( Amer) Est GFR (Non-Af Amer) Random Glucose (65-105) mg/dL Lactic Acid (0.7-2.1) mmol/L Calcium (8.6-10.4) mg/dl Phosphorus (2.5-4.5) mg/dL Magnesium (1.6-2.3) mg/dL Iron (37-170) ug/dL TIBC (250-450) ug/dL % Saturation (20-55) Ferritin ng/mL Total Bilirubin (0.2-1.3) mg/dL AST (14-36) U/L ALT (9-52) U/L Alkaline Phosphatase (38-126) U/L Troponin I (0.00-0.120) ng/mL Total Protein (6.3-8.3) g/dL Albumin (3.5-5.0) g/dL Globulin (2.2-3.9) gm/dL Albumin/Globulin Ratio (1.0-2.1) Amylase (30-110) U/L Lipase (23-300) U/L Vitamin B12 (239-931) pg/mL Folate ng/mL Arterial Blood Potassium (3.6-5.2) mmol/L Urine Color (YELLOW) Urine Clarity (Clear) Urine pH (5.0-8.0) Ur Specific [place] (1.003-1.030) Urine Protein (NEGATIVE) mg/dL Urine Glucose (UA) (Normal) mg/dL Urine Ketones (NEGATIVE) mg/dL Urine Blood (NEGATIVE) Urine Nitrate (NEGATIVE) Urine Bilirubin (NEGATIVE) Urine Urobilinogen (0.2-1.0) mg/dL Ur Leukocyte Esterase (Negative) Brayan/uL Urine WBC (Auto) (0-5) /hpf Urine RBC (Auto) (0-3) /hpf Ur Squamous Epith Cells (0-5) /hpf Hepatitis A IgM Ab (NEGATIVE) Hep Bs Antigen (NEGATIVE) Hep B Core IgM Ab (NEGATIVE) Hepatitis C Antibody (NEGATIVE) HIV 1&2 Antibody Screen (NEGATIVE) Ur L.pneumophila Ag (NEGATIVE) Blood Type Antibody Screen Laboratory Results - last 24 hr 11/03/17 11/03/17 11/03/17 20:42 20:42 20:42 WBC 7.0 RBC 3.19 L Hgb 10.5 L Hct 31.4 L MCV 98.6 D MCH 33.0 H MCHC 33.5 RDW 21.3 H Plt Count 370 MPV 8.6 Neut % (Auto) 91.0 H Lymph % (Auto) 6.0 L [place] % (Auto) 3.0 Eos % (Auto) 0.0 Baso % (Auto) 0.0 Neut # (Auto) 6.4 Lymph # (Auto) 0.4 L [place] # (Auto) 0.2 Eos # (Auto) 0.0 Baso # (Auto) 0.0 Neutrophils % (Manual) 84 H Band Neutrophils % 6 H Lymphocytes % (Manual) 9 L Monocytes % (Manual) 1 Metamyelocytes % Toxic Granulation Dohle Bodies Platelet Estimate Normal Large Platelets Present Giant Platelets Present Polychromasia Slight Hypochromasia (manual) Slight Poikilocytosis (manual Slight Anisocytosis (manual) Slight Microcytosis (manual) Slight Macrocytosis (manual) Slight Target Cells Slight Retic Count PT 16.9 H INR 1.5 APTT 34 Puncture Site pCO2 pO2 HCO3 ABG pH ABG Total CO2 ABG O2 Saturation ABG Base Excess Romero Test ABG Potassium A-a O2 Difference Respiratory Index Glucose Lactate Liter Flow Vent Mode FiO2 Inspiratory BiPAP Expiratory BiPAP Crit Value Called To Crit Value Called By Crit Value Read Back Blood Gas Notified Time Sodium 136 Potassium 4.2 Chloride 103 Carbon Dioxide 17 L Anion Gap 20 BUN 21 H Creatinine 1.1 Est GFR ( Amer) > 60 Est GFR (Non-Af Amer) 53 Random Glucose 79 Lactic Acid Calcium 9.0 Phosphorus Magnesium Iron TIBC % Saturation Ferritin Total Bilirubin 1.3 AST 25 ALT 151 H D Alkaline Phosphatase 406 H D Troponin I < 0.0120 Total Protein 6.7 Albumin 3.1 L D Globulin 3.6 Albumin/Globulin Ratio 0.9 L Amylase Lipase Vitamin B12 Folate Arterial Blood Potassium Urine Color Urine Clarity Urine pH Ur Specific [place] Urine Protein Urine Glucose (UA) Urine Ketones Urine Blood Urine Nitrate Urine Bilirubin Urine Urobilinogen Ur Leukocyte Esterase Urine WBC (Auto) Urine RBC (Auto) Ur Squamous Epith Cells Hepatitis A IgM Ab Hep Bs Antigen Hep B Core IgM Ab Hepatitis C Antibody HIV 1&2 Antibody Screen Ur L.pneumophila Ag Blood Type Antibody Screen 11/03/17 11/03/17 11/03/17 20:42 22:36 22:55 WBC RBC Hgb Hct MCV MCH MCHC RDW Plt Count MPV Neut % (Auto) Lymph % (Auto) [place] % (Auto) Eos % (Auto) Baso % (Auto) Neut # (Auto) Lymph # (Auto) [place] # (Auto) Eos # (Auto) Baso # (Auto) Neutrophils % (Manual) Band Neutrophils % Lymphocytes % (Manual) Monocytes % (Manual) Metamyelocytes % Toxic Granulation Dohle Bodies Platelet Estimate Large Platelets Giant Platelets Polychromasia Hypochromasia (manual) Poikilocytosis (manual Anisocytosis (manual) Microcytosis (manual) Macrocytosis (manual) Target Cells Retic Count PT INR APTT Puncture Site Rra pCO2 25 L pO2 50 L HCO3 15.6 L ABG pH 7.32 L ABG Total CO2 13.7 L ABG O2 Saturation 86.7 L ABG Base Excess -11.4 L Romero Test Na ABG Potassium 3.4 L A-a O2 Difference Respiratory Index Glucose 129 H Lactate 5.1 H* Liter Flow 2.0 Vent Mode FiO2 Inspiratory BiPAP Expiratory BiPAP Crit Value Called To Cj dougherty Crit Value Called By Dakota Crit Value Read Back Y Blood Gas Notified Time 2300 Sodium 137.0 Potassium Chloride 106.0 Carbon Dioxide Anion Gap BUN Creatinine Est GFR ( Amer) Est GFR (Non-Af Amer) Random Glucose Lactic Acid 4.5 H* Calcium Phosphorus Magnesium Iron TIBC % Saturation Ferritin Total Bilirubin AST ALT Alkaline Phosphatase Troponin I Total Protein Albumin Globulin Albumin/Globulin Ratio Amylase Lipase Vitamin B12 Folate Arterial Blood Potassium 3.4 L Urine Color Urine Clarity Urine pH Ur Specific [place] Urine Protein Urine Glucose (UA) Urine Ketones Urine Blood Urine Nitrate Urine Bilirubin Urine Urobilinogen Ur Leukocyte Esterase Urine WBC (Auto) Urine RBC (Auto) Ur Squamous Epith Cells Hepatitis A IgM Ab Hep Bs Antigen Hep B Core IgM Ab Hepatitis C Antibody HIV 1&2 Antibody Screen Ur L.pneumophila Ag Blood Type A NEGATIVE Antibody Screen Negative 11/04/17 11/04/17 11/04/17 03:06 05:00 06:10 WBC 4.4 L RBC 2.44 L Hgb 8.2 L D Hct 24.5 L MCV 100.1 H MCH 33.5 H MCHC 33.5 RDW 21.3 H Plt Count 196 D MPV 8.5 Neut % (Auto) 86.0 H Lymph % (Auto) 9.0 L [place] % (Auto) 5.0 Eos % (Auto) 0.0 Baso % (Auto) 0.0 Neut # (Auto) 3.8 Lymph # (Auto) 0.4 L [place] # (Auto) 0.2 Eos # (Auto) 0.0 Baso # (Auto) 0.0 Neutrophils % (Manual) 63 Band Neutrophils % 20 H* Lymphocytes % (Manual) 7 L Monocytes % (Manual) 7 Metamyelocytes % 3 H Toxic Granulation Present Dohle Bodies Present Platelet Estimate Normal Large Platelets Giant Platelets Polychromasia Hypochromasia (manual) Slight Poikilocytosis (manual Anisocytosis (manual) Moderate Microcytosis (manual) Macrocytosis (manual) Moderate Target Cells Slight Retic Count 2.2 H PT INR APTT Puncture Site Rb pCO2 29 L pO2 75 L HCO3 16.1 L ABG pH 7.29 L ABG Total CO2 14.8 L ABG O2 Saturation 95.3 ABG Base Excess -11.2 L Romero Test Na ABG Potassium 3.2 L A-a O2 Difference 602.0 Respiratory Index 8.0 Glucose 103 Lactate 4.1 H* Liter Flow Vent Mode Bipap FiO2 100.0 Inspiratory BiPAP 10 Expiratory BiPAP 5 Crit Value Called To Howard rn 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 Crit Value Read Back Y Blood Gas Notified Time 535 Sodium 138.0 Potassium Chloride 112.0 H Carbon Dioxide Anion Gap BUN Creatinine Est GFR ( Amer) Est GFR (Non-Af Amer) Random Glucose Lactic Acid 6.0 H* Calcium Phosphorus Magnesium Iron TIBC % Saturation Ferritin Total Bilirubin AST ALT Alkaline Phosphatase Troponin I Total Protein Albumin Globulin Albumin/Globulin Ratio Amylase Lipase Vitamin B12 Folate Arterial Blood Potassium 3.2 L Urine Color Urine Clarity Urine pH Ur Specific [place] Urine Protein Urine Glucose (UA) Urine Ketones Urine Blood Urine Nitrate Urine Bilirubin Urine Urobilinogen Ur Leukocyte Esterase Urine WBC (Auto) Urine RBC (Auto) Ur Squamous Epith Cells Hepatitis A IgM Ab Hep Bs Antigen Hep B Core IgM Ab Hepatitis C Antibody HIV 1&2 Antibody Screen Ur L.pneumophila Ag Blood Type Antibody Screen 11/04/17 11/04/17 11/04/17 06:10 06:10 06:10 WBC RBC Hgb Hct MCV MCH MCHC RDW Plt Count MPV Neut % (Auto) Lymph % (Auto) [place] % (Auto) Eos % (Auto) Baso % (Auto) Neut # (Auto) Lymph # (Auto) [place] # (Auto) Eos # (Auto) Baso # (Auto) Neutrophils % (Manual) Band Neutrophils % Lymphocytes % (Manual) Monocytes % (Manual) Metamyelocytes % Toxic Granulation Dohle Bodies Platelet Estimate Large Platelets Giant Platelets Polychromasia Hypochromasia (manual) Poikilocytosis (manual Anisocytosis (manual) Microcytosis (manual) Macrocytosis (manual) Target Cells Retic Count PT INR APTT Puncture Site pCO2 pO2 HCO3 ABG pH ABG Total CO2 ABG O2 Saturation ABG Base Excess Romero Test ABG Potassium A-a O2 Difference Respiratory Index Glucose Lactate Liter Flow Vent Mode FiO2 Inspiratory BiPAP Expiratory BiPAP Crit Value Called To Crit Value Called By Crit Value Read Back Blood Gas Notified Time Sodium 139 Potassium 3.5 L Chloride 112 H Carbon Dioxide 13 L Anion Gap 18 BUN 16 Creatinine 0.7 Est GFR ( Amer) > 60 Est GFR (Non-Af Amer) > 60 Random Glucose 102 Lactic Acid 4.4 H* Calcium 7.4 L Phosphorus 1.7 L Magnesium 1.6 Iron 10 L TIBC 145 L % Saturation 6.9 L Ferritin Total Bilirubin 0.9 AST 22 ALT 92 H D Alkaline Phosphatase 199 H D Troponin I Total Protein 4.5 L Albumin 1.9 L D Globulin 2.6 Albumin/Globulin Ratio 0.7 L Amylase Lipase Vitamin B12 Folate Arterial Blood Potassium Urine Color Urine Clarity Urine pH Ur Specific [place] Urine Protein Urine Glucose (UA) Urine Ketones Urine Blood Urine Nitrate Urine Bilirubin Urine Urobilinogen Ur Leukocyte Esterase Urine WBC (Auto) Urine RBC (Auto) Ur Squamous Epith Cells Hepatitis A IgM Ab Hep Bs Antigen Hep B Core IgM Ab Hepatitis C Antibody HIV 1&2 Antibody Screen Negative Ur L.pneumophila Ag Blood Type Antibody Screen 11/04/17 11/04/17 11/04/17 06:10 08:53 09:25 WBC RBC Hgb Hct MCV MCH MCHC RDW Plt Count MPV Neut % (Auto) Lymph % (Auto) [place] % (Auto) Eos % (Auto) Baso % (Auto) Neut # (Auto) Lymph # (Auto) [place] # (Auto) Eos # (Auto) Baso # (Auto) Neutrophils % (Manual) Band Neutrophils % Lymphocytes % (Manual) Monocytes % (Manual) Metamyelocytes % Toxic Granulation Dohle Bodies Platelet Estimate Large Platelets Giant Platelets Polychromasia Hypochromasia (manual) Poikilocytosis (manual Anisocytosis (manual) Microcytosis (manual) Macrocytosis (manual) Target Cells Retic Count PT INR APTT Puncture Site Rr pCO2 26 L pO2 93 HCO3 17.8 L ABG pH 7.36 ABG Total CO2 15.5 L ABG O2 Saturation 97.4 ABG Base Excess -9.1 L Romero Test Pos ABG Potassium 2.8 L A-a O2 Difference 516.0 Respiratory Index 5.5 Glucose 111 H Lactate 3.6 H Liter Flow Vent Mode Bipap FiO2 90.0 Inspiratory BiPAP 15 Expiratory BiPAP 8 Crit Value Called To Crit Value Called By Crit Value Read Back Blood Gas Notified Time Sodium 140.0 Potassium Chloride 114.0 H Carbon Dioxide Anion Gap BUN Creatinine Est GFR ( Amer) Est GFR (Non-Af Amer) Random Glucose Lactic Acid Calcium Phosphorus Magnesium Iron TIBC % Saturation Ferritin 351.0 Total Bilirubin AST ALT Alkaline Phosphatase Troponin I Total Protein Albumin Globulin Albumin/Globulin Ratio Amylase 67 Lipase 62 Vitamin B12 > 1000 H Folate 13.4 Arterial Blood Potassium 2.8 L Urine Color Urine Clarity Urine pH Ur Specific [place] Urine Protein Urine Glucose (UA) Urine Ketones Urine Blood Urine Nitrate Urine Bilirubin Urine Urobilinogen Ur Leukocyte Esterase Urine WBC (Auto) Urine RBC (Auto) Ur Squamous Epith Cells Hepatitis A IgM Ab Negative Hep Bs Antigen Negative Hep B Core IgM Ab Negative Hepatitis C Antibody Negative HIV 1&2 Antibody Screen Ur L.pneumophila Ag Blood Type Antibody Screen 11/04/17 11/04/17 11:00 11:46 WBC RBC Hgb Hct MCV MCH MCHC RDW Plt Count MPV Neut % (Auto) Lymph % (Auto) [place] % (Auto) Eos % (Auto) Baso % (Auto) Neut # (Auto) Lymph # (Auto) [place] # (Auto) Eos # (Auto) Baso # (Auto) Neutrophils % (Manual) Band Neutrophils % Lymphocytes % (Manual) Monocytes % (Manual) Metamyelocytes % Toxic Granulation Dohle Bodies Platelet Estimate Large Platelets Giant Platelets Polychromasia Hypochromasia (manual) Poikilocytosis (manual Anisocytosis (manual) Microcytosis (manual) Macrocytosis (manual) Target Cells Retic Count PT INR APTT Puncture Site pCO2 pO2 HCO3 ABG pH ABG Total CO2 ABG O2 Saturation ABG Base Excess Romero Test ABG Potassium A-a O2 Difference Respiratory Index Glucose Lactate Liter Flow Vent Mode FiO2 Inspiratory BiPAP Expiratory BiPAP Crit Value Called To Crit Value Called By Crit Value Read Back Blood Gas Notified Time Sodium Potassium Chloride Carbon Dioxide Anion Gap BUN Creatinine Est GFR ( Amer) Est GFR (Non-Af Amer) Random Glucose Lactic Acid Calcium Phosphorus Magnesium Iron TIBC % Saturation Ferritin Total Bilirubin AST ALT Alkaline Phosphatase Troponin I Total Protein Albumin Globulin Albumin/Globulin Ratio Amylase Lipase Vitamin B12 Folate Arterial Blood Potassium Urine Color Yellow Urine Clarity Clear Urine pH 5.0 Ur Specific [place] 1.013 Urine Protein Negative Urine Glucose (UA) Normal Urine Ketones Negative Urine Blood Negative Urine Nitrate Negative Urine Bilirubin Negative Urine Urobilinogen Normal Ur Leukocyte Esterase Neg Urine WBC (Auto) 2 Urine RBC (Auto) < 1 Ur Squamous Epith Cells 1 Hepatitis A IgM Ab Hep Bs Antigen Hep B Core IgM Ab Hepatitis C Antibody HIV 1&2 Antibody Screen Ur L.pneumophila Ag Negative Blood Type Antibody Screen EKG/Cardiology Studies: Cardiology / EKG Studies 11/03/17 20:23 EKG [ELECTROCARDIOGRAM] Stat Comment: Mode Of Transportation: BED Reason For Exam: cp 11/03/17 20:28 ELECTROCARDIOGRAM Stat Comment: Mode Of Transportation: BED Reason For Exam: chest pain Fingerstick Blood Sugar Results: 144 Critical Care Progress Note - Nutrition Nutrition: Nutrition Category Date Time Status Regular Diet [DIET] Diets 11/04/17 Breakfast Active Assessment/Plan - Assessment and Plan (Free Text) Assessment: 51 yo F w/ PMHx of chronic back pain, scoliosis, fibromyalgia, multiple sclerosis, gastric bypass, presented to ED with weakness, anorexia, dyspnea, cough x1day. In ED pt found to be in A flutter w/ rapid rate @155. Cardizem given and pt became hypotensive; however responded to IVF. Admitted to ICU for sepsis management. 1. septic shock 2/2 to right sided multilobar PNA -CT shows right sided multilobar PNA -ID consult Dr. Veras -Azithromycin 500mg -zosyn 3.375 q6 -vanco 1g q12 2. A flutter -Dr. Contreras cardio consult -EKG shows no a flutter -cleared from cardio 3. Electrolyte abnormalities -monitor and replete as needed Ppx -SCD -Lovenox 30mg - Date & Time Date: 11/04/17 Time: 18:41 <Lamont Luther - Last Filed: 11/04/17 18:50> CCU Objective - Vital Signs / Intake & Output Vital Signs (Last 4 hours): Vital Signs Temp Pulse Resp BP Pulse Ox 11/04/17 18:00 116 H 28 H 100 11/04/17 17:55 116 H 24 11/04/17 17:47 120 H 15 135/96 H 93 L 11/04/17 17:00 116 H 22 100 11/04/17 16:53 117 H 30 H 100 11/04/17 16:00 98.8 F 117 H 93 L 11/04/17 15:53 88/54 L 11/04/17 15:00 117 H 96 11/04/17 14:54 89/57 L Intake and Output (Last 8hrs): Intake & Output 11/04/17 11/04/17 11/04/17 06:59 14:59 22:59 Intake Total 1600 1562.5 777.0 Output Total 400 500 225 Balance 1200 1062.5 552.0 Weight 124 lb 4.8 oz Intake: Intake, IV Amount 1600 1562.5 777.0 Left Wrist 600 650 Left wrist 2 212.5 135.0 Right Antecubital 1000 Right Distal Port 42 Internal Jugular Right Forearm 0 400 Right Medial Port 100 400 Internal Jugular Right Proximal Port 200 200 Internal Jugular Output: Urine 400 500 225 Urine, Voided 400 500 225 Other: # Voids Urine, Voided 1 - Medications Active Medications: Active Medications Generic Name Dose Route Start Last Admin Trade Name Freq PRN Reason Stop Dose Admin Acetaminophen/Butalbital/Caffeine 1 tab 11/04/17 10:00 11/04/17 11:59 Fioricet PO Not Given DAILY EMPERATRIZ Albuterol/Ipratropium 3 ml 11/04/17 08:25 Duoneb 3 Mg/0.5 Mg (3 Ml) Ud INH RQ4 PRN Shortness of Breath Amitriptyline HCl 25 mg 11/04/17 10:00 Elavil PO DAILY EMPERATRIZ Enoxaparin Sodium 30 mg 11/04/17 10:00 11/04/17 09:45 Lovenox SC 30 mg DAILY EMPERATRIZ Administration Gabapentin 600 mg 11/04/17 10:00 Neurontin PO DAILY EMPERATRIZ Piperacillin Sod/Tazobactam Sod 3.375 gm in 50 mls @ 100 mls/hr 11/04/17 05: 00 11/04/17 16:08 Zosyn 3.375 Gm Iv Premix IVPB 100 mls/hr Q6H EMPERATRIZ Administration Protocol Sodium Bicarbonate 100 meq/ 1,100 mls @ 75 mls/hr 11/04/17 10:00 11/04/17 10: 36 Sodium Chloride IV 75 mls/hr .[id number] EMPERATRIZ Administration Azithromycin 500 mg/ Sodium 250 mls @ 250 mls/hr 11/04/17 10:00 11/04/17 10: 48 Chloride IVPB 250 mls/hr DAILY EMPERATRIZ Administration Protocol Multivitamins/Vitamin C 10 ml/ 1,035.9052 mls @ 42 mls/hr 11/04/17 18:00 17:20 Chromium/Copper/Manganese/ IV 11/05/17 17:59 42 mls/hr Zinc 1 ml/ Magnesium Sulfate 6 .Q24H ONE Administration meq/ Sodium Chloride 35 meq/ Calcium Gluconate 4.5 meq/ Potassium Phosphate 15 mmole/ Amino Acids Vancomycin/Sodium Chloride 1 gm in 200 mls @ 133.333 mls/hr 11/05/17 01:00 Vancomycin 1 Gm/Ns 200 Ml IVPB Q12H EMPERATRIZ Protocol Ibuprofen 400 mg 11/04/17 01:02 Motrin Tab PO Q6H PRN Fever >100.4 F Nicotine 1 patch 11/04/17 10:00 11/04/17 12:05 Nicoderm Cq TD 1 patch DAILY EMPERATRIZ Administration Pantoprazole Sodium 40 mg 11/04/17 10:00 11/04/17 09:45 Protonix Inj IVP 40 mg DAILY EMPERATRIZ Administration Saccharomyces Boulardii 250 mg 11/04/17 08:00 11/04/17 18:19 Florastor PO Not Given BID EMPERATRIZ Vitamin A 1 ea 11/04/17 10:30 Vitamin A & D Oint Ud Foilpak TOP Q6H PRN Dry mouth - Patient Studies Lab Studies: Lab Studies 11/04/17 11/04/17 11/04/17 Range/Units 11:46 11:00 09:25 WBC (4.8-10.8) K/uL RBC (3.80-5.20) Mil/uL Hgb (11.0-16.0) g/dL Hct (34.0-47.0) % MCV (81.0-99.0) fL MCH (27.0-31.0) pg MCHC (33.0-37.0) g/dL RDW (11.5-14.5) % Plt Count (130-400) K/uL MPV (7.2-11.7) fL Neut % (Auto) (50.0-75.0) % Lymph % (Auto) (20.0-40.0) % [place] % (Auto) (0.0-10.0) % Eos % (Auto) (0.0-4.0) % Baso % (Auto) (0.0-2.0) % Neut # (Auto) (1.8-7.0) K/uL Lymph # (Auto) (1.0-4.3) K/uL [place] # (Auto) (0.0-0.8) K/uL Eos # (Auto) (0.0-0.7) K/uL Baso # (Auto) (0.0-0.2) K/uL Neutrophils % (Manual) (50-75) % Band Neutrophils % (0-2) % Lymphocytes % (Manual) (20-40) % Monocytes % (Manual) (0-10) % Metamyelocytes % (0-0) % Toxic Granulation Dohle Bodies Platelet Estimate (NORMAL) Large Platelets Giant Platelets Polychromasia Hypochromasia (manual) Poikilocytosis (manual Anisocytosis (manual) Microcytosis (manual) Macrocytosis (manual) Target Cells Retic Count (0.5-1.5) % PT (9.7-12.2) SECONDS INR APTT (21-34) SECONDS Puncture Site pCO2 (35-45) mm/Hg pO2 (80-100) mm/Hg HCO3 (21-28) mmol/L ABG pH (7.35-7.45) ABG Total CO2 (22-28) mmol/L ABG O2 Saturation (95-98) % ABG Base Excess (-2.0-3.0) mmol/L Romero Test ABG Potassium (3.6-5.2) mmol/L A-a O2 Difference mm/Hg Respiratory Index Glucose (65-105) mg/dl Lactate (0.7-2.1) mmol/L Liter Flow Vent Mode FiO2 % Inspiratory BiPAP Expiratory BiPAP Crit Value Called To Crit Value Called By Crit Value Read Back Blood Gas Notified Time Sodium (132-148) mmol/L Potassium (3.6-5.2) mmol/L Chloride (98-107) mmol/L Carbon Dioxide (22-30) mmol/L Anion Gap (10-20) BUN (7-17) mg/dL Creatinine (0.7-1.2) mg/dL Est GFR ( Amer) Est GFR (Non-Af Amer) Random Glucose (65-105) mg/dL Lactic Acid (0.7-2.1) mmol/L Calcium (8.6-10.4) mg/dl Phosphorus (2.5-4.5) mg/dL Magnesium (1.6-2.3) mg/dL Iron (37-170) ug/dL TIBC (250-450) ug/dL % Saturation (20-55) Ferritin ng/mL Total Bilirubin (0.2-1.3) mg/dL AST (14-36) U/L ALT (9-52) U/L Alkaline Phosphatase (38-126) U/L Troponin I (0.00-0.120) ng/mL Total Protein (6.3-8.3) g/dL Albumin (3.5-5.0) g/dL Globulin (2.2-3.9) gm/dL Albumin/Globulin Ratio (1.0-2.1) Amylase (30-110) U/L Lipase (23-300) U/L Vitamin B12 (239-931) pg/mL Folate ng/mL Arterial Blood Potassium (3.6-5.2) mmol/L Urine Color Yellow (YELLOW) Urine Clarity Clear (Clear) Urine pH 5.0 (5.0-8.0) Ur Specific [place] 1.013 (1.003-1.030) Urine Protein Negative (NEGATIVE) mg/dL Urine Glucose (UA) Normal (Normal) mg/dL Urine Ketones Negative (NEGATIVE) mg/dL Urine Blood Negative (NEGATIVE) Urine Nitrate Negative (NEGATIVE) Urine Bilirubin Negative (NEGATIVE) Urine Urobilinogen Normal (0.2-1.0) mg/dL Ur Leukocyte Esterase Neg (Negative) Brayan/uL Urine WBC (Auto) 2 (0-5) /hpf Urine RBC (Auto) < 1 (0-3) /hpf Ur Squamous Epith Cells 1 (0-5) /hpf Hepatitis A IgM Ab Negative (NEGATIVE) Hep Bs Antigen Negative (NEGATIVE) Hep B Core IgM Ab Negative (NEGATIVE) Hepatitis C Antibody Negative (NEGATIVE) HIV 1&2 Antibody Screen (NEGATIVE) Ur L.pneumophila Ag Negative (NEGATIVE) Blood Type Antibody Screen 11/04/17 11/04/17 11/04/17 Range/Units 08:53 06:10 06:10 WBC (4.8-10.8) K/uL RBC (3.80-5.20) Mil/uL Hgb (11.0-16.0) g/dL Hct (34.0-47.0) % MCV (81.0-99.0) fL MCH (27.0-31.0) pg MCHC (33.0-37.0) g/dL RDW (11.5-14.5) % Plt Count (130-400) K/uL MPV (7.2-11.7) fL Neut % (Auto) (50.0-75.0) % Lymph % (Auto) (20.0-40.0) % [place] % (Auto) (0.0-10.0) % Eos % (Auto) (0.0-4.0) % Baso % (Auto) (0.0-2.0) % Neut # (Auto) (1.8-7.0) K/uL Lymph # (Auto) (1.0-4.3) K/uL [place] # (Auto) (0.0-0.8) K/uL Eos # (Auto) (0.0-0.7) K/uL Baso # (Auto) (0.0-0.2) K/uL Neutrophils % (Manual) (50-75) % Band Neutrophils % (0-2) % Lymphocytes % (Manual) (20-40) % Monocytes % (Manual) (0-10) % Metamyelocytes % (0-0) % Toxic Granulation Dohle Bodies Platelet Estimate (NORMAL) Large Platelets Giant Platelets Polychromasia Hypochromasia (manual) Poikilocytosis (manual Anisocytosis (manual) Microcytosis (manual) Macrocytosis (manual) Target Cells Retic Count (0.5-1.5) % PT (9.7-12.2) SECONDS INR APTT (21-34) SECONDS Puncture Site Rr pCO2 26 L (35-45) mm/Hg pO2 93 (80-100) mm/Hg HCO3 17.8 L (21-28) mmol/L ABG pH 7.36 (7.35-7.45) ABG Total CO2 15.5 L (22-28) mmol/L ABG O2 Saturation 97.4 (95-98) % ABG Base Excess -9.1 L (-2.0-3.0) mmol/L Romero Test Pos ABG Potassium 2.8 L (3.6-5.2) mmol/L A-a O2 Difference 516.0 mm/Hg Respiratory Index 5.5 Glucose 111 H (65-105) mg/dl Lactate 3.6 H (0.7-2.1) mmol/L Liter Flow Vent Mode Bipap FiO2 90.0 % Inspiratory BiPAP 15 Expiratory BiPAP 8 Crit Value Called To Crit Value Called By Crit Value Read Back Blood Gas Notified Time Sodium 140.0 (132-148) mmol/L Potassium (3.6-5.2) mmol/L Chloride 114.0 H (98-107) mmol/L Carbon Dioxide (22-30) mmol/L Anion Gap (10-20) BUN (7-17) mg/dL Creatinine (0.7-1.2) mg/dL Est GFR ( Amer) Est GFR (Non-Af Amer) Random Glucose (65-105) mg/dL Lactic Acid (0.7-2.1) mmol/L Calcium (8.6-10.4) mg/dl Phosphorus (2.5-4.5) mg/dL Magnesium (1.6-2.3) mg/dL Iron 10 L (37-170) ug/dL TIBC 145 L (250-450) ug/dL % Saturation 6.9 L (20-55) Ferritin 351.0 ng/mL Total Bilirubin (0.2-1.3) mg/dL AST (14-36) U/L ALT (9-52) U/L Alkaline Phosphatase (38-126) U/L Troponin I (0.00-0.120) ng/mL Total Protein (6.3-8.3) g/dL Albumin (3.5-5.0) g/dL Globulin (2.2-3.9) gm/dL Albumin/Globulin Ratio (1.0-2.1) Amylase 67 (30-110) U/L Lipase 62 (23-300) U/L Vitamin B12 > 1000 H (239-931) pg/mL Folate 13.4 ng/mL Arterial Blood Potassium 2.8 L (3.6-5.2) mmol/L Urine Color (YELLOW) Urine Clarity (Clear) Urine pH (5.0-8.0) Ur Specific [place] (1.003-1.030) Urine Protein (NEGATIVE) mg/dL Urine Glucose (UA) (Normal) mg/dL Urine Ketones (NEGATIVE) mg/dL Urine Blood (NEGATIVE) Urine Nitrate (NEGATIVE) Urine Bilirubin (NEGATIVE) Urine Urobilinogen (0.2-1.0) mg/dL Ur Leukocyte Esterase (Negative) Brayan/uL Urine WBC (Auto) (0-5) /hpf Urine RBC (Auto) (0-3) /hpf Ur Squamous Epith Cells (0-5) /hpf Hepatitis A IgM Ab (NEGATIVE) Hep Bs Antigen (NEGATIVE) Hep B Core IgM Ab (NEGATIVE) Hepatitis C Antibody (NEGATIVE) HIV 1&2 Antibody Screen Negative (NEGATIVE) Ur L.pneumophila Ag (NEGATIVE) Blood Type Antibody Screen 11/04/17 11/04/17 11/04/17 Range/Units 06:10 06:10 06:10 WBC 4.4 L (4.8-10.8) K/uL RBC 2.44 L (3.80-5.20) Mil/uL Hgb 8.2 L D (11.0-16.0) g/dL Hct 24.5 L (34.0-47.0) % MCV 100.1 H (81.0-99.0) fL MCH 33.5 H (27.0-31.0) pg MCHC 33.5 (33.0-37.0) g/dL RDW 21.3 H (11.5-14.5) % Plt Count 196 D (130-400) K/uL MPV 8.5 (7.2-11.7) fL Neut % (Auto) 86.0 H (50.0-75.0) % Lymph % (Auto) 9.0 L (20.0-40.0) % [place] % (Auto) 5.0 (0.0-10.0) % Eos % (Auto) 0.0 (0.0-4.0) % Baso % (Auto) 0.0 (0.0-2.0) % Neut # (Auto) 3.8 (1.8-7.0) K/uL Lymph # (Auto) 0.4 L (1.0-4.3) K/uL [place] # (Auto) 0.2 (0.0-0.8) K/uL Eos # (Auto) 0.0 (0.0-0.7) K/uL Baso # (Auto) 0.0 (0.0-0.2) K/uL Neutrophils % (Manual) 63 (50-75) % Band Neutrophils % 20 H* (0-2) % Lymphocytes % (Manual) 7 L (20-40) % Monocytes % (Manual) 7 (0-10) % Metamyelocytes % 3 H (0-0) % Toxic Granulation Present Dohle Bodies Present Platelet Estimate Normal (NORMAL) Large Platelets Giant Platelets Polychromasia Hypochromasia (manual) Slight Poikilocytosis (manual Anisocytosis (manual) Moderate Microcytosis (manual) Macrocytosis (manual) Moderate Target Cells Slight Retic Count 2.2 H (0.5-1.5) % PT (9.7-12.2) SECONDS INR APTT (21-34) SECONDS Puncture Site pCO2 (35-45) mm/Hg pO2 (80-100) mm/Hg HCO3 (21-28) mmol/L ABG pH (7.35-7.45) ABG Total CO2 (22-28) mmol/L ABG O2 Saturation (95-98) % ABG Base Excess (-2.0-3.0) mmol/L Romero Test ABG Potassium (3.6-5.2) mmol/L A-a O2 Difference mm/Hg Respiratory Index Glucose (65-105) mg/dl Lactate (0.7-2.1) mmol/L Liter Flow Vent Mode FiO2 % Inspiratory BiPAP Expiratory BiPAP Crit Value Called To Crit Value Called By Crit Value Read Back Blood Gas Notified Time Sodium 139 (132-148) mmol/L Potassium 3.5 L (3.6-5.2) mmol/L Chloride 112 H (98-107) mmol/L Carbon Dioxide 13 L (22-30) mmol/L Anion Gap 18 (10-20) BUN 16 (7-17) mg/dL Creatinine 0.7 (0.7-1.2) mg/dL Est GFR ( Amer) > 60 Est GFR (Non-Af Amer) > 60 Random Glucose 102 (65-105) mg/dL Lactic Acid 4.4 H* (0.7-2.1) mmol/L Calcium 7.4 L (8.6-10.4) mg/dl Phosphorus 1.7 L (2.5-4.5) mg/dL Magnesium 1.6 (1.6-2.3) mg/dL Iron (37-170) ug/dL TIBC (250-450) ug/dL % Saturation (20-55) Ferritin ng/mL Total Bilirubin 0.9 (0.2-1.3) mg/dL AST 22 (14-36) U/L ALT 92 H D (9-52) U/L Alkaline Phosphatase 199 H D (38-126) U/L Troponin I (0.00-0.120) ng/mL Total Protein 4.5 L (6.3-8.3) g/dL Albumin 1.9 L D (3.5-5.0) g/dL Globulin 2.6 (2.2-3.9) gm/dL Albumin/Globulin Ratio 0.7 L (1.0-2.1) Amylase (30-110) U/L Lipase (23-300) U/L Vitamin B12 (239-931) pg/mL Folate ng/mL Arterial Blood Potassium (3.6-5.2) mmol/L Urine Color (YELLOW) Urine Clarity (Clear) Urine pH (5.0-8.0) Ur Specific [place]ona (1.003-1.030) Urine Protein (NEGATIVE) mg/dL Urine Glucose (UA) (Normal) mg/dL Urine Ketones (NEGATIVE) mg/dL Urine Blood (NEGATIVE) Urine Nitrate (NEGATIVE) Urine Bilirubin (NEGATIVE) Urine Urobilinogen (0.2-1.0) mg/dL Ur Leukocyte Esterase (Negative) Brayan/uL Urine WBC (Auto) (0-5) /hpf Urine RBC (Auto) (0-3) /hpf Ur Squamous Epith Cells (0-5) /hpf Hepatitis A IgM Ab (NEGATIVE) Hep Bs Antigen (NEGATIVE) Hep B Core IgM Ab (NEGATIVE) Hepatitis C Antibody (NEGATIVE) HIV 1&2 Antibody Screen (NEGATIVE) Ur L.pneumophila Ag (NEGATIVE) Blood Type Antibody Screen 11/04/17 11/04/17 11/03/17 Range/Units 05:00 03:06 22:55 WBC (4.8-10.8) K/uL RBC (3.80-5.20) Mil/uL Hgb (11.0-16.0) g/dL Hct (34.0-47.0) % MCV (81.0-99.0) fL MCH (27.0-31.0) pg MCHC (33.0-37.0) g/dL RDW (11.5-14.5) % Plt Count (130-400) K/uL MPV (7.2-11.7) fL Neut % (Auto) (50.0-75.0) % Lymph % (Auto) (20.0-40.0) % [place] % (Auto) (0.0-10.0) % Eos % (Auto) (0.0-4.0) % Baso % (Auto) (0.0-2.0) % Neut # (Auto) (1.8-7.0) K/uL Lymph # (Auto) (1.0-4.3) K/uL [place] # (Auto) (0.0-0.8) K/uL Eos # (Auto) (0.0-0.7) K/uL Baso # (Auto) (0.0-0.2) K/uL Neutrophils % (Manual) (50-75) % Band Neutrophils % (0-2) % Lymphocytes % (Manual) (20-40) % Monocytes % (Manual) (0-10) % Metamyelocytes % (0-0) % Toxic Granulation Dohle Bodies Platelet Estimate (NORMAL) Large Platelets Giant Platelets Polychromasia Hypochromasia (manual) Poikilocytosis (manual Anisocytosis (manual) Microcytosis (manual) Macrocytosis (manual) Target Cells Retic Count (0.5-1.5) % PT (9.7-12.2) SECONDS INR APTT (21-34) SECONDS Puncture Site Rb Rra pCO2 29 L 25 L (35-45) mm/Hg pO2 75 L 50 L (80-100) mm/Hg HCO3 16.1 L 15.6 L (21-28) mmol/L ABG pH 7.29 L 7.32 L (7.35-7.45) ABG Total CO2 14.8 L 13.7 L (22-28) mmol/L ABG O2 Saturation 95.3 86.7 L (95-98) % ABG Base Excess -11.2 L -11.4 L (-2.0-3.0) mmol/L Romero Test Na Na ABG Potassium 3.2 L 3.4 L (3.6-5.2) mmol/L A-a O2 Difference 602.0 mm/Hg Respiratory Index 8.0 Glucose 103 129 H (65-105) mg/dl Lactate 4.1 H* 5.1 H* (0.7-2.1) mmol/L Liter Flow 2.0 Vent Mode Bipap FiO2 100.0 % Inspiratory BiPAP 10 Expiratory BiPAP 5 Crit Value Called To Howard Corona md 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 Lendl Crit Value Read Back Y Y Blood Gas Notified Time 535 2300 Sodium 138.0 137.0 (132-148) mmol/L Potassium (3.6-5.2) mmol/L Chloride 112.0 H 106.0 (98-107) mmol/L Carbon Dioxide (22-30) mmol/L Anion Gap (10-20) BUN (7-17) mg/dL Creatinine (0.7-1.2) mg/dL Est GFR ( Amer) Est GFR (Non-Af Amer) Random Glucose (65-105) mg/dL Lactic Acid 6.0 H* (0.7-2.1) mmol/L Calcium (8.6-10.4) mg/dl Phosphorus (2.5-4.5) mg/dL Magnesium (1.6-2.3) mg/dL Iron (37-170) ug/dL TIBC (250-450) ug/dL % Saturation (20-55) Ferritin ng/mL Total Bilirubin (0.2-1.3) mg/dL AST (14-36) U/L ALT (9-52) U/L Alkaline Phosphatase (38-126) U/L Troponin I (0.00-0.120) ng/mL Total Protein (6.3-8.3) g/dL Albumin (3.5-5.0) g/dL Globulin (2.2-3.9) gm/dL Albumin/Globulin Ratio (1.0-2.1) Amylase (30-110) U/L Lipase (23-300) U/L Vitamin B12 (239-931) pg/mL Folate ng/mL Arterial Blood Potassium 3.2 L 3.4 L (3.6-5.2) mmol/L Urine Color (YELLOW) Urine Clarity (Clear) Urine pH (5.0-8.0) Ur Specific [place] (1.003-1.030) Urine Protein (NEGATIVE) mg/dL Urine Glucose (UA) (Normal) mg/dL Urine Ketones (NEGATIVE) mg/dL Urine Blood (NEGATIVE) Urine Nitrate (NEGATIVE) Urine Bilirubin (NEGATIVE) Urine Urobilinogen (0.2-1.0) mg/dL Ur Leukocyte Esterase (Negative) Brayan/uL Urine WBC (Auto) (0-5) /hpf Urine RBC (Auto) (0-3) /hpf Ur Squamous Epith Cells (0-5) /hpf Hepatitis A IgM Ab (NEGATIVE) Hep Bs Antigen (NEGATIVE) Hep B Core IgM Ab (NEGATIVE) Hepatitis C Antibody (NEGATIVE) HIV 1&2 Antibody Screen (NEGATIVE) Ur L.pneumophila Ag (NEGATIVE) Blood Type Antibody Screen 11/03/17 11/03/17 11/03/17 Range/Units 22:36 20:42 20:42 WBC (4.8-10.8) K/uL RBC (3.80-5.20) Mil/uL Hgb (11.0-16.0) g/dL Hct (34.0-47.0) % MCV (81.0-99.0) fL MCH (27.0-31.0) pg MCHC (33.0-37.0) g/dL RDW (11.5-14.5) % Plt Count (130-400) K/uL MPV (7.2-11.7) fL Neut % (Auto) (50.0-75.0) % Lymph % (Auto) (20.0-40.0) % [place] % (Auto) (0.0-10.0) % Eos % (Auto) (0.0-4.0) % Baso % (Auto) (0.0-2.0) % Neut # (Auto) (1.8-7.0) K/uL Lymph # (Auto) (1.0-4.3) K/uL [place] # (Auto) (0.0-0.8) K/uL Eos # (Auto) (0.0-0.7) K/uL Baso # (Auto) (0.0-0.2) K/uL Neutrophils % (Manual) (50-75) % Band Neutrophils % (0-2) % Lymphocytes % (Manual) (20-40) % Monocytes % (Manual) (0-10) % Metamyelocytes % (0-0) % Toxic Granulation Dohle Bodies Platelet Estimate (NORMAL) Large Platelets Giant Platelets Polychromasia Hypochromasia (manual) Poikilocytosis (manual Anisocytosis (manual) Microcytosis (manual) Macrocytosis (manual) Target Cells Retic Count (0.5-1.5) % PT (9.7-12.2) SECONDS INR APTT (21-34) SECONDS Puncture Site pCO2 (35-45) mm/Hg pO2 (80-100) mm/Hg HCO3 (21-28) mmol/L ABG pH (7.35-7.45) ABG Total CO2 (22-28) mmol/L ABG O2 Saturation (95-98) % ABG Base Excess (-2.0-3.0) mmol/L Romero Test ABG Potassium (3.6-5.2) mmol/L A-a O2 Difference mm/Hg Respiratory Index Glucose (65-105) mg/dl Lactate (0.7-2.1) mmol/L Liter Flow Vent Mode FiO2 % Inspiratory BiPAP Expiratory BiPAP Crit Value Called To Crit Value Called By Crit Value Read Back Blood Gas Notified Time Sodium 136 (132-148) mmol/L Potassium 4.2 (3.6-5.2) mmol/L Chloride 103 (98-107) mmol/L Carbon Dioxide 17 L (22-30) mmol/L Anion Gap 20 (10-20) BUN 21 H (7-17) mg/dL Creatinine 1.1 (0.7-1.2) mg/dL Est GFR ( Amer) > 60 Est GFR (Non-Af Amer) 53 Random Glucose 79 (65-105) mg/dL Lactic Acid 4.5 H* (0.7-2.1) mmol/L Calcium 9.0 (8.6-10.4) mg/dl Phosphorus (2.5-4.5) mg/dL Magnesium (1.6-2.3) mg/dL Iron (37-170) ug/dL TIBC (250-450) ug/dL % Saturation (20-55) Ferritin ng/mL Total Bilirubin 1.3 (0.2-1.3) mg/dL AST 25 (14-36) U/L ALT 151 H D (9-52) U/L Alkaline Phosphatase 406 H D (38-126) U/L Troponin I < 0.0120 (0.00-0.120) ng/mL Total Protein 6.7 (6.3-8.3) g/dL Albumin 3.1 L D (3.5-5.0) g/dL Globulin 3.6 (2.2-3.9) gm/dL Albumin/Globulin Ratio 0.9 L (1.0-2.1) Amylase (30-110) U/L Lipase (23-300) U/L Vitamin B12 (239-931) pg/mL Folate ng/mL Arterial Blood Potassium (3.6-5.2) mmol/L Urine Color (YELLOW) Urine Clarity (Clear) Urine pH (5.0-8.0) Ur Specific [place] (1.003-1.030) Urine Protein (NEGATIVE) mg/dL Urine Glucose (UA) (Normal) mg/dL Urine Ketones (NEGATIVE) mg/dL Urine Blood (NEGATIVE) Urine Nitrate (NEGATIVE) Urine Bilirubin (NEGATIVE) Urine Urobilinogen (0.2-1.0) mg/dL Ur Leukocyte Esterase (Negative) Brayan/uL Urine WBC (Auto) (0-5) /hpf Urine RBC (Auto) (0-3) /hpf Ur Squamous Epith Cells (0-5) /hpf Hepatitis A IgM Ab (NEGATIVE) Hep Bs Antigen (NEGATIVE) Hep B Core IgM Ab (NEGATIVE) Hepatitis C Antibody (NEGATIVE) HIV 1&2 Antibody Screen (NEGATIVE) Ur L.pneumophila Ag (NEGATIVE) Blood Type A NEGATIVE Antibody Screen Negative 11/03/17 11/03/17 Range/Units 20:42 20:42 WBC 7.0 (4.8-10.8) K/uL RBC 3.19 L (3.80-5.20) Mil/uL Hgb 10.5 L (11.0-16.0) g/dL Hct 31.4 L (34.0-47.0) % MCV 98.6 D (81.0-99.0) fL MCH 33.0 H (27.0-31.0) pg MCHC 33.5 (33.0-37.0) g/dL RDW 21.3 H (11.5-14.5) % Plt Count 370 (130-400) K/uL MPV 8.6 (7.2-11.7) fL Neut % (Auto) 91.0 H (50.0-75.0) % Lymph % (Auto) 6.0 L (20.0-40.0) % [place] % (Auto) 3.0 (0.0-10.0) % Eos % (Auto) 0.0 (0.0-4.0) % Baso % (Auto) 0.0 (0.0-2.0) % Neut # (Auto) 6.4 (1.8-7.0) K/uL Lymph # (Auto) 0.4 L (1.0-4.3) K/uL [place] # (Auto) 0.2 (0.0-0.8) K/uL Eos # (Auto) 0.0 (0.0-0.7) K/uL Baso # (Auto) 0.0 (0.0-0.2) K/uL Neutrophils % (Manual) 84 H (50-75) % Band Neutrophils % 6 H (0-2) % Lymphocytes % (Manual) 9 L (20-40) % Monocytes % (Manual) 1 (0-10) % Metamyelocytes % (0-0) % Toxic Granulation Dohle Bodies Platelet Estimate Normal (NORMAL) Large Platelets Present Giant Platelets Present Polychromasia Slight Hypochromasia (manual) Slight Poikilocytosis (manual Slight Anisocytosis (manual) Slight Microcytosis (manual) Slight Macrocytosis (manual) Slight Target Cells Slight Retic Count (0.5-1.5) % PT 16.9 H (9.7-12.2) SECONDS INR 1.5 APTT 34 (21-34) SECONDS Puncture Site pCO2 (35-45) mm/Hg pO2 (80-100) mm/Hg HCO3 (21-28) mmol/L ABG pH (7.35-7.45) ABG Total CO2 (22-28) mmol/L ABG O2 Saturation (95-98) % ABG Base Excess (-2.0-3.0) mmol/L Romero Test ABG Potassium (3.6-5.2) mmol/L A-a O2 Difference mm/Hg Respiratory Index Glucose (65-105) mg/dl Lactate (0.7-2.1) mmol/L Liter Flow Vent Mode FiO2 % Inspiratory BiPAP Expiratory BiPAP Crit Value Called To Crit Value Called By Crit Value Read Back Blood Gas Notified Time Sodium (132-148) mmol/L Potassium (3.6-5.2) mmol/L Chloride (98-107) mmol/L Carbon Dioxide (22-30) mmol/L Anion Gap (10-20) BUN (7-17) mg/dL Creatinine (0.7-1.2) mg/dL Est GFR ( Amer) Est GFR (Non-Af Amer) Random Glucose (65-105) mg/dL Lactic Acid (0.7-2.1) mmol/L Calcium (8.6-10.4) mg/dl Phosphorus (2.5-4.5) mg/dL Magnesium (1.6-2.3) mg/dL Iron (37-170) ug/dL TIBC (250-450) ug/dL % Saturation (20-55) Ferritin ng/mL Total Bilirubin (0.2-1.3) mg/dL AST (14-36) U/L ALT (9-52) U/L Alkaline Phosphatase (38-126) U/L Troponin I (0.00-0.120) ng/mL Total Protein (6.3-8.3) g/dL Albumin (3.5-5.0) g/dL Globulin (2.2-3.9) gm/dL Albumin/Globulin Ratio (1.0-2.1) Amylase (30-110) U/L Lipase (23-300) U/L Vitamin B12 (239-931) pg/mL Folate ng/mL Arterial Blood Potassium (3.6-5.2) mmol/L Urine Color (YELLOW) Urine Clarity (Clear) Urine pH (5.0-8.0) Ur Specific [place] (1.003-1.030) Urine Protein (NEGATIVE) mg/dL Urine Glucose (UA) (Normal) mg/dL Urine Ketones (NEGATIVE) mg/dL Urine Blood (NEGATIVE) Urine Nitrate (NEGATIVE) Urine Bilirubin (NEGATIVE) Urine Urobilinogen (0.2-1.0) mg/dL Ur Leukocyte Esterase (Negative) Brayan/uL Urine WBC (Auto) (0-5) /hpf Urine RBC (Auto) (0-3) /hpf Ur Squamous Epith Cells (0-5) /hpf Hepatitis A IgM Ab (NEGATIVE) Hep Bs Antigen (NEGATIVE) Hep B Core IgM Ab (NEGATIVE) Hepatitis C Antibody (NEGATIVE) HIV 1&2 Antibody Screen (NEGATIVE) Ur L.pneumophila Ag (NEGATIVE) Blood Type Antibody Screen Laboratory Results - last 24 hr 11/03/17 11/03/17 11/03/17 20:42 20:42 20:42 WBC 7.0 RBC 3.19 L Hgb 10.5 L Hct 31.4 L MCV 98.6 D MCH 33.0 H MCHC 33.5 RDW 21.3 H Plt Count 370 MPV 8.6 Neut % (Auto) 91.0 H Lymph % (Auto) 6.0 L [place] % (Auto) 3.0 Eos % (Auto) 0.0 Baso % (Auto) 0.0 Neut # (Auto) 6.4 Lymph # (Auto) 0.4 L [place] # (Auto) 0.2 Eos # (Auto) 0.0 Baso # (Auto) 0.0 Neutrophils % (Manual) 84 H Band Neutrophils % 6 H Lymphocytes % (Manual) 9 L Monocytes % (Manual) 1 Metamyelocytes % Toxic Granulation Dohle Bodies Platelet Estimate Normal Large Platelets Present Giant Platelets Present Polychromasia Slight Hypochromasia (manual) Slight Poikilocytosis (manual Slight Anisocytosis (manual) Slight Microcytosis (manual) Slight Macrocytosis (manual) Slight Target Cells Slight Retic Count PT 16.9 H INR 1.5 APTT 34 Puncture Site pCO2 pO2 HCO3 ABG pH ABG Total CO2 ABG O2 Saturation ABG Base Excess Romero Test ABG Potassium A-a O2 Difference Respiratory Index Glucose Lactate Liter Flow Vent Mode FiO2 Inspiratory BiPAP Expiratory BiPAP Crit Value Called To Crit Value Called By Crit Value Read Back Blood Gas Notified Time Sodium 136 Potassium 4.2 Chloride 103 Carbon Dioxide 17 L Anion Gap 20 BUN 21 H Creatinine 1.1 Est GFR ( Amer) > 60 Est GFR (Non-Af Amer) 53 Random Glucose 79 Lactic Acid Calcium 9.0 Phosphorus Magnesium Iron TIBC % Saturation Ferritin Total Bilirubin 1.3 AST 25 ALT 151 H D Alkaline Phosphatase 406 H D Troponin I < 0.0120 Total Protein 6.7 Albumin 3.1 L D Globulin 3.6 Albumin/Globulin Ratio 0.9 L Amylase Lipase Vitamin B12 Folate Arterial Blood Potassium Urine Color Urine Clarity Urine pH Ur Specific [place] Urine Protein Urine Glucose (UA) Urine Ketones Urine Blood Urine Nitrate Urine Bilirubin Urine Urobilinogen Ur Leukocyte Esterase Urine WBC (Auto) Urine RBC (Auto) Ur Squamous Epith Cells Hepatitis A IgM Ab Hep Bs Antigen Hep B Core IgM Ab Hepatitis C Antibody HIV 1&2 Antibody Screen Ur L.pneumophila Ag Blood Type Antibody Screen 11/03/17 11/03/17 11/03/17 20:42 22:36 22:55 WBC RBC Hgb Hct MCV MCH MCHC RDW Plt Count MPV Neut % (Auto) Lymph % (Auto) [place] % (Auto) Eos % (Auto) Baso % (Auto) Neut # (Auto) Lymph # (Auto) [place] # (Auto) Eos # (Auto) Baso # (Auto) Neutrophils % (Manual) Band Neutrophils % Lymphocytes % (Manual) Monocytes % (Manual) Metamyelocytes % Toxic Granulation Dohle Bodies Platelet Estimate Large Platelets Giant Platelets Polychromasia Hypochromasia (manual) Poikilocytosis (manual Anisocytosis (manual) Microcytosis (manual) Macrocytosis (manual) Target Cells Retic Count PT INR APTT Puncture Site Rra pCO2 25 L pO2 50 L HCO3 15.6 L ABG pH 7.32 L ABG Total CO2 13.7 L ABG O2 Saturation 86.7 L ABG Base Excess -11.4 L Romero Test Na ABG Potassium 3.4 L A-a O2 Difference Respiratory Index Glucose 129 H Lactate 5.1 H* Liter Flow 2.0 Vent Mode FiO2 Inspiratory BiPAP Expiratory BiPAP Crit Value Called To Cj dougherty Crit Value Called By [place] Crit Value Read Back Y Blood Gas Notified Time 2300 Sodium 137.0 Potassium Chloride 106.0 Carbon Dioxide Anion Gap BUN Creatinine Est GFR ( Amer) Est GFR (Non-Af Amer) Random Glucose Lactic Acid 4.5 H* Calcium Phosphorus Magnesium Iron TIBC % Saturation Ferritin Total Bilirubin AST ALT Alkaline Phosphatase Troponin I Total Protein Albumin Globulin Albumin/Globulin Ratio Amylase Lipase Vitamin B12 Folate Arterial Blood Potassium 3.4 L Urine Color Urine Clarity Urine pH Ur Specific [place] Urine Protein Urine Glucose (UA) Urine Ketones Urine Blood Urine Nitrate Urine Bilirubin Urine Urobilinogen Ur Leukocyte Esterase Urine WBC (Auto) Urine RBC (Auto) Ur Squamous Epith Cells Hepatitis A IgM Ab Hep Bs Antigen Hep B Core IgM Ab Hepatitis C Antibody HIV 1&2 Antibody Screen Ur L.pneumophila Ag Blood Type A NEGATIVE Antibody Screen Negative 11/04/17 11/04/17 11/04/17 03:06 05:00 06:10 WBC 4.4 L RBC 2.44 L Hgb 8.2 L D Hct 24.5 L MCV 100.1 H MCH 33.5 H MCHC 33.5 RDW 21.3 H Plt Count 196 D MPV 8.5 Neut % (Auto) 86.0 H Lymph % (Auto) 9.0 L [place] % (Auto) 5.0 Eos % (Auto) 0.0 Baso % (Auto) 0.0 Neut # (Auto) 3.8 Lymph # (Auto) 0.4 L [place] # (Auto) 0.2 Eos # (Auto) 0.0 Baso # (Auto) 0.0 Neutrophils % (Manual) 63 Band Neutrophils % 20 H* Lymphocytes % (Manual) 7 L Monocytes % (Manual) 7 Metamyelocytes % 3 H Toxic Granulation Present Dohle Bodies Present Platelet Estimate Normal Large Platelets Giant Platelets Polychromasia Hypochromasia (manual) Slight Poikilocytosis (manual Anisocytosis (manual) Moderate Microcytosis (manual) Macrocytosis (manual) Moderate Target Cells Slight Retic Count 2.2 H PT INR APTT Puncture Site Rb pCO2 29 L pO2 75 L HCO3 16.1 L ABG pH 7.29 L ABG Total CO2 14.8 L ABG O2 Saturation 95.3 ABG Base Excess -11.2 L Romero Test Na ABG Potassium 3.2 L A-a O2 Difference 602.0 Respiratory Index 8.0 Glucose 103 Lactate 4.1 H* Liter Flow Vent Mode Bipap FiO2 100.0 Inspiratory BiPAP 10 Expiratory BiPAP 5 Crit Value Called To Howard rn 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 Crit Value Read Back Y Blood Gas Notified Time 535 Sodium 138.0 Potassium Chloride 112.0 H Carbon Dioxide Anion Gap BUN Creatinine Est GFR ( Amer) Est GFR (Non-Af Amer) Random Glucose Lactic Acid 6.0 H* Calcium Phosphorus Magnesium Iron TIBC % Saturation Ferritin Total Bilirubin AST ALT Alkaline Phosphatase Troponin I Total Protein Albumin Globulin Albumin/Globulin Ratio Amylase Lipase Vitamin B12 Folate Arterial Blood Potassium 3.2 L Urine Color Urine Clarity Urine pH Ur Specific [place] Urine Protein Urine Glucose (UA) Urine Ketones Urine Blood Urine Nitrate Urine Bilirubin Urine Urobilinogen Ur Leukocyte Esterase Urine WBC (Auto) Urine RBC (Auto) Ur Squamous Epith Cells Hepatitis A IgM Ab Hep Bs Antigen Hep B Core IgM Ab Hepatitis C Antibody HIV 1&2 Antibody Screen Ur L.pneumophila Ag Blood Type Antibody Screen 11/04/17 11/04/17 11/04/17 06:10 06:10 06:10 WBC RBC Hgb Hct MCV MCH MCHC RDW Plt Count MPV Neut % (Auto) Lymph % (Auto) [place] % (Auto) Eos % (Auto) Baso % (Auto) Neut # (Auto) Lymph # (Auto) [place] # (Auto) Eos # (Auto) Baso # (Auto) Neutrophils % (Manual) Band Neutrophils % Lymphocytes % (Manual) Monocytes % (Manual) Metamyelocytes % Toxic Granulation Dohle Bodies Platelet Estimate Large Platelets Giant Platelets Polychromasia Hypochromasia (manual) Poikilocytosis (manual Anisocytosis (manual) Microcytosis (manual) Macrocytosis (manual) Target Cells Retic Count PT INR APTT Puncture Site pCO2 pO2 HCO3 ABG pH ABG Total CO2 ABG O2 Saturation ABG Base Excess Romero Test ABG Potassium A-a O2 Difference Respiratory Index Glucose Lactate Liter Flow Vent Mode FiO2 Inspiratory BiPAP Expiratory BiPAP Crit Value Called To Crit Value Called By Crit Value Read Back Blood Gas Notified Time Sodium 139 Potassium 3.5 L Chloride 112 H Carbon Dioxide 13 L Anion Gap 18 BUN 16 Creatinine 0.7 Est GFR ( Amer) > 60 Est GFR (Non-Af Amer) > 60 Random Glucose 102 Lactic Acid 4.4 H* Calcium 7.4 L Phosphorus 1.7 L Magnesium 1.6 Iron 10 L TIBC 145 L % Saturation 6.9 L Ferritin Total Bilirubin 0.9 AST 22 ALT 92 H D Alkaline Phosphatase 199 H D Troponin I Total Protein 4.5 L Albumin 1.9 L D Globulin 2.6 Albumin/Globulin Ratio 0.7 L Amylase Lipase Vitamin B12 Folate Arterial Blood Potassium Urine Color Urine Clarity Urine pH Ur Specific [place] Urine Protein Urine Glucose (UA) Urine Ketones Urine Blood Urine Nitrate Urine Bilirubin Urine Urobilinogen Ur Leukocyte Esterase Urine WBC (Auto) Urine RBC (Auto) Ur Squamous Epith Cells Hepatitis A IgM Ab Hep Bs Antigen Hep B Core IgM Ab Hepatitis C Antibody HIV 1&2 Antibody Screen Negative Ur L.pneumophila Ag Blood Type Antibody Screen 11/04/17 11/04/17 11/04/17 06:10 08:53 09:25 WBC RBC Hgb Hct MCV MCH MCHC RDW Plt Count MPV Neut % (Auto) Lymph % (Auto) [place] % (Auto) Eos % (Auto) Baso % (Auto) Neut # (Auto) Lymph # (Auto) [place] # (Auto) Eos # (Auto) Baso # (Auto) Neutrophils % (Manual) Band Neutrophils % Lymphocytes % (Manual) Monocytes % (Manual) Metamyelocytes % Toxic Granulation Dohle Bodies Platelet Estimate Large Platelets Giant Platelets Polychromasia Hypochromasia (manual) Poikilocytosis (manual Anisocytosis (manual) Microcytosis (manual) Macrocytosis (manual) Target Cells Retic Count PT INR APTT Puncture Site Rr pCO2 26 L pO2 93 HCO3 17.8 L ABG pH 7.36 ABG Total CO2 15.5 L ABG O2 Saturation 97.4 ABG Base Excess -9.1 L Romero Test Pos ABG Potassium 2.8 L A-a O2 Difference 516.0 Respiratory Index 5.5 Glucose 111 H Lactate 3.6 H Liter Flow Vent Mode Bipap FiO2 90.0 Inspiratory BiPAP 15 Expiratory BiPAP 8 Crit Value Called To Crit Value Called By Crit Value Read Back Blood Gas Notified Time Sodium 140.0 Potassium Chloride 114.0 H Carbon Dioxide Anion Gap BUN Creatinine Est GFR ( Amer) Est GFR (Non-Af Amer) Random Glucose Lactic Acid Calcium Phosphorus Magnesium Iron TIBC % Saturation Ferritin 351.0 Total Bilirubin AST ALT Alkaline Phosphatase Troponin I Total Protein Albumin Globulin Albumin/Globulin Ratio Amylase 67 Lipase 62 Vitamin B12 > 1000 H Folate 13.4 Arterial Blood Potassium 2.8 L Urine Color Urine Clarity Urine pH Ur Specific [place] Urine Protein Urine Glucose (UA) Urine Ketones Urine Blood Urine Nitrate Urine Bilirubin Urine Urobilinogen Ur Leukocyte Esterase Urine WBC (Auto) Urine RBC (Auto) Ur Squamous Epith Cells Hepatitis A IgM Ab Negative Hep Bs Antigen Negative Hep B Core IgM Ab Negative Hepatitis C Antibody Negative HIV 1&2 Antibody Screen Ur L.pneumophila Ag Blood Type Antibody Screen 11/04/17 11/04/17 11:00 11:46 WBC RBC Hgb Hct MCV MCH MCHC RDW Plt Count MPV Neut % (Auto) Lymph % (Auto) [place] % (Auto) Eos % (Auto) Baso % (Auto) Neut # (Auto) Lymph # (Auto) [place] # (Auto) Eos # (Auto) Baso # (Auto) Neutrophils % (Manual) Band Neutrophils % Lymphocytes % (Manual) Monocytes % (Manual) Metamyelocytes % Toxic Granulation Dohle Bodies Platelet Estimate Large Platelets Giant Platelets Polychromasia Hypochromasia (manual) Poikilocytosis (manual Anisocytosis (manual) Microcytosis (manual) Macrocytosis (manual) Target Cells Retic Count PT INR APTT Puncture Site pCO2 pO2 HCO3 ABG pH ABG Total CO2 ABG O2 Saturation ABG Base Excess Romero Test ABG Potassium A-a O2 Difference Respiratory Index Glucose Lactate Liter Flow Vent Mode FiO2 Inspiratory BiPAP Expiratory BiPAP Crit Value Called To Crit Value Called By Crit Value Read Back Blood Gas Notified Time Sodium Potassium Chloride Carbon Dioxide Anion Gap BUN Creatinine Est GFR ( Amer) Est GFR (Non-Af Amer) Random Glucose Lactic Acid Calcium Phosphorus Magnesium Iron TIBC % Saturation Ferritin Total Bilirubin AST ALT Alkaline Phosphatase Troponin I Total Protein Albumin Globulin Albumin/Globulin Ratio Amylase Lipase Vitamin B12 Folate Arterial Blood Potassium Urine Color Yellow Urine Clarity Clear Urine pH 5.0 Ur Specific [place] 1.013 Urine Protein Negative Urine Glucose (UA) Normal Urine Ketones Negative Urine Blood Negative Urine Nitrate Negative Urine Bilirubin Negative Urine Urobilinogen Normal Ur Leukocyte Esterase Neg Urine WBC (Auto) 2 Urine RBC (Auto) < 1 Ur Squamous Epith Cells 1 Hepatitis A IgM Ab Hep Bs Antigen Hep B Core IgM Ab Hepatitis C Antibody HIV 1&2 Antibody Screen Ur L.pneumophila Ag Negative Blood Type Antibody Screen EKG/Cardiology Studies: Cardiology / EKG Studies 11/03/17 20:23 EKG [ELECTROCARDIOGRAM] Stat Comment: Mode Of Transportation: BED Reason For Exam: cp 11/03/17 20:28 ELECTROCARDIOGRAM Stat Comment: Mode Of Transportation: BED Reason For Exam: chest pain Critical Care Progress Note - Nutrition Nutrition: Nutrition Category Date Time Status Regular Diet [DIET] Diets 11/04/17 Breakfast Active Attending/Attestation - Attestation I have personally seen and examined this patient.: Yes I have fully participated in the care of the patient.: Yes I have reviewed all pertinent clinical information: Yes Notes (Text): 11/04/17 18:49 patient seen and examined Being treated for respiratory insufficiency/right lung pneumonia Continue IV antibiotics Continue BiPAP Follow-up ABG Follow-up culture and sensitivity PPN
--- NOTE | 2017-11-04 14:28 | RAD ---
Date of service: 11/04/2017 HISTORY: TLC placement COMPARISON: Comparison chest 11/03/2017 FINDINGS: Interval placement right IJ triple-lumen catheter tip in the SVC. LUNGS: Interval progression patchy infiltrate changes seen in the right mid to lower lung field with some early infiltrate changes suspected in the right upper lobe. Note that the right lung base is obscured by a right hand artifact with partial obscuration left lung base by hand artifact as well. PLEURA: No obvious pneumothorax. Evaluation for small of right-sided effusion limited as above CARDIOVASCULAR: Normal. OSSEOUS STRUCTURES: No significant abnormalities. VISUALIZED UPPER ABDOMEN: Normal. OTHER FINDINGS: None. IMPRESSION: Slightly limited study as described. Interval placement right IJ triple-lumen catheter tip in the SVC. Interval progression patchy infiltrate changes seen throughout most of the right lung as above. No evidence of pneumothorax
--- NOTE | 2017-11-04 14:36 | CP.PCM.CON ---
History of Present Illness - History of Present Illness History of Present Illness: dictated Past Patient History - Past Medical History & Family History Past Medical History?: Yes - Past Social History Smoking Status: Light Smoker < 10 Cigarettes Daily - CARDIAC Hx Cardiac Disorders: No - PULMONARY Hx Respiratory Disorders: No - NEUROLOGICAL Hx Multiple Sclerosis: Yes - HEENT Hx HEENT Problems: No - RENAL Hx Chronic Kidney Disease: No - ENDOCRINE/METABOLIC Hx Endocrine Disorders: No - HEMATOLOGICAL/ONCOLOGICAL Hx Blood Disorders: No - INTEGUMENTARY Hx Dermatological Problems: No - MUSCULOSKELETAL/RHEUMATOLOGICAL Hx Fractures: Yes (Disc fx secondary t fall) - GASTROINTESTINAL Hx Gastrointestinal Disorders: No - GENITOURINARY/GYNECOLOGICAL Hx Genitourinary Disorders: No - PSYCHIATRIC Hx Substance Use: No - SURGICAL HISTORY Hx Surgeries: Yes Hx Orthopedic Surgery: Yes (Back surgery) Other/Comment: Back Surgery - ANESTHESIA Hx Anesthesia: Yes Hx Anesthesia Reactions: No Hx Malignant Hyperthermia: No Meds Allergies/Adverse Reactions: Allergies Allergy/AdvReac Type Severity Reaction Status Date / Time seafood Allergy Uncoded 11/03/17 20:20 - Medications Medications: Current Medications Acetaminophen/Butalbital/Caffeine (Fioricet) 1 tab PO DAILY [facility] Last Admin: 11/04/17 11:59 Dose: Not Given Albuterol/Ipratropium (Duoneb 3 Mg/0.5 Mg (3 Ml) Ud) 3 ml INH RQ4 PRN PRN Reason: Shortness of Breath Amitriptyline HCl (Elavil) 25 mg PO DAILY [facility] Enoxaparin Sodium (Lovenox) 30 mg SC DAILY [facility] Last Admin: 11/04/17 09:45 Dose: 30 mg Gabapentin (Neurontin) 600 mg PO DAILY [facility] Piperacillin Sod/Tazobactam Sod (Zosyn 3.375 Gm Iv Premix) 3.375 gm in 50 mls @ 100 mls/hr IVPB Q6H EMPERATRIZ PRN Reason: Protocol Last Admin: 11/04/17 12:05 Dose: 100 mls/hr Potassium Phosphate 15 mmole/ (Sodium Chloride) 255 mls @ 42.5 mls/hr IVPB ONCE ONE Stop: 11/04/17 15:59 Last Admin: 11/04/17 10:37 Dose: 42.5 mls/hr Sodium Bicarbonate 100 meq/ (Sodium Chloride) 1,100 mls @ 75 mls/hr IV .[id number] [facility] Last Admin: 11/04/17 10:36 Dose: 75 mls/hr Azithromycin 500 mg/ Sodium (Chloride) 250 mls @ 250 mls/hr IVPB DAILY EMPERATRIZ PRN Reason: Protocol Last Admin: 11/04/17 10:48 Dose: 250 mls/hr Multivitamins/Vitamin C 10 ml/Chromium/Copper/Manganese/Zinc 1 ml/ Magnesium Sulfate 6 meq/ Sodium Chloride 35 meq/Calcium Gluconate 4.5 meq/Potassium Phosphate 15 mmole/Amino Acids 1,035.9052 mls @ 42 mls/hr IV .Q24H ONE Stop: 11/05/17 17:59 Magnesium Sulfate/Dextrose (Magnesium Sulfate 1 Gm/100 Ml D5w) 1 gm in 100 mls @ 200 mls/hr IVPB Q2H EMPERATRIZ Stop: 11/04/17 15:44 Vancomycin HCl 1,000 mg/ (Sodium Chloride) 250 mls @ 166.6 mls/hr IVPB Q12H EMPERATRIZ PRN Reason: Protocol Ibuprofen (Motrin Tab) 400 mg PO Q6H PRN PRN Reason: Fever >100.4 F Nicotine (Nicoderm Cq) 1 patch TD DAILY [facility] Last Admin: 11/04/17 12:05 Dose: 1 patch Pantoprazole Sodium (Protonix Inj) 40 mg IVP DAILY [facility] Last Admin: 11/04/17 09:45 Dose: 40 mg Saccharomyces Boulardii (Florastor) 250 mg PO BID [facility] Last Admin: 11/04/17 11:59 Dose: Not Given Vitamin A (Vitamin A & D Oint Ud Foilpak) 1 ea TOP Q6H PRN PRN Reason: Dry mouth Results - Vital Signs Recent Vital Signs: Last Vital Signs Temp 98.4 F 11/04/17 12:00 Pulse 120 H 11/04/17 13:16 Resp 27 H 11/04/17 12:00 BP 91/58 L 11/04/17 12:53 Pulse Ox 100 11/04/17 13:00 - Labs Result Diagrams: 11/04/17 06:10 11/04/17 06:10 Labs: Laboratory Results - last 24 hr 11/03/17 11/03/17 11/03/17 20:42 20:42 20:42 WBC 7.0 RBC 3.19 L Hgb 10.5 L Hct 31.4 L MCV 98.6 D MCH 33.0 H MCHC 33.5 RDW 21.3 H Plt Count 370 MPV 8.6 Neut % (Auto) 91.0 H Lymph % (Auto) 6.0 L [place] % (Auto) 3.0 Eos % (Auto) 0.0 Baso % (Auto) 0.0 Neut # (Auto) 6.4 Lymph # (Auto) 0.4 L [place] # (Auto) 0.2 Eos # (Auto) 0.0 Baso # (Auto) 0.0 Neutrophils % (Manual) 84 H Band Neutrophils % 6 H Lymphocytes % (Manual) 9 L Monocytes % (Manual) 1 Metamyelocytes % Toxic Granulation Dohle Bodies Platelet Estimate Normal Large Platelets Present Giant Platelets Present Polychromasia Slight Hypochromasia (manual) Slight Poikilocytosis (manual Slight Anisocytosis (manual) Slight Microcytosis (manual) Slight Macrocytosis (manual) Slight Target Cells Slight Retic Count PT 16.9 H INR 1.5 APTT 34 Puncture Site pCO2 pO2 HCO3 ABG pH ABG Total CO2 ABG O2 Saturation ABG Base Excess Romero Test ABG Potassium A-a O2 Difference Respiratory Index Glucose Lactate Liter Flow Vent Mode FiO2 Inspiratory BiPAP Expiratory BiPAP Crit Value Called To Crit Value Called By Crit Value Read Back Blood Gas Notified Time Sodium 136 Potassium 4.2 Chloride 103 Carbon Dioxide 17 L Anion Gap 20 BUN 21 H Creatinine 1.1 Est GFR ( Amer) > 60 Est GFR (Non-Af Amer) 53 Random Glucose 79 Lactic Acid Calcium 9.0 Phosphorus Magnesium Iron TIBC % Saturation Ferritin Total Bilirubin 1.3 AST 25 ALT 151 H D Alkaline Phosphatase 406 H D Troponin I < 0.0120 Total Protein 6.7 Albumin 3.1 L D Globulin 3.6 Albumin/Globulin Ratio 0.9 L Amylase Lipase Vitamin B12 Folate Arterial Blood Potassium Urine Color Urine Clarity Urine pH Ur Specific [place] Urine Protein Urine Glucose (UA) Urine Ketones Urine Blood Urine Nitrate Urine Bilirubin Urine Urobilinogen Ur Leukocyte Esterase Urine WBC (Auto) Urine RBC (Auto) Ur Squamous Epith Cells Hepatitis A IgM Ab Hep Bs Antigen Hep B Core IgM Ab Hepatitis C Antibody HIV 1&2 Antibody Screen Ur L.pneumophila Ag Blood Type Antibody Screen 11/03/17 11/03/17 11/03/17 20:42 22:36 22:55 WBC RBC Hgb Hct MCV MCH MCHC RDW Plt Count MPV Neut % (Auto) Lymph % (Auto) [place] % (Auto) Eos % (Auto) Baso % (Auto) Neut # (Auto) Lymph # (Auto) [place] # (Auto) Eos # (Auto) Baso # (Auto) Neutrophils % (Manual) Band Neutrophils % Lymphocytes % (Manual) Monocytes % (Manual) Metamyelocytes % Toxic Granulation Dohle Bodies Platelet Estimate Large Platelets Giant Platelets Polychromasia Hypochromasia (manual) Poikilocytosis (manual Anisocytosis (manual) Microcytosis (manual) Macrocytosis (manual) Target Cells Retic Count PT INR APTT Puncture Site Rra pCO2 25 L pO2 50 L HCO3 15.6 L ABG pH 7.32 L ABG Total CO2 13.7 L ABG O2 Saturation 86.7 L ABG Base Excess -11.4 L Romero Test Na ABG Potassium 3.4 L A-a O2 Difference Respiratory Index Glucose 129 H Lactate 5.1 H* Liter Flow 2.0 Vent Mode FiO2 Inspiratory BiPAP Expiratory BiPAP Crit Value Called To Cj dougherty Crit Value Called By [place] Crit Value Read Back Y Blood Gas Notified Time 2300 Sodium 137.0 Potassium Chloride 106.0 Carbon Dioxide Anion Gap BUN Creatinine Est GFR ( Amer) Est GFR (Non-Af Amer) Random Glucose Lactic Acid 4.5 H* Calcium Phosphorus Magnesium Iron TIBC % Saturation Ferritin Total Bilirubin AST ALT Alkaline Phosphatase Troponin I Total Protein Albumin Globulin Albumin/Globulin Ratio Amylase Lipase Vitamin B12 Folate Arterial Blood Potassium 3.4 L Urine Color Urine Clarity Urine pH Ur Specific [place] Urine Protein Urine Glucose (UA) Urine Ketones Urine Blood Urine Nitrate Urine Bilirubin Urine Urobilinogen Ur Leukocyte Esterase Urine WBC (Auto) Urine RBC (Auto) Ur Squamous Epith Cells Hepatitis A IgM Ab Hep Bs Antigen Hep B Core IgM Ab Hepatitis C Antibody HIV 1&2 Antibody Screen Ur L.pneumophila Ag Blood Type A NEGATIVE Antibody Screen Negative 11/04/17 11/04/17 11/04/17 03:06 05:00 06:10 WBC 4.4 L RBC 2.44 L Hgb 8.2 L D Hct 24.5 L MCV 100.1 H MCH 33.5 H MCHC 33.5 RDW 21.3 H Plt Count 196 D MPV 8.5 Neut % (Auto) 86.0 H Lymph % (Auto) 9.0 L [place] % (Auto) 5.0 Eos % (Auto) 0.0 Baso % (Auto) 0.0 Neut # (Auto) 3.8 Lymph # (Auto) 0.4 L [place] # (Auto) 0.2 Eos # (Auto) 0.0 Baso # (Auto) 0.0 Neutrophils % (Manual) 63 Band Neutrophils % 20 H* Lymphocytes % (Manual) 7 L Monocytes % (Manual) 7 Metamyelocytes % 3 H Toxic Granulation Present Dohle Bodies Present Platelet Estimate Normal Large Platelets Giant Platelets Polychromasia Hypochromasia (manual) Slight Poikilocytosis (manual Anisocytosis (manual) Moderate Microcytosis (manual) Macrocytosis (manual) Moderate Target Cells Slight Retic Count 2.2 H PT INR APTT Puncture Site Rb pCO2 29 L pO2 75 L HCO3 16.1 L ABG pH 7.29 L ABG Total CO2 14.8 L ABG O2 Saturation 95.3 ABG Base Excess -11.2 L Romero Test Na ABG Potassium 3.2 L A-a O2 Difference 602.0 Respiratory Index 8.0 Glucose 103 Lactate 4.1 H* Liter Flow Vent Mode Bipap FiO2 100.0 Inspiratory BiPAP 10 Expiratory BiPAP 5 Crit Value Called To Howard rn Crit Value Called By Shine concierge Crit Value Read Back Y Blood Gas Notified Time 535 Sodium 138.0 Potassium Chloride 112.0 H Carbon Dioxide Anion Gap BUN Creatinine Est GFR ( Amer) Est GFR (Non-Af Amer) Random Glucose Lactic Acid 6.0 H* Calcium Phosphorus Magnesium Iron TIBC % Saturation Ferritin Total Bilirubin AST ALT Alkaline Phosphatase Troponin I Total Protein Albumin Globulin Albumin/Globulin Ratio Amylase Lipase Vitamin B12 Folate Arterial Blood Potassium 3.2 L Urine Color Urine Clarity Urine pH Ur Specific [place] Urine Protein Urine Glucose (UA) Urine Ketones Urine Blood Urine Nitrate Urine Bilirubin Urine Urobilinogen Ur Leukocyte Esterase Urine WBC (Auto) Urine RBC (Auto) Ur Squamous Epith Cells Hepatitis A IgM Ab Hep Bs Antigen Hep B Core IgM Ab Hepatitis C Antibody HIV 1&2 Antibody Screen Ur L.pneumophila Ag Blood Type Antibody Screen 11/04/17 11/04/17 11/04/17 06:10 06:10 06:10 WBC RBC Hgb Hct MCV MCH MCHC RDW Plt Count MPV Neut % (Auto) Lymph % (Auto) [place] % (Auto) Eos % (Auto) Baso % (Auto) Neut # (Auto) Lymph # (Auto) [place] # (Auto) Eos # (Auto) Baso # (Auto) Neutrophils % (Manual) Band Neutrophils % Lymphocytes % (Manual) Monocytes % (Manual) Metamyelocytes % Toxic Granulation Dohle Bodies Platelet Estimate Large Platelets Giant Platelets Polychromasia Hypochromasia (manual) Poikilocytosis (manual Anisocytosis (manual) Microcytosis (manual) Macrocytosis (manual) Target Cells Retic Count PT INR APTT Puncture Site pCO2 pO2 HCO3 ABG pH ABG Total CO2 ABG O2 Saturation ABG Base Excess Romero Test ABG Potassium A-a O2 Difference Respiratory Index Glucose Lactate Liter Flow Vent Mode FiO2 Inspiratory BiPAP Expiratory BiPAP Crit Value Called To Crit Value Called By Crit Value Read Back Blood Gas Notified Time Sodium 139 Potassium 3.5 L Chloride 112 H Carbon Dioxide 13 L Anion Gap 18 BUN 16 Creatinine 0.7 Est GFR ( Amer) > 60 Est GFR (Non-Af Amer) > 60 Random Glucose 102 Lactic Acid 4.4 H* Calcium 7.4 L Phosphorus 1.7 L Magnesium 1.6 Iron 10 L TIBC 145 L % Saturation 6.9 L Ferritin Total Bilirubin 0.9 AST 22 ALT 92 H D Alkaline Phosphatase 199 H D Troponin I Total Protein 4.5 L Albumin 1.9 L D Globulin 2.6 Albumin/Globulin Ratio 0.7 L Amylase Lipase Vitamin B12 Folate Arterial Blood Potassium Urine Color Urine Clarity Urine pH Ur Specific [place] Urine Protein Urine Glucose (UA) Urine Ketones Urine Blood Urine Nitrate Urine Bilirubin Urine Urobilinogen Ur Leukocyte Esterase Urine WBC (Auto) Urine RBC (Auto) Ur Squamous Epith Cells Hepatitis A IgM Ab Hep Bs Antigen Hep B Core IgM Ab Hepatitis C Antibody HIV 1&2 Antibody Screen Negative Ur L.pneumophila Ag Blood Type Antibody Screen 11/04/17 11/04/17 11/04/17 06:10 08:53 09:25 WBC RBC Hgb Hct MCV MCH MCHC RDW Plt Count MPV Neut % (Auto) Lymph % (Auto) [place] % (Auto) Eos % (Auto) Baso % (Auto) Neut # (Auto) Lymph # (Auto) [place] # (Auto) Eos # (Auto) Baso # (Auto) Neutrophils % (Manual) Band Neutrophils % Lymphocytes % (Manual) Monocytes % (Manual) Metamyelocytes % Toxic Granulation Dohle Bodies Platelet Estimate Large Platelets Giant Platelets Polychromasia Hypochromasia (manual) Poikilocytosis (manual Anisocytosis (manual) Microcytosis (manual) Macrocytosis (manual) Target Cells Retic Count PT INR APTT Puncture Site Rr pCO2 26 L pO2 93 HCO3 17.8 L ABG pH 7.36 ABG Total CO2 15.5 L ABG O2 Saturation 97.4 ABG Base Excess -9.1 L Romero Test Pos ABG Potassium 2.8 L A-a O2 Difference 516.0 Respiratory Index 5.5 Glucose 111 H Lactate 3.6 H Liter Flow Vent Mode Bipap FiO2 90.0 Inspiratory BiPAP 15 Expiratory BiPAP 8 Crit Value Called To Crit Value Called By Crit Value Read Back Blood Gas Notified Time Sodium 140.0 Potassium Chloride 114.0 H Carbon Dioxide Anion Gap BUN Creatinine Est GFR ( Amer) Est GFR (Non-Af Amer) Random Glucose Lactic Acid Calcium Phosphorus Magnesium Iron TIBC % Saturation Ferritin 351.0 Total Bilirubin AST ALT Alkaline Phosphatase Troponin I Total Protein Albumin Globulin Albumin/Globulin Ratio Amylase 67 Lipase 62 Vitamin B12 > 1000 H Folate 13.4 Arterial Blood Potassium 2.8 L Urine Color Urine Clarity Urine pH Ur Specific [place] Urine Protein Urine Glucose (UA) Urine Ketones Urine Blood Urine Nitrate Urine Bilirubin Urine Urobilinogen Ur Leukocyte Esterase Urine WBC (Auto) Urine RBC (Auto) Ur Squamous Epith Cells Hepatitis A IgM Ab Negative Hep Bs Antigen Negative Hep B Core IgM Ab Negative Hepatitis C Antibody Negative HIV 1&2 Antibody Screen Ur L.pneumophila Ag Blood Type Antibody Screen 11/04/17 11/04/17 11:00 11:46 WBC RBC Hgb Hct MCV MCH MCHC RDW Plt Count MPV Neut % (Auto) Lymph % (Auto) [place] % (Auto) Eos % (Auto) Baso % (Auto) Neut # (Auto) Lymph # (Auto) [place] # (Auto) Eos # (Auto) Baso # (Auto) Neutrophils % (Manual) Band Neutrophils % Lymphocytes % (Manual) Monocytes % (Manual) Metamyelocytes % Toxic Granulation Dohle Bodies Platelet Estimate Large Platelets Giant Platelets Polychromasia Hypochromasia (manual) Poikilocytosis (manual Anisocytosis (manual) Microcytosis (manual) Macrocytosis (manual) Target Cells Retic Count PT INR APTT Puncture Site pCO2 pO2 HCO3 ABG pH ABG Total CO2 ABG O2 Saturation ABG Base Excess Romero Test ABG Potassium A-a O2 Difference Respiratory Index Glucose Lactate Liter Flow Vent Mode FiO2 Inspiratory BiPAP Expiratory BiPAP Crit Value Called To Crit Value Called By Crit Value Read Back Blood Gas Notified Time Sodium Potassium Chloride Carbon Dioxide Anion Gap BUN Creatinine Est GFR ( Amer) Est GFR (Non-Af Amer) Random Glucose Lactic Acid Calcium Phosphorus Magnesium Iron TIBC % Saturation Ferritin Total Bilirubin AST ALT Alkaline Phosphatase Troponin I Total Protein Albumin Globulin Albumin/Globulin Ratio Amylase Lipase Vitamin B12 Folate Arterial Blood Potassium Urine Color Yellow Urine Clarity Clear Urine pH 5.0 Ur Specific [place] 1.013 Urine Protein Negative Urine Glucose (UA) Normal Urine Ketones Negative Urine Blood Negative Urine Nitrate Negative Urine Bilirubin Negative Urine Urobilinogen Normal Ur Leukocyte Esterase Neg Urine WBC (Auto) 2 Urine RBC (Auto) < 1 Ur Squamous Epith Cells 1 Hepatitis A IgM Ab Hep Bs Antigen Hep B Core IgM Ab Hepatitis C Antibody HIV 1&2 Antibody Screen Ur L.pneumophila Ag Negative Blood Type Antibody Screen
[2017-11-04] MEDS: Magnesium Sulfate 1 gm in D5W 1 GM/100 ML BAG IVPB SCH ×2 (14:52→16:07)
--- NOTE | 2017-11-04 17:07 | CARD ---
APPROVED REPORT Date of service: 11/03/2017 EKG Measurement Heart [id number] <Conclusion> Sinus tachycardia Septal infarct, age undetermined Abnormal ECG
--- NOTE | 2017-11-04 17:08 | CARD ---
APPROVED REPORT Date of service: 11/03/2017 EKG Measurement Heart [id number] <Conclusion> Atrial flutter Cannot rule out Anterior infarct, age undetermined T wave abnormality, consider lateral ischemia Abnormal ECG
--- NOTE | 2017-11-04 17:19 | CP.PCM.CON ---
History of Present Illness - History of Present Illness History of Present Illness: PGY-[address] Contreras, Reason for consult- Atrial Flutter Pt is a 51 year old female with PMHx Scoliosis, MS, fibromyalgia, chronic back pain, lumbar fractures 2/2 fall, degenerative disc disease, and recent admission for pancreatitis (08/2017) who presented to ED with fever, chills, productive cough, and weakness for one week. Patient was seen at bedside with her mother and her son, who stated that she had been feeling lethargic and had lost her appetite, unable to eat, for several days leading up to her admission, which they believed to be due to scoliosis and stress. Pt's family also noted that she has planned to have surgery on her fractured vertebrae, but her orthopedist had wanted her to gain weight before having the surgery as patient is very underweight. Patient has been found to have RML and RLL lobe pneumonia with positive lactate and has been hypotensive and tachycardic with HRs as high as 150s. Review of Systems - Constitutional Constitutional: Fatigue, Weakness. absent: Headache - Cardiovascular Cardiovascular: Rapid Heart Rate. absent: Chest Pain, Irregular Heart Rhythm - Respiratory Respiratory: Dyspnea Additional comments: On BiPap - Musculoskeletal Musculoskeletal: Back Pain, Deformity Additional comments: Severe scoliosis Past Patient History - Past Medical History & Family History Past Medical History?: Yes - Past Social History Smoking Status: Light Smoker < 10 Cigarettes Daily - CARDIAC Hx Cardiac Disorders: No - PULMONARY Hx Respiratory Disorders: No - NEUROLOGICAL Hx Multiple Sclerosis: Yes - HEENT Hx HEENT Problems: No - RENAL Hx Chronic Kidney Disease: No - ENDOCRINE/METABOLIC Hx Endocrine Disorders: No - HEMATOLOGICAL/ONCOLOGICAL Hx Blood Disorders: No - INTEGUMENTARY Hx Dermatological Problems: No - MUSCULOSKELETAL/RHEUMATOLOGICAL Hx Fractures: Yes (Disc fx secondary t fall) - GASTROINTESTINAL Hx Gastrointestinal Disorders: No - GENITOURINARY/GYNECOLOGICAL Hx Genitourinary Disorders: No - PSYCHIATRIC Hx Substance Use: No - SURGICAL HISTORY Hx Surgeries: Yes Hx Orthopedic Surgery: Yes (Back surgery) Other/Comment: Back Surgery - ANESTHESIA Hx Anesthesia: Yes Hx Anesthesia Reactions: No Hx Malignant Hyperthermia: No Meds Allergies/Adverse Reactions: Allergies Allergy/AdvReac Type Severity Reaction Status Date / Time seafood Allergy Uncoded 11/03/17 20:20 - Medications Medications: Current Medications Acetaminophen/Butalbital/Caffeine (Fioricet) 1 tab PO DAILY [facility] Last Admin: 11/04/17 11:59 Dose: Not Given Albuterol/Ipratropium (Duoneb 3 Mg/0.5 Mg (3 Ml) Ud) 3 ml INH RQ4 PRN PRN Reason: Shortness of Breath Amitriptyline HCl (Elavil) 25 mg PO DAILY [facility] Enoxaparin Sodium (Lovenox) 30 mg SC DAILY [facility] Last Admin: 11/04/17 09:45 Dose: 30 mg Gabapentin (Neurontin) 600 mg PO DAILY [facility] Piperacillin Sod/Tazobactam Sod (Zosyn 3.375 Gm Iv Premix) 3.375 gm in 50 mls @ 100 mls/hr IVPB Q6H [facility] PRN Reason: Protocol Last Admin: 11/04/17 16:08 Dose: 100 mls/hr Sodium Bicarbonate 100 meq/ (Sodium Chloride) 1,100 mls @ 75 mls/hr IV .[id number] [facility] Last Admin: 11/04/17 10:36 Dose: 75 mls/hr Azithromycin 500 mg/ Sodium (Chloride) 250 mls @ 250 mls/hr IVPB DAILY [facility] PRN Reason: Protocol Last Admin: 11/04/17 10:48 Dose: 250 mls/hr Multivitamins/Vitamin C 10 ml/Chromium/Copper/Manganese/Zinc 1 ml/ Magnesium Sulfate 6 meq/ Sodium Chloride 35 meq/Calcium Gluconate 4.5 meq/Potassium Phosphate 15 mmole/Amino Acids 1,035.9052 mls @ 42 mls/hr IV .Q24H ONE Stop: 11/05/17 17:59 Vancomycin/Sodium Chloride (Vancomycin 1 Gm/Ns 200 Ml) 1 gm in 200 mls @ 133.333 mls/hr IVPB Q12H [facility] PRN Reason: Protocol Ibuprofen (Motrin Tab) 400 mg PO Q6H PRN PRN Reason: Fever >100.4 F Nicotine (Nicoderm Cq) 1 patch TD DAILY [facility] Last Admin: 11/04/17 12:05 Dose: 1 patch Pantoprazole Sodium (Protonix Inj) 40 mg IVP DAILY [facility] Last Admin: 11/04/17 09:45 Dose: 40 mg Saccharomyces Boulardii (Florastor) 250 mg PO BID [facility] Last Admin: 11/04/17 11:59 Dose: Not Given Vitamin A (Vitamin A & D Oint Ud Foilpak) 1 ea TOP Q6H PRN PRN Reason: Dry mouth Physical Exam - Constitutional Appears: Toxic Additional comments: Frail appearing - Eye Exam Eye Exam: EOMI, Normal appearance, PERRL - Respiratory Exam Respiratory Exam: Accessory Muscle Use, Clear to Auscultation Bilateral Additional comments: On BiPap - Cardiovascular Exam Cardiovascular Exam: Tachycardia, REGULAR RHYTHM, +S1, +S2 - Extremities Exam Extremities exam: Negative for: joint swelling, pedal edema - Skin Skin Exam: Dry Results - Vital Signs Recent Vital Signs: Last Vital Signs Temp 98.8 F 11/04/17 16:00 Pulse 119 H 11/04/17 16:00 Resp 27 H 11/04/17 12:00 BP 88/54 L 11/04/17 15:53 Pulse Ox 93 L 11/04/17 16:00 - Labs Result Diagrams: 11/04/17 06:10 11/04/17 06:10 Labs: Laboratory Results - last 24 hr 11/03/17 11/03/17 11/03/17 20:42 20:42 20:42 WBC 7.0 RBC 3.19 L Hgb 10.5 L Hct 31.4 L MCV 98.6 D MCH 33.0 H MCHC 33.5 RDW 21.3 H Plt Count 370 MPV 8.6 Neut % (Auto) 91.0 H Lymph % (Auto) 6.0 L Edwards % (Auto) 3.0 Eos % (Auto) 0.0 Baso % (Auto) 0.0 Neut # (Auto) 6.4 Lymph # (Auto) 0.4 L Edwards # (Auto) 0.2 Eos # (Auto) 0.0 Baso # (Auto) 0.0 Neutrophils % (Manual) 84 H Band Neutrophils % 6 H Lymphocytes % (Manual) 9 L Monocytes % (Manual) 1 Metamyelocytes % Toxic Granulation Dohle Bodies Platelet Estimate Normal Large Platelets Present Giant Platelets Present Polychromasia Slight Hypochromasia (manual) Slight Poikilocytosis (manual Slight Anisocytosis (manual) Slight Microcytosis (manual) Slight Macrocytosis (manual) Slight Target Cells Slight Retic Count PT 16.9 H INR 1.5 APTT 34 Puncture Site pCO2 pO2 HCO3 ABG pH ABG Total CO2 ABG O2 Saturation ABG Base Excess Romero Test ABG Potassium A-a O2 Difference Respiratory Index Glucose Lactate Liter Flow Vent Mode FiO2 Inspiratory BiPAP Expiratory BiPAP Crit Value Called To Crit Value Called By Crit Value Read Back Blood Gas Notified Time Sodium 136 Potassium 4.2 Chloride 103 Carbon Dioxide 17 L Anion Gap 20 BUN 21 H Creatinine 1.1 Est GFR ( Amer) > 60 Est GFR (Non-Af Amer) 53 Random Glucose 79 Lactic Acid Calcium 9.0 Phosphorus Magnesium Iron TIBC % Saturation Ferritin Total Bilirubin 1.3 AST 25 ALT 151 H D Alkaline Phosphatase 406 H D Troponin I < 0.0120 Total Protein 6.7 Albumin 3.1 L D Globulin 3.6 Albumin/Globulin Ratio 0.9 L Amylase Lipase Vitamin B12 Folate Arterial Blood Potassium Urine Color Urine Clarity Urine pH Ur Specific [place] Urine Protein Urine Glucose (UA) Urine Ketones Urine Blood Urine Nitrate Urine Bilirubin Urine Urobilinogen Ur Leukocyte Esterase Urine WBC (Auto) Urine RBC (Auto) Ur Squamous Epith Cells Hepatitis A IgM Ab Hep Bs Antigen Hep B Core IgM Ab Hepatitis C Antibody HIV 1&2 Antibody Screen Ur L.pneumophila Ag Blood Type Antibody Screen 11/03/17 11/03/17 11/03/17 20:42 22:36 22:55 WBC RBC Hgb Hct MCV MCH MCHC RDW Plt Count MPV Neut % (Auto) Lymph % (Auto) Edwards % (Auto) Eos % (Auto) Baso % (Auto) Neut # (Auto) Lymph # (Auto) Edwards # (Auto) Eos # (Auto) Baso # (Auto) Neutrophils % (Manual) Band Neutrophils % Lymphocytes % (Manual) Monocytes % (Manual) Metamyelocytes % Toxic Granulation Dohle Bodies Platelet Estimate Large Platelets Giant Platelets Polychromasia Hypochromasia (manual) Poikilocytosis (manual Anisocytosis (manual) Microcytosis (manual) Macrocytosis (manual) Target Cells Retic Count PT INR APTT Puncture Site Rra pCO2 25 L pO2 50 L HCO3 15.6 L ABG pH 7.32 L ABG Total CO2 13.7 L ABG O2 Saturation 86.7 L ABG Base Excess -11.4 L Romero Test Na ABG Potassium 3.4 L A-a O2 Difference Respiratory Index Glucose 129 H Lactate 5.1 H* Liter Flow 2.0 Vent Mode FiO2 Inspiratory BiPAP Expiratory BiPAP Crit Value Called To Cj dougherty Crit Value Called By [place] Crit Value Read Back Y Blood Gas Notified Time 2300 Sodium 137.0 Potassium Chloride 106.0 Carbon Dioxide Anion Gap BUN Creatinine Est GFR ( Amer) Est GFR (Non-Af Amer) Random Glucose Lactic Acid 4.5 H* Calcium Phosphorus Magnesium Iron TIBC % Saturation Ferritin Total Bilirubin AST ALT Alkaline Phosphatase Troponin I Total Protein Albumin Globulin Albumin/Globulin Ratio Amylase Lipase Vitamin B12 Folate Arterial Blood Potassium 3.4 L Urine Color Urine Clarity Urine pH Ur Specific [place] Urine Protein Urine Glucose (UA) Urine Ketones Urine Blood Urine Nitrate Urine Bilirubin Urine Urobilinogen Ur Leukocyte Esterase Urine WBC (Auto) Urine RBC (Auto) Ur Squamous Epith Cells Hepatitis A IgM Ab Hep Bs Antigen Hep B Core IgM Ab Hepatitis C Antibody HIV 1&2 Antibody Screen Ur L.pneumophila Ag Blood Type A NEGATIVE Antibody Screen Negative 11/04/17 11/04/17 11/04/17 03:06 05:00 06:10 WBC 4.4 L RBC 2.44 L Hgb 8.2 L D Hct 24.5 L MCV 100.1 H MCH 33.5 H MCHC 33.5 RDW 21.3 H Plt Count 196 D MPV 8.5 Neut % (Auto) 86.0 H Lymph % (Auto) 9.0 L Edwards % (Auto) 5.0 Eos % (Auto) 0.0 Baso % (Auto) 0.0 Neut # (Auto) 3.8 Lymph # (Auto) 0.4 L Edwards # (Auto) 0.2 Eos # (Auto) 0.0 Baso # (Auto) 0.0 Neutrophils % (Manual) 63 Band Neutrophils % 20 H* Lymphocytes % (Manual) 7 L Monocytes % (Manual) 7 Metamyelocytes % 3 H Toxic Granulation Present Dohle Bodies Present Platelet Estimate Normal Large Platelets Giant Platelets Polychromasia Hypochromasia (manual) Slight Poikilocytosis (manual Anisocytosis (manual) Moderate Microcytosis (manual) Macrocytosis (manual) Moderate Target Cells Slight Retic Count 2.2 H PT INR APTT Puncture Site Rb pCO2 29 L pO2 75 L HCO3 16.1 L ABG pH 7.29 L ABG Total CO2 14.8 L ABG O2 Saturation 95.3 ABG Base Excess -11.2 L Romero Test Na ABG Potassium 3.2 L A-a O2 Difference 602.0 Respiratory Index 8.0 Glucose 103 Lactate 4.1 H* Liter Flow Vent Mode Bipap FiO2 100.0 Inspiratory BiPAP 10 Expiratory BiPAP 5 Crit Value Called To Howard rivera Crit 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 Crit Value Read Back Y Blood Gas Notified Time 535 Sodium 138.0 Potassium Chloride 112.0 H Carbon Dioxide Anion Gap BUN Creatinine Est GFR ( Amer) Est GFR (Non-Af Amer) Random Glucose Lactic Acid 6.0 H* Calcium Phosphorus Magnesium Iron TIBC % Saturation Ferritin Total Bilirubin AST ALT Alkaline Phosphatase Troponin I Total Protein Albumin Globulin Albumin/Globulin Ratio Amylase Lipase Vitamin B12 Folate Arterial Blood Potassium 3.2 L Urine Color Urine Clarity Urine pH Ur Specific [place] Urine Protein Urine Glucose (UA) Urine Ketones Urine Blood Urine Nitrate Urine Bilirubin Urine Urobilinogen Ur Leukocyte Esterase Urine WBC (Auto) Urine RBC (Auto) Ur Squamous Epith Cells Hepatitis A IgM Ab Hep Bs Antigen Hep B Core IgM Ab Hepatitis C Antibody HIV 1&2 Antibody Screen Ur L.pneumophila Ag Blood Type Antibody Screen 11/04/17 11/04/17 11/04/17 06:10 06:10 06:10 WBC RBC Hgb Hct MCV MCH MCHC RDW Plt Count MPV Neut % (Auto) Lymph % (Auto) Edwards % (Auto) Eos % (Auto) Baso % (Auto) Neut # (Auto) Lymph # (Auto) Edwards # (Auto) Eos # (Auto) Baso # (Auto) Neutrophils % (Manual) Band Neutrophils % Lymphocytes % (Manual) Monocytes % (Manual) Metamyelocytes % Toxic Granulation Dohle Bodies Platelet Estimate Large Platelets Giant Platelets Polychromasia Hypochromasia (manual) Poikilocytosis (manual Anisocytosis (manual) Microcytosis (manual) Macrocytosis (manual) Target Cells Retic Count PT INR APTT Puncture Site pCO2 pO2 HCO3 ABG pH ABG Total CO2 ABG O2 Saturation ABG Base Excess Romero Test ABG Potassium A-a O2 Difference Respiratory Index Glucose Lactate Liter Flow Vent Mode FiO2 Inspiratory BiPAP Expiratory BiPAP Crit Value Called To Crit Value Called By Crit Value Read Back Blood Gas Notified Time Sodium 139 Potassium 3.5 L Chloride 112 H Carbon Dioxide 13 L Anion Gap 18 BUN 16 Creatinine 0.7 Est GFR ( Amer) > 60 Est GFR (Non-Af Amer) > 60 Random Glucose 102 Lactic Acid 4.4 H* Calcium 7.4 L Phosphorus 1.7 L Magnesium 1.6 Iron 10 L TIBC 145 L % Saturation 6.9 L Ferritin Total Bilirubin 0.9 AST 22 ALT 92 H D Alkaline Phosphatase 199 H D Troponin I Total Protein 4.5 L Albumin 1.9 L D Globulin 2.6 Albumin/Globulin Ratio 0.7 L Amylase Lipase Vitamin B12 Folate Arterial Blood Potassium Urine Color Urine Clarity Urine pH Ur Specific [place] Urine Protein Urine Glucose (UA) Urine Ketones Urine Blood Urine Nitrate Urine Bilirubin Urine Urobilinogen Ur Leukocyte Esterase Urine WBC (Auto) Urine RBC (Auto) Ur Squamous Epith Cells Hepatitis A IgM Ab Hep Bs Antigen Hep B Core IgM Ab Hepatitis C Antibody HIV 1&2 Antibody Screen Negative Ur L.pneumophila Ag Blood Type Antibody Screen 11/04/17 11/04/17 11/04/17 06:10 08:53 09:25 WBC RBC Hgb Hct MCV MCH MCHC RDW Plt Count MPV Neut % (Auto) Lymph % (Auto) Edwards % (Auto) Eos % (Auto) Baso % (Auto) Neut # (Auto) Lymph # (Auto) Edwards # (Auto) Eos # (Auto) Baso # (Auto) Neutrophils % (Manual) Band Neutrophils % Lymphocytes % (Manual) Monocytes % (Manual) Metamyelocytes % Toxic Granulation Dohle Bodies Platelet Estimate Large Platelets Giant Platelets Polychromasia Hypochromasia (manual) Poikilocytosis (manual Anisocytosis (manual) Microcytosis (manual) Macrocytosis (manual) Target Cells Retic Count PT INR APTT Puncture Site Rr pCO2 26 L pO2 93 HCO3 17.8 L ABG pH 7.36 ABG Total CO2 15.5 L ABG O2 Saturation 97.4 ABG Base Excess -9.1 L Romero Test Pos ABG Potassium 2.8 L A-a O2 Difference 516.0 Respiratory Index 5.5 Glucose 111 H Lactate 3.6 H Liter Flow Vent Mode Bipap FiO2 90.0 Inspiratory BiPAP 15 Expiratory BiPAP 8 Crit Value Called To Crit Value Called By Crit Value Read Back Blood Gas Notified Time Sodium 140.0 Potassium Chloride 114.0 H Carbon Dioxide Anion Gap BUN Creatinine Est GFR ( Amer) Est GFR (Non-Af Amer) Random Glucose Lactic Acid Calcium Phosphorus Magnesium Iron TIBC % Saturation Ferritin 351.0 Total Bilirubin AST ALT Alkaline Phosphatase Troponin I Total Protein Albumin Globulin Albumin/Globulin Ratio Amylase 67 Lipase 62 Vitamin B12 > 1000 H Folate 13.4 Arterial Blood Potassium 2.8 L Urine Color Urine Clarity Urine pH Ur Specific [place] Urine Protein Urine Glucose (UA) Urine Ketones Urine Blood Urine Nitrate Urine Bilirubin Urine Urobilinogen Ur Leukocyte Esterase Urine WBC (Auto) Urine RBC (Auto) Ur Squamous Epith Cells Hepatitis A IgM Ab Negative Hep Bs Antigen Negative Hep B Core IgM Ab Negative Hepatitis C Antibody Negative HIV 1&2 Antibody Screen Ur L.pneumophila Ag Blood Type Antibody Screen 11/04/17 11/04/17 11:00 11:46 WBC RBC Hgb Hct MCV MCH MCHC RDW Plt Count MPV Neut % (Auto) Lymph % (Auto) Edwards % (Auto) Eos % (Auto) Baso % (Auto) Neut # (Auto) Lymph # (Auto) Edwards # (Auto) Eos # (Auto) Baso # (Auto) Neutrophils % (Manual) Band Neutrophils % Lymphocytes % (Manual) Monocytes % (Manual) Metamyelocytes % Toxic Granulation Dohle Bodies Platelet Estimate Large Platelets Giant Platelets Polychromasia Hypochromasia (manual) Poikilocytosis (manual Anisocytosis (manual) Microcytosis (manual) Macrocytosis (manual) Target Cells Retic Count PT INR APTT Puncture Site pCO2 pO2 HCO3 ABG pH ABG Total CO2 ABG O2 Saturation ABG Base Excess Romero Test ABG Potassium A-a O2 Difference Respiratory Index Glucose Lactate Liter Flow Vent Mode FiO2 Inspiratory BiPAP Expiratory BiPAP Crit Value Called To Crit Value Called By Crit Value Read Back Blood Gas Notified Time Sodium Potassium Chloride Carbon Dioxide Anion Gap BUN Creatinine Est GFR ( Amer) Est GFR (Non-Af Amer) Random Glucose Lactic Acid Calcium Phosphorus Magnesium Iron TIBC % Saturation Ferritin Total Bilirubin AST ALT Alkaline Phosphatase Troponin I Total Protein Albumin Globulin Albumin/Globulin Ratio Amylase Lipase Vitamin B12 Folate Arterial Blood Potassium Urine Color Yellow Urine Clarity Clear Urine pH 5.0 Ur Specific [place] 1.013 Urine Protein Negative Urine Glucose (UA) Normal Urine Ketones Negative Urine Blood Negative Urine Nitrate Negative Urine Bilirubin Negative Urine Urobilinogen Normal Ur Leukocyte Esterase Neg Urine WBC (Auto) 2 Urine RBC (Auto) < 1 Ur Squamous Epith Cells 1 Hepatitis A IgM Ab Hep Bs Antigen Hep B Core IgM Ab Hepatitis C Antibody HIV 1&2 Antibody Screen Ur L.pneumophila Ag Negative Blood Type Antibody Screen Assessment & Plan (1) Sepsis Assessment and Plan: 2/2 RML and RLL Pneumonia Lactate 4.4 BP 90s/60s HR 120s-150s Abx per ID Status: Acute (2) Sinus tachycardia Assessment and Plan: 2/2 Pneumonia EKG shows sinus tachycardia with HR in the 150s. No evidence of atrial flutter. Treat pneumonia with Abx per Infectious disease Patient is cleared from a cardiac standpoint Status: Acute
[2017-11-04] MEDS ORDERED: PPN #1 IV ONE (18:00)
[2017-11-05] MEDS: Vancomycin 1 gm/NS 200 ml 1 GM/200 ML BAG IVPB SCH ×2 (01:13→12:08)
[2017-11-05] MEDS: oxyCODONE 30 mg Immediate Release Tab PO PRN ×2 (04:52→18:22)
[2017-11-05] MEDS: Piperacill/Tazo 3.375gm in Dex 3.375 GM/50 ML BAG IVPB SCH ×4 (04:53→23:09)
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
[2017-11-05 05:25] LABS: ABG ALLEN TEST POS; ARTERIAL BLOOD GAS HCO3 24.9 mmol/L (21-28); ARTERIAL BLOOD GAS HEMOGLOBIN 9.6 g/dL (11.7-17.4); ARTERIAL BLOOD GAS O2 SAT 97.4 % (95-98); ARTERIAL BLOOD GAS PCO2 34 mm/Hg (35-45); ARTERIAL BLOOD GAS PH 7.45 (7.35-7.45); ARTERIAL BLOOD GAS PO2 242 mm/Hg (80-100); ARTERIAL BLOOD GAS TCO2 24.6 mmol/L (22-28)
[2017-11-05 06:49] LABS: ALB/GLOB RATIO 0.9 (1.0-2.1); ALT/SGPT 68 U/L (9-52); AST/SGOT 22 U/L (14-36); BLOOD UREA NITROGEN 11 mg/dL (7-17); CALCIUM 7.4 mg/dl (8.6-10.4); GFR AFRICAN-AMERICAN > 60; GFR NON-AFRICAN AMERICAN > 60; HDL CHOLESTEROL 16 mg/dL (30-70)
[2017-11-05 06:51] LABS: BASO % 0.1 % (0.0-2.0); HEMOGLOBIN 6.7 g/dL (11.0-16.0); LYMPH # 0.3 K/uL (1.0-4.3); LYMPH % 1.6 % (20.0-40.0); MEAN CELL VOLUME 98.5 fL (81.0-99.0); MEAN CORPUSCULAR HEMOGLOBIN 31.9 pg (27.0-31.0); MEAN CORPUSCULAR HGB CONC 32.4 g/dL (33.0-37.0); MEAN PLATELET VOLUME 8.2 fL (7.2-11.7); MONO # 0.1 K/uL (0.0-0.8); MONO % 0.9 % (0.0-10.0); NEUT % 97.4 % (50.0-75.0); PLATELET COUNT 91 K/uL (130-400); RBC 2.08 Mil/uL (3.80-5.20); RED CELL DISTRIBUTION WIDTH 21.8 % (11.5-14.5); WHITE BLOOD COUNT 15.4 K/uL (4.8-10.8)
[2017-11-05 06:57] LABS: LDL CHOLESTEROL < 30 mg/dL (0-129)
[2017-11-05] MEDS ORDERED: Potassium Phosphate 15 MMOLE in Sodium Chloride 0.9% 250 ML IVPB ONE (07:16)
[2017-11-05] MEDS ORDERED: Albumin Human 25% (12.5 gm/50 ml) IV ONE (07:18)
[2017-11-05] MEDS ORDERED: Potassium Chloride 20 mEq ER Tab PO ONE (07:45)
[2017-11-05 08:04] LABS: HEMOGLOBIN 6.6 g/dL (11.0-16.0); MEAN CELL VOLUME 96.9 fL (81.0-99.0); MEAN CORPUSCULAR HEMOGLOBIN 32.7 pg (27.0-31.0); MEAN CORPUSCULAR HGB CONC 33.8 g/dL (33.0-37.0); MEAN PLATELET VOLUME 8.2 fL (7.2-11.7); RBC 2.01 Mil/uL (3.80-5.20); RED CELL DISTRIBUTION WIDTH 20.7 % (11.5-14.5); WHITE BLOOD COUNT 15.6 K/uL (4.8-10.8)
[2017-11-05] MEDS: Albuterol-Ipratrop 3 mg / 0.5 (3 ml) UD INH PRN (08:11)
[2017-11-05 08:35] LABS: ANISOCYTOSIS MODERATE; BANDS 35 % (0-2); HYPOCHROMIC MODERATE; LYMPHOCYTE 1 % (20-40); METAMYELOCYTE 1 % (0-0); MONOCYTE 4 % (0-10); MYELOCYTE 1 % (0-0); NEUTROPHIL 58 % (50-75); PLATELET ESTIMATE DECREASED (NORMAL); TOTAL CELLS COUNTED 100
[2017-11-05 08:36] LABS: TARGET CELLS MODERATE; TOXIC GRANULATION PRESENT
[2017-11-05] MEDS: Enoxaparin 30 mg Syringe SC SCH (09:06)
[2017-11-05] MEDS: Saccharomyces Boulardi 250 mg Cap PO SCH ×2 (09:06→18:23)
[2017-11-05] MEDS: Apap-Butalbital-Caffeine 325-50-40mg Tab PO SCH (09:06)
[2017-11-05 10:18] LABS: LYMPH # 0.3 K/uL (1.0-4.3); MONO # 0.3 K/uL (0.0-0.8)
[2017-11-05] MEDS: Azithromycin 500 MG in Sodium Chloride 0.9% 250 ML IVPB SCH (10:21)
--- NOTE | 2017-11-05 10:51 | RAD ---
Date of service: 11/05/2017 HISTORY: Pneumonia. COMPARISON: November 04, 2017. X-ray chest. 11/03/2017. CT thorax. FINDINGS: LUNGS: Stable multilobar infiltrates right lung. PLEURA: No significant pleural effusion identified, no pneumothorax apparent. CARDIOVASCULAR: No radiographic findings to suggest acute or significant cardiovascular disease. Venous access catheter in stable, satisfactory position. OSSEOUS STRUCTURES: No significant abnormalities. VISUALIZED UPPER ABDOMEN: Normal. OTHER FINDINGS: None. IMPRESSION: Stable, extensive right middle lobe, right lower lobe infiltrate. Similar less pronounced changes right upper lobe.
[2017-11-05] MEDS: Albuterol-Ipratrop 3 mg / 0.5 (3 ml) UD INH SCH ×4 (11:00→23:48)
[2017-11-05] MEDS: Acetylcysteine 20% Inhal Soln (4ml) INH SCH ×3 (11:00→20:48)
[2017-11-05] MEDS: guaiFENesin 600 mg ER Tab PO SCH ×2 (12:07→17:00)
--- NOTE | 2017-11-05 12:47 | CARD ---
APPROVED REPORT Date of service: 11/04/2017 EXAM: LIMITED Two-dimensional and M-mode echocardiogram. INDICATION Abnormal EKG/Arrhythmia PT ON 100% BREATHING MASK, SUPINE Mitral Valve E/A ratio0.0 TDI E/Lateral E'0.0E/Medial E'0.0 Tricuspid Valve TR Peak [id number] Peak [id number] LEFT VENTRICLE The left ventricle looks grossly normal size. Left ventricle systolic function is grossly normal. RIGHT VENTRICLE The right ventricle looks normal size. The right ventricular systolic function appears normal. ATRIA The left atrium size is normal. The right atrium size is normal. AORTIC VALVE The aortic valve is not visualized. MITRAL VALVE The mitral valve leaflets appear normal and open well. There is no evidence of mitral valve prolapse. There is no mitral valve stenosis. There is no mitral valve regurgitation noted. TRICUSPID VALVE The tricuspid valve looks normal. There is mild tricuspid regurgitation. Right ventricular systolic pressure is estimated at less than 30 mmHg. There is no pulmonary hypertension. There is no tricuspid valve stenosis. PULMONIC VALVE The pulmonic valve is not well visualized. PERICARDIAL EFFUSION There is no pericardial effusion. <Conclusion> Technically limited study. Only subxiphoid view available. The left ventricle is grossly normal size. Left ventricle systolic function is grossly normal. The right ventricle size and functiona look normal The left and right atrial size is normal. There is mild tricuspid regurgitation.
--- NOTE | 2017-11-05 13:19 | CP.CCUPN ---
<PateKendra - Last Filed: 11/05/17 15:05> CCU Subjective - Physician Review Subjective (Free Text): 51 yo F w/ PMHx of chronic back pain, scoliosis, fibromyalgia, multiple sclerosis, gastric bypass, presented to ED with weakness, anorexia, dyspnea, cough x1day. In ED pt found to be in A flutter w/ rapid rate @155. Cardizem given and pt became hypotensive; however responded to IVF. Admitted to ICU for sepsis 2/2 right multilobar PNA Pt seen and examined at bedside, in no acute distress. 11/05/17 13:18 CCU Objective - Vital Signs / Intake & Output Vital Signs (Last 4 hours): Vital Signs Temp Pulse Resp BP Pulse Ox 11/05/17 12:45 98.2 F 119 H 22 96/62 L 11/05/17 12:02 122 H 13 96/62 L 97 11/05/17 12:00 98.2 F 126 H 17 95 11/05/17 11:00 121 H 17 91 L 11/05/17 10:02 123 H 30 H 105/70 98 11/05/17 10:00 122 H 24 98 Intake and Output (Last 8hrs): Intake & Output 11/04/17 11/05/17 11/05/17 22:59 06:59 14:59 Intake Total 1270.0 936 1013 Output Total 425 560 230 Balance 845.0 376 783 Weight 124 lb 12.8 oz Intake: Intake, IV Amount 1270.0 936 1013 Left wrist 2 135.0 Right Distal Port 210 336 252 Internal Jugular Right Medial Port 725 600 411 Internal Jugular Right Proximal Port 200 350 Internal Jugular Blood Product 0 Red Blood Cells Cpd As1 0 Lr Unit [id number] Output: Urine 425 560 230 Urine, Voided 425 560 230 - Physical Exam Head: Positive for: Atraumatic, Normocephalic Extroacular Muscles: Positive for: EOMI Respiratory/Chest: Positive for: Decreased Breath Sounds, Tachypneic. Negative for: Clear to Auscultation, Respiratory Distress, Accessory Muscle Use Cardiovascular: Positive for: Normal S1, S2, Tachycardic Abdomen: Positive for: Normal Bowel Sounds. Negative for: Distention Upper Extremity: Negative for: Cyanosis Lower Extremity: Negative for: Edema Neurological: Positive for: GCS=15 Psychiatric: Positive for: Alert, Oriented x 3 - Medications Active Medications: Active Medications Generic Name Dose Route Start Last Admin Trade Name Freq PRN Reason Stop Dose Admin Acetaminophen/Butalbital/Caffeine 1 tab 11/04/17 10:00 11/05/17 09:06 Fioricet PO 1 tab DAILY EMPERATRIZ Administration Acetylcysteine 4 ml 11/05/17 09:30 11/05/17 11:00 Acetylcysteine 20% INH 4 ml RQ6 EMPERATRIZ Administration Albuterol/Ipratropium 3 ml 11/05/17 12:00 11/05/17 11:00 Duoneb 3 Mg/0.5 Mg (3 Ml) Ud INH 3 ml RQ4 EMPERATRIZ Administration Amitriptyline HCl 25 mg 11/04/17 10:00 Elavil PO DAILY EMPERATRIZ Enoxaparin Sodium 30 mg 11/04/17 10:00 11/05/17 09:06 Lovenox SC 30 mg DAILY EMPERATRIZ Administration Gabapentin 600 mg 11/04/17 10:00 Neurontin PO DAILY EMPERATRIZ Guaifenesin 600 mg 11/05/17 10:00 11/05/17 12:07 Mucinex La PO 600 mg BID EMPERATRIZ Administration Piperacillin Sod/Tazobactam Sod 3.375 gm in 50 mls @ 100 mls/hr 11/04/17 05: 00 11/05/17 10:20 Zosyn 3.375 Gm Iv Premix IVPB 100 mls/hr Q6H EMPERATRIZ Administration Protocol Azithromycin 500 mg/ Sodium 250 mls @ 250 mls/hr 11/04/17 10:00 11/05/17 10: 21 Chloride IVPB 250 mls/hr DAILY EMPERATRIZ Administration Protocol Multivitamins/Vitamin C 10 ml/ 1,035.9052 mls @ 42 mls/hr 11/04/17 18:00 17:20 Chromium/Copper/Manganese/ IV 11/05/17 17:59 42 mls/hr Zinc 1 ml/ Magnesium Sulfate 6 .Q24H ONE Administration meq/ Sodium Chloride 35 meq/ Calcium Gluconate 4.5 meq/ Potassium Phosphate 15 mmole/ Amino Acids Vancomycin/Sodium Chloride 1 gm in 200 mls @ 133.333 mls/hr 11/05/17 01:00 12:08 Vancomycin 1 Gm/Ns 200 Ml IVPB 133.333 mls/hr Q12H EMPERATRIZ Administration Protocol Multivitamins/Vitamin C 10 ml/ 1,035.9052 mls @ 42 mls/hr 11/05/17 18:00 Chromium/Copper/Manganese/ IV 11/06/17 17:59 Zinc 1 ml/ Magnesium Sulfate 6 .Q24H ONE meq/ Sodium Chloride 35 meq/ Calcium Gluconate 4.5 meq/ Potassium Phosphate 15 mmole/ Amino Acids Ibuprofen 400 mg 11/04/17 01:02 11/04/17 21:34 Motrin Tab PO 400 mg Q6H PRN Administration Fever >100.4 F Nicotine 1 patch 11/04/17 10:00 11/05/17 09:07 Nicoderm Cq TD 1 patch DAILY EMPERATRIZ Administration Oxycodone HCl 30 mg 11/05/17 04:25 11/05/17 04:52 Oxycodone Immediate Release Tab PO 30 mg Q8H PRN Administration FOR BACK PAIN Pantoprazole Sodium 40 mg 11/04/17 10:00 11/05/17 09:07 Protonix Inj IVP 40 mg DAILY EMPERATRIZ Administration Saccharomyces Boulardii 250 mg 11/04/17 08:00 11/05/17 09:06 Florastor PO 250 mg BID EMPERATRIZ Administration Vitamin A 1 ea 11/04/17 10:30 Vitamin A & D Oint Ud Foilpak TOP Q6H PRN Dry mouth - Patient Studies Lab Studies: Microbiology Studies 11/04/17 06:12 MRSA Culture (Admit) - Final Naris MRSA NOT DETECTED 11/04/17 11:46 Urine Culture - Final Urine No Growth (<1,000 CFU/ML) Lab Studies 11/05/17 11/05/17 11/05/17 Range/Units 10:37 07:56 06:24 WBC 15.6 H 15.4 H D (4.8-10.8) K/uL RBC 2.01 L 2.08 L (3.80-5.20) Mil/uL Hgb 6.6 L 6.7 L (11.0-16.0) g/dL Hct 19.5 L 20.5 L (34.0-47.0) % MCV 96.9 98.5 (81.0-99.0) fL MCH 32.7 H 31.9 H (27.0-31.0) pg MCHC 33.8 32.4 L (33.0-37.0) g/dL RDW 20.7 H 21.8 H (11.5-14.5) % Plt Count 93 L 91 L D (130-400) K/uL MPV 8.2 8.2 (7.2-11.7) fL Neut % (Auto) 96.0 H 97.4 H (50.0-75.0) % Lymph % (Auto) 2.0 L 1.6 L (20.0-40.0) % [place] % (Auto) 2.0 0.9 (0.0-10.0) % Eos % (Auto) 0.0 0.0 (0.0-4.0) % Baso % (Auto) 0.0 0.1 (0.0-2.0) % Neut # (Auto) 15.0 H 15.0 H (1.8-7.0) K/uL Lymph # (Auto) 0.3 L 0.3 L (1.0-4.3) K/uL [place] # (Auto) 0.3 0.1 (0.0-0.8) K/uL Eos # (Auto) 0.0 0.0 (0.0-0.7) K/uL Baso # (Auto) 0.0 0.0 (0.0-0.2) K/uL Neutrophils % (Manual) 58 (50-75) % Band Neutrophils % 35 H* (0-2) % Lymphocytes % (Manual) 1 L (20-40) % Monocytes % (Manual) 4 (0-10) % Metamyelocytes % 1 H (0-0) % Myelocytes % 1 H (0-0) % Toxic Granulation Present Dohle Bodies Present Platelet Estimate Decreased L (NORMAL) Hypochromasia (manual) Moderate Anisocytosis (manual) Moderate Target Cells Moderate Puncture Site pCO2 (35-45) mm/Hg pO2 (80-100) mm/Hg HCO3 (21-28) mmol/L ABG pH (7.35-7.45) ABG Total CO2 (22-28) mmol/L ABG O2 Saturation (95-98) % ABG Base Excess (-2.0-3.0) mmol/L ABG Hemoglobin (11.7-17.4) g/dL ABG Carboxyhemoglobin (0.5-1.5) % POC ABG HHb (Measured) (0.0-5.0) % ABG Methemoglobin (0.0-3.0) % Romero Test A-a O2 Difference mm/Hg Respiratory Index Hgb O2 Saturation (95.0-98.0) % FiO2 % Sodium (132-148) mmol/L Potassium (3.6-5.2) mmol/L Chloride (98-107) mmol/L Carbon Dioxide (22-30) mmol/L Anion Gap (10-20) BUN (7-17) mg/dL Creatinine (0.7-1.2) mg/dL Est GFR ( Amer) Est GFR (Non-Af Amer) POC Glucose (mg/dL) (65-110) mg/dL Random Glucose (65-105) mg/dL Calcium (8.6-10.4) mg/dl Phosphorus (2.5-4.5) mg/dL Magnesium (1.6-2.3) mg/dL Total Bilirubin (0.2-1.3) mg/dL AST (14-36) U/L ALT (9-52) U/L Alkaline Phosphatase (38-126) U/L Total Protein (6.3-8.3) g/dL Albumin (3.5-5.0) g/dL Globulin (2.2-3.9) gm/dL Albumin/Globulin Ratio (1.0-2.1) Triglycerides (0-149) mg/dL Cholesterol (0-199) mg/dL LDL Cholesterol Direct (0-129) mg/dL HDL Cholesterol (30-70) mg/dL Procalcitonin (0.19-0.49) NG/ML TSH 3rd Generation (0.46-4.68) mIU/L Blood Type A NEGATIVE Antibody Screen Negative 11/05/17 11/05/17 11/05/17 Range/Units 06:22 06:22 05:00 WBC (4.8-10.8) K/uL RBC (3.80-5.20) Mil/uL Hgb (11.0-16.0) g/dL Hct (34.0-47.0) % MCV (81.0-99.0) fL MCH (27.0-31.0) pg MCHC (33.0-37.0) g/dL RDW (11.5-14.5) % Plt Count (130-400) K/uL MPV (7.2-11.7) fL Neut % (Auto) (50.0-75.0) % Lymph % (Auto) (20.0-40.0) % [place] % (Auto) (0.0-10.0) % Eos % (Auto) (0.0-4.0) % Baso % (Auto) (0.0-2.0) % Neut # (Auto) (1.8-7.0) K/uL Lymph # (Auto) (1.0-4.3) K/uL [place] # (Auto) (0.0-0.8) K/uL Eos # (Auto) (0.0-0.7) K/uL Baso # (Auto) (0.0-0.2) K/uL Neutrophils % (Manual) (50-75) % Band Neutrophils % (0-2) % Lymphocytes % (Manual) (20-40) % Monocytes % (Manual) (0-10) % Metamyelocytes % (0-0) % Myelocytes % (0-0) % Toxic Granulation Dohle Bodies Platelet Estimate (NORMAL) Hypochromasia (manual) Anisocytosis (manual) Target Cells Puncture Site Rr pCO2 34 L (35-45) mm/Hg pO2 242 H (80-100) mm/Hg HCO3 24.9 (21-28) mmol/L ABG pH 7.45 (7.35-7.45) ABG Total CO2 24.6 (22-28) mmol/L ABG O2 Saturation 97.4 (95-98) % ABG Base Excess -0.1 (-2.0-3.0) mmol/L ABG Hemoglobin 9.6 L (11.7-17.4) g/dL ABG Carboxyhemoglobin 0 L (0.5-1.5) % POC ABG HHb (Measured) 2.6 (0.0-5.0) % ABG Methemoglobin 1.0 (0.0-3.0) % Romero Test Pos A-a O2 Difference 429.0 mm/Hg Respiratory Index 1.8 Hgb O2 Saturation 96.5 (95.0-98.0) % FiO2 100.0 % Sodium 145 (132-148) mmol/L Potassium 3.0 L (3.6-5.2) mmol/L Chloride 109 H (98-107) mmol/L Carbon Dioxide 24 (22-30) mmol/L Anion Gap 15 (10-20) BUN 11 (7-17) mg/dL Creatinine 0.7 (0.7-1.2) mg/dL Est GFR ( Amer) > 60 Est GFR (Non-Af Amer) > 60 POC Glucose (mg/dL) (65-110) mg/dL Random Glucose 76 (65-105) mg/dL Calcium 7.4 L (8.6-10.4) mg/dl Phosphorus 2.1 L (2.5-4.5) mg/dL Magnesium 2.3 (1.6-2.3) mg/dL Total Bilirubin 1.0 (0.2-1.3) mg/dL AST 22 (14-36) U/L ALT 68 H D (9-52) U/L Alkaline Phosphatase 158 H D (38-126) U/L Total Protein 4.3 L (6.3-8.3) g/dL Albumin 2.0 L (3.5-5.0) g/dL Globulin 2.3 (2.2-3.9) gm/dL Albumin/Globulin Ratio 0.9 L (1.0-2.1) Triglycerides 172 H D (0-149) mg/dL Cholesterol 71 (0-199) mg/dL LDL Cholesterol Direct < 30 (0-129) mg/dL HDL Cholesterol 16 L (30-70) mg/dL Procalcitonin 13.90 H (0.19-0.49) NG/ML TSH 3rd Generation 0.64 (0.46-4.68) mIU/L Blood Type Antibody Screen 11/03/17 11/03/17 11/03/17 Range/Units 22:12 21:35 21:33 WBC (4.8-10.8) K/uL RBC (3.80-5.20) Mil/uL Hgb (11.0-16.0) g/dL Hct (34.0-47.0) % MCV (81.0-99.0) fL MCH (27.0-31.0) pg MCHC (33.0-37.0) g/dL RDW (11.5-14.5) % Plt Count (130-400) K/uL MPV (7.2-11.7) fL Neut % (Auto) (50.0-75.0) % Lymph % (Auto) (20.0-40.0) % [place] % (Auto) (0.0-10.0) % Eos % (Auto) (0.0-4.0) % Baso % (Auto) (0.0-2.0) % Neut # (Auto) (1.8-7.0) K/uL Lymph # (Auto) (1.0-4.3) K/uL [place] # (Auto) (0.0-0.8) K/uL Eos # (Auto) (0.0-0.7) K/uL Baso # (Auto) (0.0-0.2) K/uL Neutrophils % (Manual) (50-75) % Band Neutrophils % (0-2) % Lymphocytes % (Manual) (20-40) % Monocytes % (Manual) (0-10) % Metamyelocytes % (0-0) % Myelocytes % (0-0) % Toxic Granulation Dohle Bodies Platelet Estimate (NORMAL) Hypochromasia (manual) Anisocytosis (manual) Target Cells Puncture Site pCO2 (35-45) mm/Hg pO2 (80-100) mm/Hg HCO3 (21-28) mmol/L ABG pH (7.35-7.45) ABG Total CO2 (22-28) mmol/L ABG O2 Saturation (95-98) % ABG Base Excess (-2.0-3.0) mmol/L ABG Hemoglobin (11.7-17.4) g/dL ABG Carboxyhemoglobin (0.5-1.5) % POC ABG HHb (Measured) (0.0-5.0) % ABG Methemoglobin (0.0-3.0) % Romero Test A-a O2 Difference mm/Hg Respiratory Index Hgb O2 Saturation (95.0-98.0) % FiO2 % Sodium (132-148) mmol/L Potassium (3.6-5.2) mmol/L Chloride (98-107) mmol/L Carbon Dioxide (22-30) mmol/L Anion Gap (10-20) BUN (7-17) mg/dL Creatinine (0.7-1.2) mg/dL Est GFR ( Amer) Est GFR (Non-Af Amer) POC Glucose (mg/dL) 144 H 64 L 59 L (65-110) mg/dL Random Glucose (65-105) mg/dL Calcium (8.6-10.4) mg/dl Phosphorus (2.5-4.5) mg/dL Magnesium (1.6-2.3) mg/dL Total Bilirubin (0.2-1.3) mg/dL AST (14-36) U/L ALT (9-52) U/L Alkaline Phosphatase (38-126) U/L Total Protein (6.3-8.3) g/dL Albumin (3.5-5.0) g/dL Globulin (2.2-3.9) gm/dL Albumin/Globulin Ratio (1.0-2.1) Triglycerides (0-149) mg/dL Cholesterol (0-199) mg/dL LDL Cholesterol Direct (0-129) mg/dL HDL Cholesterol (30-70) mg/dL Procalcitonin (0.19-0.49) NG/ML TSH 3rd Generation (0.46-4.68) mIU/L Blood Type Antibody Screen 11/03/17 Range/Units 20:25 WBC (4.8-10.8) K/uL RBC (3.80-5.20) Mil/uL Hgb (11.0-16.0) g/dL Hct (34.0-47.0) % MCV (81.0-99.0) fL MCH (27.0-31.0) pg MCHC (33.0-37.0) g/dL RDW (11.5-14.5) % Plt Count (130-400) K/uL MPV (7.2-11.7) fL Neut % (Auto) (50.0-75.0) % Lymph % (Auto) (20.0-40.0) % [place] % (Auto) (0.0-10.0) % Eos % (Auto) (0.0-4.0) % Baso % (Auto) (0.0-2.0) % Neut # (Auto) (1.8-7.0) K/uL Lymph # (Auto) (1.0-4.3) K/uL [place] # (Auto) (0.0-0.8) K/uL Eos # (Auto) (0.0-0.7) K/uL Baso # (Auto) (0.0-0.2) K/uL Neutrophils % (Manual) (50-75) % Band Neutrophils % (0-2) % Lymphocytes % (Manual) (20-40) % Monocytes % (Manual) (0-10) % Metamyelocytes % (0-0) % Myelocytes % (0-0) % Toxic Granulation Dohle Bodies Platelet Estimate (NORMAL) Hypochromasia (manual) Anisocytosis (manual) Target Cells Puncture Site pCO2 (35-45) mm/Hg pO2 (80-100) mm/Hg HCO3 (21-28) mmol/L ABG pH (7.35-7.45) ABG Total CO2 (22-28) mmol/L ABG O2 Saturation (95-98) % ABG Base Excess (-2.0-3.0) mmol/L ABG Hemoglobin (11.7-17.4) g/dL ABG Carboxyhemoglobin (0.5-1.5) % POC ABG HHb (Measured) (0.0-5.0) % ABG Methemoglobin (0.0-3.0) % Romero Test A-a O2 Difference mm/Hg Respiratory Index Hgb O2 Saturation (95.0-98.0) % FiO2 % Sodium (132-148) mmol/L Potassium (3.6-5.2) mmol/L Chloride (98-107) mmol/L Carbon Dioxide (22-30) mmol/L Anion Gap (10-20) BUN (7-17) mg/dL Creatinine (0.7-1.2) mg/dL Est GFR ( Amer) Est GFR (Non-Af Amer) POC Glucose (mg/dL) 67 (65-110) mg/dL Random Glucose (65-105) mg/dL Calcium (8.6-10.4) mg/dl Phosphorus (2.5-4.5) mg/dL Magnesium (1.6-2.3) mg/dL Total Bilirubin (0.2-1.3) mg/dL AST (14-36) U/L ALT (9-52) U/L Alkaline Phosphatase (38-126) U/L Total Protein (6.3-8.3) g/dL Albumin (3.5-5.0) g/dL Globulin (2.2-3.9) gm/dL Albumin/Globulin Ratio (1.0-2.1) Triglycerides (0-149) mg/dL Cholesterol (0-199) mg/dL LDL Cholesterol Direct (0-129) mg/dL HDL Cholesterol (30-70) mg/dL Procalcitonin (0.19-0.49) NG/ML TSH 3rd Generation (0.46-4.68) mIU/L Blood Type Antibody Screen Laboratory Results - last 24 hr 11/03/17 11/03/17 11/03/17 20:25 21:33 21:35 WBC RBC Hgb Hct MCV MCH MCHC RDW Plt Count MPV Neut % (Auto) Lymph % (Auto) [place] % (Auto) Eos % (Auto) Baso % (Auto) Neut # (Auto) Lymph # (Auto) [place] # (Auto) Eos # (Auto) Baso # (Auto) Neutrophils % (Manual) Band Neutrophils % Lymphocytes % (Manual) Monocytes % (Manual) Metamyelocytes % Myelocytes % Toxic Granulation Dohle Bodies Platelet Estimate Hypochromasia (manual) Anisocytosis (manual) Target Cells Puncture Site pCO2 pO2 HCO3 ABG pH ABG Total CO2 ABG O2 Saturation ABG Base Excess ABG Hemoglobin ABG Carboxyhemoglobin POC ABG HHb (Measured) ABG Methemoglobin Romero Test A-a O2 Difference Respiratory Index Hgb O2 Saturation FiO2 Sodium Potassium Chloride Carbon Dioxide Anion Gap BUN Creatinine Est GFR ( Amer) Est GFR (Non-Af Amer) POC Glucose (mg/dL) 67 59 L 64 L Random Glucose Calcium Phosphorus Magnesium Total Bilirubin AST ALT Alkaline Phosphatase Total Protein Albumin Globulin Albumin/Globulin Ratio Triglycerides Cholesterol LDL Cholesterol Direct HDL Cholesterol Procalcitonin TSH 3rd Generation Blood Type Antibody Screen 11/03/17 11/05/17 11/05/17 22:12 05:00 06:22 WBC RBC Hgb Hct MCV MCH MCHC RDW Plt Count MPV Neut % (Auto) Lymph % (Auto) [place] % (Auto) Eos % (Auto) Baso % (Auto) Neut # (Auto) Lymph # (Auto) [place] # (Auto) Eos # (Auto) Baso # (Auto) Neutrophils % (Manual) Band Neutrophils % Lymphocytes % (Manual) Monocytes % (Manual) Metamyelocytes % Myelocytes % Toxic Granulation Dohle Bodies Platelet Estimate Hypochromasia (manual) Anisocytosis (manual) Target Cells Puncture Site Rr pCO2 34 L pO2 242 H HCO3 24.9 ABG pH 7.45 ABG Total CO2 24.6 ABG O2 Saturation 97.4 ABG Base Excess -0.1 ABG Hemoglobin 9.6 L ABG Carboxyhemoglobin 0 L POC ABG HHb (Measured) 2.6 ABG Methemoglobin 1.0 Romero Test Pos A-a O2 Difference 429.0 Respiratory Index 1.8 Hgb O2 Saturation 96.5 FiO2 100.0 Sodium 145 Potassium 3.0 L Chloride 109 H Carbon Dioxide 24 Anion Gap 15 BUN 11 Creatinine 0.7 Est GFR ( Amer) > 60 Est GFR (Non-Af Amer) > 60 POC Glucose (mg/dL) 144 H Random Glucose 76 Calcium 7.4 L Phosphorus 2.1 L Magnesium 2.3 Total Bilirubin 1.0 AST 22 ALT 68 H D Alkaline Phosphatase 158 H D Total Protein 4.3 L Albumin 2.0 L Globulin 2.3 Albumin/Globulin Ratio 0.9 L Triglycerides 172 H D Cholesterol 71 LDL Cholesterol Direct < 30 HDL Cholesterol 16 L Procalcitonin TSH 3rd Generation 0.64 Blood Type Antibody Screen 11/05/17 11/05/17 11/05/17 06:22 06:24 07:56 WBC 15.4 H D 15.6 H RBC 2.08 L 2.01 L Hgb 6.7 L 6.6 L Hct 20.5 L 19.5 L MCV 98.5 96.9 MCH 31.9 H 32.7 H MCHC 32.4 L 33.8 RDW 21.8 H 20.7 H Plt Count 91 L D 93 L MPV 8.2 8.2 Neut % (Auto) 97.4 H 96.0 H Lymph % (Auto) 1.6 L 2.0 L [place] % (Auto) 0.9 2.0 Eos % (Auto) 0.0 0.0 Baso % (Auto) 0.1 0.0 Neut # (Auto) 15.0 H 15.0 H Lymph # (Auto) 0.3 L 0.3 L [place] # (Auto) 0.1 0.3 Eos # (Auto) 0.0 0.0 Baso # (Auto) 0.0 0.0 Neutrophils % (Manual) 58 Band Neutrophils % 35 H* Lymphocytes % (Manual) 1 L Monocytes % (Manual) 4 Metamyelocytes % 1 H Myelocytes % 1 H Toxic Granulation Present Dohle Bodies Present Platelet Estimate Decreased L Hypochromasia (manual) Moderate Anisocytosis (manual) Moderate Target Cells Moderate Puncture Site pCO2 pO2 HCO3 ABG pH ABG Total CO2 ABG O2 Saturation ABG Base Excess ABG Hemoglobin ABG Carboxyhemoglobin POC ABG HHb (Measured) ABG Methemoglobin Romero Test A-a O2 Difference Respiratory Index Hgb O2 Saturation FiO2 Sodium Potassium Chloride Carbon Dioxide Anion Gap BUN Creatinine Est GFR ( Amer) Est GFR (Non-Af Amer) POC Glucose (mg/dL) Random Glucose Calcium Phosphorus Magnesium Total Bilirubin AST ALT Alkaline Phosphatase Total Protein Albumin Globulin Albumin/Globulin Ratio Triglycerides Cholesterol LDL Cholesterol Direct HDL Cholesterol Procalcitonin 13.90 H TSH 3rd Generation Blood Type Antibody Screen 11/05/17 10:37 WBC RBC Hgb Hct MCV MCH MCHC RDW Plt Count MPV Neut % (Auto) Lymph % (Auto) [place] % (Auto) Eos % (Auto) Baso % (Auto) Neut # (Auto) Lymph # (Auto) [place] # (Auto) Eos # (Auto) Baso # (Auto) Neutrophils % (Manual) Band Neutrophils % Lymphocytes % (Manual) Monocytes % (Manual) Metamyelocytes % Myelocytes % Toxic Granulation Dohle Bodies Platelet Estimate Hypochromasia (manual) Anisocytosis (manual) Target Cells Puncture Site pCO2 pO2 HCO3 ABG pH ABG Total CO2 ABG O2 Saturation ABG Base Excess ABG Hemoglobin ABG Carboxyhemoglobin POC ABG HHb (Measured) ABG Methemoglobin Romero Test A-a O2 Difference Respiratory Index Hgb O2 Saturation FiO2 Sodium Potassium Chloride Carbon Dioxide Anion Gap BUN Creatinine Est GFR ( Amer) Est GFR (Non-Af Amer) POC Glucose (mg/dL) Random Glucose Calcium Phosphorus Magnesium Total Bilirubin AST ALT Alkaline Phosphatase Total Protein Albumin Globulin Albumin/Globulin Ratio Triglycerides Cholesterol LDL Cholesterol Direct HDL Cholesterol Procalcitonin TSH 3rd Generation Blood Type A NEGATIVE Antibody Screen Negative Fingerstick Blood Sugar Results: 144 Review of Systems - Constitutional Constitutional: absent: Fever, Chills - Cardiovascular Cardiovascular: absent: Chest Pain, Palpitations - Respiratory Respiratory: absent: Dyspnea - Gastrointestinal Gastrointestinal: absent: Nausea, Vomiting - Neurological Neurological: absent: Dizziness, Headaches Critical Care Progress Note - Nutrition Nutrition: Nutrition Category Date Time Status Regular Diet [DIET] Diets 11/04/17 Breakfast Active Assessment/Plan - Assessment and Plan (Free Text) Assessment: 51 yo F w/ PMHx of chronic back pain, scoliosis, fibromyalgia, multiple sclerosis, gastric bypass, presented to ED with weakness, anorexia, dyspnea, cough x1day. In ED pt found to be in A flutter w/ rapid rate @155. Cardizem given and pt became hypotensive; however responded to IVF. Admitted to ICU for sepsis 2/2 right multilobar PNA 1. sepsis 2/2 to right sided multilobar PNA -WBC 15.6 -Bands 35 -CT shows right sided multilobar PNA -spO2 100 on NC -ID consult Dr. Veras -Azithromycin 500mg -zosyn 3.375 q6 -vanco 1g q12 -guaifenesin -acetylcysteine 2. Acute anemia -Hgb dropped from 10.5 on admission to 6.6 -transfuse 2U PRBC(11/05) -f/u stool occult -f/u am labs 2. A flutter -Dr. Contreras cardio consult -EKG shows no a flutter -cleared from cardio 3. Electrolyte abnormalities -monitor and replete as needed -kphos -albumin 25% Ppx -SCD -Lovenox 30mg <Tadeo Feldman - Last Filed: 11/05/17 16:10> CCU Objective - Vital Signs / Intake & Output Vital Signs (Last 4 hours): Vital Signs Temp Pulse Resp BP Pulse Ox 11/05/17 15:16 111 H 19 92/65 L 100 11/05/17 15:15 97.2 F L 112 H 20 100/72 11/05/17 15:14 97.2 F L 112 H 20 100/72 11/05/17 15:02 118 H 16 100/72 100 11/05/17 15:00 118 H 25 H 99 11/05/17 14:46 116 H 15 99/69 L 98 11/05/17 14:32 115 H 12 89/68 L 100 11/05/17 14:16 115 H 9 L 95/68 L 100 11/05/17 14:01 116 H 20 96/70 L 100 11/05/17 14:00 117 H 22 100 11/05/17 13:46 115 H 20 100/71 100 11/05/17 13:45 97.4 F L 113 H 20 96/70 L 11/05/17 13:31 115 H 19 94/68 L 100 11/05/17 13:18 115/73 11/05/17 13:15 98.0 F 114 H 20 115/73 11/05/17 13:01 118 H 18 93/64 L 100 11/05/17 13:00 98.0 F 120 H 14 93/64 L 95 11/05/17 12:45 98.2 F 119 H 22 96/62 L Intake and Output (Last 8hrs): Intake & Output 11/05/17 11/05/17 11/05/17 06:59 14:59 22:59 Intake Total 936 1159 367 Output Total 560 375 Balance 376 784 367 Weight 124 lb 12.8 oz Intake: Intake, IV Amount 936 1159 42 Right Distal Port 336 336 42 Internal Jugular Right Medial Port 600 473 Internal Jugular Right Proximal Port 350 Internal Jugular Blood Product 0 325 Red Blood Cells Cpd As1 0 325 Lr Unit [id number] Red Blood Cells Cpd As1 0 Lr Unit [id number] Output: Urine 560 375 Urine, Voided 560 375 - Medications Active Medications: Active Medications Generic Name Dose Route Start Last Admin Trade Name Freq PRN Reason Stop Dose Admin Acetaminophen/Butalbital/Caffeine 1 tab 11/04/17 10:00 11/05/17 09:06 Fioricet PO 1 tab DAILY EMPERATRIZ Administration Acetylcysteine 4 ml 11/05/17 09:30 11/05/17 11:00 Acetylcysteine 20% INH 4 ml RQ6 EMPERATRIZ Administration Albuterol/Ipratropium 3 ml 11/05/17 12:00 11/05/17 11:00 Duoneb 3 Mg/0.5 Mg (3 Ml) Ud INH 3 ml RQ4 EMPERATRIZ Administration Amitriptyline HCl 25 mg 11/04/17 10:00 Elavil PO DAILY EMPERATRIZ Enoxaparin Sodium 30 mg 11/04/17 10:00 11/05/17 09:06 Lovenox SC 30 mg DAILY EMPERATRIZ Administration Gabapentin 600 mg 11/04/17 10:00 Neurontin PO DAILY EMPERATRIZ Guaifenesin 600 mg 11/05/17 10:00 11/05/17 12:07 Mucinex La PO 600 mg BID EMPERATRIZ Administration Piperacillin Sod/Tazobactam Sod 3.375 gm in 50 mls @ 100 mls/hr 11/04/17 05: 00 11/05/17 10:20 Zosyn 3.375 Gm Iv Premix IVPB 100 mls/hr Q6H EMPERATRIZ Administration Protocol Azithromycin 500 mg/ Sodium 250 mls @ 250 mls/hr 11/04/17 10:00 11/05/17 10: 21 Chloride IVPB 250 mls/hr DAILY EMPERATRIZ Administration Protocol Multivitamins/Vitamin C 10 ml/ 1,035.9052 mls @ 42 mls/hr 11/04/17 18:00 17:20 Chromium/Copper/Manganese/ IV 11/05/17 17:59 42 mls/hr Zinc 1 ml/ Magnesium Sulfate 6 .Q24H ONE Administration meq/ Sodium Chloride 35 meq/ Calcium Gluconate 4.5 meq/ Potassium Phosphate 15 mmole/ Amino Acids Vancomycin/Sodium Chloride 1 gm in 200 mls @ 133.333 mls/hr 11/05/17 01:00 12:08 Vancomycin 1 Gm/Ns 200 Ml IVPB 133.333 mls/hr Q12H EMPERATRIZ Administration Protocol Multivitamins/Vitamin C 10 ml/ 1,035.9052 mls @ 42 mls/hr 11/05/17 18:00 Chromium/Copper/Manganese/ IV 11/06/17 17:59 Zinc 1 ml/ Magnesium Sulfate 6 .Q24H ONE meq/ Sodium Chloride 35 meq/ Calcium Gluconate 4.5 meq/ Potassium Phosphate 15 mmole/ Amino Acids Ibuprofen 400 mg 11/04/17 01:02 11/04/17 21:34 Motrin Tab PO 400 mg Q6H PRN Administration Fever >100.4 F Nicotine 1 patch 11/04/17 10:00 11/05/17 09:07 Nicoderm Cq TD 1 patch DAILY EMPERATRIZ Administration Oxycodone HCl 30 mg 11/05/17 04:25 11/05/17 04:52 Oxycodone Immediate Release Tab PO 30 mg Q8H PRN Administration FOR BACK PAIN Pantoprazole Sodium 40 mg 11/04/17 10:00 11/05/17 09:07 Protonix Inj IVP 40 mg DAILY EMPERATRIZ Administration Saccharomyces Boulardii 250 mg 11/04/17 08:00 11/05/17 09:06 Florastor PO 250 mg BID EMPERATRIZ Administration Vitamin A 1 ea 11/04/17 10:30 Vitamin A & D Oint Ud Foilpak TOP Q6H PRN Dry mouth - Patient Studies Lab Studies: Microbiology Studies 11/04/17 06:12 MRSA Culture (Admit) - Final Naris MRSA NOT DETECTED 11/04/17 11:46 Urine Culture - Final Urine No Growth (<1,000 CFU/ML) Lab Studies 11/05/17 11/05/17 11/05/17 Range/Units 10:37 07:56 06:24 WBC 15.6 H 15.4 H D (4.8-10.8) K/uL RBC 2.01 L 2.08 L (3.80-5.20) Mil/uL Hgb 6.6 L 6.7 L (11.0-16.0) g/dL Hct 19.5 L 20.5 L (34.0-47.0) % MCV 96.9 98.5 (81.0-99.0) fL MCH 32.7 H 31.9 H (27.0-31.0) pg MCHC 33.8 32.4 L (33.0-37.0) g/dL RDW 20.7 H 21.8 H (11.5-14.5) % Plt Count 93 L 91 L D (130-400) K/uL MPV 8.2 8.2 (7.2-11.7) fL Neut % (Auto) 96.0 H 97.4 H (50.0-75.0) % Lymph % (Auto) 2.0 L 1.6 L (20.0-40.0) % [place] % (Auto) 2.0 0.9 (0.0-10.0) % Eos % (Auto) 0.0 0.0 (0.0-4.0) % Baso % (Auto) 0.0 0.1 (0.0-2.0) % Neut # (Auto) 15.0 H 15.0 H (1.8-7.0) K/uL Lymph # (Auto) 0.3 L 0.3 L (1.0-4.3) K/uL [place] # (Auto) 0.3 0.1 (0.0-0.8) K/uL Eos # (Auto) 0.0 0.0 (0.0-0.7) K/uL Baso # (Auto) 0.0 0.0 (0.0-0.2) K/uL Neutrophils % (Manual) 58 (50-75) % Band Neutrophils % 35 H* (0-2) % Lymphocytes % (Manual) 1 L (20-40) % Monocytes % (Manual) 4 (0-10) % Metamyelocytes % 1 H (0-0) % Myelocytes % 1 H (0-0) % Toxic Granulation Present Dohle Bodies Present Platelet Estimate Decreased L (NORMAL) Hypochromasia (manual) Moderate Anisocytosis (manual) Moderate Target Cells Moderate Puncture Site pCO2 (35-45) mm/Hg pO2 (80-100) mm/Hg HCO3 (21-28) mmol/L ABG pH (7.35-7.45) ABG Total CO2 (22-28) mmol/L ABG O2 Saturation (95-98) % ABG Base Excess (-2.0-3.0) mmol/L ABG Hemoglobin (11.7-17.4) g/dL ABG Carboxyhemoglobin (0.5-1.5) % POC ABG HHb (Measured) (0.0-5.0) % ABG Methemoglobin (0.0-3.0) % Romero Test A-a O2 Difference mm/Hg Respiratory Index Hgb O2 Saturation (95.0-98.0) % FiO2 % Sodium (132-148) mmol/L Potassium (3.6-5.2) mmol/L Chloride (98-107) mmol/L Carbon Dioxide (22-30) mmol/L Anion Gap (10-20) BUN (7-17) mg/dL Creatinine (0.7-1.2) mg/dL Est GFR ( Amer) Est GFR (Non-Af Amer) POC Glucose (mg/dL) (65-110) mg/dL Random Glucose (65-105) mg/dL Calcium (8.6-10.4) mg/dl Phosphorus (2.5-4.5) mg/dL Magnesium (1.6-2.3) mg/dL Total Bilirubin (0.2-1.3) mg/dL AST (14-36) U/L ALT (9-52) U/L Alkaline Phosphatase (38-126) U/L Total Protein (6.3-8.3) g/dL Albumin (3.5-5.0) g/dL Globulin (2.2-3.9) gm/dL Albumin/Globulin Ratio (1.0-2.1) Triglycerides (0-149) mg/dL Cholesterol (0-199) mg/dL LDL Cholesterol Direct (0-129) mg/dL HDL Cholesterol (30-70) mg/dL Procalcitonin (0.19-0.49) NG/ML TSH 3rd Generation (0.46-4.68) mIU/L Blood Type A NEGATIVE Antibody Screen Negative 11/05/17 11/05/17 11/05/17 Range/Units 06:22 06:22 05:00 WBC (4.8-10.8) K/uL RBC (3.80-5.20) Mil/uL Hgb (11.0-16.0) g/dL Hct (34.0-47.0) % MCV (81.0-99.0) fL MCH (27.0-31.0) pg MCHC (33.0-37.0) g/dL RDW (11.5-14.5) % Plt Count (130-400) K/uL MPV (7.2-11.7) fL Neut % (Auto) (50.0-75.0) % Lymph % (Auto) (20.0-40.0) % [place] % (Auto) (0.0-10.0) % Eos % (Auto) (0.0-4.0) % Baso % (Auto) (0.0-2.0) % Neut # (Auto) (1.8-7.0) K/uL Lymph # (Auto) (1.0-4.3) K/uL [place] # (Auto) (0.0-0.8) K/uL Eos # (Auto) (0.0-0.7) K/uL Baso # (Auto) (0.0-0.2) K/uL Neutrophils % (Manual) (50-75) % Band Neutrophils % (0-2) % Lymphocytes % (Manual) (20-40) % Monocytes % (Manual) (0-10) % Metamyelocytes % (0-0) % Myelocytes % (0-0) % Toxic Granulation Dohle Bodies Platelet Estimate (NORMAL) Hypochromasia (manual) Anisocytosis (manual) Target Cells Puncture Site Rr pCO2 34 L (35-45) mm/Hg pO2 242 H (80-100) mm/Hg HCO3 24.9 (21-28) mmol/L ABG pH 7.45 (7.35-7.45) ABG Total CO2 24.6 (22-28) mmol/L ABG O2 Saturation 97.4 (95-98) % ABG Base Excess -0.1 (-2.0-3.0) mmol/L ABG Hemoglobin 9.6 L (11.7-17.4) g/dL ABG Carboxyhemoglobin 0 L (0.5-1.5) % POC ABG HHb (Measured) 2.6 (0.0-5.0) % ABG Methemoglobin 1.0 (0.0-3.0) % Romero Test Pos A-a O2 Difference 429.0 mm/Hg Respiratory Index 1.8 Hgb O2 Saturation 96.5 (95.0-98.0) % FiO2 100.0 % Sodium 145 (132-148) mmol/L Potassium 3.0 L (3.6-5.2) mmol/L Chloride 109 H (98-107) mmol/L Carbon Dioxide 24 (22-30) mmol/L Anion Gap 15 (10-20) BUN 11 (7-17) mg/dL Creatinine 0.7 (0.7-1.2) mg/dL Est GFR ( Amer) > 60 Est GFR (Non-Af Amer) > 60 POC Glucose (mg/dL) (65-110) mg/dL Random Glucose 76 (65-105) mg/dL Calcium 7.4 L (8.6-10.4) mg/dl Phosphorus 2.1 L (2.5-4.5) mg/dL Magnesium 2.3 (1.6-2.3) mg/dL Total Bilirubin 1.0 (0.2-1.3) mg/dL AST 22 (14-36) U/L ALT 68 H D (9-52) U/L Alkaline Phosphatase 158 H D (38-126) U/L Total Protein 4.3 L (6.3-8.3) g/dL Albumin 2.0 L (3.5-5.0) g/dL Globulin 2.3 (2.2-3.9) gm/dL Albumin/Globulin Ratio 0.9 L (1.0-2.1) Triglycerides 172 H D (0-149) mg/dL Cholesterol 71 (0-199) mg/dL LDL Cholesterol Direct < 30 (0-129) mg/dL HDL Cholesterol 16 L (30-70) mg/dL Procalcitonin 13.90 H (0.19-0.49) NG/ML TSH 3rd Generation 0.64 (0.46-4.68) mIU/L Blood Type Antibody Screen 11/03/17 11/03/17 11/03/17 Range/Units 22:12 21:35 21:33 WBC (4.8-10.8) K/uL RBC (3.80-5.20) Mil/uL Hgb (11.0-16.0) g/dL Hct (34.0-47.0) % MCV (81.0-99.0) fL MCH (27.0-31.0) pg MCHC (33.0-37.0) g/dL RDW (11.5-14.5) % Plt Count (130-400) K/uL MPV (7.2-11.7) fL Neut % (Auto) (50.0-75.0) % Lymph % (Auto) (20.0-40.0) % [place] % (Auto) (0.0-10.0) % Eos % (Auto) (0.0-4.0) % Baso % (Auto) (0.0-2.0) % Neut # (Auto) (1.8-7.0) K/uL Lymph # (Auto) (1.0-4.3) K/uL [place] # (Auto) (0.0-0.8) K/uL Eos # (Auto) (0.0-0.7) K/uL Baso # (Auto) (0.0-0.2) K/uL Neutrophils % (Manual) (50-75) % Band Neutrophils % (0-2) % Lymphocytes % (Manual) (20-40) % Monocytes % (Manual) (0-10) % Metamyelocytes % (0-0) % Myelocytes % (0-0) % Toxic Granulation Dohle Bodies Platelet Estimate (NORMAL) Hypochromasia (manual) Anisocytosis (manual) Target Cells Puncture Site pCO2 (35-45) mm/Hg pO2 (80-100) mm/Hg HCO3 (21-28) mmol/L ABG pH (7.35-7.45) ABG Total CO2 (22-28) mmol/L ABG O2 Saturation (95-98) % ABG Base Excess (-2.0-3.0) mmol/L ABG Hemoglobin (11.7-17.4) g/dL ABG Carboxyhemoglobin (0.5-1.5) % POC ABG HHb (Measured) (0.0-5.0) % ABG Methemoglobin (0.0-3.0) % Romero Test A-a O2 Difference mm/Hg Respiratory Index Hgb O2 Saturation (95.0-98.0) % FiO2 % Sodium (132-148) mmol/L Potassium (3.6-5.2) mmol/L Chloride (98-107) mmol/L Carbon Dioxide (22-30) mmol/L Anion Gap (10-20) BUN (7-17) mg/dL Creatinine (0.7-1.2) mg/dL Est GFR ( Amer) Est GFR (Non-Af Amer) POC Glucose (mg/dL) 144 H 64 L 59 L (65-110) mg/dL Random Glucose (65-105) mg/dL Calcium (8.6-10.4) mg/dl Phosphorus (2.5-4.5) mg/dL Magnesium (1.6-2.3) mg/dL Total Bilirubin (0.2-1.3) mg/dL AST (14-36) U/L ALT (9-52) U/L Alkaline Phosphatase (38-126) U/L Total Protein (6.3-8.3) g/dL Albumin (3.5-5.0) g/dL Globulin (2.2-3.9) gm/dL Albumin/Globulin Ratio (1.0-2.1) Triglycerides (0-149) mg/dL Cholesterol (0-199) mg/dL LDL Cholesterol Direct (0-129) mg/dL HDL Cholesterol (30-70) mg/dL Procalcitonin (0.19-0.49) NG/ML TSH 3rd Generation (0.46-4.68) mIU/L Blood Type Antibody Screen 11/03/17 Range/Units 20:25 WBC (4.8-10.8) K/uL RBC (3.80-5.20) Mil/uL Hgb (11.0-16.0) g/dL Hct (34.0-47.0) % MCV (81.0-99.0) fL MCH (27.0-31.0) pg MCHC (33.0-37.0) g/dL RDW (11.5-14.5) % Plt Count (130-400) K/uL MPV (7.2-11.7) fL Neut % (Auto) (50.0-75.0) % Lymph % (Auto) (20.0-40.0) % [place] % (Auto) (0.0-10.0) % Eos % (Auto) (0.0-4.0) % Baso % (Auto) (0.0-2.0) % Neut # (Auto) (1.8-7.0) K/uL Lymph # (Auto) (1.0-4.3) K/uL [place] # (Auto) (0.0-0.8) K/uL Eos # (Auto) (0.0-0.7) K/uL Baso # (Auto) (0.0-0.2) K/uL Neutrophils % (Manual) (50-75) % Band Neutrophils % (0-2) % Lymphocytes % (Manual) (20-40) % Monocytes % (Manual) (0-10) % Metamyelocytes % (0-0) % Myelocytes % (0-0) % Toxic Granulation Dohle Bodies Platelet Estimate (NORMAL) Hypochromasia (manual) Anisocytosis (manual) Target Cells Puncture Site pCO2 (35-45) mm/Hg pO2 (80-100) mm/Hg HCO3 (21-28) mmol/L ABG pH (7.35-7.45) ABG Total CO2 (22-28) mmol/L ABG O2 Saturation (95-98) % ABG Base Excess (-2.0-3.0) mmol/L ABG Hemoglobin (11.7-17.4) g/dL ABG Carboxyhemoglobin (0.5-1.5) % POC ABG HHb (Measured) (0.0-5.0) % ABG Methemoglobin (0.0-3.0) % Romero Test A-a O2 Difference mm/Hg Respiratory Index Hgb O2 Saturation (95.0-98.0) % FiO2 % Sodium (132-148) mmol/L Potassium (3.6-5.2) mmol/L Chloride (98-107) mmol/L Carbon Dioxide (22-30) mmol/L Anion Gap (10-20) BUN (7-17) mg/dL Creatinine (0.7-1.2) mg/dL Est GFR ( Amer) Est GFR (Non-Af Amer) POC Glucose (mg/dL) 67 (65-110) mg/dL Random Glucose (65-105) mg/dL Calcium (8.6-10.4) mg/dl Phosphorus (2.5-4.5) mg/dL Magnesium (1.6-2.3) mg/dL Total Bilirubin (0.2-1.3) mg/dL AST (14-36) U/L ALT (9-52) U/L Alkaline Phosphatase (38-126) U/L Total Protein (6.3-8.3) g/dL Albumin (3.5-5.0) g/dL Globulin (2.2-3.9) gm/dL Albumin/Globulin Ratio (1.0-2.1) Triglycerides (0-149) mg/dL Cholesterol (0-199) mg/dL LDL Cholesterol Direct (0-129) mg/dL HDL Cholesterol (30-70) mg/dL Procalcitonin (0.19-0.49) NG/ML TSH 3rd Generation (0.46-4.68) mIU/L Blood Type Antibody Screen Laboratory Results - last 24 hr 11/03/17 11/03/17 11/03/17 20:25 21:33 21:35 WBC RBC Hgb Hct MCV MCH MCHC RDW Plt Count MPV Neut % (Auto) Lymph % (Auto) [place] % (Auto) Eos % (Auto) Baso % (Auto) Neut # (Auto) Lymph # (Auto) [place] # (Auto) Eos # (Auto) Baso # (Auto) Neutrophils % (Manual) Band Neutrophils % Lymphocytes % (Manual) Monocytes % (Manual) Metamyelocytes % Myelocytes % Toxic Granulation Dohle Bodies Platelet Estimate Hypochromasia (manual) Anisocytosis (manual) Target Cells Puncture Site pCO2 pO2 HCO3 ABG pH ABG Total CO2 ABG O2 Saturation ABG Base Excess ABG Hemoglobin ABG Carboxyhemoglobin POC ABG HHb (Measured) ABG Methemoglobin Romero Test A-a O2 Difference Respiratory Index Hgb O2 Saturation FiO2 Sodium Potassium Chloride Carbon Dioxide Anion Gap BUN Creatinine Est GFR ( Amer) Est GFR (Non-Af Amer) POC Glucose (mg/dL) 67 59 L 64 L Random Glucose Calcium Phosphorus Magnesium Total Bilirubin AST ALT Alkaline Phosphatase Total Protein Albumin Globulin Albumin/Globulin Ratio Triglycerides Cholesterol LDL Cholesterol Direct HDL Cholesterol Procalcitonin TSH 3rd Generation Blood Type Antibody Screen 11/03/17 11/05/17 11/05/17 22:12 05:00 06:22 WBC RBC Hgb Hct MCV MCH MCHC RDW Plt Count MPV Neut % (Auto) Lymph % (Auto) [place] % (Auto) Eos % (Auto) Baso % (Auto) Neut # (Auto) Lymph # (Auto) [place] # (Auto) Eos # (Auto) Baso # (Auto) Neutrophils % (Manual) Band Neutrophils % Lymphocytes % (Manual) Monocytes % (Manual) Metamyelocytes % Myelocytes % Toxic Granulation Dohle Bodies Platelet Estimate Hypochromasia (manual) Anisocytosis (manual) Target Cells Puncture Site Rr pCO2 34 L pO2 242 H HCO3 24.9 ABG pH 7.45 ABG Total CO2 24.6 ABG O2 Saturation 97.4 ABG Base Excess -0.1 ABG Hemoglobin 9.6 L ABG Carboxyhemoglobin 0 L POC ABG HHb (Measured) 2.6 ABG Methemoglobin 1.0 Romero Test Pos A-a O2 Difference 429.0 Respiratory Index 1.8 Hgb O2 Saturation 96.5 FiO2 100.0 Sodium 145 Potassium 3.0 L Chloride 109 H Carbon Dioxide 24 Anion Gap 15 BUN 11 Creatinine 0.7 Est GFR ( Amer) > 60 Est GFR (Non-Af Amer) > 60 POC Glucose (mg/dL) 144 H Random Glucose 76 Calcium 7.4 L Phosphorus 2.1 L Magnesium 2.3 Total Bilirubin 1.0 AST 22 ALT 68 H D Alkaline Phosphatase 158 H D Total Protein 4.3 L Albumin 2.0 L Globulin 2.3 Albumin/Globulin Ratio 0.9 L Triglycerides 172 H D Cholesterol 71 LDL Cholesterol Direct < 30 HDL Cholesterol 16 L Procalcitonin TSH 3rd Generation 0.64 Blood Type Antibody Screen 11/05/17 11/05/17 11/05/17 06:22 06:24 07:56 WBC 15.4 H D 15.6 H RBC 2.08 L 2.01 L Hgb 6.7 L 6.6 L Hct 20.5 L 19.5 L MCV 98.5 96.9 MCH 31.9 H 32.7 H MCHC 32.4 L 33.8 RDW 21.8 H 20.7 H Plt Count 91 L D 93 L MPV 8.2 8.2 Neut % (Auto) 97.4 H 96.0 H Lymph % (Auto) 1.6 L 2.0 L [place] % (Auto) 0.9 2.0 Eos % (Auto) 0.0 0.0 Baso % (Auto) 0.1 0.0 Neut # (Auto) 15.0 H 15.0 H Lymph # (Auto) 0.3 L 0.3 L [place] # (Auto) 0.1 0.3 Eos # (Auto) 0.0 0.0 Baso # (Auto) 0.0 0.0 Neutrophils % (Manual) 58 Band Neutrophils % 35 H* Lymphocytes % (Manual) 1 L Monocytes % (Manual) 4 Metamyelocytes % 1 H Myelocytes % 1 H Toxic Granulation Present Dohle Bodies Present Platelet Estimate Decreased L Hypochromasia (manual) Moderate Anisocytosis (manual) Moderate Target Cells Moderate Puncture Site pCO2 pO2 HCO3 ABG pH ABG Total CO2 ABG O2 Saturation ABG Base Excess ABG Hemoglobin ABG Carboxyhemoglobin POC ABG HHb (Measured) ABG Methemoglobin Romero Test A-a O2 Difference Respiratory Index Hgb O2 Saturation FiO2 Sodium Potassium Chloride Carbon Dioxide Anion Gap BUN Creatinine Est GFR ( Amer) Est GFR (Non-Af Amer) POC Glucose (mg/dL) Random Glucose Calcium Phosphorus Magnesium Total Bilirubin AST ALT Alkaline Phosphatase Total Protein Albumin Globulin Albumin/Globulin Ratio Triglycerides Cholesterol LDL Cholesterol Direct HDL Cholesterol Procalcitonin 13.90 H TSH 3rd Generation Blood Type Antibody Screen 11/05/17 10:37 WBC RBC Hgb Hct MCV MCH MCHC RDW Plt Count MPV Neut % (Auto) Lymph % (Auto) [place] % (Auto) Eos % (Auto) Baso % (Auto) Neut # (Auto) Lymph # (Auto) [place] # (Auto) Eos # (Auto) Baso # (Auto) Neutrophils % (Manual) Band Neutrophils % Lymphocytes % (Manual) Monocytes % (Manual) Metamyelocytes % Myelocytes % Toxic Granulation Dohle Bodies Platelet Estimate Hypochromasia (manual) Anisocytosis (manual) Target Cells Puncture Site pCO2 pO2 HCO3 ABG pH ABG Total CO2 ABG O2 Saturation ABG Base Excess ABG Hemoglobin ABG Carboxyhemoglobin POC ABG HHb (Measured) ABG Methemoglobin Romero Test A-a O2 Difference Respiratory Index Hgb O2 Saturation FiO2 Sodium Potassium Chloride Carbon Dioxide Anion Gap BUN Creatinine Est GFR ( Amer) Est GFR (Non-Af Amer) POC Glucose (mg/dL) Random Glucose Calcium Phosphorus Magnesium Total Bilirubin AST ALT Alkaline Phosphatase Total Protein Albumin Globulin Albumin/Globulin Ratio Triglycerides Cholesterol LDL Cholesterol Direct HDL Cholesterol Procalcitonin TSH 3rd Generation Blood Type A NEGATIVE Antibody Screen Negative Critical Care Progress Note - Nutrition Nutrition: Nutrition Category Date Time Status Regular Diet [DIET] Diets 11/04/17 Breakfast Active Attending/Attestation - Attestation I have personally seen and examined this patient.: Yes I have fully participated in the care of the patient.: Yes I have reviewed all pertinent clinical information: Yes Notes (Text): 11/05/17 16:06 I have seen and examined the patient. Medical records, lab studies, and imaging were reviewed by me and a management plan was formulated on multidisciplinary rounds with resident Dr. Pate. I agree with their documented assessment and plan. Patient has a severe pneumonia that has worsened radiographically and symptomatically. Continue duonebs, adding mucomyst, guaifenesin, chest pt, humidified oxygen. continue abx. Severe anemia, etiology uncertain, no obvious signs of bleeding. Transfusing 2 units PRBC if possible her anemia is making her symptomatic. Critical Care Time 35 minutes. Multi-disciplinary rounds were performed with house staff, nursing, speech therapy, respiratory therapy, pharmacy and nutrition with integrated input from the primary team/attending and other consulting services. The documented time is cumulative and includes review of patient data/exams/labs/chart review and examination of the patient on rounds and throughout the day; time is exclusive of any procedures or teaching time.
[2017-11-05] MEDS ORDERED: PPN #2 IV ONE (18:00)
--- NOTE | 2017-11-05 20:44 | CP.PCM.PN ---
Subjective - Date & Time of Evaluation Date of Evaluation: 11/05/17 Time of Evaluation: 02:45 - Subjective Subjective: dictated Objective - Vital Signs/Intake and Output Vital Signs (last 24 hours): Temp Pulse Resp BP Pulse Ox 97.6 F 117 H 24 110/80 99 11/05/17 18:00 11/05/17 18:16 11/05/17 18:16 11/05/17 18:16 11/05/17 18:16 Intake and Output: 11/05/17 11/06/17 18:59 06:59 Intake Total 2147 42 Output Total 530 Balance 1617 42 - Medications Medications: Current Medications Acetaminophen/Butalbital/Caffeine (Fioricet) 1 tab PO DAILY EMPERATRIZ Last Admin: 11/05/17 09:06 Dose: 1 tab Acetylcysteine (Acetylcysteine 20%) 4 ml INH RQ6 EMPERATRIZ Last Admin: 11/05/17 11:00 Dose: 4 ml Albuterol/Ipratropium (Duoneb 3 Mg/0.5 Mg (3 Ml) Ud) 3 ml INH RQ4 EMPERATRIZ Last Admin: 11/05/17 16:38 Dose: 3 ml Amitriptyline HCl (Elavil) 25 mg PO DAILY EMPERATRIZ Enoxaparin Sodium (Lovenox) 30 mg SC DAILY EMPERATRIZ Last Admin: 11/05/17 09:06 Dose: 30 mg Gabapentin (Neurontin) 600 mg PO DAILY EMPERATRIZ Guaifenesin (Mucinex La) 600 mg PO BID [facility] Last Admin: 11/05/17 17:00 Dose: 600 mg Piperacillin Sod/Tazobactam Sod (Zosyn 3.375 Gm Iv Premix) 3.375 gm in 50 mls @ 100 mls/hr IVPB Q6H EMPERATRIZ PRN Reason: Protocol Last Admin: 11/05/17 16:56 Dose: 100 mls/hr Azithromycin 500 mg/ Sodium (Chloride) 250 mls @ 250 mls/hr IVPB DAILY EMPERATRIZ PRN Reason: Protocol Last Admin: 11/05/17 10:21 Dose: 250 mls/hr Vancomycin/Sodium Chloride (Vancomycin 1 Gm/Ns 200 Ml) 1 gm in 200 mls @ 133.333 mls/hr IVPB Q12H EMPERATRIZ PRN Reason: Protocol Last Admin: 11/05/17 12:08 Dose: 133.333 mls/hr Multivitamins/Vitamin C 10 ml/Chromium/Copper/Manganese/Zinc 1 ml/ Magnesium Sulfate 6 meq/ Sodium Chloride 35 meq/Calcium Gluconate 4.5 meq/Potassium Phosphate 15 mmole/Amino Acids 1,035.9052 mls @ 42 mls/hr IV .Q24H ONE Stop: 11/06/17 17:59 Last Admin: 11/05/17 17:01 Dose: 42 mls/hr Ibuprofen (Motrin Tab) 400 mg PO Q6H PRN PRN Reason: Fever >100.4 F Last Admin: 11/04/17 21:34 Dose: 400 mg Nicotine (Nicoderm Cq) 1 patch TD DAILY [facility] Last Admin: 11/05/17 09:07 Dose: 1 patch Oxycodone HCl (Oxycodone Immediate Release Tab) 30 mg PO Q8H PRN PRN Reason: FOR BACK PAIN Last Admin: 11/05/17 18:22 Dose: 30 mg Pantoprazole Sodium (Protonix Inj) 40 mg IVP DAILY [facility] Last Admin: 11/05/17 09:07 Dose: 40 mg Saccharomyces Boulardii (Florastor) 250 mg PO BID [facility] Last Admin: 11/05/17 18:23 Dose: 250 mg Vitamin A (Vitamin A & D Oint Ud Foilpak) 1 ea TOP Q6H PRN PRN Reason: Dry mouth - Labs Labs: 11/05/17 07:56 11/05/17 06:22 PT 16.9 SECONDS (9.7-12.2) H 11/03/17 20:42 INR 1.5 11/03/17 20:42 APTT 34 SECONDS (21-34) 11/03/17 20:42
[2017-11-05 21:48] LABS: GRANULAR CAST 2 /lpf (0-1); SQUAMOUS EPITHIAL < 1 /hpf (0-5); URINE BACTERIA RARE (<OCC); URINE BILIRUBIN NEGATIVE (NEGATIVE); URINE BLOOD 1+ (NEGATIVE); URINE CLARITY Hazy (Clear); URINE COLOR Amber (YELLOW); URINE GLUCOSE (UA) NORMAL (Normal); URINE LEUKOCYTE ESTERASE NEG Leu/uL (Negative); URINE PROTEIN 1+ mg/dL (NEGATIVE); URINE UROBILINOGEN NORMAL mg/dL (0.2-1.0)
--- NOTE | 2017-11-05 23:36 | CP.PCM.PN ---
Subjective - Date & Time of Evaluation Date of Evaluation: 11/05/17 Time of Evaluation: 17:15 - Subjective Subjective: Medical Attending Note: Patient seen and examined this afternoon with son at bedside. Patient transitioned to nasal canula. Patient reports she has been unable to gain weight. She has had sleeve surgery in the past. Patient reports she needs to gain 25lbs to be approved for the surgery. She reports she has used steroids in the past to control back pain. Patient confirms hx of anemia but has not had a GI workup. Patient reports she had went to [facility] [place] but left after one day because "nothing was getting done". Patient reports she had sleeve surgery, and reports she takes her vitamins everything. Denies headache, denies chest pain, reports breathing better, denies nausea, denies vomitting, denies abdominal pain , she reports chronic dry mouth, and reports spicy foods irritate her. She also reports she is currently undergoing a divorce with her and defers any medical decision to her mother, father, or son not her . She does confirm she is FULL code. Patient recieving blood transfusion at bedside. Objective - Vital Signs/Intake and Output Vital Signs (last 24 hours): Temp Pulse Resp BP Pulse Ox 98.5 F 114 H 14 126/90 100 11/05/17 20:00 11/05/17 23:01 11/05/17 23:01 11/05/17 23:01 11/05/17 23:01 Intake and Output: 11/05/17 11/06/17 18:59 06:59 Intake Total 2147 210 Output Total 530 105 Balance 1617 105 - Medications Medications: Current Medications Acetaminophen/Butalbital/Caffeine (Fioricet) 1 tab PO DAILY [facility] Last Admin: 11/05/17 09:06 Dose: 1 tab Acetylcysteine (Acetylcysteine 20%) 4 ml INH RQ6 [facility] Last Admin: 11/05/17 20:48 Dose: 4 ml Acyclovir (Zovirax) 200 mg PO 5XD [facility] PRN Reason: Protocol Albuterol/Ipratropium (Duoneb 3 Mg/0.5 Mg (3 Ml) Ud) 3 ml INH RQ4 [facility] Last Admin: 11/05/17 20:48 Dose: 3 ml Amitriptyline HCl (Elavil) 25 mg PO DAILY [facility] Enoxaparin Sodium (Lovenox) 30 mg SC DAILY [facility] Last Admin: 11/05/17 09:06 Dose: 30 mg Gabapentin (Neurontin) 600 mg PO DAILY [facility] Guaifenesin (Mucinex La) 600 mg PO BID [facility] Last Admin: 11/05/17 17:00 Dose: 600 mg Piperacillin Sod/Tazobactam Sod (Zosyn 3.375 Gm Iv Premix) 3.375 gm in 50 mls @ 100 mls/hr IVPB Q6H [facility] PRN Reason: Protocol Last Admin: 11/05/17 23:09 Dose: 100 mls/hr Azithromycin 500 mg/ Sodium (Chloride) 250 mls @ 250 mls/hr IVPB DAILY [facility] PRN Reason: Protocol Last Admin: 11/05/17 10:21 Dose: 250 mls/hr Vancomycin/Sodium Chloride (Vancomycin 1 Gm/Ns 200 Ml) 1 gm in 200 mls @ 133.333 mls/hr IVPB Q12H [facility] PRN Reason: Protocol Last Admin: 11/05/17 12:08 Dose: 133.333 mls/hr Multivitamins/Vitamin C 10 ml/Chromium/Copper/Manganese/Zinc 1 ml/ Magnesium Sulfate 6 meq/ Sodium Chloride 35 meq/Calcium Gluconate 4.5 meq/Potassium Phosphate 15 mmole/Amino Acids 1,035.9052 mls @ 42 mls/hr IV .Q24H ONE Stop: 11/06/17 17:59 Last Admin: 11/05/17 17:01 Dose: 42 mls/hr Ibuprofen (Motrin Tab) 400 mg PO Q6H PRN PRN Reason: Fever >100.4 F Last Admin: 11/04/17 21:34 Dose: 400 mg Nicotine (Nicoderm Cq) 1 patch TD DAILY [facility] Last Admin: 11/05/17 09:07 Dose: 1 patch Oxycodone HCl (Oxycodone Immediate Release Tab) 30 mg PO Q8H PRN PRN Reason: FOR BACK PAIN Last Admin: 11/05/17 18:22 Dose: 30 mg Pantoprazole Sodium (Protonix Inj) 40 mg IVP DAILY [facility] Last Admin: 11/05/17 09:07 Dose: 40 mg Saccharomyces Boulardii (Florastor) 250 mg PO BID [facility] Last Admin: 11/05/17 18:23 Dose: 250 mg Vitamin A (Vitamin A & D Oint Ud Foilpak) 1 ea TOP Q6H PRN PRN Reason: Dry mouth - Labs Labs: 11/05/17 07:56 11/05/17 06:22 PT 16.9 SECONDS (9.7-12.2) H 11/03/17 20:42 INR 1.5 11/03/17 20:42 APTT 34 SECONDS (21-34) 11/03/17 20:42 - Constitutional Appears: Unkempt, Chronically Ill - Eye Exam Eye Exam: EOMI, PERRL - ENT Exam ENT Exam: Mucous Membranes Dry - Respiratory Exam Respiratory Exam: Decreased Breath Sounds, Rales, Rhonchi, NORMAL BREATHING PATTERN. absent: Respiratory Distress - Cardiovascular Exam Cardiovascular Exam: REGULAR RHYTHM, +S1, +S2 - GI/Abdominal Exam GI & Abdominal Exam: Soft, Normal Bowel Sounds. absent: Distended, Guarding, Rigid, Tenderness, Rebound - Neurological Exam Neurological Exam: Alert, Awake, Oriented x3 - Psychiatric Exam Psychiatric exam: Normal Affect, Normal Mood - Skin Skin Exam: Dry, Intact, Normal Color, Warm Attending/Attestation - Attestation I have personally seen and examined this patient.: Yes I have fully participated in the care of the patient.: Yes I have reviewed all pertinent clinical information, including history, physical exam and plan: Yes Notes (Text): 1) Acute Respiratory Distress Health Care Associated Pneumonia Sepsis Bandemia Assessment/Plan * Admit to ICU * Code sepsis 11/03/17 * Elevated procalcitonin: 13.90 * Infectious Disease (Dr. Veras) on board-->help appreciated * Criteria: Afebrile, no leukocytosis, left shift noted with lactate 5.1 with repeat 6.0 * in the ED, given Rocephin and Azithromycin in the ED * Patient is currently on Bipap transitioned to nasal canula today * Possible HCAP prior hospitalization * Lactate: 4.5-->6.0-->4.4-->3.6 * Duonebs RQ4 PRN shortness of breathe * Acetrylcysteine 4ml INH RQ6H * Mucinex 600mg PO BID * Motrin 400mg PO Q6H PRN >100.4F * CT Chest (11/04/17): multilobar pneumonia of the right lung. Small hiatal hernia. * Azithromycin 500mg IV q daily (active since 11/04/17) * Zosyn 3.375 gm IV Q6H (active since 11/04/17) * Vancomycin 1 gram IVQ12 (active since 11/05/17) * Zovirax 200mg PO 5XD (active since 11/06/17) * Pending CMV, HSV. Mycoplasma IgM * Florastor 250mg PO BID * pending Blood cultures * Urine culture (11/04/17): no growth * check LDH-->patient has been on steroids for low back pain in the past--> do we need to consider Bactrim for PCP? 2) Sinus Tachycardia Assessment/Plan * Cardiology (Dr. Contreras) on board-->help appreciated * Cleared from cardiac standpoint * Treat infection/sepsis * Became Hypotensive-->brought to ICU * Given Cardizem 20mg IVPX1, Cardizem 5mg IVP X3 in the ED * Cardizem drip d/c overnight * Given Metoprol 5mg IVP X1 * Needed IV fluids to increase blood pressure * Hgba1c: 4.9 * TSH: 0.64 * Lipid panel: <30, HDL: 16, T, Cholestrol: 71 * Echocardiogram (11/05/17): left ventricle is grossly normal size. Left ventricle systolic function is grossly normal. Right ventricle size and function is normal. Mild tricupsid regurgitation 3) History of Chronic Back Pain History of Scoliosis Fibromylagia Assessment/Plan * held gabapentin given respiratory status * held amitriptyline-->cardio side effects and patient is in sinus tachycardia * Discussed with patient who is aware * Patient has had chronic back problems since age 16 from scoliosis * Patient reports she was for lumbar spine surgery however she was told she needs to meet weight requirement prior to proceeding with surgery * Oxycodone 30mg POq8 PRN pain 4) Tobacco History Assessment/Plan * Start Nicotone Patch daily 5) History of Gastric Bypass (sleeve gastrectomy) Assessment/Plan * About 11 years ago * Hgba1c: 4.9 * TSH: 0.64 * Lipid panel: <30, HDL: 16, T, Cholestrol: 71 * Will start MVI 1 tab PO daily * Will need lifelong MV1, calcium, vitamin D supplements 6) Anemia Assessment/Plan * Patient with known history of anemia when I discussed with her at bedside today * Patient has not had GI workup including colonoscopy. * H/H downtrending * Patient ordered for blood transfusion today * Iron low, TIBC low, ferritin: 351 reticulocyte count: 2.2 * Reticulocyte index: 0.17 hypoproliferation of reticulocytes * B12 normal, folate within range * Check LDH * Possible may need CT Chest/Abdomen/Pelvis for malignancy workup 7) Unclear regarding to Multiple Sclerosis Hx Assessment/Plan * Currently not on medication * Diagnosed 8 years ago as per son * Will need to clarify with son how was diagnosed 8) Hx Pancreatitis * Noted on 08/2017 admission * Recommended outpatient EUS 9) Transaminitis * possible acute phase reactant * Abdominal US (11/04/17): hyperechoic hepatic parenchyma in the interval may indicate diffuse fatty infiltrateion though other etiologies. No common bile duct or intrahepatic biliary dilatation is identified. Moderately distended but otherwise unremarkable appearing gallbladder. Pancreas is poorly visualized. Small right renal cyst. Incidental right pleural effusion is noted. * Hepatitis panel: negative * HIV: negative 10) Electrolyte abnormalities * monitor and replete 11) Abdominal Pain * Lipase/Amylase: normal * none today 12) Thrombocytopenia * D/C lovenox * Order for HIT/CONSTANTINE * Likely related to sepsis * Order for PT/PTT/fibrinogen * Abdominal US (11/04/17): hyperechoic hepatic parenchyma in the interval may indicate diffuse fatty infiltrateion though other etiologies. No common bile duct or intrahepatic biliary dilatation is identified. Moderately distended but otherwise unremarkable appearing gallbladder. Pancreas is poorly visualized. Small right renal cyst. Incidental right pleural effusion is noted. 13) Prophylactic Measures * GI PPX: Protonix 40mg PO daily switch to pepcid 20mg IV qdaily given se: thrombocytopenia * Florastor 250mg PO bid * d/c Lovenox 30mg subq daily-->thrombocytopenia Disposition: monitor H/H given acute drop; monitor platelets in light of sepsis picture; pending blood cultures will follow and discuss with ICU.
[2017-11-06] MEDS: Vancomycin 1 gm/NS 200 ml 1 GM/200 ML BAG IVPB SCH ×2 (00:31→12:41)
--- NOTE | 2017-11-06 01:38 | PN ---
DATE: 11/05/2017 INFECTIOUS DISEASE FOLLOWUP SUBJECTIVE: The patient was getting respiratory treatment today, was on oxygen. She was trying to eat. There was solid food in front of her. PHYSICAL EXAMINATION: VITAL SIGNS: T-max was 97.6, heart rate of 112, blood pressure 107/75, respirations were 20. HEENT: Head is atraumatic and normocephalic. NECK: Supple. LUNGS: Decreased breath sounds bilaterally. No wheezing. No rhonchi. HEART: S1, S2. Still tachycardic. ABDOMEN: Soft. Nontender. No guarding. No rigidity present. EXTREMITIES: Had no edema. LABORATORY DATA: Labs showed white count of 15.6 today, hemoglobin 6.6, hematocrit 19.5, platelet count is 93. Her white count has increased and hemoglobin is dropping, and platelets were 93. So, today the platelets are low. She has 35% bands at this time, which is high. ASSESSMENT AND PLAN: We look into her medications. She has been on acetylcysteine, albuterol, DuoNeb. She is on Zithromax. She is getting antibiotics. She is getting Zithromax, Mucinex, multivitamin, oxycodone, Protonix. She is on Zosyn and vancomycin 1 gm every 12 hours. So, she is on lot of antibiotics. However, labs showed that her white count is 15.6, bands are 35. She has extensive multilobar pneumonia at this time. She is immunocompromised. Her lactate level was 3.6 yesterday, needs to be repeated again. We will add her lactate level and procalcitonin level for tomorrow. Actually, procalcitonin level is 13.90, is pretty extensive. On examination she is alert, awake. She is on treatment. She did show me ulcerations in her gums. At this time, I think I am going to add acyclovir, treating for the lesion that she has in mouth whether they are fungal or viral or they are aphthous ulcers, it is unclear. We will follow. Christiano Veras MD
[2017-11-06] MEDS: oxyCODONE 30 mg Immediate Release Tab PO PRN (04:03)
[2017-11-06] MEDS: Piperacill/Tazo 3.375gm in Dex 3.375 GM/50 ML BAG IVPB SCH ×2 (04:04→10:17)
[2017-11-06] MEDS: Acetylcysteine 20% Inhal Soln (4ml) INH SCH ×6 (04:14→20:07)
[2017-11-06] MEDS: Albuterol-Ipratrop 3 mg / 0.5 (3 ml) UD INH SCH ×5 (04:15→20:07)
[2017-11-06 06:00] LABS: HEMOGLOBIN 9.1 g/dL (11.0-16.0); MEAN CORPUSCULAR HEMOGLOBIN 31.8 pg (27.0-31.0); MEAN PLATELET VOLUME 9.1 fL (7.2-11.7); WHITE BLOOD COUNT 17.6 K/uL (4.8-10.8)
[2017-11-06 06:07] LABS: MEAN CORPUSCULAR HGB CONC 34.6 g/dL (33.0-37.0); PLATELET COUNT 63 K/uL (130-400); RBC 2.85 Mil/uL (3.80-5.20); RED CELL DISTRIBUTION WIDTH 18.3 % (11.5-14.5)
[2017-11-06 06:20] LABS: ALBUMIN 2.2 g/dL (3.5-5.0); ALT/SGPT 63 U/L (9-52); AST/SGOT 22 U/L (14-36); BLOOD UREA NITROGEN 11 mg/dL (7-17); CALCIUM 7.8 mg/dl (8.6-10.4); GFR AFRICAN-AMERICAN > 60; GFR NON-AFRICAN AMERICAN > 60
[2017-11-06 06:30] LABS: INR 1.3; PROTHROMBIN TIME 13.8 SECONDS (9.7-12.2)
[2017-11-06] MEDS ORDERED: Potassium Chloride 20 mEq ER Tab PO ONE (07:05)
[2017-11-06] MEDS ORDERED: Albumin Human 25% (12.5 gm/50 ml) IV ONE (07:07)
--- NOTE | 2017-11-06 07:08 | CP.CCUPN ---
<Kendra Pate - Last Filed: 11/06/17 15:47> CCU Subjective - Physician Review Subjective (Free Text): 51 yo F w/ PMHx of chronic back pain, scoliosis, fibromyalgia, multiple sclerosis, gastric bypass, presented to ED with weakness, anorexia, dyspnea, cough x1day. In ED pt found to be in A flutter w/ rapid rate @155. Cardizem given and pt became hypotensive; however responded to IVF. Admitted to ICU for sepsis 2/2 right multilobar PNA Pt seen and examined at bedside, in no acute distress. 11/06/17 06:43 CCU Objective - Vital Signs / Intake & Output Vital Signs (Last 4 hours): Vital Signs Temp Pulse Resp BP Pulse Ox 11/06/17 06:26 105 H 11 L 104/69 98 11/06/17 06:00 108 H 8 L 98 11/06/17 05:26 108 H 18 120/81 96 11/06/17 04:26 103 H 15 117/76 100 11/06/17 04:00 97.8 F 102 H 11 L 100 11/06/17 03:26 115/82 Intake and Output (Last 8hrs): Intake & Output 11/05/17 11/05/17 11/06/17 14:59 22:59 06:59 Intake Total 1159 1156 686 Output Total 375 235 220 Balance 784 921 466 Weight 127 lb 3.2 oz Intake: Intake, IV Amount 1159 386 686 Right Distal Port 336 336 336 Internal Jugular Right Medial Port 473 Internal Jugular Right Proximal Port 350 50 350 Internal Jugular Oral 120 Blood Product 0 650 Red Blood Cells Cpd As1 0 325 Lr Unit [id number] Red Blood Cells Cpd As1 325 Lr Unit [id number] Output: Urine 375 235 220 Urine, Voided 375 235 220 - Physical Exam Head: Positive for: Atraumatic, Normocephalic Extroacular Muscles: Positive for: EOMI Mouth: Positive for: Dry Respiratory/Chest: Positive for: Clear to Auscultation, Good Air Exchange, Decreased Breath Sounds. Negative for: Respiratory Distress, Accessory Muscle Use Cardiovascular: Positive for: Normal S1, S2, Tachycardic Abdomen: Positive for: Normal Bowel Sounds. Negative for: Tenderness, Distention Upper Extremity: Positive for: Normal Inspection. Negative for: Cyanosis Lower Extremity: Positive for: Normal Inspection. Negative for: Edema Neurological: Positive for: GCS=15 Skin: Positive for: Normal Color Psychiatric: Positive for: Alert, Oriented x 3 - Medications Active Medications: Active Medications Generic Name Dose Route Start Last Admin Trade Name Freq PRN Reason Stop Dose Admin Acetaminophen/Butalbital/Caffeine 1 tab 11/04/17 10:00 11/05/17 09:06 Fioricet PO 1 tab DAILY EMPERATRIZ Administration Acetylcysteine 4 ml 11/05/17 09:30 11/06/17 04:14 Acetylcysteine 20% INH Not Given RQ6 EMPERATRIZ Acyclovir 200 mg 11/06/17 08:00 Zovirax PO 5XD EMPERATRIZ Protocol Albuterol/Ipratropium 3 ml 11/05/17 12:00 11/06/17 04:15 Duoneb 3 Mg/0.5 Mg (3 Ml) Ud INH 3 ml RQ4 EMPERATRIZ Administration Amitriptyline HCl 25 mg 11/04/17 10:00 Elavil PO DAILY EMPERATRIZ Famotidine 20 mg 11/06/17 10:00 Pepcid IVP DAILY EMPERATRIZ Gabapentin 600 mg 11/04/17 10:00 Neurontin PO DAILY EMPERATRIZ Guaifenesin 600 mg 11/05/17 10:00 11/05/17 17:00 Mucinex La PO 600 mg BID EMPERATRIZ Administration Piperacillin Sod/Tazobactam Sod 3.375 gm in 50 mls @ 100 mls/hr 11/04/17 05: 00 11/06/17 04:04 Zosyn 3.375 Gm Iv Premix IVPB 100 mls/hr Q6H EMPERATRIZ Administration Protocol Azithromycin 500 mg/ Sodium 250 mls @ 250 mls/hr 11/04/17 10:00 11/05/17 10: 21 Chloride IVPB 250 mls/hr DAILY EMPERATRIZ Administration Protocol Vancomycin/Sodium Chloride 1 gm in 200 mls @ 133.333 mls/hr 11/05/17 01:00 00:31 Vancomycin 1 Gm/Ns 200 Ml IVPB 133.333 mls/hr Q12H EMPERATRIZ Administration Protocol Multivitamins/Vitamin C 10 ml/ 1,035.9052 mls @ 42 mls/hr 11/05/17 18:00 17:01 Chromium/Copper/Manganese/ IV 11/06/17 17:59 42 mls/hr Zinc 1 ml/ Magnesium Sulfate 6 .Q24H ONE Administration meq/ Sodium Chloride 35 meq/ Calcium Gluconate 4.5 meq/ Potassium Phosphate 15 mmole/ Amino Acids Ibuprofen 400 mg 11/04/17 01:02 11/04/17 21:34 Motrin Tab PO 400 mg Q6H PRN Administration Fever >100.4 F Nicotine 1 patch 11/04/17 10:00 11/05/17 09:07 Nicoderm Cq TD 1 patch DAILY EMPERATRIZ Administration Oxycodone HCl 30 mg 11/05/17 04:25 11/06/17 04:03 Oxycodone Immediate Release Tab PO 30 mg Q8H PRN Administration FOR BACK PAIN Saccharomyces Boulardii 250 mg 11/04/17 08:00 11/05/17 18:23 Florastor PO 250 mg BID EMPERATRIZ Administration Vitamin A 1 ea 11/04/17 10:30 Vitamin A & D Oint Ud Foilpak TOP Q6H PRN Dry mouth - Patient Studies Lab Studies: Microbiology Studies 11/04/17 06:12 MRSA Culture (Admit) - Final Naris MRSA NOT DETECTED 11/04/17 11:46 Urine Culture - Final Urine No Growth (<1,000 CFU/ML) Lab Studies 11/06/17 11/06/17 11/06/17 Range/Units 05:51 05:51 05:51 WBC (4.8-10.8) K/uL RBC (3.80-5.20) Mil/uL Hgb (11.0-16.0) g/dL Hct (34.0-47.0) % MCV (81.0-99.0) fL MCH (27.0-31.0) pg MCHC (33.0-37.0) g/dL RDW (11.5-14.5) % Plt Count (130-400) K/uL MPV (7.2-11.7) fL Neut % (Auto) (50.0-75.0) % Lymph % (Auto) (20.0-40.0) % [place] % (Auto) (0.0-10.0) % Eos % (Auto) (0.0-4.0) % Baso % (Auto) (0.0-2.0) % Neut # (Auto) (1.8-7.0) K/uL Lymph # (Auto) (1.0-4.3) K/uL [place] # (Auto) (0.0-0.8) K/uL Eos # (Auto) (0.0-0.7) K/uL Baso # (Auto) (0.0-0.2) K/uL Neutrophils % (Manual) (50-75) % Band Neutrophils % (0-2) % Lymphocytes % (Manual) (20-40) % Monocytes % (Manual) (0-10) % Metamyelocytes % (0-0) % Myelocytes % (0-0) % Toxic Granulation Dohle Bodies Platelet Estimate (NORMAL) Hypochromasia (manual) Anisocytosis (manual) Target Cells PT 13.8 H (9.7-12.2) SECONDS INR 1.3 APTT 37 H (21-34) SECONDS Fibrinogen 431 H (200-400) mg/dL Sodium 145 (132-148) mmol/L Potassium 3.0 L (3.6-5.2) mmol/L Chloride 110 H (98-107) mmol/L Carbon Dioxide 25 (22-30) mmol/L Anion Gap 14 (10-20) BUN 11 (7-17) mg/dL Creatinine 0.7 (0.7-1.2) mg/dL Est GFR ( Amer) > 60 Est GFR (Non-Af Amer) > 60 POC Glucose (mg/dL) (65-110) mg/dL Random Glucose 111 H (65-105) mg/dL Hemoglobin A1c (4.2-6.5) % Calcium 7.8 L (8.6-10.4) mg/dl Phosphorus 1.8 L (2.5-4.5) mg/dL Magnesium 2.5 H (1.6-2.3) mg/dL Total Bilirubin 1.2 (0.2-1.3) mg/dL AST 22 (14-36) U/L ALT 63 H (9-52) U/L Alkaline Phosphatase 140 H (38-126) U/L Lactate Dehydrogenase 802 H (313-618) U/L Total Protein 4.5 L (6.3-8.3) g/dL Albumin 2.2 L (3.5-5.0) g/dL Globulin 2.3 (2.2-3.9) gm/dL Albumin/Globulin Ratio 1.0 (1.0-2.1) Triglycerides (0-149) mg/dL Cholesterol (0-199) mg/dL LDL Cholesterol Direct (0-129) mg/dL HDL Cholesterol (30-70) mg/dL Procalcitonin (0.19-0.49) NG/ML Free T4 (0.78-2.19) ng/dL TSH 3rd Generation (0.46-4.68) mIU/L Urine Color (YELLOW) Urine Clarity (Clear) Urine pH (5.0-8.0) Ur Specific [place] (1.003-1.030) Urine Protein (NEGATIVE) mg/dL Urine Glucose (UA) (Normal) mg/dL Urine Ketones (NEGATIVE) mg/dL Urine Blood (NEGATIVE) Urine Nitrate (NEGATIVE) Urine Bilirubin (NEGATIVE) Urine Urobilinogen (0.2-1.0) mg/dL Ur Leukocyte Esterase (Negative) Brayan/uL Urine WBC (Auto) (0-5) /hpf Urine RBC (Auto) (0-3) /hpf Ur Squamous Epith Cells (0-5) /hpf Urine Bacteria (<OCC) Hyaline Casts (0-2) /lpf Granular Casts (Auto) (0-1) /lpf Blood Type Antibody Screen 11/06/17 11/05/17 11/05/17 Range/Units 05:51 22:15 22:15 WBC 17.6 H (4.8-10.8) K/uL RBC 2.85 L (3.80-5.20) Mil/uL Hgb 9.1 L D (11.0-16.0) g/dL Hct 26.2 L (34.0-47.0) % MCV 92.0 D (81.0-99.0) fL MCH 31.8 H (27.0-31.0) pg MCHC 34.6 (33.0-37.0) g/dL RDW 18.3 H (11.5-14.5) % Plt Count 63 L D (130-400) K/uL MPV 9.1 (7.2-11.7) fL Neut % (Auto) (50.0-75.0) % Lymph % (Auto) (20.0-40.0) % [place] % (Auto) (0.0-10.0) % Eos % (Auto) (0.0-4.0) % Baso % (Auto) (0.0-2.0) % Neut # (Auto) (1.8-7.0) K/uL Lymph # (Auto) (1.0-4.3) K/uL [place] # (Auto) (0.0-0.8) K/uL Eos # (Auto) (0.0-0.7) K/uL Baso # (Auto) (0.0-0.2) K/uL Neutrophils % (Manual) (50-75) % Band Neutrophils % (0-2) % Lymphocytes % (Manual) (20-40) % Monocytes % (Manual) (0-10) % Metamyelocytes % (0-0) % Myelocytes % (0-0) % Toxic Granulation Dohle Bodies Platelet Estimate (NORMAL) Hypochromasia (manual) Anisocytosis (manual) Target Cells PT (9.7-12.2) SECONDS INR APTT (21-34) SECONDS Fibrinogen (200-400) mg/dL Sodium (132-148) mmol/L Potassium (3.6-5.2) mmol/L Chloride (98-107) mmol/L Carbon Dioxide (22-30) mmol/L Anion Gap (10-20) BUN (7-17) mg/dL Creatinine (0.7-1.2) mg/dL Est GFR ( Amer) Est GFR (Non-Af Amer) POC Glucose (mg/dL) (65-110) mg/dL Random Glucose (65-105) mg/dL Hemoglobin A1c 4.9 (4.2-6.5) % Calcium (8.6-10.4) mg/dl Phosphorus (2.5-4.5) mg/dL Magnesium (1.6-2.3) mg/dL Total Bilirubin (0.2-1.3) mg/dL AST (14-36) U/L ALT (9-52) U/L Alkaline Phosphatase (38-126) U/L Lactate Dehydrogenase (313-618) U/L Total Protein (6.3-8.3) g/dL Albumin (3.5-5.0) g/dL Globulin (2.2-3.9) gm/dL Albumin/Globulin Ratio (1.0-2.1) Triglycerides (0-149) mg/dL Cholesterol (0-199) mg/dL LDL Cholesterol Direct (0-129) mg/dL HDL Cholesterol (30-70) mg/dL Procalcitonin (0.19-0.49) NG/ML Free T4 0.76 L (0.78-2.19) ng/dL TSH 3rd Generation (0.46-4.68) mIU/L Urine Color (YELLOW) Urine Clarity (Clear) Urine pH (5.0-8.0) Ur Specific [place] (1.003-1.030) Urine Protein (NEGATIVE) mg/dL Urine Glucose (UA) (Normal) mg/dL Urine Ketones (NEGATIVE) mg/dL Urine Blood (NEGATIVE) Urine Nitrate (NEGATIVE) Urine Bilirubin (NEGATIVE) Urine Urobilinogen (0.2-1.0) mg/dL Ur Leukocyte Esterase (Negative) Brayan/uL Urine WBC (Auto) (0-5) /hpf Urine RBC (Auto) (0-3) /hpf Ur Squamous Epith Cells (0-5) /hpf Urine Bacteria (<OCC) Hyaline Casts (0-2) /lpf Granular Casts (Auto) (0-1) /lpf Blood Type Antibody Screen 11/05/17 11/05/17 11/05/17 Range/Units 21:38 10:37 07:56 WBC 15.6 H (4.8-10.8) K/uL RBC 2.01 L (3.80-5.20) Mil/uL Hgb 6.6 L (11.0-16.0) g/dL Hct 19.5 L (34.0-47.0) % MCV 96.9 (81.0-99.0) fL MCH 32.7 H (27.0-31.0) pg MCHC 33.8 (33.0-37.0) g/dL RDW 20.7 H (11.5-14.5) % Plt Count 93 L (130-400) K/uL MPV 8.2 (7.2-11.7) fL Neut % (Auto) 96.0 H (50.0-75.0) % Lymph % (Auto) 2.0 L (20.0-40.0) % [place] % (Auto) 2.0 (0.0-10.0) % Eos % (Auto) 0.0 (0.0-4.0) % Baso % (Auto) 0.0 (0.0-2.0) % Neut # (Auto) 15.0 H (1.8-7.0) K/uL Lymph # (Auto) 0.3 L (1.0-4.3) K/uL [place] # (Auto) 0.3 (0.0-0.8) K/uL Eos # (Auto) 0.0 (0.0-0.7) K/uL Baso # (Auto) 0.0 (0.0-0.2) K/uL Neutrophils % (Manual) (50-75) % Band Neutrophils % (0-2) % Lymphocytes % (Manual) (20-40) % Monocytes % (Manual) (0-10) % Metamyelocytes % (0-0) % Myelocytes % (0-0) % Toxic Granulation Dohle Bodies Platelet Estimate (NORMAL) Hypochromasia (manual) Anisocytosis (manual) Target Cells PT (9.7-12.2) SECONDS INR APTT (21-34) SECONDS Fibrinogen (200-400) mg/dL Sodium (132-148) mmol/L Potassium (3.6-5.2) mmol/L Chloride (98-107) mmol/L Carbon Dioxide (22-30) mmol/L Anion Gap (10-20) BUN (7-17) mg/dL Creatinine (0.7-1.2) mg/dL Est GFR ( Amer) Est GFR (Non-Af Amer) POC Glucose (mg/dL) (65-110) mg/dL Random Glucose (65-105) mg/dL Hemoglobin A1c (4.2-6.5) % Calcium (8.6-10.4) mg/dl Phosphorus (2.5-4.5) mg/dL Magnesium (1.6-2.3) mg/dL Total Bilirubin (0.2-1.3) mg/dL AST (14-36) U/L ALT (9-52) U/L Alkaline Phosphatase (38-126) U/L Lactate Dehydrogenase (313-618) U/L Total Protein (6.3-8.3) g/dL Albumin (3.5-5.0) g/dL Globulin (2.2-3.9) gm/dL Albumin/Globulin Ratio (1.0-2.1) Triglycerides (0-149) mg/dL Cholesterol (0-199) mg/dL LDL Cholesterol Direct (0-129) mg/dL HDL Cholesterol (30-70) mg/dL Procalcitonin (0.19-0.49) NG/ML Free T4 (0.78-2.19) ng/dL TSH 3rd Generation (0.46-4.68) mIU/L Urine Color [place] (YELLOW) Urine Clarity Hazy (Clear) Urine pH 5.0 (5.0-8.0) Ur Specific [place] 1.027 (1.003-1.030) Urine Protein 1+ H (NEGATIVE) mg/dL Urine Glucose (UA) Normal (Normal) mg/dL Urine Ketones Negative (NEGATIVE) mg/dL Urine Blood 1+ H (NEGATIVE) Urine Nitrate Negative (NEGATIVE) Urine Bilirubin Negative (NEGATIVE) Urine Urobilinogen Normal (0.2-1.0) mg/dL Ur Leukocyte Esterase Neg (Negative) Brayan/uL Urine WBC (Auto) 2 (0-5) /hpf Urine RBC (Auto) 6 H (0-3) /hpf Ur Squamous Epith Cells < 1 (0-5) /hpf Urine Bacteria Rare (<OCC) Hyaline Casts 6-10 H (0-2) /lpf Granular Casts (Auto) 2 (0-1) /lpf Blood Type A NEGATIVE Antibody Screen Negative 11/05/17 11/05/17 11/05/17 Range/Units 06:24 06:22 06:22 WBC 15.4 H D (4.8-10.8) K/uL RBC 2.08 L (3.80-5.20) Mil/uL Hgb 6.7 L (11.0-16.0) g/dL Hct 20.5 L (34.0-47.0) % MCV 98.5 (81.0-99.0) fL MCH 31.9 H (27.0-31.0) pg MCHC 32.4 L (33.0-37.0) g/dL RDW 21.8 H (11.5-14.5) % Plt Count 91 L D (130-400) K/uL MPV 8.2 (7.2-11.7) fL Neut % (Auto) 97.4 H (50.0-75.0) % Lymph % (Auto) 1.6 L (20.0-40.0) % [place] % (Auto) 0.9 (0.0-10.0) % Eos % (Auto) 0.0 (0.0-4.0) % Baso % (Auto) 0.1 (0.0-2.0) % Neut # (Auto) 15.0 H (1.8-7.0) K/uL Lymph # (Auto) 0.3 L (1.0-4.3) K/uL [place] # (Auto) 0.1 (0.0-0.8) K/uL Eos # (Auto) 0.0 (0.0-0.7) K/uL Baso # (Auto) 0.0 (0.0-0.2) K/uL Neutrophils % (Manual) 58 (50-75) % Band Neutrophils % 35 H* (0-2) % Lymphocytes % (Manual) 1 L (20-40) % Monocytes % (Manual) 4 (0-10) % Metamyelocytes % 1 H (0-0) % Myelocytes % 1 H (0-0) % Toxic Granulation Present Dohle Bodies Present Platelet Estimate Decreased L (NORMAL) Hypochromasia (manual) Moderate Anisocytosis (manual) Moderate Target Cells Moderate PT (9.7-12.2) SECONDS INR APTT (21-34) SECONDS Fibrinogen (200-400) mg/dL Sodium 145 (132-148) mmol/L Potassium 3.0 L (3.6-5.2) mmol/L Chloride 109 H (98-107) mmol/L Carbon Dioxide 24 (22-30) mmol/L Anion Gap 15 (10-20) BUN 11 (7-17) mg/dL Creatinine 0.7 (0.7-1.2) mg/dL Est GFR ( Amer) > 60 Est GFR (Non-Af Amer) > 60 POC Glucose (mg/dL) (65-110) mg/dL Random Glucose 76 (65-105) mg/dL Hemoglobin A1c (4.2-6.5) % Calcium 7.4 L (8.6-10.4) mg/dl Phosphorus 2.1 L (2.5-4.5) mg/dL Magnesium 2.3 (1.6-2.3) mg/dL Total Bilirubin 1.0 (0.2-1.3) mg/dL AST 22 (14-36) U/L ALT 68 H D (9-52) U/L Alkaline Phosphatase 158 H D (38-126) U/L Lactate Dehydrogenase (313-618) U/L Total Protein 4.3 L (6.3-8.3) g/dL Albumin 2.0 L (3.5-5.0) g/dL Globulin 2.3 (2.2-3.9) gm/dL Albumin/Globulin Ratio 0.9 L (1.0-2.1) Triglycerides 172 H D (0-149) mg/dL Cholesterol 71 (0-199) mg/dL LDL Cholesterol Direct < 30 (0-129) mg/dL HDL Cholesterol 16 L (30-70) mg/dL Procalcitonin 13.90 H (0.19-0.49) NG/ML Free T4 (0.78-2.19) ng/dL TSH 3rd Generation 0.64 (0.46-4.68) mIU/L Urine Color (YELLOW) Urine Clarity (Clear) Urine pH (5.0-8.0) Ur Specific [place] (1.003-1.030) Urine Protein (NEGATIVE) mg/dL Urine Glucose (UA) (Normal) mg/dL Urine Ketones (NEGATIVE) mg/dL Urine Blood (NEGATIVE) Urine Nitrate (NEGATIVE) Urine Bilirubin (NEGATIVE) Urine Urobilinogen (0.2-1.0) mg/dL Ur Leukocyte Esterase (Negative) Brayan/uL Urine WBC (Auto) (0-5) /hpf Urine RBC (Auto) (0-3) /hpf Ur Squamous Epith Cells (0-5) /hpf Urine Bacteria (<OCC) Hyaline Casts (0-2) /lpf Granular Casts (Auto) (0-1) /lpf Blood Type Antibody Screen 11/03/17 11/03/17 11/03/17 Range/Units 22:12 21:35 21:33 WBC (4.8-10.8) K/uL RBC (3.80-5.20) Mil/uL Hgb (11.0-16.0) g/dL Hct (34.0-47.0) % MCV (81.0-99.0) fL MCH (27.0-31.0) pg MCHC (33.0-37.0) g/dL RDW (11.5-14.5) % Plt Count (130-400) K/uL MPV (7.2-11.7) fL Neut % (Auto) (50.0-75.0) % Lymph % (Auto) (20.0-40.0) % [place] % (Auto) (0.0-10.0) % Eos % (Auto) (0.0-4.0) % Baso % (Auto) (0.0-2.0) % Neut # (Auto) (1.8-7.0) K/uL Lymph # (Auto) (1.0-4.3) K/uL [place] # (Auto) (0.0-0.8) K/uL Eos # (Auto) (0.0-0.7) K/uL Baso # (Auto) (0.0-0.2) K/uL Neutrophils % (Manual) (50-75) % Band Neutrophils % (0-2) % Lymphocytes % (Manual) (20-40) % Monocytes % (Manual) (0-10) % Metamyelocytes % (0-0) % Myelocytes % (0-0) % Toxic Granulation Dohle Bodies Platelet Estimate (NORMAL) Hypochromasia (manual) Anisocytosis (manual) Target Cells PT (9.7-12.2) SECONDS INR APTT (21-34) SECONDS Fibrinogen (200-400) mg/dL Sodium (132-148) mmol/L Potassium (3.6-5.2) mmol/L Chloride (98-107) mmol/L Carbon Dioxide (22-30) mmol/L Anion Gap (10-20) BUN (7-17) mg/dL Creatinine (0.7-1.2) mg/dL Est GFR ( Amer) Est GFR (Non-Af Amer) POC Glucose (mg/dL) 144 H 64 L 59 L (65-110) mg/dL Random Glucose (65-105) mg/dL Hemoglobin A1c (4.2-6.5) % Calcium (8.6-10.4) mg/dl Phosphorus (2.5-4.5) mg/dL Magnesium (1.6-2.3) mg/dL Total Bilirubin (0.2-1.3) mg/dL AST (14-36) U/L ALT (9-52) U/L Alkaline Phosphatase (38-126) U/L Lactate Dehydrogenase (313-618) U/L Total Protein (6.3-8.3) g/dL Albumin (3.5-5.0) g/dL Globulin (2.2-3.9) gm/dL Albumin/Globulin Ratio (1.0-2.1) Triglycerides (0-149) mg/dL Cholesterol (0-199) mg/dL LDL Cholesterol Direct (0-129) mg/dL HDL Cholesterol (30-70) mg/dL Procalcitonin (0.19-0.49) NG/ML Free T4 (0.78-2.19) ng/dL TSH 3rd Generation (0.46-4.68) mIU/L Urine Color (YELLOW) Urine Clarity (Clear) Urine pH (5.0-8.0) Ur Specific [place] (1.003-1.030) Urine Protein (NEGATIVE) mg/dL Urine Glucose (UA) (Normal) mg/dL Urine Ketones (NEGATIVE) mg/dL Urine Blood (NEGATIVE) Urine Nitrate (NEGATIVE) Urine Bilirubin (NEGATIVE) Urine Urobilinogen (0.2-1.0) mg/dL Ur Leukocyte Esterase (Negative) Brayan/uL Urine WBC (Auto) (0-5) /hpf Urine RBC (Auto) (0-3) /hpf Ur Squamous Epith Cells (0-5) /hpf Urine Bacteria (<OCC) Hyaline Casts (0-2) /lpf Granular Casts (Auto) (0-1) /lpf Blood Type Antibody Screen 11/03/17 Range/Units 20:25 WBC (4.8-10.8) K/uL RBC (3.80-5.20) Mil/uL Hgb (11.0-16.0) g/dL Hct (34.0-47.0) % MCV (81.0-99.0) fL MCH (27.0-31.0) pg MCHC (33.0-37.0) g/dL RDW (11.5-14.5) % Plt Count (130-400) K/uL MPV (7.2-11.7) fL Neut % (Auto) (50.0-75.0) % Lymph % (Auto) (20.0-40.0) % [place] % (Auto) (0.0-10.0) % Eos % (Auto) (0.0-4.0) % Baso % (Auto) (0.0-2.0) % Neut # (Auto) (1.8-7.0) K/uL Lymph # (Auto) (1.0-4.3) K/uL [place] # (Auto) (0.0-0.8) K/uL Eos # (Auto) (0.0-0.7) K/uL Baso # (Auto) (0.0-0.2) K/uL Neutrophils % (Manual) (50-75) % Band Neutrophils % (0-2) % Lymphocytes % (Manual) (20-40) % Monocytes % (Manual) (0-10) % Metamyelocytes % (0-0) % Myelocytes % (0-0) % Toxic Granulation Dohle Bodies Platelet Estimate (NORMAL) Hypochromasia (manual) Anisocytosis (manual) Target Cells PT (9.7-12.2) SECONDS INR APTT (21-34) SECONDS Fibrinogen (200-400) mg/dL Sodium (132-148) mmol/L Potassium (3.6-5.2) mmol/L Chloride (98-107) mmol/L Carbon Dioxide (22-30) mmol/L Anion Gap (10-20) BUN (7-17) mg/dL Creatinine (0.7-1.2) mg/dL Est GFR ( Amer) Est GFR (Non-Af Amer) POC Glucose (mg/dL) 67 (65-110) mg/dL Random Glucose (65-105) mg/dL Hemoglobin A1c (4.2-6.5) % Calcium (8.6-10.4) mg/dl Phosphorus (2.5-4.5) mg/dL Magnesium (1.6-2.3) mg/dL Total Bilirubin (0.2-1.3) mg/dL AST (14-36) U/L ALT (9-52) U/L Alkaline Phosphatase (38-126) U/L Lactate Dehydrogenase (313-618) U/L Total Protein (6.3-8.3) g/dL Albumin (3.5-5.0) g/dL Globulin (2.2-3.9) gm/dL Albumin/Globulin Ratio (1.0-2.1) Triglycerides (0-149) mg/dL Cholesterol (0-199) mg/dL LDL Cholesterol Direct (0-129) mg/dL HDL Cholesterol (30-70) mg/dL Procalcitonin (0.19-0.49) NG/ML Free T4 (0.78-2.19) ng/dL TSH 3rd Generation (0.46-4.68) mIU/L Urine Color (YELLOW) Urine Clarity (Clear) Urine pH (5.0-8.0) Ur Specific [place] (1.003-1.030) Urine Protein (NEGATIVE) mg/dL Urine Glucose (UA) (Normal) mg/dL Urine Ketones (NEGATIVE) mg/dL Urine Blood (NEGATIVE) Urine Nitrate (NEGATIVE) Urine Bilirubin (NEGATIVE) Urine Urobilinogen (0.2-1.0) mg/dL Ur Leukocyte Esterase (Negative) Brayan/uL Urine WBC (Auto) (0-5) /hpf Urine RBC (Auto) (0-3) /hpf Ur Squamous Epith Cells (0-5) /hpf Urine Bacteria (<OCC) Hyaline Casts (0-2) /lpf Granular Casts (Auto) (0-1) /lpf Blood Type Antibody Screen Laboratory Results - last 24 hr 11/03/17 11/03/17 11/03/17 20:25 21:33 21:35 WBC RBC Hgb Hct MCV MCH MCHC RDW Plt Count MPV Neut % (Auto) Lymph % (Auto) [place] % (Auto) Eos % (Auto) Baso % (Auto) Neut # (Auto) Lymph # (Auto) [place] # (Auto) Eos # (Auto) Baso # (Auto) Neutrophils % (Manual) Band Neutrophils % Lymphocytes % (Manual) Monocytes % (Manual) Metamyelocytes % Myelocytes % Toxic Granulation Dohle Bodies Platelet Estimate Hypochromasia (manual) Anisocytosis (manual) Target Cells PT INR APTT Fibrinogen Sodium Potassium Chloride Carbon Dioxide Anion Gap BUN Creatinine Est GFR ( Amer) Est GFR (Non-Af Amer) POC Glucose (mg/dL) 67 59 L 64 L Random Glucose Hemoglobin A1c Calcium Phosphorus Magnesium Total Bilirubin AST ALT Alkaline Phosphatase Lactate Dehydrogenase Total Protein Albumin Globulin Albumin/Globulin Ratio Triglycerides Cholesterol LDL Cholesterol Direct HDL Cholesterol Procalcitonin Free T4 TSH 3rd Generation Urine Color Urine Clarity Urine pH Ur Specific [place] Urine Protein Urine Glucose (UA) Urine Ketones Urine Blood Urine Nitrate Urine Bilirubin Urine Urobilinogen Ur Leukocyte Esterase Urine WBC (Auto) Urine RBC (Auto) Ur Squamous Epith Cells Urine Bacteria Hyaline Casts Granular Casts (Auto) Blood Type Antibody Screen 11/03/17 11/05/17 11/05/17 22:12 06:22 06:22 WBC RBC Hgb Hct MCV MCH MCHC RDW Plt Count MPV Neut % (Auto) Lymph % (Auto) [place] % (Auto) Eos % (Auto) Baso % (Auto) Neut # (Auto) Lymph # (Auto) [place] # (Auto) Eos # (Auto) Baso # (Auto) Neutrophils % (Manual) Band Neutrophils % Lymphocytes % (Manual) Monocytes % (Manual) Metamyelocytes % Myelocytes % Toxic Granulation Dohle Bodies Platelet Estimate Hypochromasia (manual) Anisocytosis (manual) Target Cells PT INR APTT Fibrinogen Sodium 145 Potassium 3.0 L Chloride 109 H Carbon Dioxide 24 Anion Gap 15 BUN 11 Creatinine 0.7 Est GFR ( Amer) > 60 Est GFR (Non-Af Amer) > 60 POC Glucose (mg/dL) 144 H Random Glucose 76 Hemoglobin A1c Calcium 7.4 L Phosphorus 2.1 L Magnesium 2.3 Total Bilirubin 1.0 AST 22 ALT 68 H D Alkaline Phosphatase 158 H D Lactate Dehydrogenase Total Protein 4.3 L Albumin 2.0 L Globulin 2.3 Albumin/Globulin Ratio 0.9 L Triglycerides 172 H D Cholesterol 71 LDL Cholesterol Direct < 30 HDL Cholesterol 16 L Procalcitonin 13.90 H Free T4 TSH 3rd Generation 0.64 Urine Color Urine Clarity Urine pH Ur Specific [place] Urine Protein Urine Glucose (UA) Urine Ketones Urine Blood Urine Nitrate Urine Bilirubin Urine Urobilinogen Ur Leukocyte Esterase Urine WBC (Auto) Urine RBC (Auto) Ur Squamous Epith Cells Urine Bacteria Hyaline Casts Granular Casts (Auto) Blood Type Antibody Screen 11/05/17 11/05/17 11/05/17 06:24 07:56 10:37 WBC 15.4 H D 15.6 H RBC 2.08 L 2.01 L Hgb 6.7 L 6.6 L Hct 20.5 L 19.5 L MCV 98.5 96.9 MCH 31.9 H 32.7 H MCHC 32.4 L 33.8 RDW 21.8 H 20.7 H Plt Count 91 L D 93 L MPV 8.2 8.2 Neut % (Auto) 97.4 H 96.0 H Lymph % (Auto) 1.6 L 2.0 L [place] % (Auto) 0.9 2.0 Eos % (Auto) 0.0 0.0 Baso % (Auto) 0.1 0.0 Neut # (Auto) 15.0 H 15.0 H Lymph # (Auto) 0.3 L 0.3 L [place] # (Auto) 0.1 0.3 Eos # (Auto) 0.0 0.0 Baso # (Auto) 0.0 0.0 Neutrophils % (Manual) 58 Band Neutrophils % 35 H* Lymphocytes % (Manual) 1 L Monocytes % (Manual) 4 Metamyelocytes % 1 H Myelocytes % 1 H Toxic Granulation Present Dohle Bodies Present Platelet Estimate Decreased L Hypochromasia (manual) Moderate Anisocytosis (manual) Moderate Target Cells Moderate PT INR APTT Fibrinogen Sodium Potassium Chloride Carbon Dioxide Anion Gap BUN Creatinine Est GFR ( Amer) Est GFR (Non-Af Amer) POC Glucose (mg/dL) Random Glucose Hemoglobin A1c Calcium Phosphorus Magnesium Total Bilirubin AST ALT Alkaline Phosphatase Lactate Dehydrogenase Total Protein Albumin Globulin Albumin/Globulin Ratio Triglycerides Cholesterol LDL Cholesterol Direct HDL Cholesterol Procalcitonin Free T4 TSH 3rd Generation Urine Color Urine Clarity Urine pH Ur Specific [place] Urine Protein Urine Glucose (UA) Urine Ketones Urine Blood Urine Nitrate Urine Bilirubin Urine Urobilinogen Ur Leukocyte Esterase Urine WBC (Auto) Urine RBC (Auto) Ur Squamous Epith Cells Urine Bacteria Hyaline Casts Granular Casts (Auto) Blood Type A NEGATIVE Antibody Screen Negative 11/05/17 11/05/17 11/05/17 21:38 22:15 22:15 WBC RBC Hgb Hct MCV MCH MCHC RDW Plt Count MPV Neut % (Auto) Lymph % (Auto) [place] % (Auto) Eos % (Auto) Baso % (Auto) Neut # (Auto) Lymph # (Auto) [place] # (Auto) Eos # (Auto) Baso # (Auto) Neutrophils % (Manual) Band Neutrophils % Lymphocytes % (Manual) Monocytes % (Manual) Metamyelocytes % Myelocytes % Toxic Granulation Dohle Bodies Platelet Estimate Hypochromasia (manual) Anisocytosis (manual) Target Cells PT INR APTT Fibrinogen Sodium Potassium Chloride Carbon Dioxide Anion Gap BUN Creatinine Est GFR ( Amer) Est GFR (Non-Af Amer) POC Glucose (mg/dL) Random Glucose Hemoglobin A1c 4.9 Calcium Phosphorus Magnesium Total Bilirubin AST ALT Alkaline Phosphatase Lactate Dehydrogenase Total Protein Albumin Globulin Albumin/Globulin Ratio Triglycerides Cholesterol LDL Cholesterol Direct HDL Cholesterol Procalcitonin Free T4 0.76 L TSH 3rd Generation Urine Color [place] Urine Clarity Hazy Urine pH 5.0 Ur Specific [place] 1.027 Urine Protein 1+ H Urine Glucose (UA) Normal Urine Ketones Negative Urine Blood 1+ H Urine Nitrate Negative Urine Bilirubin Negative Urine Urobilinogen Normal Ur Leukocyte Esterase Neg Urine WBC (Auto) 2 Urine RBC (Auto) 6 H Ur Squamous Epith Cells < 1 Urine Bacteria Rare Hyaline Casts 6-10 H Granular Casts (Auto) 2 Blood Type Antibody Screen 11/06/17 11/06/17 11/06/17 05:51 05:51 05:51 WBC 17.6 H RBC 2.85 L Hgb 9.1 L D Hct 26.2 L MCV 92.0 D MCH 31.8 H MCHC 34.6 RDW 18.3 H Plt Count 63 L D MPV 9.1 Neut % (Auto) Lymph % (Auto) [place] % (Auto) Eos % (Auto) Baso % (Auto) Neut # (Auto) Lymph # (Auto) [place] # (Auto) Eos # (Auto) Baso # (Auto) Neutrophils % (Manual) Band Neutrophils % Lymphocytes % (Manual) Monocytes % (Manual) Metamyelocytes % Myelocytes % Toxic Granulation Dohle Bodies Platelet Estimate Hypochromasia (manual) Anisocytosis (manual) Target Cells PT INR APTT Fibrinogen Sodium 145 Potassium 3.0 L Chloride 110 H Carbon Dioxide 25 Anion Gap 14 BUN 11 Creatinine 0.7 Est GFR ( Amer) > 60 Est GFR (Non-Af Amer) > 60 POC Glucose (mg/dL) Random Glucose 111 H Hemoglobin A1c Calcium 7.8 L Phosphorus 1.8 L Magnesium 2.5 H Total Bilirubin 1.2 AST 22 ALT 63 H Alkaline Phosphatase 140 H Lactate Dehydrogenase 802 H Total Protein 4.5 L Albumin 2.2 L Globulin 2.3 Albumin/Globulin Ratio 1.0 Triglycerides Cholesterol LDL Cholesterol Direct HDL Cholesterol Procalcitonin Free T4 TSH 3rd Generation Urine Color Urine Clarity Urine pH Ur Specific [place] Urine Protein Urine Glucose (UA) Urine Ketones Urine Blood Urine Nitrate Urine Bilirubin Urine Urobilinogen Ur Leukocyte Esterase Urine WBC (Auto) Urine RBC (Auto) Ur Squamous Epith Cells Urine Bacteria Hyaline Casts Granular Casts (Auto) Blood Type Antibody Screen 11/06/17 05:51 WBC RBC Hgb Hct MCV MCH MCHC RDW Plt Count MPV Neut % (Auto) Lymph % (Auto) [place] % (Auto) Eos % (Auto) Baso % (Auto) Neut # (Auto) Lymph # (Auto) [place] # (Auto) Eos # (Auto) Baso # (Auto) Neutrophils % (Manual) Band Neutrophils % Lymphocytes % (Manual) Monocytes % (Manual) Metamyelocytes % Myelocytes % Toxic Granulation Dohle Bodies Platelet Estimate Hypochromasia (manual) Anisocytosis (manual) Target Cells PT 13.8 H INR 1.3 APTT 37 H Fibrinogen 431 H Sodium Potassium Chloride Carbon Dioxide Anion Gap BUN Creatinine Est GFR ( Amer) Est GFR (Non-Af Amer) POC Glucose (mg/dL) Random Glucose Hemoglobin A1c Calcium Phosphorus Magnesium Total Bilirubin AST ALT Alkaline Phosphatase Lactate Dehydrogenase Total Protein Albumin Globulin Albumin/Globulin Ratio Triglycerides Cholesterol LDL Cholesterol Direct HDL Cholesterol Procalcitonin Free T4 TSH 3rd Generation Urine Color Urine Clarity Urine pH Ur Specific [place] Urine Protein Urine Glucose (UA) Urine Ketones Urine Blood Urine Nitrate Urine Bilirubin Urine Urobilinogen Ur Leukocyte Esterase Urine WBC (Auto) Urine RBC (Auto) Ur Squamous Epith Cells Urine Bacteria Hyaline Casts Granular Casts (Auto) Blood Type Antibody Screen Fingerstick Blood Sugar Results: 144 Review of Systems - Constitutional Constitutional: absent: Fever, Chills - EENT Nose/Mouth/Throat: Dry Mouth - Cardiovascular Cardiovascular: absent: Chest Pain, Dyspnea, Palpitations - Respiratory Respiratory: absent: Cough, Dyspnea, Pain on Inspiration - Gastrointestinal Gastrointestinal: absent: Abdominal Pain, Diarrhea, Nausea, Vomiting Critical Care Progress Note - Nutrition Nutrition: Nutrition Category Date Time Status Regular Diet [DIET] Diets 11/04/17 Breakfast Active Assessment/Plan - Assessment and Plan (Free Text) Assessment: 51 yo F w/ PMHx of chronic back pain, scoliosis, fibromyalgia, multiple sclerosis, gastric bypass, presented to ED with weakness, anorexia, dyspnea, cough x1day. Admitted to ICU for sepsis 2/2 right multilobar PNA 1. sepsis 2/2 to right sided multilobar PNA -WBC 17.6 -Bands 35 -CT shows right sided multilobar PNA -spO2 100 on NC -ID consult Dr. Veras -Azithromycin 500mg -zosyn 3.375 q6, vanco 1g q12, acyclovir 200 5x/day -guaifenesin, acetylcysteine, duonebs -f/u cx 2. Acute anemia -Hgb up 9.1 today -s/p 2U PRBC(11/05) -f/u stool occult 3. Thrombocytopenia -plts down 63 from 196 on admission -transfuse as needed 4. A flutter -Dr. Contreras cardio consult -EKG shows no a flutter -echo unremarkable, mild tricuspid regurg -cleared from cardio 5. Electrolyte abnormalities -monitor and replete as needed -kphos 15mmol -albumin 25% 12.5g -K 40mEq PO 6. GI/ -Reg diet -supplement -bruner o/p~35/hr, consider d/c Ppx -SCD -Lovenox 30mg -OOB - Date & Time Date: 11/06/17 Time: 15:48 <Tadeo Feldman - Last Filed: 11/07/17 10:47> CCU Objective - Vital Signs / Intake & Output Intake and Output (Last 8hrs): Intake & Output 11/05/17 11/06/17 11/06/17 22:59 06:59 14:59 Intake Total 1156 686 Output Total 235 220 Balance 921 466 Weight 127 lb 3.2 oz Intake: Intake, IV Amount 386 686 Right Distal Port 336 336 Internal Jugular Right Proximal Port 50 350 Internal Jugular Oral 120 Blood Product 650 Red Blood Cells Cpd As1 325 Lr Unit [id number] Red Blood Cells Cpd As1 325 Lr Unit [id number] Output: Urine 235 220 Urine, Voided 235 220 - Medications Active Medications: Active Medications Generic Name Dose Route Start Last Admin Trade Name Freq PRN Reason Stop Dose Admin Acetaminophen/Butalbital/Caffeine 1 tab 11/04/17 10:00 11/06/17 09:07 Fioricet PO 1 tab DAILY EMPERATRIZ Administration Acetylcysteine 4 ml 11/06/17 08:13 11/06/17 11:52 Acetylcysteine 20% INH 4 ml RQ4 EMPERATRIZ Administration Acyclovir 200 mg 11/06/17 08:00 11/06/17 11:00 Zovirax PO 200 mg 5XD EMPERATRIZ Administration Protocol Albuterol/Ipratropium 3 ml 11/06/17 08:13 11/06/17 11:52 Duoneb 3 Mg/0.5 Mg (3 Ml) Ud INH 3 ml RQ4 EMPERATRIZ Administration Amitriptyline HCl 25 mg 11/04/17 10:00 Elavil PO DAILY EMPERATRIZ Benzocaine 0 gm 11/06/17 08:15 11/06/17 12:47 Orajel 7.5% MM 5.1 gm Q4 PRN Administration Famotidine 20 mg 11/06/17 10:00 11/06/17 09:01 Pepcid IVP 20 mg DAILY EMPERATRIZ Administration Gabapentin 600 mg 11/04/17 10:00 Neurontin PO DAILY EMPERATRIZ Guaifenesin 600 mg 11/05/17 10:00 11/06/17 09:09 Mucinex La PO 600 mg BID EMPERATRIZ Administration Azithromycin 500 mg/ Sodium 250 mls @ 250 mls/hr 11/04/17 10:00 11/06/17 09: 01 Chloride IVPB 250 mls/hr DAILY EMPERATRIZ Administration Protocol Vancomycin/Sodium Chloride 1 gm in 200 mls @ 133.333 mls/hr 11/05/17 01:00 12:41 Vancomycin 1 Gm/Ns 200 Ml IVPB 133.333 mls/hr Q12H EMPERATRIZ Administration Protocol Multivitamins/Vitamin C 10 ml/ 1,035.9052 mls @ 42 mls/hr 11/05/17 18:00 17:01 Chromium/Copper/Manganese/ IV 11/06/17 17:59 42 mls/hr Zinc 1 ml/ Magnesium Sulfate 6 .Q24H ONE Administration meq/ Sodium Chloride 35 meq/ Calcium Gluconate 4.5 meq/ Potassium Phosphate 15 mmole/ Amino Acids Multivitamins/Vitamin C 10 ml/ 1,026.2278 mls @ 42 mls/hr 11/06/17 18:00 Chromium/Copper/Manganese/ IV 11/07/17 17:59 Zinc 1 ml/ Magnesium Sulfate 6 .Q24H ONE meq/ Sodium Chloride 35 meq/ Potassium Phosphate 15 mmole/ Amino Acids Sodium Chloride 1,000 mls @ 60 mls/hr 11/06/17 10:15 11/06/17 10:16 Sodium Chloride 0.9% IV 60 mls/hr .[id number] EMPERATRIZ Administration Micafungin Sodium 100 mg/ 100 mls @ 100 mls/hr 11/06/17 10:15 11/06/17 11:30 Sodium Chloride IV 100 mls/hr Q24H EMPERATRIZ Administration Protocol Cefepime HCl 1 gm in 50 mls @ 100 mls/hr 11/06/17 11:30 11/06/17 12:30 Maxipime Iv 1 Gm Premix IVPB 100 mls/hr Q12H EMPERATRIZ Administration Protocol Ibuprofen 400 mg 11/04/17 01:02 11/04/17 21:34 Motrin Tab PO 400 mg Q6H PRN Administration Fever >100.4 F Nicotine 1 patch 11/04/17 10:00 11/06/17 09:09 Nicoderm Cq TD 1 patch DAILY EMPERATRIZ Administration Sodium Bicarbonate 3 1 ea 11/06/17 14:00 11/06/17 14:02 .75% Nebulizer 5 Ml INH 1 ea RQ6 EMPERATRIZ Administration Oxycodone HCl 30 mg 11/05/17 04:25 11/06/17 04:03 Oxycodone Immediate Release Tab PO 30 mg Q8H PRN Administration FOR BACK PAIN Saccharomyces Boulardii 250 mg 11/04/17 08:00 11/06/17 09:09 Florastor PO 250 mg BID EMPERATRIZ Administration Vitamin A 1 ea 11/04/17 10:30 11/06/17 09:09 Vitamin A & D Oint Ud Foilpak TOP 1 ea Q6H PRN Administration Dry mouth - Patient Studies Lab Studies: Microbiology Studies 11/04/17 06:12 MRSA Culture (Admit) - Final Naris MRSA NOT DETECTED Lab Studies 11/06/17 11/06/17 11/06/17 Range/Units 13:26 13:18 05:51 WBC (4.8-10.8) K/uL RBC (3.80-5.20) Mil/uL Hgb (11.0-16.0) g/dL Hct (34.0-47.0) % MCV (81.0-99.0) fL MCH (27.0-31.0) pg MCHC (33.0-37.0) g/dL RDW (11.5-14.5) % Plt Count (130-400) K/uL MPV (7.2-11.7) fL Neut % (Auto) (50.0-75.0) % Lymph % (Auto) (20.0-40.0) % [place] % (Auto) (0.0-10.0) % Eos % (Auto) (0.0-4.0) % Baso % (Auto) (0.0-2.0) % Neut # (Auto) (1.8-7.0) K/uL Lymph # (Auto) (1.0-4.3) K/uL [place] # (Auto) (0.0-0.8) K/uL Eos # (Auto) (0.0-0.7) K/uL Baso # (Auto) (0.0-0.2) K/uL Neutrophils % (Manual) (50-75) % Band Neutrophils % (0-2) % Lymphocytes % (Manual) (20-40) % Monocytes % (Manual) (0-10) % Eosinophils % (Manual) (0-4) % Platelet Estimate (NORMAL) Polychromasia Hypochromasia (manual) Anisocytosis (manual) Macrocytosis (manual) Target Cells Hemant Cells PT 13.8 H (9.7-12.2) SECONDS INR 1.3 APTT 37 H (21-34) SECONDS Fibrinogen 431 H (200-400) mg/dL Fibrin Degrad Products Positive H (NEGATIVE) Fibrin Degrad Prod, Qt >40 H (<10) ug/mL Puncture Site Rb pCO2 38 (35-45) mm/Hg pO2 96 (80-100) mm/Hg HCO3 23.0 (21-28) mmol/L ABG pH 7.38 (7.35-7.45) ABG Total CO2 23.7 (22-28) mmol/L ABG O2 Saturation 97.4 (95-98) % ABG Base Excess -2.4 L (-2.0-3.0) mmol/L ABG Hemoglobin 10.1 L (11.7-17.4) g/dL ABG Carboxyhemoglobin 1.0 (0.5-1.5) % POC ABG HHb (Measured) 2.5 (0.0-5.0) % ABG Methemoglobin 1.1 (0.0-3.0) % Romero Test Na A-a O2 Difference 92.0 mm/Hg Respiratory Index 1.0 Hgb O2 Saturation 95.4 (95.0-98.0) % Liter Flow 4.0 FiO2 33.0 % Sodium (132-148) mmol/L Potassium (3.6-5.2) mmol/L Chloride (98-107) mmol/L Carbon Dioxide (22-30) mmol/L Anion Gap (10-20) BUN (7-17) mg/dL Creatinine (0.7-1.2) mg/dL Est GFR ( Amer) Est GFR (Non-Af Amer) Random Glucose (65-105) mg/dL Hemoglobin A1c (4.2-6.5) % Calcium (8.6-10.4) mg/dl Phosphorus (2.5-4.5) mg/dL Magnesium (1.6-2.3) mg/dL Total Bilirubin (0.2-1.3) mg/dL AST (14-36) U/L ALT (9-52) U/L Alkaline Phosphatase (38-126) U/L Lactate Dehydrogenase (313-618) U/L Total Protein (6.3-8.3) g/dL Albumin (3.5-5.0) g/dL Globulin (2.2-3.9) gm/dL Albumin/Globulin Ratio (1.0-2.1) Free T4 (0.78-2.19) ng/dL Urine Color (YELLOW) Urine Clarity (Clear) Urine pH (5.0-8.0) Ur Specific [place] (1.003-1.030) Urine Protein (NEGATIVE) mg/dL Urine Glucose (UA) (Normal) mg/dL Urine Ketones (NEGATIVE) mg/dL Urine Blood (NEGATIVE) Urine Nitrate (NEGATIVE) Urine Bilirubin (NEGATIVE) Urine Urobilinogen (0.2-1.0) mg/dL Ur Leukocyte Esterase (Negative) Brayan/uL Urine WBC (Auto) (0-5) /hpf Urine RBC (Auto) (0-3) /hpf Ur Squamous Epith Cells (0-5) /hpf Urine Bacteria (<OCC) Hyaline Casts (0-2) /lpf Granular Casts (Auto) (0-1) /lpf S. pneumoniae Antigen (NEGATIVE) Blood Type Antibody Screen 11/06/17 11/06/17 11/06/17 Range/Units 05:51 05:51 05:51 WBC 17.6 H (4.8-10.8) K/uL RBC 2.85 L (3.80-5.20) Mil/uL Hgb 9.1 L D (11.0-16.0) g/dL Hct 26.2 L (34.0-47.0) % MCV 92.0 D (81.0-99.0) fL MCH 31.8 H (27.0-31.0) pg MCHC 34.6 (33.0-37.0) g/dL RDW 18.3 H (11.5-14.5) % Plt Count 63 L D (130-400) K/uL MPV 9.1 (7.2-11.7) fL Neut % (Auto) 92.0 H (50.0-75.0) % Lymph % (Auto) 2.0 L (20.0-40.0) % [place] % (Auto) 5.0 (0.0-10.0) % Eos % (Auto) 1.0 (0.0-4.0) % Baso % (Auto) 0.0 (0.0-2.0) % Neut # (Auto) 16.0 H (1.8-7.0) K/uL Lymph # (Auto) 0.4 L (1.0-4.3) K/uL [place] # (Auto) 0.9 H (0.0-0.8) K/uL Eos # (Auto) 0.2 (0.0-0.7) K/uL Baso # (Auto) 0.0 (0.0-0.2) K/uL Neutrophils % (Manual) 66 (50-75) % Band Neutrophils % 26 H* (0-2) % Lymphocytes % (Manual) 2 L (20-40) % Monocytes % (Manual) 5 (0-10) % Eosinophils % (Manual) 1 (0-4) % Platelet Estimate Normal (NORMAL) Polychromasia Slight Hypochromasia (manual) Slight Anisocytosis (manual) Slight Macrocytosis (manual) Slight Target Cells Moderate [place] Cells Slight PT (9.7-12.2) SECONDS INR APTT (21-34) SECONDS Fibrinogen (200-400) mg/dL Fibrin Degrad Products (NEGATIVE) Fibrin Degrad Prod, Qt (<10) ug/mL Puncture Site pCO2 (35-45) mm/Hg pO2 (80-100) mm/Hg HCO3 (21-28) mmol/L ABG pH (7.35-7.45) ABG Total CO2 (22-28) mmol/L ABG O2 Saturation (95-98) % ABG Base Excess (-2.0-3.0) mmol/L ABG Hemoglobin (11.7-17.4) g/dL ABG Carboxyhemoglobin (0.5-1.5) % POC ABG HHb (Measured) (0.0-5.0) % ABG Methemoglobin (0.0-3.0) % Romero Test A-a O2 Difference mm/Hg Respiratory Index Hgb O2 Saturation (95.0-98.0) % Liter Flow FiO2 % Sodium 145 (132-148) mmol/L Potassium 3.0 L (3.6-5.2) mmol/L Chloride 110 H (98-107) mmol/L Carbon Dioxide 25 (22-30) mmol/L Anion Gap 14 (10-20) BUN 11 (7-17) mg/dL Creatinine 0.7 (0.7-1.2) mg/dL Est GFR ( Amer) > 60 Est GFR (Non-Af Amer) > 60 Random Glucose 111 H (65-105) mg/dL Hemoglobin A1c (4.2-6.5) % Calcium 7.8 L (8.6-10.4) mg/dl Phosphorus 1.8 L (2.5-4.5) mg/dL Magnesium 2.5 H (1.6-2.3) mg/dL Total Bilirubin 1.2 (0.2-1.3) mg/dL AST 22 (14-36) U/L ALT 63 H (9-52) U/L Alkaline Phosphatase 140 H (38-126) U/L Lactate Dehydrogenase 802 H (313-618) U/L Total Protein 4.5 L (6.3-8.3) g/dL Albumin 2.2 L (3.5-5.0) g/dL Globulin 2.3 (2.2-3.9) gm/dL Albumin/Globulin Ratio 1.0 (1.0-2.1) Free T4 (0.78-2.19) ng/dL Urine Color (YELLOW) Urine Clarity (Clear) Urine pH (5.0-8.0) Ur Specific [place] (1.003-1.030) Urine Protein (NEGATIVE) mg/dL Urine Glucose (UA) (Normal) mg/dL Urine Ketones (NEGATIVE) mg/dL Urine Blood (NEGATIVE) Urine Nitrate (NEGATIVE) Urine Bilirubin (NEGATIVE) Urine Urobilinogen (0.2-1.0) mg/dL Ur Leukocyte Esterase (Negative) Brayan/uL Urine WBC (Auto) (0-5) /hpf Urine RBC (Auto) (0-3) /hpf Ur Squamous Epith Cells (0-5) /hpf Urine Bacteria (<OCC) Hyaline Casts (0-2) /lpf Granular Casts (Auto) (0-1) /lpf S. pneumoniae Antigen (NEGATIVE) Blood Type Antibody Screen 11/05/17 11/05/17 11/05/17 Range/Units 22:15 22:15 21:38 WBC (4.8-10.8) K/uL RBC (3.80-5.20) Mil/uL Hgb (11.0-16.0) g/dL Hct (34.0-47.0) % MCV (81.0-99.0) fL MCH (27.0-31.0) pg MCHC (33.0-37.0) g/dL RDW (11.5-14.5) % Plt Count (130-400) K/uL MPV (7.2-11.7) fL Neut % (Auto) (50.0-75.0) % Lymph % (Auto) (20.0-40.0) % [place] % (Auto) (0.0-10.0) % Eos % (Auto) (0.0-4.0) % Baso % (Auto) (0.0-2.0) % Neut # (Auto) (1.8-7.0) K/uL Lymph # (Auto) (1.0-4.3) K/uL [place] # (Auto) (0.0-0.8) K/uL Eos # (Auto) (0.0-0.7) K/uL Baso # (Auto) (0.0-0.2) K/uL Neutrophils % (Manual) (50-75) % Band Neutrophils % (0-2) % Lymphocytes % (Manual) (20-40) % Monocytes % (Manual) (0-10) % Eosinophils % (Manual) (0-4) % Platelet Estimate (NORMAL) Polychromasia Hypochromasia (manual) Anisocytosis (manual) Macrocytosis (manual) Target Cells Hemant Cells PT (9.7-12.2) SECONDS INR APTT (21-34) SECONDS Fibrinogen (200-400) mg/dL Fibrin Degrad Products (NEGATIVE) Fibrin Degrad Prod, Qt (<10) ug/mL Puncture Site pCO2 (35-45) mm/Hg pO2 (80-100) mm/Hg HCO3 (21-28) mmol/L ABG pH (7.35-7.45) ABG Total CO2 (22-28) mmol/L ABG O2 Saturation (95-98) % ABG Base Excess (-2.0-3.0) mmol/L ABG Hemoglobin (11.7-17.4) g/dL ABG Carboxyhemoglobin (0.5-1.5) % POC ABG HHb (Measured) (0.0-5.0) % ABG Methemoglobin (0.0-3.0) % Romero Test A-a O2 Difference mm/Hg Respiratory Index Hgb O2 Saturation (95.0-98.0) % Liter Flow FiO2 % Sodium (132-148) mmol/L Potassium (3.6-5.2) mmol/L Chloride (98-107) mmol/L Carbon Dioxide (22-30) mmol/L Anion Gap (10-20) BUN (7-17) mg/dL Creatinine (0.7-1.2) mg/dL Est GFR ( Amer) Est GFR (Non-Af Amer) Random Glucose (65-105) mg/dL Hemoglobin A1c 4.9 (4.2-6.5) % Calcium (8.6-10.4) mg/dl Phosphorus (2.5-4.5) mg/dL Magnesium (1.6-2.3) mg/dL Total Bilirubin (0.2-1.3) mg/dL AST (14-36) U/L ALT (9-52) U/L Alkaline Phosphatase (38-126) U/L Lactate Dehydrogenase (313-618) U/L Total Protein (6.3-8.3) g/dL Albumin (3.5-5.0) g/dL Globulin (2.2-3.9) gm/dL Albumin/Globulin Ratio (1.0-2.1) Free T4 0.76 L (0.78-2.19) ng/dL Urine Color [place] (YELLOW) Urine Clarity Hazy (Clear) Urine pH 5.0 (5.0-8.0) Ur Specific [place] 1.027 (1.003-1.030) Urine Protein 1+ H (NEGATIVE) mg/dL Urine Glucose (UA) Normal (Normal) mg/dL Urine Ketones Negative (NEGATIVE) mg/dL Urine Blood 1+ H (NEGATIVE) Urine Nitrate Negative (NEGATIVE) Urine Bilirubin Negative (NEGATIVE) Urine Urobilinogen Normal (0.2-1.0) mg/dL Ur Leukocyte Esterase Neg (Negative) Brayan/uL Urine WBC (Auto) 2 (0-5) /hpf Urine RBC (Auto) 6 H (0-3) /hpf Ur Squamous Epith Cells < 1 (0-5) /hpf Urine Bacteria Rare (<OCC) Hyaline Casts 6-10 H (0-2) /lpf Granular Casts (Auto) 2 (0-1) /lpf S. pneumoniae Antigen (NEGATIVE) Blood Type Antibody Screen 11/05/17 11/04/17 Range/Units 10:37 Unknown WBC (4.8-10.8) K/uL RBC (3.80-5.20) Mil/uL Hgb (11.0-16.0) g/dL Hct (34.0-47.0) % MCV (81.0-99.0) fL MCH (27.0-31.0) pg MCHC (33.0-37.0) g/dL RDW (11.5-14.5) % Plt Count (130-400) K/uL MPV (7.2-11.7) fL Neut % (Auto) (50.0-75.0) % Lymph % (Auto) (20.0-40.0) % [place] % (Auto) (0.0-10.0) % Eos % (Auto) (0.0-4.0) % Baso % (Auto) (0.0-2.0) % Neut # (Auto) (1.8-7.0) K/uL Lymph # (Auto) (1.0-4.3) K/uL [place] # (Auto) (0.0-0.8) K/uL Eos # (Auto) (0.0-0.7) K/uL Baso # (Auto) (0.0-0.2) K/uL Neutrophils % (Manual) (50-75) % Band Neutrophils % (0-2) % Lymphocytes % (Manual) (20-40) % Monocytes % (Manual) (0-10) % Eosinophils % (Manual) (0-4) % Platelet Estimate (NORMAL) Polychromasia Hypochromasia (manual) Anisocytosis (manual) Macrocytosis (manual) Target Cells [place] Cells PT (9.7-12.2) SECONDS INR APTT (21-34) SECONDS Fibrinogen (200-400) mg/dL Fibrin Degrad Products (NEGATIVE) Fibrin Degrad Prod, Qt (<10) ug/mL Puncture Site pCO2 (35-45) mm/Hg pO2 (80-100) mm/Hg HCO3 (21-28) mmol/L ABG pH (7.35-7.45) ABG Total CO2 (22-28) mmol/L ABG O2 Saturation (95-98) % ABG Base Excess (-2.0-3.0) mmol/L ABG Hemoglobin (11.7-17.4) g/dL ABG Carboxyhemoglobin (0.5-1.5) % POC ABG HHb (Measured) (0.0-5.0) % ABG Methemoglobin (0.0-3.0) % Romero Test A-a O2 Difference mm/Hg Respiratory Index Hgb O2 Saturation (95.0-98.0) % Liter Flow FiO2 % Sodium (132-148) mmol/L Potassium (3.6-5.2) mmol/L Chloride (98-107) mmol/L Carbon Dioxide (22-30) mmol/L Anion Gap (10-20) BUN (7-17) mg/dL Creatinine (0.7-1.2) mg/dL Est GFR ( Amer) Est GFR (Non-Af Amer) Random Glucose (65-105) mg/dL Hemoglobin A1c (4.2-6.5) % Calcium (8.6-10.4) mg/dl Phosphorus (2.5-4.5) mg/dL Magnesium (1.6-2.3) mg/dL Total Bilirubin (0.2-1.3) mg/dL AST (14-36) U/L ALT (9-52) U/L Alkaline Phosphatase (38-126) U/L Lactate Dehydrogenase (313-618) U/L Total Protein (6.3-8.3) g/dL Albumin (3.5-5.0) g/dL Globulin (2.2-3.9) gm/dL Albumin/Globulin Ratio (1.0-2.1) Free T4 (0.78-2.19) ng/dL Urine Color (YELLOW) Urine Clarity (Clear) Urine pH (5.0-8.0) Ur Specific [place] (1.003-1.030) Urine Protein (NEGATIVE) mg/dL Urine Glucose (UA) (Normal) mg/dL Urine Ketones (NEGATIVE) mg/dL Urine Blood (NEGATIVE) Urine Nitrate (NEGATIVE) Urine Bilirubin (NEGATIVE) Urine Urobilinogen (0.2-1.0) mg/dL Ur Leukocyte Esterase (Negative) Brayan/uL Urine WBC (Auto) (0-5) /hpf Urine RBC (Auto) (0-3) /hpf Ur Squamous Epith Cells (0-5) /hpf Urine Bacteria (<OCC) Hyaline Casts (0-2) /lpf Granular Casts (Auto) (0-1) /lpf S. pneumoniae Antigen Negative (NEGATIVE) Blood Type A NEGATIVE Antibody Screen Negative Laboratory Results - last 24 hr 11/04/17 11/05/17 11/05/17 Unknown 10:37 21:38 WBC RBC Hgb Hct MCV MCH MCHC RDW Plt Count MPV Neut % (Auto) Lymph % (Auto) [place] % (Auto) Eos % (Auto) Baso % (Auto) Neut # (Auto) Lymph # (Auto) [place] # (Auto) Eos # (Auto) Baso # (Auto) Neutrophils % (Manual) Band Neutrophils % Lymphocytes % (Manual) Monocytes % (Manual) Eosinophils % (Manual) Platelet Estimate Polychromasia Hypochromasia (manual) Anisocytosis (manual) Macrocytosis (manual) Target Cells Hemant Cells PT INR APTT Fibrinogen Fibrin Degrad Products Fibrin Degrad Prod, Qt Puncture Site pCO2 pO2 HCO3 ABG pH ABG Total CO2 ABG O2 Saturation ABG Base Excess ABG Hemoglobin ABG Carboxyhemoglobin POC ABG HHb (Measured) ABG Methemoglobin Romero Test A-a O2 Difference Respiratory Index Hgb O2 Saturation Liter Flow FiO2 Sodium Potassium Chloride Carbon Dioxide Anion Gap BUN Creatinine Est GFR ( Amer) Est GFR (Non-Af Amer) Random Glucose Hemoglobin A1c Calcium Phosphorus Magnesium Total Bilirubin AST ALT Alkaline Phosphatase Lactate Dehydrogenase Total Protein Albumin Globulin Albumin/Globulin Ratio Free T4 Urine Color [place] Urine Clarity Hazy Urine pH 5.0 Ur Specific [place] 1.027 Urine Protein 1+ H Urine Glucose (UA) Normal Urine Ketones Negative Urine Blood 1+ H Urine Nitrate Negative Urine Bilirubin Negative Urine Urobilinogen Normal Ur Leukocyte Esterase Neg Urine WBC (Auto) 2 Urine RBC (Auto) 6 H Ur Squamous Epith Cells < 1 Urine Bacteria Rare Hyaline Casts 6-10 H Granular Casts (Auto) 2 S. pneumoniae Antigen Negative Blood Type A NEGATIVE Antibody Screen Negative 11/05/17 11/05/17 11/06/17 22:15 22:15 05:51 WBC 17.6 H RBC 2.85 L Hgb 9.1 L D Hct 26.2 L MCV 92.0 D MCH 31.8 H MCHC 34.6 RDW 18.3 H Plt Count 63 L D MPV 9.1 Neut % (Auto) 92.0 H Lymph % (Auto) 2.0 L [place] % (Auto) 5.0 Eos % (Auto) 1.0 Baso % (Auto) 0.0 Neut # (Auto) 16.0 H Lymph # (Auto) 0.4 L [place] # (Auto) 0.9 H Eos # (Auto) 0.2 Baso # (Auto) 0.0 Neutrophils % (Manual) 66 Band Neutrophils % 26 H* Lymphocytes % (Manual) 2 L Monocytes % (Manual) 5 Eosinophils % (Manual) 1 Platelet Estimate Normal Polychromasia Slight Hypochromasia (manual) Slight Anisocytosis (manual) Slight Macrocytosis (manual) Slight Target Cells Moderate Hemant Cells Slight PT INR APTT Fibrinogen Fibrin Degrad Products Fibrin Degrad Prod, Qt Puncture Site pCO2 pO2 HCO3 ABG pH ABG Total CO2 ABG O2 Saturation ABG Base Excess ABG Hemoglobin ABG Carboxyhemoglobin POC ABG HHb (Measured) ABG Methemoglobin Romero Test A-a O2 Difference Respiratory Index Hgb O2 Saturation Liter Flow FiO2 Sodium Potassium Chloride Carbon Dioxide Anion Gap BUN Creatinine Est GFR ( Amer) Est GFR (Non-Af Amer) Random Glucose Hemoglobin A1c 4.9 Calcium Phosphorus Magnesium Total Bilirubin AST ALT Alkaline Phosphatase Lactate Dehydrogenase Total Protein Albumin Globulin Albumin/Globulin Ratio Free T4 0.76 L Urine Color Urine Clarity Urine pH Ur Specific [place] Urine Protein Urine Glucose (UA) Urine Ketones Urine Blood Urine Nitrate Urine Bilirubin Urine Urobilinogen Ur Leukocyte Esterase Urine WBC (Auto) Urine RBC (Auto) Ur Squamous Epith Cells Urine Bacteria Hyaline Casts Granular Casts (Auto) S. pneumoniae Antigen Blood Type Antibody Screen 11/06/17 11/06/17 11/06/17 05:51 05:51 05:51 WBC RBC Hgb Hct MCV MCH MCHC RDW Plt Count MPV Neut % (Auto) Lymph % (Auto) [place] % (Auto) Eos % (Auto) Baso % (Auto) Neut # (Auto) Lymph # (Auto) [place] # (Auto) Eos # (Auto) Baso # (Auto) Neutrophils % (Manual) Band Neutrophils % Lymphocytes % (Manual) Monocytes % (Manual) Eosinophils % (Manual) Platelet Estimate Polychromasia Hypochromasia (manual) Anisocytosis (manual) Macrocytosis (manual) Target Cells [place] Cells PT 13.8 H INR 1.3 APTT 37 H Fibrinogen 431 H Fibrin Degrad Products Fibrin Degrad Prod, Qt Puncture Site pCO2 pO2 HCO3 ABG pH ABG Total CO2 ABG O2 Saturation ABG Base Excess ABG Hemoglobin ABG Carboxyhemoglobin POC ABG HHb (Measured) ABG Methemoglobin Romero Test A-a O2 Difference Respiratory Index Hgb O2 Saturation Liter Flow FiO2 Sodium 145 Potassium 3.0 L Chloride 110 H Carbon Dioxide 25 Anion Gap 14 BUN 11 Creatinine 0.7 Est GFR ( Amer) > 60 Est GFR (Non-Af Amer) > 60 Random Glucose 111 H Hemoglobin A1c Calcium 7.8 L Phosphorus 1.8 L Magnesium 2.5 H Total Bilirubin 1.2 AST 22 ALT 63 H Alkaline Phosphatase 140 H Lactate Dehydrogenase 802 H Total Protein 4.5 L Albumin 2.2 L Globulin 2.3 Albumin/Globulin Ratio 1.0 Free T4 Urine Color Urine Clarity Urine pH Ur Specific [place] Urine Protein Urine Glucose (UA) Urine Ketones Urine Blood Urine Nitrate Urine Bilirubin Urine Urobilinogen Ur Leukocyte Esterase Urine WBC (Auto) Urine RBC (Auto) Ur Squamous Epith Cells Urine Bacteria Hyaline Casts Granular Casts (Auto) S. pneumoniae Antigen Blood Type Antibody Screen 11/06/17 11/06/17 13:18 13:26 WBC RBC Hgb Hct MCV MCH MCHC RDW Plt Count MPV Neut % (Auto) Lymph % (Auto) [place] % (Auto) Eos % (Auto) Baso % (Auto) Neut # (Auto) Lymph # (Auto) [place] # (Auto) Eos # (Auto) Baso # (Auto) Neutrophils % (Manual) Band Neutrophils % Lymphocytes % (Manual) Monocytes % (Manual) Eosinophils % (Manual) Platelet Estimate Polychromasia Hypochromasia (manual) Anisocytosis (manual) Macrocytosis (manual) Target Cells [place] Cells PT INR APTT Fibrinogen Fibrin Degrad Products Positive H Fibrin Degrad Prod, Qt >40 H Puncture Site Rb pCO2 38 pO2 96 HCO3 23.0 ABG pH 7.38 ABG Total CO2 23.7 ABG O2 Saturation 97.4 ABG Base Excess -2.4 L ABG Hemoglobin 10.1 L ABG Carboxyhemoglobin 1.0 POC ABG HHb (Measured) 2.5 ABG Methemoglobin 1.1 Romero Test Na A-a O2 Difference 92.0 Respiratory Index 1.0 Hgb O2 Saturation 95.4 Liter Flow 4.0 FiO2 33.0 Sodium Potassium Chloride Carbon Dioxide Anion Gap BUN Creatinine Est GFR ( Amer) Est GFR (Non-Af Amer) Random Glucose Hemoglobin A1c Calcium Phosphorus Magnesium Total Bilirubin AST ALT Alkaline Phosphatase Lactate Dehydrogenase Total Protein Albumin Globulin Albumin/Globulin Ratio Free T4 Urine Color Urine Clarity Urine pH Ur Specific [place] Urine Protein Urine Glucose (UA) Urine Ketones Urine Blood Urine Nitrate Urine Bilirubin Urine Urobilinogen Ur Leukocyte Esterase Urine WBC (Auto) Urine RBC (Auto) Ur Squamous Epith Cells Urine Bacteria Hyaline Casts Granular Casts (Auto) S. pneumoniae Antigen Blood Type Antibody Screen Critical Care Progress Note - Nutrition Nutrition: Nutrition Category Date Time Status [place] [Altered GI/Hepatic Diet] [DIET] Diets 11/06/17 Lunch Active Attending/Attestation - Attestation I have personally seen and examined this patient.: Yes I have fully participated in the care of the patient.: Yes I have reviewed all pertinent clinical information: Yes Notes (Text): 11/06/17 14:57 I have seen and examined the patient. Medical records, lab studies, and imaging were reviewed by me and a management plan was formulated on multidisciplinary rounds with resident Dr. Pate. I agree with their documented assessment and plan. Patient has worsening pneumonia, possible parapneumonic effusion. Obtaining chest CT to assess. Increased coverage to micafungin and acyclovir. obtaining castrejon-scan to r/o possible malignancy, with patient's recent weight loss with cachexia. Critical Care Time 35 minutes. Multi-disciplinary rounds were performed with house staff, nursing, speech therapy, respiratory therapy, pharmacy and nutrition with integrated input from the primary team/attending and other consulting services. The documented time is cumulative and includes review of patient data/exams/labs/chart review and examination of the patient on rounds and throughout the day; time is exclusive of any procedures or teaching time. 11/06/17 14:57
[2017-11-06] MEDS ORDERED: Potassium Phosphate 15 MMOLE in Sodium Chloride 0.9% 250 ML IVPB ONE (08:00)
[2017-11-06] MEDS: Albuterol-Ipratrop 3 mg / 0.5 (3 ml) UD INH PRN (08:18)
[2017-11-06] MEDS: Azithromycin 500 MG in Sodium Chloride 0.9% 250 ML IVPB SCH (09:01)
--- NOTE | 2017-11-06 09:05 | RAD ---
Chest x-ray single frontal view History: Pneumonia. Comparison: 11/05/2017 Findings: Large loculated right pleural effusion. Near complete consolidation in the right mid to lower lung zones. Milder patchy increased markings within the left lung base. Bilateral hilar prominence. Heart size within normal limits. Degenerative changes in the spine. Surgical clips in the upper abdomen. Impression: Large loculated right pleural effusion. Near complete consolidation in the right mid to lower lung zones. Milder patchy increased markings within the left lung base. Bilateral hilar prominence. Heart size within normal limits. Degenerative changes in the spine. Surgical clips in the upper abdomen.
[2017-11-06] MEDS: Apap-Butalbital-Caffeine 325-50-40mg Tab PO SCH (09:07)
[2017-11-06] MEDS: Saccharomyces Boulardi 250 mg Cap PO SCH ×2 (09:09→18:58)
[2017-11-06] MEDS: guaiFENesin 600 mg ER Tab PO SCH ×2 (09:09→18:54)
[2017-11-06] MEDS: Vitamins A & D Oint UD Foilpak TOP PRN (09:09)
--- NOTE | 2017-11-06 09:38 | CP.PCM.PN ---
Subjective - Date & Time of Evaluation Date of Evaluation: 11/06/17 Time of Evaluation: 09:20 - Subjective Subjective: Medical Attending Note Patient seen and examined at bedside. Patient seen upright eating breakfast. Patient denies headache, reports cough is better, reports breathing is better, denies abdominal pain, denies nausea, denies vomititng, reports stool is normal. Objective - Vital Signs/Intake and Output Vital Signs (last 24 hours): Temp Pulse Resp BP Pulse Ox 97.8 F 108 H 22 113/76 100 11/06/17 04:00 11/06/17 07:27 11/06/17 07:27 11/06/17 07:27 11/06/17 07:00 Intake and Output: 11/06/17 11/06/17 06:59 18:59 Intake Total 854 Output Total 300 Balance 554 - Medications Medications: Current Medications Acetaminophen/Butalbital/Caffeine (Fioricet) 1 tab PO DAILY [facility] Last Admin: 11/06/17 09:07 Dose: 1 tab Acetylcysteine (Acetylcysteine 20%) 4 ml INH RQ4 [facility] Last Admin: 11/06/17 08:24 Dose: Not Given Acyclovir (Zovirax) 200 mg PO 5XD [facility] PRN Reason: Protocol Last Admin: 11/06/17 09:06 Dose: 200 mg Albuterol/Ipratropium (Duoneb 3 Mg/0.5 Mg (3 Ml) Ud) 3 ml INH RQ4 [facility] Amitriptyline HCl (Elavil) 25 mg PO DAILY [facility] Benzocaine (Orajel 7.5%) 0 gm MM Q4 PRN Famotidine (Pepcid) 20 mg IVP DAILY [facility] Last Admin: 11/06/17 09:01 Dose: 20 mg Gabapentin (Neurontin) 600 mg PO DAILY [facility] Guaifenesin (Mucinex La) 600 mg PO BID [facility] Last Admin: 11/06/17 09:09 Dose: 600 mg Piperacillin Sod/Tazobactam Sod (Zosyn 3.375 Gm Iv Premix) 3.375 gm in 50 mls @ 100 mls/hr IVPB Q6H [facility] PRN Reason: Protocol Last Admin: 11/06/17 04:04 Dose: 100 mls/hr Azithromycin 500 mg/ Sodium (Chloride) 250 mls @ 250 mls/hr IVPB DAILY [facility] PRN Reason: Protocol Last Admin: 11/06/17 09:01 Dose: 250 mls/hr Vancomycin/Sodium Chloride (Vancomycin 1 Gm/Ns 200 Ml) 1 gm in 200 mls @ 133.333 mls/hr IVPB Q12H [facility] PRN Reason: Protocol Last Admin: 11/06/17 00:31 Dose: 133.333 mls/hr Multivitamins/Vitamin C 10 ml/Chromium/Copper/Manganese/Zinc 1 ml/ Magnesium Sulfate 6 meq/ Sodium Chloride 35 meq/Calcium Gluconate 4.5 meq/Potassium Phosphate 15 mmole/Amino Acids 1,035.9052 mls @ 42 mls/hr IV .Q24H ONE Stop: 11/06/17 17:59 Last Admin: 11/05/17 17:01 Dose: 42 mls/hr Potassium Phosphate 15 mmole/ (Sodium Chloride) 255 mls @ 42.5 mls/hr IVPB ONCE ONE Stop: 11/06/17 13:59 Last Admin: 11/06/17 09:12 Dose: 42.5 mls/hr Multivitamins/Vitamin C 10 ml/Chromium/Copper/Manganese/Zinc 1 ml/ Magnesium Sulfate 6 meq/ Sodium Chloride 35 meq/Potassium Phosphate 15 mmole/Amino Acids 1,026.2278 mls @ 42 mls/hr IV .Q24H ONE Stop: 11/07/17 17:59 Ibuprofen (Motrin Tab) 400 mg PO Q6H PRN PRN Reason: Fever >100.4 F Last Admin: 11/04/17 21:34 Dose: 400 mg Nicotine (Nicoderm Cq) 1 patch TD DAILY [facility] Last Admin: 11/06/17 09:09 Dose: 1 patch Oxycodone HCl (Oxycodone Immediate Release Tab) 30 mg PO Q8H PRN PRN Reason: FOR BACK PAIN Last Admin: 11/06/17 04:03 Dose: 30 mg Saccharomyces Boulardii (Florastor) 250 mg PO BID [facility] Last Admin: 11/06/17 09:09 Dose: 250 mg Vitamin A (Vitamin A & D Oint Ud Foilpak) 1 ea TOP Q6H PRN PRN Reason: Dry mouth Last Admin: 11/06/17 09:09 Dose: 1 ea - Labs Labs: 11/06/17 05:51 11/06/17 05:51 PT 13.8 SECONDS (9.7-12.2) H 11/06/17 05:51 INR 1.3 11/06/17 05:51 APTT 37 SECONDS (21-34) H 11/06/17 05:51 - Constitutional Appears: Cachectic, Chronically Ill - Head Exam Head Exam: NORMAL INSPECTION - Eye Exam Eye Exam: EOMI - ENT Exam ENT Exam: Mucous Membranes Moist - Respiratory Exam Respiratory Exam: Decreased Breath Sounds, Rales, NORMAL BREATHING PATTERN. absent: Respiratory Distress, Stridor - Cardiovascular Exam Cardiovascular Exam: Tachycardia, +S1, +S2 - GI/Abdominal Exam GI & Abdominal Exam: Soft, Normal Bowel Sounds. absent: Distended, Firm, Guarding, Rigid, Tenderness, Rebound - Extremities Exam Extremities Exam: absent: Pedal Edema, Tenderness - Neurological Exam Neurological Exam: Alert, Awake, Oriented x3 - Skin Skin Exam: Dry, Normal Color, Warm Assessment and Plan - Assessment and Plan (Free Text) Assessment: 1) Acute Respiratory Distress Health Care Associated Pneumonia Sepsis Bandemia Assessment/Plan * Admit to ICU * Code sepsis 11/03/17 * Elevated procalcitonin: 13.90 * White count improving * Infectious Disease (Dr. Veras) on board-->help appreciated * Criteria: Afebrile, no leukocytosis, left shift noted with lactate 5.1 with repeat 6.0 * in the ED, given Rocephin and Azithromycin in the ED * Patient is currently on Bipap transitioned to nasal canula today * Possible HCAP prior hospitalization * Lactate: 4.5-->6.0-->4.4-->3.6 * Duonebs RQ4 PRN shortness of breathe * Acetrylcysteine 4ml INH RQ6H * Mucinex 600mg PO BID * Motrin 400mg PO Q6H PRN >100.4F * CT Chest (11/04/17): multilobar pneumonia of the right lung. Small hiatal hernia. * Azithromycin 500mg IV q daily (active since 11/04/17) * Zosyn 3.375 gm IV Q6H (active since 11/04/17) * Vancomycin 1 gram IVQ12 (active since 11/05/17) * Zovirax 200mg PO 5XD (active since 11/06/17) * Pending CMV, HSV. Mycoplasma IgM * Florastor 250mg PO BID * pending Blood cultures * Urine culture (11/04/17): no growth * check LDH-->patient has been on steroids for low back pain in the past--> 90 2) Sinus Tachycardia Assessment/Plan * Cardiology (Dr. Contreras) on board-->help appreciated * Cleared from cardiac standpoint * Treat infection/sepsis * Became Hypotensive-->brought to ICU * Given Cardizem 20mg IVPX1, Cardizem 5mg IVP X3 in the ED * Cardizem drip d/c overnight * Given Metoprol 5mg IVP X1 * Needed IV fluids to increase blood pressure * Hgba1c: 4.9 * TSH: 0.64 * Lipid panel: <30, HDL: 16, T, Cholestrol: 71 * Echocardiogram (11/05/17): left ventricle is grossly normal size. Left ventricle systolic function is grossly normal. Right ventricle size and function is normal. Mild tricupsid regurgitation 3) History of Chronic Back Pain History of Scoliosis Fibromylagia Assessment/Plan * held gabapentin given respiratory status * held amitriptyline-->cardio side effects and patient is in sinus tachycardia * Discussed with patient who is aware * Patient has had chronic back problems since age 16 from scoliosis * Patient reports she was for lumbar spine surgery however she was told she needs to meet weight requirement prior to proceeding with surgery * Oxycodone 30mg POq8 PRN pain 4) Tobacco History Assessment/Plan * Start Nicotone Patch daily 5) History of Gastric Bypass (sleeve gastrectomy) Assessment/Plan * About 11 years ago * Hgba1c: 4.9 * TSH: 0.64 * Lipid panel: <30, HDL: 16, T, Cholestrol: 71 * Will start MVI 1 tab PO daily * Will need lifelong MV1, calcium, vitamin D supplements 6) Anemia Assessment/Plan * Patient with known history of anemia when I discussed with her at bedside today * Patient has not had GI workup including colonoscopy. * H/H downtrending * Patient ordered for blood transfusion today * Iron low, TIBC low, ferritin: 351 reticulocyte count: 2.2 * Reticulocyte index: 0.17 hypoproliferation of reticulocytes * B12 normal, folate within range * LDH: elevated * Possible may need CT Chest/Abdomen/Pelvis for malignancy workup 7) Unclear regarding to Multiple Sclerosis Hx Assessment/Plan * Currently not on medication * Diagnosed 8 years ago as per son * Will need to clarify with son how was diagnosed 8) Hx Pancreatitis * Noted on 08/2017 admission * Recommended outpatient EUS 9) Transaminitis * possible acute phase reactant * Abdominal US (11/04/17): hyperechoic hepatic parenchyma in the interval may indicate diffuse fatty infiltrateion though other etiologies. No common bile duct or intrahepatic biliary dilatation is identified. Moderately distended but otherwise unremarkable appearing gallbladder. Pancreas is poorly visualized. Small right renal cyst. Incidental right pleural effusion is noted. * Hepatitis panel: negative * HIV: negative 10) Electrolyte abnormalities * monitor and replete 11) Abdominal Pain * Lipase/Amylase: normal * none today 12) Thrombocytopenia * D/C lovenox * Order for HIT/CONSTANTINE * Likely related to sepsis * Order for PT/PTT/fibrinogen * Abdominal US (11/04/17): hyperechoic hepatic parenchyma in the interval may indicate diffuse fatty infiltrateion though other etiologies. No common bile duct or intrahepatic biliary dilatation is identified. Moderately distended but otherwise unremarkable appearing gallbladder. Pancreas is poorly visualized. Small right renal cyst. Incidental right pleural effusion is noted. 13) Prophylactic Measures * GI PPX: Protonix 40mg PO daily switch to pepcid 20mg IV qdaily given se: thrombocytopenia * Florastor 250mg PO bid * d/c Lovenox 30mg subq daily-->thrombocytopenia Disposition: monitor H/H given acute drop; monitor platelets in light of sepsis picture; pending blood cultures will follow and discuss with ICU.
[2017-11-06] MEDS: Sodium Chloride 0.9% 1,000 ML IV SCH (10:16)
[2017-11-06 10:29] LABS: EOS # 0.2 K/uL (0.0-0.7); LYMPH # 0.4 K/uL (1.0-4.3); MONO # 0.9 K/uL (0.0-0.8); TOTAL CELLS COUNTED 100
[2017-11-06 10:30] LABS: BANDS 26 % (0-2); EOSINOPHIL 1 % (0-4); LYMPHOCYTE 2 % (20-40); MONOCYTE 5 % (0-10); NEUTROPHIL 66 % (50-75)
[2017-11-06 10:31] LABS: ANISOCYTOSIS SLIGHT; PLATELET ESTIMATE NORMAL (NORMAL)
[2017-11-06 10:32] LABS: BURR CELLS SLIGHT; HYPOCHROMIC SLIGHT; POLYCHROMIC SLIGHT; TARGET CELLS MODERATE
[2017-11-06] MEDS ORDERED: Cefepime IV 1 gm in Dextrose 1 GM/50 ML BAG IVPB SCH (11:30)
[2017-11-06] MEDS: Micafungin 100 MG in Sodium Chloride 0.9% 100 ML IV SCH (11:30)
[2017-11-06 12:08] LABS: STREP PNEUMONIAE NEGATIVE (NEGATIVE)
[2017-11-06] MEDS: Benzocaine 7.5% 5.1 GM TUBE MM PRN (12:47)
[2017-11-06 13:21] LABS: ARTERIAL BLOOD GAS HEMOGLOBIN 10.1 g/dL (11.7-17.4); ARTERIAL BLOOD GAS O2 SAT 97.4 % (95-98); ARTERIAL BLOOD GAS PCO2 38 mm/Hg (35-45); ARTERIAL BLOOD GAS PH 7.38 (7.35-7.45); ARTERIAL BLOOD GAS PO2 96 mm/Hg (80-100); ARTERIAL BLOOD GAS TCO2 23.7 mmol/L (22-28)
[2017-11-06 13:45] LABS: FDP INTERPRETATION POSITIVE (NEGATIVE)
[2017-11-06 13:46] LABS: FDP QUANTITY >40 ug/mL (<10)
[2017-11-06] MEDS ORDERED: SODIUM BICARBONATE INH SCH ×2 (14:00)
[2017-11-06] MEDS: SODIUM BICARBONATE INH SCH ×2 (14:02→20:11)
--- NOTE | 2017-11-06 16:28 | CT ---
Date of service: 11/06/2017 PROCEDURE: CT HEAD WITHOUT CONTRAST. HISTORY: AMS COMPARISON: None available. TECHNIQUE: Axial computed tomography images were obtained through the head/brain without intravenous contrast. Radiation dose: Total exam DLP = 1244.94 mGy-cm. This CT exam was performed using one or more of the following dose reduction techniques: Automated exposure control, adjustment of the mA and/or kV according to patient size, and/or use of iterative reconstruction technique. FINDINGS: HEMORRHAGE: No intracranial hemorrhage. BRAIN: No mass effect or edema. No atrophy or chronic microvascular ischemic changes. VENTRICLES: Unremarkable. No hydrocephalus. CALVARIUM: Small focal protrusion of the inner table of the calvarium on the left side at the level of the superior temporal lobe, possibly an exostosis. Unlikely a meningioma. PARANASAL SINUSES: Mild chronic sphenoid sinusitis MASTOID AIR CELLS: Unremarkable as visualized. No inflammatory changes. OTHER FINDINGS: None. IMPRESSION: No intracranial mass, hemorrhage or evidence of acute infarct. Mild chronic sphenoid sinusitis. Possible small exostosis along the superior left temporal calvarium.
--- NOTE | 2017-11-06 16:39 | CT ---
Date of service: 11/06/2017 PROCEDURE: CT Chest, Abdomen and Pelvis with intravenous contrast HISTORY: r/o parapneumonic effusion, r/o malignancy COMPARISON: CT abdomen/pelvis 08/23/2017 TECHNIQUE: IV dose administered: 100 mL Visipaque 320 Radiation dose: Total exam DLP = 476.83 mGy-cm. This CT exam was performed using one or more of the following dose reduction techniques: Automated exposure control, adjustment of the mA and/or kV according to patient size, and/or use of iterative reconstruction technique. FINDINGS: CT CHEST WITH CONTRAST: LUNGS: Extensive diffuse right-sided pulmonary infiltrate with extensive airless consolidation and some air bronchograms. No pulmonary mass. No left-sided infiltrate. There is mild left lower lobe compressive atelectasis secondary to a pleural effusion. MEDIASTINUM: Normal size heart. Mild mediastinal lymphadenopathy. No definite hilar lymphadenopathy. Mild shift of the heart towards the center of the chest as a result of some right-sided volume loss. LYMPH NODES: As above PLEURA: Small left pleural effusion. No right pleural effusion. No pneumothorax. BONES: Unremarkable. OTHER FINDINGS: None. CT ABDOMEN AND PELVIS: LIVER: Unremarkable. No gross lesion or ductal dilatation. GALLBLADDER AND BILE DUCTS: Unremarkable. PANCREAS: Unremarkable. No gross lesion or ductal dilatation. SPLEEN: Unremarkable. ADRENALS: Unremarkable. No mass. KIDNEYS AND URETERS: Unremarkable. No hydronephrosis. No solid mass. VASCULATURE: Unremarkable. No aortic aneurysm. BOWEL: Mild diffuse circumferential mural thickening of the ascending, transverse and descending/sigmoid colon consistent with nonspecific colitis. This most prominently effects the right colon. No bowel obstruction. Status post partial gastrectomy and left-sided small bowel anastomosis. Small hiatal hernia noted. APPENDIX: Not definitely identified. PERITONEUM: Mild ascites. No pneumoperitoneum. LYMPH NODES: Unremarkable. No enlarged lymph nodes. BLADDER: Nondistended. Gorman catheter. REPRODUCTIVE: Unremarkable uterus. BONES: Posterior fixation of the L4 and L5 spinous processes. OTHER FINDINGS: None. IMPRESSION: Extensive diffuse infiltrate and consolidation the right lung. Small left pleural effusion. Mild right-sided volume loss with some shift of the heart mediastinum towards the center. Mild mediastinal lymphadenopathy, nonspecific. Nonspecific colitis predominantly involving the right colon but also involving to a lesser extent the transverse and descending/ sigmoid colon. No bowel obstruction. Ascites. Partial gastrectomy and gastrojejunostomy/ jejunojejunostomy. Question of prior bariatric surgery. Please correlate. Small hiatal hernia.
[2017-11-06] MEDS ORDERED: Lidocaine 2% MPF (5 ml) Inj ONE (17:07)
[2017-11-06] MEDS ORDERED: EPINEPHrine 1 mg/ml (1:1000) Inj ONE (17:08)
[2017-11-06] MEDS ORDERED: Midazolam 2 MG/2 ML VIAL IVP ONE ×2 (17:17→18:43)
[2017-11-06] MEDS: Propofol 10 mg/ml 1,000 MG/100 ML VIAL IV PRN ×2 (17:55→23:15)
[2017-11-06] MEDS ORDERED: PPN #3 IV ONE (18:00)
--- NOTE | 2017-11-06 18:16 | PCM.PROC ---
<Kendra Pate - Last Filed: 11/06/17 19:09> Procedures Attestation:: I certify that I have explained the specified Operation(s) or Procedure(s), risks, benefits and reasonable alternatives to the Patient and/or other person responsible. The opportunity was given to ask questions and all questions answered - Intubation Time Out Performed: Yes Sedative: Versed Laryngoscope: Glidescope Assist Device Used: Bougie ET Tube Size: 8.0 ET Tube Uncuffed: No ET Tube Secured at Depth: 26 ET Tube Secured Locarion: Lips ET Tube Placement Confirmation: Visualized Passing Through Cords, Confirmation w /Capnometry Patient Tolerated Procedure: Well, No Complications Procedure Immediate Complications: None <Tadeo Feldman - Last Filed: 11/07/17 10:46> Attending/Attestation - Attestation I have personally seen and examined this patient.: Yes I have fully participated in the care of the patient.: Yes I have reviewed all pertinent clinical information, including history, physical exam and plan: Yes Notes (Text): 11/07/17 10:46 I participated, assisted and supervised this procedure with resident Dr. Pate. The patient tolerated the procedure well and there were no complications.
[2017-11-06] MEDS ORDERED: Midazolam 2 MG/2 ML VIAL ONE (18:43)
--- NOTE | 2017-11-06 19:31 | RAD ---
Date of service: 11/06/2017 HISTORY: Post Bronchoscopy COMPARISON: Comparison is made with 11/06/2017 FINDINGS: LUNGS: The ET tube is seen at appropriate position. Heterogeneous opacity at the right chest are again seen. PLEURA: Right pleural effusion is again suspected. CARDIOVASCULAR: Normal. OSSEOUS STRUCTURES: No significant abnormalities. VISUALIZED UPPER ABDOMEN: Surgical clips in the upper abdomen are again seen. OTHER FINDINGS: Right jugular central line is seen in place. IMPRESSION: Repositioning of the ET tube to which is not seen at appropriate position . Otherwise no interval change.
--- NOTE | 2017-11-06 19:46 | CP.PCM.PN ---
Subjective - Date & Time of Evaluation Date of Evaluation: 11/06/17 Time of Evaluation: 01:30 - Subjective Subjective: dictated Objective - Vital Signs/Intake and Output Vital Signs (last 24 hours): Temp Pulse Resp BP Pulse Ox 97.8 F 105 H 15 119/83 93 L 11/06/17 04:00 11/06/17 16:28 11/06/17 16:28 11/06/17 16:28 11/06/17 16:28 Intake and Output: 11/06/17 11/07/17 18:59 06:59 Intake Total 50 Balance 50 - Medications Medications: Current Medications Acetaminophen/Butalbital/Caffeine (Fioricet) 1 tab PO DAILY [facility] Last Admin: 11/06/17 09:07 Dose: 1 tab Acetylcysteine (Acetylcysteine 20%) 4 ml INH RQ4 [facility] Last Admin: 11/06/17 16:06 Dose: 4 ml Acyclovir (Zovirax) 200 mg PO 5XD [facility] PRN Reason: Protocol Last Admin: 11/06/17 17:40 Dose: 200 mg Albuterol/Ipratropium (Duoneb 3 Mg/0.5 Mg (3 Ml) Ud) 3 ml INH RQ4 [facility]RI[facility] Last Admin: 11/06/17 16:06 Dose: 3 ml Amitriptyline HCl (Elavil) 25 mg PO DAILY [facility] Benzocaine (Orajel 7.5%) 0 gm MM Q4 PRN Last Admin: 11/06/17 12:47 Dose: 5.1 gm Famotidine (Pepcid) 20 mg IVP DAILY [facility] Last Admin: 11/06/17 09:01 Dose: 20 mg Gabapentin (Neurontin) 600 mg PO DAILY [facility] Guaifenesin (Mucinex La) 600 mg PO BID [facility] Last Admin: 11/06/17 18:54 Dose: Not Given Azithromycin 500 mg/ Sodium (Chloride) 250 mls @ 250 mls/hr IVPB DAILY [facility] PRN Reason: Protocol Last Admin: 11/06/17 09:01 Dose: 250 mls/hr Vancomycin/Sodium Chloride (Vancomycin 1 Gm/Ns 200 Ml) 1 gm in 200 mls @ 133.333 mls/hr IVPB Q12H [facility] PRN Reason: Protocol Last Admin: 11/06/17 12:41 Dose: 133.333 mls/hr Multivitamins/Vitamin C 10 ml/Chromium/Copper/Manganese/Zinc 1 ml/ Magnesium Sulfate 6 meq/ Sodium Chloride 35 meq/Potassium Phosphate 15 mmole/Amino Acids 1,026.2278 mls @ 42 mls/hr IV .Q24H ONE Stop: 11/07/17 17:59 Last Admin: 11/06/17 17:25 Dose: 42 mls/hr Sodium Chloride (Sodium Chloride 0.9%) 1,000 mls @ 60 mls/hr IV .[id number] [facility] Last Admin: 11/06/17 10:16 Dose: 60 mls/hr Micafungin Sodium 100 mg/ (Sodium Chloride) 100 mls @ 100 mls/hr IV Q24H [facility] PRN Reason: Protocol Last Admin: 11/06/17 11:30 Dose: 100 mls/hr Cefepime HCl (Maxipime Iv 1 Gm Premix) 1 gm in 50 mls @ 100 mls/hr IVPB Q12H [facility] PRN Reason: Protocol Last Admin: 11/06/17 12:30 Dose: 100 mls/hr Propofol (Diprivan) 1,000 mg in 100 mls @ 1.731 mls/hr IV .Q24H PRN; Protocol; 5 MCG/KG/MIN PRN Reason: TITRATE PER MD ORDER Last Titration: 11/06/17 18:30 Dose: 40 mcg/kg/min, 13.847 mls/hr Ibuprofen (Motrin Tab) 400 mg PO Q6H PRN PRN Reason: Fever >100.4 F Last Admin: 11/04/17 21:34 Dose: 400 mg Nicotine (Nicoderm Cq) 1 patch TD DAILY [facility] Last Admin: 11/06/17 09:09 Dose: 1 patch Sodium Bicarbonate 3 (.75% Nebulizer 5 Ml) 1 ea INH RQ6 [facility] Last Admin: 11/06/17 14:02 Dose: 1 ea Oxycodone HCl (Oxycodone Immediate Release Tab) 30 mg PO Q8H PRN PRN Reason: FOR BACK PAIN Last Admin: 11/06/17 04:03 Dose: 30 mg Saccharomyces Boulardii (Florastor) 250 mg PO BID [facility] Last Admin: 11/06/17 18:58 Dose: Not Given Vitamin A (Vitamin A & D Oint Ud Foilpak) 1 ea TOP Q6H PRN PRN Reason: Dry mouth Last Admin: 11/06/17 09:09 Dose: 1 ea - Labs Labs: 11/06/17 05:51 11/06/17 05:51 PT 13.8 SECONDS (9.7-12.2) H 11/06/17 05:51 INR 1.3 11/06/17 05:51 APTT 37 SECONDS (21-34) H 11/06/17 05:51
[2017-11-06] MEDS: Acyclovir 500 MG in Sodium Chloride 0.9% 100 ML IV SCH (20:00)
[2017-11-06] MEDS: Cefepime 2 GM in Dextrose 5% In Water 100 ML IVPB SCH (23:30)
[2017-11-07] MEDS: Acetylcysteine 20% Inhal Soln (4ml) INH SCH ×6 (00:51→19:50)
[2017-11-07] MEDS: Albuterol-Ipratrop 3 mg / 0.5 (3 ml) UD INH SCH ×6 (00:51→19:50)
[2017-11-07] MEDS: Vancomycin 1 gm/NS 200 ml 1 GM/200 ML BAG IVPB SCH ×2 (01:00→14:00)
[2017-11-07] MEDS: SODIUM BICARBONATE INH SCH ×2 (01:01→08:47)
--- NOTE | 2017-11-07 01:21 | PN ---
DATE: 11/06/2017 SUBJECTIVE: The patient was seen today. She was a little more comfortable but appears weak and frail. She has ulcerations, and she still was tachycardic, and I told her that she may need a bronchoscopy as her numbers were still not better. PHYSICAL EXAMINATION: GENERAL: She was awake but very frail. VITAL SIGNS: She was afebrile. Temp was 97.8, heart rate was 110, blood pressure 115/82, and her respirations were 20. HEENT: She has sores in her mouth between the gums. It may be gum disease because she has it between the teeth and the lips, but we have also covered her for fungemia at this time as well as for viral etiology. She was getting acyclovir, and as I am dictating the note, I got a call that she had a bronchoscopy and she was intubated, so we will change her oral medications to IV. NECK: Supple. LUNGS: Decreased breath sounds bilaterally. No crackles or rales present. HEART: S1, S2. Tachycardic. ABDOMEN: Soft, nontender. No guarding. No rigidity present. EXTREMITIES: Have no edema, clubbing, or cyanosis. LABORATORY DATA: Labs show that her white count today was 17.8; it was 15.6 yesterday. Hemoglobin was 6.6; they might have given blood now; she dropped her hemoglobin yesterday, it was 6.6, and now it is 9.1. Hematocrit 26.2. Platelets are 63; it is very low, and I have changed the antibiotics to Maxipime as she was on Zosyn which could be dropping her or due to the sepsis. It was decreasing as she has now 26 bands. She had 35 bands yesterday. Chemistry shows her sodium is 145, potassium 3, chloride 110, CO2 is 25, BUN is 14. They are supplementing potassium. Creatinine 0.7. Her random sugar is 111. Urine showed 2 wbc's, 6 rbc's, 6 to 10 hyaline casts. Chemistry: Creatinine is 0.7. Microwise, urine culture is negative. MRSA not detected. We did serology, and the serology shows hepatitis A, B, E, and hep C are all negative. Urine legionella is negative. Strep pneumo is negative. We are waiting for mycoplasma. The medication she is on are, she is on Tylenol, acyclovir. We elect to change , and she is on albuterol. Amitriptyline was on hold. She is on Zithromax 500 and she is on cefepime 1 gm. So at this time, we will change the antibiotics, as I do not think she will increase the cefepime to 2 gm every 8 hours, and we will also change acyclovir to IV at this time, and we will follow. Continue the vancomycin, and I have added Mycamine, and we will follow. Christiano Veras MD
[2017-11-07] MEDS: Sodium Chloride 0.9% 1,000 ML IV SCH ×3 (02:55→19:47)
[2017-11-07] MEDS: Propofol 10 mg/ml 1,000 MG/100 ML VIAL IV PRN ×2 (05:15→11:30)
[2017-11-07 05:45] LABS: ARTERIAL BLOOD GAS HCO3 24.3 mmol/L (21-28); ARTERIAL BLOOD GAS O2 SAT 98.1 % (95-98); ARTERIAL BLOOD GAS PCO2 30 mm/Hg (35-45); ARTERIAL BLOOD GAS PH 7.47 (7.35-7.45); ARTERIAL BLOOD GAS PO2 273 mm/Hg (80-100); ARTERIAL BLOOD GAS TCO2 22.7 mmol/L (22-28)
[2017-11-07 06:17] LABS: MEAN CELL VOLUME 92.4 fL (81.0-99.0); MEAN CORPUSCULAR HEMOGLOBIN 31.6 pg (27.0-31.0); MEAN CORPUSCULAR HGB CONC 34.2 g/dL (33.0-37.0); MEAN PLATELET VOLUME 10.4 fL (7.2-11.7); PLATELET COUNT 48 K/uL (130-400); RBC 2.84 Mil/uL (3.80-5.20); RED CELL DISTRIBUTION WIDTH 18.8 % (11.5-14.5)
[2017-11-07 06:38] LABS: ALB/GLOB RATIO 0.9 (1.0-2.1); ALBUMIN 2.1 g/dL (3.5-5.0); ALT/SGPT 56 U/L (9-52); AST/SGOT 24 U/L (14-36); BLOOD UREA NITROGEN 9 mg/dL (7-17); CALCIUM 7.7 mg/dl (8.6-10.4); GFR AFRICAN-AMERICAN > 60; GFR NON-AFRICAN AMERICAN > 60
[2017-11-07] MEDS ORDERED: Potassium Phosphate 15 MMOLE in Dextrose 5% In Water 250 ML IVPB ONE (08:00)
--- NOTE | 2017-11-07 08:07 | CP.PCM.PN ---
Subjective - Date & Time of Evaluation Date of Evaluation: 11/07/17 Time of Evaluation: 07:50 - Subjective Subjective: Medical Attending Note: patient seen and examined this morning. Patient underwent a bronchoscopy yesterday night. Patient is intubated and sedated. Unable to ROS secondary to clinical condition. Objective - Vital Signs/Intake and Output Vital Signs (last 24 hours): Temp Pulse Resp BP Pulse Ox 99.5 F 109 H 16 118/80 100 11/07/17 04:00 11/07/17 07:18 11/07/17 07:18 11/07/17 07:18 11/07/17 07:18 Intake and Output: 11/07/17 11/07/17 06:59 18:59 Intake Total 1987.6 159.3 Output Total 750 60 Balance 1237.6 99.3 - Medications Medications: Current Medications Acetaminophen/Butalbital/Caffeine (Fioricet) 1 tab PO DAILY [facility] Last Admin: 11/06/17 09:07 Dose: 1 tab Acetylcysteine (Acetylcysteine 20%) 4 ml INH RQ4 [facility] Last Admin: 11/07/17 07:46 Dose: 4 ml Albuterol/Ipratropium (Duoneb 3 Mg/0.5 Mg (3 Ml) Ud) 3 ml INH RQ4 [facility]MPERATRIZ Last Admin: 11/07/17 07:46 Dose: 3 ml Amitriptyline HCl (Elavil) 25 mg PO DAILY [facility] Benzocaine (Orajel 7.5%) 0 gm MM Q4 PRN Last Admin: 11/06/17 12:47 Dose: 5.1 gm Famotidine (Pepcid) 20 mg IVP DAILY [facility] Last Admin: 11/06/17 09:01 Dose: 20 mg Gabapentin (Neurontin) 600 mg PO DAILY [facility] Guaifenesin (Mucinex La) 600 mg PO BID [facility] Last Admin: 11/06/17 18:54 Dose: Not Given Azithromycin 500 mg/ Sodium (Chloride) 250 mls @ 250 mls/hr IVPB DAILY [facility] PRN Reason: Protocol Last Admin: 11/06/17 09:01 Dose: 250 mls/hr Vancomycin/Sodium Chloride (Vancomycin 1 Gm/Ns 200 Ml) 1 gm in 200 mls @ 133.333 mls/hr IVPB Q12H [facility] PRN Reason: Protocol Last Admin: 11/07/17 01:00 Dose: 133.333 mls/hr Multivitamins/Vitamin C 10 ml/Chromium/Copper/Manganese/Zinc 1 ml/ Magnesium Sulfate 6 meq/ Sodium Chloride 35 meq/Potassium Phosphate 15 mmole/Amino Acids 1,026.2278 mls @ 42 mls/hr IV .Q24H ONE Stop: 11/07/17 17:59 Last Admin: 11/06/17 17:25 Dose: 42 mls/hr Sodium Chloride (Sodium Chloride 0.9%) 1,000 mls @ 60 mls/hr IV .[id number] [facility] Last Admin: 11/07/17 02:55 Dose: Not Given Micafungin Sodium 100 mg/ (Sodium Chloride) 100 mls @ 100 mls/hr IV Q24H [facility] PRN Reason: Protocol Last Admin: 11/06/17 11:30 Dose: 100 mls/hr Propofol (Diprivan) 1,000 mg in 100 mls @ 1.731 mls/hr IV .Q24H PRN; Protocol; 5 MCG/KG/MIN PRN Reason: TITRATE PER MD ORDER Last Admin: 11/07/17 05:15 Dose: 50 mcg/kg/min, 17.309 mls/hr Cefepime HCl 2 gm/ Dextrose 100 mls @ 100 mls/hr IVPB Q12H [facility] PRN Reason: Protocol Last Admin: 11/06/17 23:30 Dose: 100 mls/hr Acyclovir 500 mg/ Sodium (Chloride) 100 mls @ 100 mls/hr IV Q12H [facility] PRN Reason: Protocol Last Admin: 11/06/17 20:00 Dose: 100 mls/hr Potassium Phosphate 15 mmole/ (Dextrose) 255 mls @ 42.5 mls/hr IVPB ONCE ONE Stop: 11/07/17 13:59 Ibuprofen (Motrin Tab) 400 mg PO Q6H PRN PRN Reason: Fever >100.4 F Last Admin: 11/04/17 21:34 Dose: 400 mg Nicotine (Nicoderm Cq) 1 patch TD DAILY [facility] Last Admin: 11/06/17 09:09 Dose: 1 patch Sodium Bicarbonate 3 (.75% Nebulizer 5 Ml) 1 ea INH RQ6 [facility] Last Admin: 11/07/17 01:01 Dose: 1 ea Saccharomyces Boulardii (Florastor) 250 mg PO BID [facility] Last Admin: 11/06/17 18:58 Dose: Not Given Vitamin A (Vitamin A & D Oint Ud Foilpak) 1 ea TOP Q6H PRN PRN Reason: Dry mouth Last Admin: 11/06/17 09:09 Dose: 1 ea - Labs Labs: 11/07/17 04:00 11/07/17 06:05 PT 13.8 SECONDS (9.7-12.2) H 11/06/17 05:51 INR 1.3 11/06/17 05:51 APTT 37 SECONDS (21-34) H 11/06/17 05:51 - Constitutional Appears: Non-toxic, No Acute Distress, Chronically Ill - Head Exam Head Exam: NORMAL INSPECTION Additional comments: intubated - Eye Exam Eye Exam: EOMI - ENT Exam ENT Exam: Mucous Membranes Dry - Respiratory Exam Respiratory Exam: Decreased Breath Sounds, NORMAL BREATHING PATTERN Additional comments: intubated, vent sounds - Cardiovascular Exam Cardiovascular Exam: Tachycardia, +S1, +S2 - GI/Abdominal Exam GI & Abdominal Exam: Soft, Normal Bowel Sounds. absent: Distended, Firm, Guarding, Rigid, Tenderness, Rebound - Exam Additional comments: bruner - Extremities Exam Extremities Exam: absent: Pedal Edema Additional comments: prevalon boots bilateral - Neurological Exam Additional comments: sedated - Skin Skin Exam: Dry, Intact, Pallor, Warm Attending/Attestation - Attestation I have personally seen and examined this patient.: Yes I have fully participated in the care of the patient.: Yes I have reviewed all pertinent clinical information, including history, physical exam and plan: Yes Notes (Text): 1) Acute Respiratory Distress Health Care Associated Pneumonia Sepsis Bandemia Assessment/Plan * Admit to ICU * Code sepsis 11/03/17 * Elevated procalcitonin: 13.90 * Repeat procalcitonin * Intubtaed and Bronchoscopy 11/06 * f/u cultures and cytology * White count increasing * Infectious Disease (Dr. Veras) on board-->help appreciated * Criteria: Afebrile, no leukocytosis, left shift noted with lactate 5.1 with repeat 6.0 * in the ED, given Rocephin and Azithromycin in the ED * Patient is currently on Bipap transitioned to nasal canula today * Possible HCAP prior hospitalization * Lactate: 4.5-->6.0-->4.4-->3.6 * Duonebs RQ4 PRN shortness of breathe * Acetrylcysteine 4ml INH RQ6H * Mucinex 600mg PO BID * Motrin 400mg PO Q6H PRN >100.4F * CT head: No intracranial mass, hemorrhage, or evidence of acute infarct. Mild chronic sphenoid sinusitis. possible small exostosis along the superior left temporral calvarium. * CT Chest (11/04/17): multilobar pneumonia of the right lung. Small hiatal hernia. * CT Chest/Abdomen/Pelvis (11/06/17): extensive diffuse infiltrate and consolidation of the right lung. Small left pleural effusion. Mild right sided volume loss with some shift of the heart mediastinum towards the center. Mild mediastinal lymphadenopahty. nonspecific. Nonspecific colitis. predominantly involved the right colon but also involving to a lesser extent the transverse and descending/sigmoind colon. No bowel obstruction. Ascites. Partial gastrectomy and gastrogenunostomy/jejunojenjunostomy. IV ABx: * Azithromycin 500mg IV q daily (active since 11/04/17) * Cefepime 2gm IVPB Q12H (active since 11/07/17) * Micafungin 100mg IVPB Q24H (active since 11/06/17) * Vancomycin 1 gram IVQ12 (active since 11/05/17) * Zovirax 200mg PO 5XD (active since 11/06/17) * Pending CMV, HSV. Mycoplasma IgM * Florastor 250mg PO BID * Blood cultures (11/05/17): no growth after 24hours X2 * Urine culture (11/04/17): no growth * check LDH-->elevated 2) Sinus Tachycardia Assessment/Plan * Cardiology (Dr. Contreras) on board-->help appreciated * Cleared from cardiac standpoint * Treat infection/sepsis * Became Hypotensive-->brought to ICU * Given Cardizem 20mg IVPX1, Cardizem 5mg IVP X3 in the ED * Cardizem drip d/c * Given Metoprolol 5mg IVP X1 * Needed IV fluids to increase blood pressure * Hgba1c: 4.9 * TSH: 0.64 * Lipid panel: <30, HDL: 16, T, Cholestrol: 71 * Echocardiogram (11/05/17): left ventricle is grossly normal size. Left ventricle systolic function is grossly normal. Right ventricle size and function is normal. Mild tricupsid regurgitation 3) History of Chronic Back Pain History of Scoliosis Fibromylagia Assessment/Plan * held gabapentin given respiratory status * held amitriptyline-->cardio side effects and patient is in sinus tachycardia * Discussed with patient who is aware * Patient has had chronic back problems since age 16 from scoliosis * Patient reports she was for lumbar spine surgery however she was told she needs to meet weight requirement prior to proceeding with surgery * Oxycodone 30mg POq8 PRN pain 4) Tobacco History Assessment/Plan * Start Nicotone Patch daily 5) History of Gastric Bypass (sleeve gastrectomy) Assessment/Plan * About 11 years ago * Hgba1c: 4.9 * TSH: 0.64 * Lipid panel: <30, HDL: 16, T, Cholestrol: 71 * Will start MVI 1 tab PO daily * Will need lifelong MV1, calcium, vitamin D supplements 6) Anemia Assessment/Plan * Patient with known history of anemia when I discussed with her at bedside * Patient has not had GI workup including colonoscopy. * H/H stable * 2units of PRBC 11/05 * Iron low, TIBC low, ferritin: 351 reticulocyte count: 2.2 * Reticulocyte index: 0.17 hypoproliferation of reticulocytes * B12 normal, folate within range * LDH: elevated 7) Unclear regarding to Multiple Sclerosis Hx Assessment/Plan * Currently not on medication * Diagnosed 8 years ago as per son * Will need to clarify with son how was diagnosed 8) Hx Pancreatitis * Noted on 08/2017 admission * Recommended outpatient EUS 9) Transaminitis * possible acute phase reactant * Abdominal US (11/04/17): hyperechoic hepatic parenchyma in the interval may indicate diffuse fatty infiltrateion though other etiologies. No common bile duct or intrahepatic biliary dilatation is identified. Moderately distended but otherwise unremarkable appearing gallbladder. Pancreas is poorly visualized. Small right renal cyst. Incidental right pleural effusion is noted. * Hepatitis panel: negative * HIV: negative 10) Electrolyte abnormalities * monitor and replete 11) Abdominal Pain * Lipase/Amylase: normal * none today 12) Thrombocytopenia * D/C lovenox * Order for HIT/CONSTANTINE: pending * Likely related to sepsis * Fibrongen and fibrin products elevated * Abdominal US (11/04/17): hyperechoic hepatic parenchyma in the interval may indicate diffuse fatty infiltrateion though other etiologies. No common bile duct or intrahepatic biliary dilatation is identified. Moderately distended but otherwise unremarkable appearing gallbladder. Pancreas is poorly visualized. Small right renal cyst. Incidental right pleural effusion is noted. 13) Prophylactic Measures * GI PPX: Protonix 40mg PO daily switch to pepcid 20mg IV qdaily given se: thrombocytopenia * Florastor 250mg PO bid * d/c Lovenox 30mg subq daily-->thrombocytopenia Disposition: Patient is on multiple antibiotics and antifungal to cover for extensive pneumonia. We will need to f/u bronchoscopy results. Monitor procalcitonin. Patient is intubated since bronchoscopy yesterday.
--- NOTE | 2017-11-07 08:31 | RAD ---
Date of service: 11/07/2017 HISTORY: intubated COMPARISON: Portable chest 11/06/2017. FINDINGS: LUNGS: Endotracheal tube is not significantly changed in position. There is persistent infiltrate affecting the majority of the right lung with only the right apex spared once again. Carotid bronchovascular markings are difficult to differentiate from borderline airspace disease at the left base. PLEURA: Right pleural effusion not excluded. None is seen at the left. No pneumothorax bilaterally. CARDIOVASCULAR: The left cardiovascular pattern is stable. Right vascular markings are obscured by infiltrate once again. No pulmonary vascular congestion suspected. OSSEOUS STRUCTURES: No significant abnormalities. VISUALIZED UPPER ABDOMEN: Nasogastric tube terminates at left upper quadrant in the interval however, the side hole terminates in the region of the esophagus distally. Advancing the NG tube further into the stomach is advised when feasible. Surgical clips are noted at the left upper quadrant abdomen. OTHER FINDINGS: Neural stimulator identified in the region of the thoracic spine. IMPRESSION: Persistent but stable infiltrate right lung with only in the right apex spared once again. Carotid bronchovascular markings versus possible early airspace disease left base. Interval nasogastric tube is in now place with tip terminating at the left upper quadrant abdomen, however, the side hole terminates in the region of the distal esophagus advancement of the NG tube further into the stomach is advised when feasible.
[2017-11-07] MEDS: Acyclovir 500 MG in Sodium Chloride 0.9% 100 ML IV SCH ×2 (08:35→20:00)
--- NOTE | 2017-11-07 08:56 | RAD ---
Date of service: 11/06/2017 HISTORY: Intubation COMPARISON: Portable chest 11/06/2017 7:26 a.m.. FINDINGS: LUNGS: An endotracheal tube is in place with tip terminating at the right mainstem bronchus. Retraction 3-4 cm is recommended. No interval change in prominent right pulmonary infiltrate is appreciated with right apex again seen spared. PLEURA: A limited right pleural effusions not excluded. None is seen at the left. No pneumothorax bilaterally. CARDIOVASCULAR: Cardiovascular pattern is limited evaluation due to a prominent right sided infiltrate. No pulmonary vascular congestion suspected based on left hemithorax appearance. Right central venous line unchanged in position. OSSEOUS STRUCTURES: No significant abnormalities. VISUALIZED UPPER ABDOMEN: Nasogastric tube not identified currently. OTHER FINDINGS: Surgical clips again noted at the left upper quadrant with apparent epidural stimulator noted in the thoracic spine once again. IMPRESSION: Endotracheal intubation with the tip terminating at the right mainstem bronchus (adjusted in subsequent chest radiograph 11/06/2017 7:09 p.m.). No interval change in prominent right pulmonary infiltrate with limited right pleural effusion not excluded. Nasogastric tube now not identified.
[2017-11-07 09:11] LABS: NEUT # 7.6 K/uL (1.8-7.0)
[2017-11-07 09:12] LABS: BASO # 0.2 K/uL (0.0-0.2); LYMPH # 9.7 K/uL (1.0-4.3); MONO # 2.4 K/uL (0.0-0.8)
[2017-11-07 09:20] LABS: BANDS 21 % (0-2); LYMPHOCYTE 3 % (20-40); MONOCYTE 11 % (0-10); NEUTROPHIL 65 % (50-75); TOTAL CELLS COUNTED 100
[2017-11-07 09:21] LABS: ANISOCYTOSIS SLIGHT; PLATELET ESTIMATE MARKEDLY DECREASED (NORMAL); POIKILOCYTOSIS SLIGHT
[2017-11-07 09:22] LABS: BURR CELLS SLIGHT; MICROCYTOSIS SLIGHT; OVALOCYTES SLIGHT; SPHEROCYTES SLIGHT; TARGET CELLS SLIGHT; TEARDROP CELLS SLIGHT
[2017-11-07] MEDS: Micafungin 100 MG in Sodium Chloride 0.9% 100 ML IV SCH (10:18)
[2017-11-07] MEDS: Saccharomyces Boulardi 250 mg Cap PO SCH (10:20)
[2017-11-07] MEDS: guaiFENesin 600 mg ER Tab PO SCH ×2 (10:20→17:32)
[2017-11-07] MEDS: Apap-Butalbital-Caffeine 325-50-40mg Tab PO SCH (10:21)
--- NOTE | 2017-11-07 10:45 | PCM.PROC ---
Additional Comments - Additional Comments Additional Comments: 11/06/17 Bronchoscopy Patient was intubated and sedated with propofol gtt and versed prn pushes. Bronchoscope was inserted and passed through ETT. Kallie visualized. All major branches of the right lung were visualized. A few mucous plugs were noted and suctioned out using lavage. BAL washings were sent for bacterial, fungal cultures and AFB staining. There was no other gross pathology noted, airways were patent and appeared normal. The patient tolerated the procedure well, and was kept intubated. Post bronchscopy X-ray, no pneumothorax noted.
--- NOTE | 2017-11-07 11:07 | CP.CCUPN ---
CCU Subjective - Physician Review Events Since Last Encounter (Free Text): 11/07/17 10:51 intubated and sedated on vent. CCU Objective - Vital Signs / Intake & Output Vital Signs (Last 4 hours): Vital Signs Pulse Resp BP Pulse Ox 11/07/17 07:18 109 H 16 118/80 100 11/07/17 07:03 110 H 22 118/81 100 11/07/17 07:00 111 H 26 H 100 Intake and Output (Last 8hrs): Intake & Output 11/06/17 11/07/17 11/07/17 22:59 06:59 14:59 Intake Total 1129.9 1434.4 159.3 Output Total 485 505 60 Balance 644.9 929.4 99.3 Weight 126 lb 2.1 oz Intake: IV 100.0 100 Intake, IV Amount 979.9 1334.4 159.3 Right Distal Port 336 336 42 Internal Jugular Right Medial Port 123.9 138.4 17.3 Internal Jugular Right Proximal Port 520 860 100 Internal Jugular Oral 50 Output: Urine 485 505 60 Urine, Voided 485 505 60 - Physical Exam Head: Positive for: Atraumatic, Normocephalic Extroacular Muscles: Positive for: EOMI Mouth: Positive for: Moist Mucous Membranes Nose (External): Positive for: Atraumatic Respiratory/Chest: Positive for: Clear to Auscultation, Good Air Exchange, Decreased Breath Sounds. Negative for: Respiratory Distress, Accessory Muscle Use Cardiovascular: Positive for: Normal S1, S2, Tachycardic Abdomen: Positive for: Normal Bowel Sounds. Negative for: Tenderness, Distention Upper Extremity: Positive for: Normal Inspection. Negative for: Cyanosis Lower Extremity: Positive for: Normal Inspection. Negative for: Edema Skin: Positive for: Normal Color Psychiatric: Positive for: Other (sedated) - Medications Active Medications: Active Medications Generic Name Dose Route Start Last Admin Trade Name Freq PRN Reason Stop Dose Admin Acetaminophen/Butalbital/Caffeine 1 tab 11/04/17 10:00 11/07/17 10:21 Fioricet PO 1 tab DAILY EMPERATRIZ Administration Acetylcysteine 4 ml 11/06/17 08:13 11/07/17 07:46 Acetylcysteine 20% INH 4 ml RQ4 EMPERATRIZ Administration Albuterol/Ipratropium 3 ml 11/06/17 08:13 11/07/17 07:46 Duoneb 3 Mg/0.5 Mg (3 Ml) Ud INH 3 ml RQ4 EMPERATRIZ Administration Amitriptyline HCl 25 mg 11/04/17 10:00 Elavil PO DAILY EMPERATRIZ Benzocaine 0 gm 11/06/17 08:15 11/06/17 12:47 Orajel 7.5% MM 5.1 gm Q4 PRN Administration Famotidine 20 mg 11/06/17 10:00 11/07/17 10:19 Pepcid IVP 20 mg DAILY EMPERATRIZ Administration Gabapentin 600 mg 11/04/17 10:00 Neurontin PO DAILY EMPERATRIZ Guaifenesin 600 mg 11/05/17 10:00 11/07/17 10:20 Mucinex La PO 600 mg BID EMPERATRIZ Administration Azithromycin 500 mg/ Sodium 250 mls @ 250 mls/hr 11/04/17 10:00 11/06/17 09: 01 Chloride IVPB 250 mls/hr DAILY EMPERATRIZ Administration Protocol Vancomycin/Sodium Chloride 1 gm in 200 mls @ 133.333 mls/hr 11/05/17 01:00 01:00 Vancomycin 1 Gm/Ns 200 Ml IVPB 133.333 mls/hr Q12H EMPERATRIZ Administration Protocol Multivitamins/Vitamin C 10 ml/ 1,026.2278 mls @ 42 mls/hr 11/06/17 18:00 17:25 Chromium/Copper/Manganese/ IV 11/07/17 17:59 42 mls/hr Zinc 1 ml/ Magnesium Sulfate 6 .Q24H ONE Administration meq/ Sodium Chloride 35 meq/ Potassium Phosphate 15 mmole/ Amino Acids Sodium Chloride 1,000 mls @ 60 mls/hr 11/06/17 10:15 11/07/17 02:55 Sodium Chloride 0.9% IV Not Given .[id number] EMPERATRIZ Micafungin Sodium 100 mg/ 100 mls @ 100 mls/hr 11/06/17 10:15 11/07/17 10:18 Sodium Chloride IV 100 mls/hr Q24H EMPERATRIZ Administration Protocol Propofol 1,000 mg in 100 mls @ 1.731 mls/hr 11/06/17 17:12 11/07/17 05:15 Diprivan IV 50 mcg/kg/min .Q24H PRN 17.309 mls/hr TITRATE PER MD ORDER Administration Protocol 5 MCG/KG/MIN Cefepime HCl 2 gm/ Dextrose 100 mls @ 100 mls/hr 11/07/17 00:00 11/06/17 23: 30 IVPB 100 mls/hr Q12H EMPERATRIZ Administration Protocol Acyclovir 500 mg/ Sodium 100 mls @ 100 mls/hr 11/06/17 20:00 11/07/17 08:35 Chloride IV 100 mls/hr Q12H EMPERATRIZ Administration Protocol Potassium Phosphate 15 mmole/ 255 mls @ 42.5 mls/hr 11/07/17 08:00 11/07/17 09:15 Dextrose IVPB 11/07/17 13:59 42.5 mls/hr ONCE ONE Administration Fentanyl Citrate 2,500 mcg/ 250 mls @ 11.44 mls/hr 11/07/17 09:30 Sodium Chloride IV .[id number] EMPERATRIZ Protocol 2 MCG/KG/HR Ibuprofen 400 mg 11/04/17 01:02 11/04/17 21:34 Motrin Tab PO 400 mg Q6H PRN Administration Fever >100.4 F Nicotine 1 patch 11/04/17 10:00 11/07/17 10:21 Nicoderm Cq TD 1 patch DAILY EMPERATRIZ Administration Saccharomyces Boulardii 250 mg 11/04/17 08:00 11/07/17 10:20 Florastor PO 250 mg BID EMPERATRIZ Administration Vitamin A 1 ea 11/04/17 10:30 11/06/17 09:09 Vitamin A & D Oint Ud Foilpak TOP 1 ea Q6H PRN Administration Dry mouth - Patient Studies Lab Studies: Microbiology Studies 11/07/17 06:10 Gram Stain - Final Sputum 11/05/17 22:15 Blood Culture - Preliminary Blood-Venous NO GROWTH AFTER 24 HOURS 11/05/17 22:15 Blood Culture - Preliminary Blood-Venous NO GROWTH AFTER 24 HOURS 11/06/17 20:05 Gram Stain - Final Bronchial Washings 11/06/17 20:05 Gram Stain - Final Body Fluid - Bronchial Washing Lab Studies 11/07/17 11/07/17 11/07/17 Range/Units 06:13 06:05 05:34 WBC (4.8-10.8) K/uL RBC (3.80-5.20) Mil/uL Hgb (11.0-16.0) g/dL Hct (34.0-47.0) % MCV (81.0-99.0) fL MCH (27.0-31.0) pg MCHC (33.0-37.0) g/dL RDW (11.5-14.5) % Plt Count (130-400) K/uL MPV (7.2-11.7) fL Neut % (Auto) (50.0-75.0) % Lymph % (Auto) (20.0-40.0) % Borden % (Auto) (0.0-10.0) % Eos % (Auto) (0.0-4.0) % Baso % (Auto) (0.0-2.0) % Neut # (Auto) (1.8-7.0) K/uL Lymph # (Auto) (1.0-4.3) K/uL Borden # (Auto) (0.0-0.8) K/uL Eos # (Auto) (0.0-0.7) K/uL Baso # (Auto) (0.0-0.2) K/uL Neutrophils % (Manual) (50-75) % Band Neutrophils % (0-2) % Lymphocytes % (Manual) (20-40) % Monocytes % (Manual) (0-10) % Platelet Estimate (NORMAL) Poikilocytosis (manual Anisocytosis (manual) Microcytosis (manual) Macrocytosis (manual) Spherocytes Target Cells Tear Drop Cells Ovalocytes Stanley Cells Fibrin Degrad Products (NEGATIVE) Fibrin Degrad Prod, Qt (<10) ug/mL Puncture Site Rb pCO2 30 L (35-45) mm/Hg pO2 273 H (80-100) mm/Hg HCO3 24.3 (21-28) mmol/L ABG pH 7.47 H (7.35-7.45) ABG Total CO2 22.7 (22-28) mmol/L ABG O2 Saturation 98.1 H (95-98) % ABG Base Excess -0.9 (-2.0-3.0) mmol/L ABG Hemoglobin (11.7-17.4) g/dL ABG Carboxyhemoglobin (0.5-1.5) % POC ABG HHb (Measured) (0.0-5.0) % ABG Methemoglobin (0.0-3.0) % Romero Test Na ABG Potassium 3.0 L (3.6-5.2) mmol/L A-a O2 Difference 403.0 mm/Hg Respiratory Index 1.5 Hgb O2 Saturation (95.0-98.0) % Sodium 145 143.0 (132-148) mmol/l Chloride 112 H 114.0 H (98-107) mmol/L Glucose 102 (65-105) mg/dl Lactate 2.0 (0.7-2.1) mmol/L Liter Flow Vent Mode Prvc Mechanical Rate 14 FiO2 100.0 % Tidal Volume 420 PEEP 5 Potassium 3.2 L (3.6-5.2) mmol/L Carbon Dioxide 23 (22-30) mmol/L Anion Gap 13 (10-20) BUN 9 (7-17) mg/dL Creatinine 0.5 L (0.7-1.2) mg/dL Est GFR ( Amer) > 60 Est GFR (Non-Af Amer) > 60 Random Glucose 109 H (65-105) mg/dL Lactic Acid 2.0 (0.7-2.1) mmol/L Calcium 7.7 L (8.6-10.4) mg/dl Phosphorus 1.9 L (2.5-4.5) mg/dL Magnesium 2.2 (1.6-2.3) mg/dL Total Bilirubin 1.2 (0.2-1.3) mg/dL AST 24 (14-36) U/L ALT 56 H (9-52) U/L Alkaline Phosphatase 134 H (38-126) U/L Total Protein 4.5 L (6.3-8.3) g/dL Albumin 2.1 L (3.5-5.0) g/dL Globulin 2.4 (2.2-3.9) gm/dL Albumin/Globulin Ratio 0.9 L (1.0-2.1) Arterial Blood Potassium 3.0 L (3.6-5.2) mmol/L S. pneumoniae Antigen (NEGATIVE) 11/07/17 11/06/17 11/06/17 Range/Units 04:00 13:26 13:18 WBC 20.0 H (4.8-10.8) K/uL RBC 2.84 L (3.80-5.20) Mil/uL Hgb 9.0 L (11.0-16.0) g/dL Hct 26.3 L (34.0-47.0) % MCV 92.4 (81.0-99.0) fL MCH 31.6 H (27.0-31.0) pg MCHC 34.2 (33.0-37.0) g/dL RDW 18.8 H (11.5-14.5) % Plt Count 48 L (130-400) K/uL MPV 10.4 (7.2-11.7) fL Neut % (Auto) 38.0 L (50.0-75.0) % Lymph % (Auto) 49.0 H (20.0-40.0) % Borden % (Auto) 12.0 H (0.0-10.0) % Eos % (Auto) 0.0 (0.0-4.0) % Baso % (Auto) 1.0 (0.0-2.0) % Neut # (Auto) 7.6 H (1.8-7.0) K/uL Lymph # (Auto) 9.7 H (1.0-4.3) K/uL Borden # (Auto) 2.4 H (0.0-0.8) K/uL Eos # (Auto) 0.0 (0.0-0.7) K/uL Baso # (Auto) 0.2 (0.0-0.2) K/uL Neutrophils % (Manual) 65 (50-75) % Band Neutrophils % 21 H* (0-2) % Lymphocytes % (Manual) 3 L (20-40) % Monocytes % (Manual) 11 H (0-10) % Platelet Estimate Markedly decreased L (NORMAL) Poikilocytosis (manual Slight Anisocytosis (manual) Slight Microcytosis (manual) Slight Macrocytosis (manual) Slight Spherocytes Slight Target Cells Slight Tear Drop Cells Slight Ovalocytes Slight Stanley Cells Slight Fibrin Degrad Products Positive H (NEGATIVE) Fibrin Degrad Prod, Qt >40 H (<10) ug/mL Puncture Site Rb pCO2 38 (35-45) mm/Hg pO2 96 (80-100) mm/Hg HCO3 23.0 (21-28) mmol/L ABG pH 7.38 (7.35-7.45) ABG Total CO2 23.7 (22-28) mmol/L ABG O2 Saturation 97.4 (95-98) % ABG Base Excess -2.4 L (-2.0-3.0) mmol/L ABG Hemoglobin 10.1 L (11.7-17.4) g/dL ABG Carboxyhemoglobin 1.0 (0.5-1.5) % POC ABG HHb (Measured) 2.5 (0.0-5.0) % ABG Methemoglobin 1.1 (0.0-3.0) % Romero Test Na ABG Potassium (3.6-5.2) mmol/L A-a O2 Difference 92.0 mm/Hg Respiratory Index 1.0 Hgb O2 Saturation 95.4 (95.0-98.0) % Sodium (132-148) mmol/l Chloride (98-107) mmol/L Glucose (65-105) mg/dl Lactate (0.7-2.1) mmol/L Liter Flow 4.0 Vent Mode Mechanical Rate FiO2 33.0 % Tidal Volume PEEP Potassium (3.6-5.2) mmol/L Carbon Dioxide (22-30) mmol/L Anion Gap (10-20) BUN (7-17) mg/dL Creatinine (0.7-1.2) mg/dL Est GFR ( Amer) Est GFR (Non-Af Amer) Random Glucose (65-105) mg/dL Lactic Acid (0.7-2.1) mmol/L Calcium (8.6-10.4) mg/dl Phosphorus (2.5-4.5) mg/dL Magnesium (1.6-2.3) mg/dL Total Bilirubin (0.2-1.3) mg/dL AST (14-36) U/L ALT (9-52) U/L Alkaline Phosphatase (38-126) U/L Total Protein (6.3-8.3) g/dL Albumin (3.5-5.0) g/dL Globulin (2.2-3.9) gm/dL Albumin/Globulin Ratio (1.0-2.1) Arterial Blood Potassium (3.6-5.2) mmol/L S. pneumoniae Antigen (NEGATIVE) 11/04/17 Range/Units Unknown WBC (4.8-10.8) K/uL RBC (3.80-5.20) Mil/uL Hgb (11.0-16.0) g/dL Hct (34.0-47.0) % MCV (81.0-99.0) fL MCH (27.0-31.0) pg MCHC (33.0-37.0) g/dL RDW (11.5-14.5) % Plt Count (130-400) K/uL MPV (7.2-11.7) fL Neut % (Auto) (50.0-75.0) % Lymph % (Auto) (20.0-40.0) % Borden % (Auto) (0.0-10.0) % Eos % (Auto) (0.0-4.0) % Baso % (Auto) (0.0-2.0) % Neut # (Auto) (1.8-7.0) K/uL Lymph # (Auto) (1.0-4.3) K/uL Borden # (Auto) (0.0-0.8) K/uL Eos # (Auto) (0.0-0.7) K/uL Baso # (Auto) (0.0-0.2) K/uL Neutrophils % (Manual) (50-75) % Band Neutrophils % (0-2) % Lymphocytes % (Manual) (20-40) % Monocytes % (Manual) (0-10) % Platelet Estimate (NORMAL) Poikilocytosis (manual Anisocytosis (manual) Microcytosis (manual) Macrocytosis (manual) Spherocytes Target Cells Tear Drop Cells Ovalocytes Stanley Cells Fibrin Degrad Products (NEGATIVE) Fibrin Degrad Prod, Qt (<10) ug/mL Puncture Site pCO2 (35-45) mm/Hg pO2 (80-100) mm/Hg HCO3 (21-28) mmol/L ABG pH (7.35-7.45) ABG Total CO2 (22-28) mmol/L ABG O2 Saturation (95-98) % ABG Base Excess (-2.0-3.0) mmol/L ABG Hemoglobin (11.7-17.4) g/dL ABG Carboxyhemoglobin (0.5-1.5) % POC ABG HHb (Measured) (0.0-5.0) % ABG Methemoglobin (0.0-3.0) % Romero Test ABG Potassium (3.6-5.2) mmol/L A-a O2 Difference mm/Hg Respiratory Index Hgb O2 Saturation (95.0-98.0) % Sodium (132-148) mmol/l Chloride (98-107) mmol/L Glucose (65-105) mg/dl Lactate (0.7-2.1) mmol/L Liter Flow Vent Mode Mechanical Rate FiO2 % Tidal Volume PEEP Potassium (3.6-5.2) mmol/L Carbon Dioxide (22-30) mmol/L Anion Gap (10-20) BUN (7-17) mg/dL Creatinine (0.7-1.2) mg/dL Est GFR ( Amer) Est GFR (Non-Af Amer) Random Glucose (65-105) mg/dL Lactic Acid (0.7-2.1) mmol/L Calcium (8.6-10.4) mg/dl Phosphorus (2.5-4.5) mg/dL Magnesium (1.6-2.3) mg/dL Total Bilirubin (0.2-1.3) mg/dL AST (14-36) U/L ALT (9-52) U/L Alkaline Phosphatase (38-126) U/L Total Protein (6.3-8.3) g/dL Albumin (3.5-5.0) g/dL Globulin (2.2-3.9) gm/dL Albumin/Globulin Ratio (1.0-2.1) Arterial Blood Potassium (3.6-5.2) mmol/L S. pneumoniae Antigen Negative (NEGATIVE) Laboratory Results - last 24 hr 11/04/17 11/06/17 11/06/17 Unknown 13:18 13:26 WBC RBC Hgb Hct MCV MCH MCHC RDW Plt Count MPV Neut % (Auto) Lymph % (Auto) Borden % (Auto) Eos % (Auto) Baso % (Auto) Neut # (Auto) Lymph # (Auto) Borden # (Auto) Eos # (Auto) Baso # (Auto) Neutrophils % (Manual) Band Neutrophils % Lymphocytes % (Manual) Monocytes % (Manual) Platelet Estimate Poikilocytosis (manual Anisocytosis (manual) Microcytosis (manual) Macrocytosis (manual) Spherocytes Target Cells Tear Drop Cells Ovalocytes Stanley Cells Fibrin Degrad Products Positive H Fibrin Degrad Prod, Qt >40 H Puncture Site Rb pCO2 38 pO2 96 HCO3 23.0 ABG pH 7.38 ABG Total CO2 23.7 ABG O2 Saturation 97.4 ABG Base Excess -2.4 L ABG Hemoglobin 10.1 L ABG Carboxyhemoglobin 1.0 POC ABG HHb (Measured) 2.5 ABG Methemoglobin 1.1 Romero Test Na ABG Potassium A-a O2 Difference 92.0 Respiratory Index 1.0 Hgb O2 Saturation 95.4 Sodium Chloride Glucose Lactate Liter Flow 4.0 Vent Mode Mechanical Rate FiO2 33.0 Tidal Volume PEEP Potassium Carbon Dioxide Anion Gap BUN Creatinine Est GFR ( Amer) Est GFR (Non-Af Amer) Random Glucose Lactic Acid Calcium Phosphorus Magnesium Total Bilirubin AST ALT Alkaline Phosphatase Total Protein Albumin Globulin Albumin/Globulin Ratio Arterial Blood Potassium S. pneumoniae Antigen Negative 11/07/17 11/07/17 11/07/17 04:00 05:34 06:05 WBC 20.0 H RBC 2.84 L Hgb 9.0 L Hct 26.3 L MCV 92.4 MCH 31.6 H MCHC 34.2 RDW 18.8 H Plt Count 48 L MPV 10.4 Neut % (Auto) 38.0 L Lymph % (Auto) 49.0 H Borden % (Auto) 12.0 H Eos % (Auto) 0.0 Baso % (Auto) 1.0 Neut # (Auto) 7.6 H Lymph # (Auto) 9.7 H Borden # (Auto) 2.4 H Eos # (Auto) 0.0 Baso # (Auto) 0.2 Neutrophils % (Manual) 65 Band Neutrophils % 21 H* Lymphocytes % (Manual) 3 L Monocytes % (Manual) 11 H Platelet Estimate Markedly decreased L Poikilocytosis (manual Slight Anisocytosis (manual) Slight Microcytosis (manual) Slight Macrocytosis (manual) Slight Spherocytes Slight Target Cells Slight Tear Drop Cells Slight Ovalocytes Slight Hemant Cells Slight Fibrin Degrad Products Fibrin Degrad Prod, Qt Puncture Site Rb pCO2 30 L pO2 273 H HCO3 24.3 ABG pH 7.47 H ABG Total CO2 22.7 ABG O2 Saturation 98.1 H ABG Base Excess -0.9 ABG Hemoglobin ABG Carboxyhemoglobin POC ABG HHb (Measured) ABG Methemoglobin Romero Test Na ABG Potassium 3.0 L A-a O2 Difference 403.0 Respiratory Index 1.5 Hgb O2 Saturation Sodium 143.0 145 Chloride 114.0 H 112 H Glucose 102 Lactate 2.0 Liter Flow Vent Mode Prvc Mechanical Rate 14 FiO2 100.0 Tidal Volume 420 PEEP 5 Potassium 3.2 L Carbon Dioxide 23 Anion Gap 13 BUN 9 Creatinine 0.5 L Est GFR ( Amer) > 60 Est GFR (Non-Af Amer) > 60 Random Glucose 109 H Lactic Acid Calcium 7.7 L Phosphorus 1.9 L Magnesium 2.2 Total Bilirubin 1.2 AST 24 ALT 56 H Alkaline Phosphatase 134 H Total Protein 4.5 L Albumin 2.1 L Globulin 2.4 Albumin/Globulin Ratio 0.9 L Arterial Blood Potassium 3.0 L S. pneumoniae Antigen 11/07/17 06:13 WBC RBC Hgb Hct MCV MCH MCHC RDW Plt Count MPV Neut % (Auto) Lymph % (Auto) Borden % (Auto) Eos % (Auto) Baso % (Auto) Neut # (Auto) Lymph # (Auto) Borden # (Auto) Eos # (Auto) Baso # (Auto) Neutrophils % (Manual) Band Neutrophils % Lymphocytes % (Manual) Monocytes % (Manual) Platelet Estimate Poikilocytosis (manual Anisocytosis (manual) Microcytosis (manual) Macrocytosis (manual) Spherocytes Target Cells Tear Drop Cells Ovalocytes Stanley Cells Fibrin Degrad Products Fibrin Degrad Prod, Qt Puncture Site pCO2 pO2 HCO3 ABG pH ABG Total CO2 ABG O2 Saturation ABG Base Excess ABG Hemoglobin ABG Carboxyhemoglobin POC ABG HHb (Measured) ABG Methemoglobin Romero Test ABG Potassium A-a O2 Difference Respiratory Index Hgb O2 Saturation Sodium Chloride Glucose Lactate Liter Flow Vent Mode Mechanical Rate FiO2 Tidal Volume PEEP Potassium Carbon Dioxide Anion Gap BUN Creatinine Est GFR ( Amer) Est GFR (Non-Af Amer) Random Glucose Lactic Acid 2.0 Calcium Phosphorus Magnesium Total Bilirubin AST ALT Alkaline Phosphatase Total Protein Albumin Globulin Albumin/Globulin Ratio Arterial Blood Potassium S. pneumoniae Antigen Fingerstick Blood Sugar Results: 144 Review of Systems - Review of Systems Systems not reviewed;Unavailable: Intubated Critical Care Progress Note - Ventilator Checklist Head of Bed 30 Degrees: Yes Daily Sedation Vacation: Yes Daily Assessment of Readiness to Wean: Yes Daily Spontaneous Breathing Trial: Yes PUD Prophalyxis: Yes DVT Prophylaxis: Yes Assessment/Plan (1) Pneumonia Assessment and plan: 51yo F. PMHx chronic back pain, scoliosis, fibromyalgia, multiple sclerosis, gastric bypass. Presented to ED with weakness, anorexia, dyspnea, cough x1day. Admitted to ICU for sepsis 2/2 right multilobar PNA. Neuro: sedated with propofol, transitioning to fentanyl gtt. Pulm: acute respiratory failure, intubated for bronchoscopy with worsening pneumonia. Therapeutic Bronchoscopy not very helpful, minimal secretions, mostly intraparenchymal disease. Worsening PNA on CXR. Cultures pending. CV: hemodynamically stable Hem: anemia stable. No evidence of malignancy on imaging. Worsening thrombocytopenia secondary to sepsis. Renal: urine output wnl, will continue to monitor. Endo: no acute issues GI: NPO, started tube feeding Jevity@20, goal 50. ID: severe sepsis from community acquired pneumonia, continue Vancomycin, Cefepime, Acylcovir and Micafungin. DVT proph - SCD's, holding a/c with severe thrombocytopenia GI proph - protonix bruner for strict I/O's during acute illness Code status - full code Critical Care Time spent 35 minutes Multi-disciplinary rounds were performed with house staff, nursing, speech therapy, respiratory therapy, pharmacy and nutrition with integrated input from the primary team/attending and other consulting services. The documented time is cumulative and includes review of patient data/exams/labs/chart review and examination of the patient on rounds and throughout the day; time is exclusive of any procedures or teaching time. Current Visit: Yes Status: Acute
[2017-11-07] MEDS: Azithromycin 500 MG in Sodium Chloride 0.9% 250 ML IVPB SCH (11:30)
[2017-11-07 12:00] LABS: HEMOGLOBIN 8.9 g/dL (11.0-16.0); MEAN CELL VOLUME 90.7 fL (81.0-99.0); MEAN CORPUSCULAR HEMOGLOBIN 31.4 pg (27.0-31.0); MEAN CORPUSCULAR HGB CONC 34.7 g/dL (33.0-37.0); MEAN PLATELET VOLUME 9.6 fL (7.2-11.7); PLATELET COUNT 41 K/uL (130-400); RBC 2.82 Mil/uL (3.80-5.20); RED CELL DISTRIBUTION WIDTH 19.4 % (11.5-14.5); WHITE BLOOD COUNT 19.7 K/uL (4.8-10.8)
[2017-11-07] MEDS: Cefepime 2 GM in Dextrose 5% In Water 100 ML IVPB SCH (12:25)
[2017-11-07 12:30] LABS: BANDS 24 % (0-2); LYMPHOCYTE 3 % (20-40); MONOCYTE 3 % (0-10); NEUTROPHIL 70 % (50-75); TOTAL CELLS COUNTED 100
[2017-11-07 12:31] LABS: ANISOCYTOSIS SLIGHT; HYPOCHROMIC SLIGHT; MICROCYTOSIS SLIGHT; PLATELET ESTIMATE MARKEDLY DECREASED (NORMAL); POIKILOCYTOSIS SLIGHT; POLYCHROMIC SLIGHT
[2017-11-07 12:32] LABS: OVALOCYTES SLIGHT; TARGET CELLS SLIGHT; TEARDROP CELLS SLIGHT
[2017-11-07 12:33] LABS: LYMPH % 54.2 % (20.0-40.0); NEUT % 39.4 % (50.0-75.0)
[2017-11-07 12:34] LABS: BASO % 0.2 % (0.0-2.0); EOS % 0.1 % (0.0-4.0); LYMPH # 10.7 K/uL (1.0-4.3); MONO # 1.2 K/uL (0.0-0.8); MONO % 6.1 % (0.0-10.0); NEUT # 7.8 K/uL (1.8-7.0)
[2017-11-07] MEDS: Pantoprazole 40 mg Susp UD PO SCH (15:00)
--- NOTE | 2017-11-07 15:40 | CP.PCM.PN ---
Subjective - Date & Time of Evaluation Date of Evaluation: 11/07/17 Time of Evaluation: 03:15 - Subjective Subjective: dictated Objective - Vital Signs/Intake and Output Vital Signs (last 24 hours): Temp Pulse Resp BP Pulse Ox 99.5 F 109 H 19 106/71 100 11/07/17 04:00 11/07/17 13:18 11/07/17 13:18 11/07/17 13:18 11/07/17 13:18 Intake and Output: 11/07/17 11/07/17 06:59 18:59 Intake Total 1987.6 1601.1 Output Total 750 400 Balance 1237.6 1201.1 - Medications Medications: Current Medications Acetaminophen/Butalbital/Caffeine (Fioricet) 1 tab PO DAILY EMPERATRIZ Last Admin: 11/07/17 10:21 Dose: 1 tab Acetylcysteine (Acetylcysteine 20%) 4 ml INH RQ4 EMPERATRIZ Last Admin: 11/07/17 11:09 Dose: 4 ml Albuterol/Ipratropium (Duoneb 3 Mg/0.5 Mg (3 Ml) Ud) 3 ml INH RQ4 EMPERATRIZ Last Admin: 11/07/17 11:09 Dose: 3 ml Amitriptyline HCl (Elavil) 25 mg PO DAILY [facility] Benzocaine (Orajel 7.5%) 0 gm MM Q4 PRN Last Admin: 11/06/17 12:47 Dose: 5.1 gm Gabapentin (Neurontin) 600 mg PO DAILY [facility] Guaifenesin (Mucinex La) 600 mg PO BID EMPERATRIZ Last Admin: 11/07/17 10:20 Dose: 600 mg Azithromycin 500 mg/ Sodium (Chloride) 250 mls @ 250 mls/hr IVPB DAILY EMPERATRIZ PRN Reason: Protocol Last Admin: 11/07/17 11:30 Dose: 250 mls/hr Vancomycin/Sodium Chloride (Vancomycin 1 Gm/Ns 200 Ml) 1 gm in 200 mls @ 133.333 mls/hr IVPB Q12H EMPERATRIZ PRN Reason: Protocol Last Admin: 11/07/17 14:00 Dose: 133.333 mls/hr Sodium Chloride (Sodium Chloride 0.9%) 1,000 mls @ 60 mls/hr IV .[id number] EMPERATRIZ Last Admin: 11/07/17 11:35 Dose: 60 mls/hr Micafungin Sodium 100 mg/ (Sodium Chloride) 100 mls @ 100 mls/hr IV Q24H EMPERATRIZ PRN Reason: Protocol Last Admin: 11/07/17 10:18 Dose: 100 mls/hr Propofol (Diprivan) 1,000 mg in 100 mls @ 1.731 mls/hr IV .Q24H PRN; Protocol; 5 MCG/KG/MIN PRN Reason: TITRATE PER MD ORDER Last Titration: 11/07/17 12:15 Dose: 14 mcg/kg/min, 4.847 mls/hr Cefepime HCl 2 gm/ Dextrose 100 mls @ 100 mls/hr IVPB Q12H EMPERATRIZ PRN Reason: Protocol Last Admin: 11/07/17 12:25 Dose: 100 mls/hr Acyclovir 500 mg/ Sodium (Chloride) 100 mls @ 100 mls/hr IV Q12H EMPERATRIZ PRN Reason: Protocol Last Admin: 11/07/17 08:35 Dose: 100 mls/hr Fentanyl Citrate 2,500 mcg/ (Sodium Chloride) 250 mls @ 11.44 mls/hr IV .[id number] EMPERATRIZ; 2 MCG/KG/HR PRN Reason: Protocol Last Titration: 11/07/17 12:15 Dose: 4 mcg/kg/hr, 22.88 mls/hr Ibuprofen (Motrin Tab) 400 mg PO Q6H PRN PRN Reason: Fever >100.4 F Last Admin: 11/04/17 21:34 Dose: 400 mg Lactobacillus Acidophilus (Bacid Acidophilus) 1 cap PO BID EMPERATRIZ Nicotine (Nicoderm Cq) 1 patch TD DAILY [facility] Last Admin: 11/07/17 10:21 Dose: 1 patch Pantoprazole Sodium (Protonix Susp) 40 mg PO 0600,1600 [facility] Last Admin: 11/07/17 15:00 Dose: Not Given Vitamin A (Vitamin A & D Oint Ud Foilpak) 1 ea TOP Q6H PRN PRN Reason: Dry mouth Last Admin: 11/06/17 09:09 Dose: 1 ea - Labs Labs: 11/07/17 11:53 11/07/17 06:05 PT 13.8 SECONDS (9.7-12.2) H 11/06/17 05:51 INR 1.3 11/06/17 05:51 APTT 37 SECONDS (21-34) H 11/06/17 05:51
[2017-11-07] MEDS: Lactobacillus Acidophilus 500 MU Cap PO SCH (17:39)
--- NOTE | 2017-11-07 21:39 | PN ---
DATE: 11/07/2017 INFECTIOUS DISEASE FOLLOWUP SUBJECTIVE: The patient was intubated yesterday and had a . She is comfortable, intubated, sedated, remained tachycardic and afebrile. Her mother and her family members are at the bedside. They were concerned for her. PHYSICAL EXAMINATION: HEENT: Head is atraumatic. NECK: Supple. LUNGS: Clear. Decreased breath sounds bilaterally. HEART: S1, S2 is tachycardic, is regular. ABDOMEN: Soft. Nontender. No guarding. EXTREMITIES: Had no edema, clubbing of cyanosis. LABORATORY DATA: Labs are noted. Labs showed white count of 19.7, hemoglobin 8.9, hematocrit 25.9, platelet count is 41 which is low. Micro delgado, the culture is showing GPCs which is not finalized. She is thrombocytopenic and her other labs, chemistry shows that her calcium and phosphorus are low which are being supplemented at this time. We are waiting for the culture report, and at this time, she remains on multiple antibiotics and still remains with a high white count and thrombocytopenia. We will follow. She suffers from multiple sclerosis and fibromyalgia. Christiano Veras MD
[2017-11-08] MEDS: Acetylcysteine 20% Inhal Soln (4ml) INH SCH ×6 (00:31→19:41)
[2017-11-08] MEDS: Albuterol-Ipratrop 3 mg / 0.5 (3 ml) UD INH SCH ×6 (00:31→19:41)
[2017-11-08] MEDS: Vancomycin 1 gm/NS 200 ml 1 GM/200 ML BAG IVPB SCH ×2 (00:34→12:05)
[2017-11-08] MEDS: Pantoprazole 40 mg Susp UD PO SCH ×2 (05:40→17:07)
[2017-11-08 05:45] LABS: ABG ALLEN TEST POS; ARTERIAL BLOOD GAS HCO3 24.8 mmol/L (21-28); ARTERIAL BLOOD GAS O2 SAT 97.5 % (95-98); ARTERIAL BLOOD GAS PCO2 36 mm/Hg (35-45); ARTERIAL BLOOD GAS PH 7.43 (7.35-7.45); ARTERIAL BLOOD GAS PO2 89 mm/Hg (80-100)
[2017-11-08 06:23] LABS: BASO # 0.1 K/uL (0.0-0.2); BASO % 0.4 % (0.0-2.0); EOS # 0.1 K/uL (0.0-0.7); EOS % 0.5 % (0.0-4.0); HEMOGLOBIN 8.6 g/dL (11.0-16.0); MEAN CELL VOLUME 92.4 fL (81.0-99.0); MEAN CORPUSCULAR HEMOGLOBIN 31.4 pg (27.0-31.0); MEAN PLATELET VOLUME 9.7 fL (7.2-11.7); MONO # 0.5 K/uL (0.0-0.8); MONO % 2.9 % (0.0-10.0); NEUT # 8.4 K/uL (1.8-7.0); NEUT % 49.2 % (50.0-75.0); NRBC % 0.1 % (0.0-2.0); PLATELET COUNT 37 K/uL (130-400); RBC 2.72 Mil/uL (3.80-5.20); RED CELL DISTRIBUTION WIDTH 19.7 % (11.5-14.5)
[2017-11-08 06:36] LABS: ALB/GLOB RATIO 0.8 (1.0-2.1); ALBUMIN 1.9 g/dL (3.5-5.0); ALT/SGPT 56 U/L (9-52); AST/SGOT 48 U/L (14-36); BLOOD UREA NITROGEN 10 mg/dL (7-17); CALCIUM 7.6 mg/dl (8.6-10.4); GFR AFRICAN-AMERICAN > 60; GFR NON-AFRICAN AMERICAN > 60
[2017-11-08] MEDS: Propofol 10 mg/ml 1,000 MG/100 ML VIAL IV PRN (06:50)
[2017-11-08] MEDS: Acyclovir 500 MG in Sodium Chloride 0.9% 100 ML IV SCH ×2 (08:10→19:51)
[2017-11-08 08:12] LABS: BANDS 20 % (0-2); LYMPHOCYTE 5 % (20-40); MONOCYTE 3 % (0-10); NEUTROPHIL 72 % (50-75); TOTAL CELLS COUNTED 100
[2017-11-08 08:13] LABS: ANISOCYTOSIS MODERATE; PLATELET ESTIMATE MARKEDLY DECREASED (NORMAL); POIKILOCYTOSIS SLIGHT
[2017-11-08 08:14] LABS: HYPOCHROMIC SLIGHT; OVALOCYTES SLIGHT; POLYCHROMIC SLIGHT; TARGET CELLS SLIGHT
[2017-11-08 08:15] LABS: ACANTHOCYTES SLIGHT; BURR CELLS SLIGHT; TEARDROP CELLS SLIGHT
[2017-11-08 08:16] LABS: LARGE PLATELETS PRESENT
[2017-11-08] MEDS: guaiFENesin 600 mg ER Tab PO SCH ×2 (09:04→17:07)
[2017-11-08] MEDS: Apap-Butalbital-Caffeine 325-50-40mg Tab PO SCH (09:04)
[2017-11-08] MEDS: Lactobacillus Acidophilus 500 MU Cap PO SCH ×2 (09:04→17:07)
[2017-11-08] MEDS: Azithromycin 500 MG in Sodium Chloride 0.9% 250 ML IVPB SCH (09:09)
[2017-11-08] MEDS: Micafungin 100 MG in Sodium Chloride 0.9% 100 ML IV SCH (09:20)
--- NOTE | 2017-11-08 09:26 | RAD ---
Date of service: 11/08/2017 HISTORY: et tube COMPARISON: Portable chest 11/07/2017. FINDINGS: LUNGS: Endotracheal tube is unchanged in position. Increasing infiltrate is seen the right lung with diminishing aeration noted at the right apex. Limited patchy density is developing in the left base. PLEURA: Underlying right pleural effusion is not excluded. No definite left pleural effusion. CARDIOVASCULAR: Right central venous line is unchanged in position. Cardiac silhouette is partially obscured by extensive right sided infiltrate. OSSEOUS STRUCTURES: No significant abnormalities. VISUALIZED UPPER ABDOMEN: Nasonex tube is again identified placed terminating at the left upper quadrant abdomen. Advancement is recommended if possible into the stomach further as the side hole of the catheter terminates at the region of the distal esophagus. Normal. OTHER FINDINGS: Postop changes left upper quadrant abdomen. Thoracic epidural stimulator re- identified. IMPRESSION: Prominent right infiltrate slightly increased at the right apex with developing airspace disease left base appreciated. Underlying right pleural effusion remains difficult to exclude with no left pleural effusion evident. Tubes and catheters stable in position. Nasogastric tube side hole remains in the esophagus. Advancement further into left upper quadrant is advised.
[2017-11-08] MEDS ORDERED: Potassium Chloride 20 mEq/15 ml LIQ UD PO ONE (10:00)
[2017-11-08] MEDS: Dexmedetomidine Hydrochloride 200 MCG in Sodium Chloride 0.9% 48 ML IV PRN ×5 (11:26→23:41)
[2017-11-08] MEDS: Oseltamivir 6 MG/ML PO SCH ×2 (11:30→17:07)
[2017-11-08] MEDS: Cefepime 2 GM in Dextrose 5% In Water 100 ML IVPB SCH ×3 (11:34→23:36)
--- NOTE | 2017-11-08 13:34 | CP.CCUPN ---
CCU Subjective - Physician Review Events Since Last Encounter (Free Text): 11/08/17 13:29 sedated on vent. CCU Objective - Vital Signs / Intake & Output Vital Signs (Last 4 hours): Vital Signs Temp Pulse Resp BP Pulse Ox 11/08/17 13:05 114 H 22 115/78 99 11/08/17 13:00 111 H 19 99 11/08/17 12:05 115 H 19 113/84 98 11/08/17 12:00 119 H 22 95 11/08/17 11:55 98.4 F 116 H 18 111/79 97 11/08/17 11:05 117 H 14 111/79 98 11/08/17 11:00 122 H 21 93 L 11/08/17 10:05 112 H 16 101/66 100 11/08/17 10:00 112 H 15 100 Intake and Output (Last 8hrs): Intake & Output 11/07/17 11/08/17 11/08/17 22:59 06:59 14:59 Intake Total 1008.7 1402.2 1481.7 Output Total 295 385 295 Balance 713.7 1017.2 1186.7 Weight 127 lb 3.2 oz Intake: IV 107 359 105 Intake, IV Amount 741.7 883.2 1186.7 Right Distal Port 183.3 184.8 167.2 Internal Jugular Right Medial Port 38.4 38.4 29.5 Internal Jugular Right Proximal Port 520 660 990 Internal Jugular Tube Feeding 160 160 190 Output: Urine 295 385 295 Urine, Voided 295 385 295 - Physical Exam Physical Exam Limitations: Positive for: Altered Mental Status Head: Positive for: Atraumatic, Normocephalic Extroacular Muscles: Positive for: EOMI Mouth: Positive for: Moist Mucous Membranes Nose (External): Positive for: Atraumatic Respiratory/Chest: Positive for: Clear to Auscultation, Good Air Exchange, Decreased Breath Sounds. Negative for: Respiratory Distress, Accessory Muscle Use Cardiovascular: Positive for: Normal S1, S2, Tachycardic Abdomen: Positive for: Normal Bowel Sounds. Negative for: Tenderness, Distention Upper Extremity: Positive for: Normal Inspection. Negative for: Cyanosis Lower Extremity: Positive for: Normal Inspection. Negative for: Edema Neurological: Positive for: GCS=15 Skin: Positive for: Normal Color Psychiatric: Positive for: Other (sedated) - Medications Active Medications: Active Medications Generic Name Dose Route Start Last Admin Trade Name Freq PRN Reason Stop Dose Admin Acetaminophen/Butalbital/Caffeine 1 tab 11/04/17 10:00 11/08/17 09:04 Fioricet PO 1 tab DAILY EMPERATRIZ Administration Acetylcysteine 4 ml 11/06/17 08:13 11/08/17 10:59 Acetylcysteine 20% INH 4 ml RQ4 EMPERATRIZ Administration Albuterol/Ipratropium 3 ml 11/06/17 08:13 11/08/17 10:59 Duoneb 3 Mg/0.5 Mg (3 Ml) Ud INH 3 ml RQ4 EMPERATRIZ Administration Amitriptyline HCl 25 mg 11/04/17 10:00 Elavil PO DAILY EMPERATRIZ Benzocaine 0 gm 11/06/17 08:15 11/06/17 12:47 Orajel 7.5% MM 5.1 gm Q4 PRN Administration Gabapentin 600 mg 11/04/17 10:00 Neurontin PO DAILY EMPERATRIZ Guaifenesin 600 mg 11/05/17 10:00 11/08/17 09:04 Mucinex La PO 600 mg BID EMPERATRIZ Administration Azithromycin 500 mg/ Sodium 250 mls @ 250 mls/hr 11/04/17 10:00 11/08/17 09: 09 Chloride IVPB 250 mls/hr DAILY EMPERATRIZ Administration Protocol Vancomycin/Sodium Chloride 1 gm in 200 mls @ 133.333 mls/hr 11/05/17 01:00 12:05 Vancomycin 1 Gm/Ns 200 Ml IVPB 133.333 mls/hr Q12H EMPERATRIZ Administration Protocol Micafungin Sodium 100 mg/ 100 mls @ 100 mls/hr 11/06/17 10:15 11/08/17 09:20 Sodium Chloride IV 100 mls/hr Q24H EMPERATRIZ Administration Protocol Propofol 1,000 mg in 100 mls @ 1.731 mls/hr 11/06/17 17:12 11/08/17 11:53 Diprivan IV 0 mcg/kg/min .Q24H PRN 0 mls/hr TITRATE PER MD ORDER Titration Protocol 5 MCG/KG/MIN Cefepime HCl 2 gm/ Dextrose 100 mls @ 100 mls/hr 11/07/17 00:00 11/08/17 11: 34 IVPB 100 mls/hr Q12H EMPERATRIZ Administration Protocol Acyclovir 500 mg/ Sodium 100 mls @ 100 mls/hr 11/06/17 20:00 11/08/17 08:10 Chloride IV 100 mls/hr Q12H EMPERATRIZ Administration Protocol Fentanyl Citrate 2,500 mcg/ 250 mls @ 11.44 mls/hr 11/07/17 09:30 11/08/17 13 :16 Sodium Chloride IV 5 mcg/kg/hr .[id number] EMPERATRIZ 28.6 mls/hr Protocol Titration 2 MCG/KG/HR Dexmedetomidine HCl 200 mcg/ 50 mls @ 2.88 mls/hr 11/08/17 09:43 11/08/17 13: 24 Sodium Chloride IV 1.4 mcg/kg/hr TITR PRN 20.19 mls/hr Agitation Titration Protocol 0.2 MCG/KG/HR Ibuprofen 400 mg 11/04/17 01:02 11/04/17 21:34 Motrin Tab PO 400 mg Q6H PRN Administration Fever >100.4 F Lactobacillus Acidophilus 1 cap 11/07/17 18:00 11/08/17 09:04 Bacid Acidophilus PO 1 cap BID EMPERATRIZ Administration Nicotine 1 patch 11/04/17 10:00 11/08/17 09:04 Nicoderm Cq TD 1 patch DAILY EMPERATRIZ Administration Oseltamivir Phosphate 75 mg 11/08/17 11:00 11/08/17 11:30 Tamiflu Susp PO 11/13/17 11:01 12.5 ml BID EMPERATRIZ Administration Protocol Pantoprazole Sodium 40 mg 11/07/17 16:00 11/08/17 05:40 Protonix Susp PO 40 mg 0600,1600 EMPERATRIZ Administration Vitamin A 1 ea 11/04/17 10:30 11/06/17 09:09 Vitamin A & D Oint Ud Foilpak TOP 1 ea Q6H PRN Administration Dry mouth - Patient Studies Lab Studies: Microbiology Studies 11/07/17 06:10 Gram Stain - Final Sputum Sputum Culture - Preliminary Staphylococcus Aureus 11/06/17 20:05 Gram Stain - Final Body Fluid - Bronchial Washing Body Fluid Culture - Final Staphylococcus Aureus 11/05/17 22:15 Blood Culture - Preliminary Blood-Venous NO GROWTH AFTER 48 HOURS 11/05/17 22:15 Blood Culture - Preliminary Blood-Venous NO GROWTH AFTER 48 HOURS 11/06/17 15:45 Fungal Culture - Preliminary Other: Please Indicate 11/06/17 20:05 Fungal Culture - Preliminary Bronchial Washings 11/05/17 21:38 Urine Culture - Final Urine No Growth (<1,000 CFU/ML) Lab Studies 11/08/17 11/08/17 11/08/17 Range/Units 10:26 10:26 06:07 WBC (4.8-10.8) K/uL RBC (3.80-5.20) Mil/uL Hgb (11.0-16.0) g/dL Hct (34.0-47.0) % MCV (81.0-99.0) fL MCH (27.0-31.0) pg MCHC (33.0-37.0) g/dL RDW (11.5-14.5) % Plt Count (130-400) K/uL MPV (7.2-11.7) fL Neut % (Auto) (50.0-75.0) % Lymph % (Auto) (20.0-40.0) % [place] % (Auto) (0.0-10.0) % Eos % (Auto) (0.0-4.0) % Baso % (Auto) (0.0-2.0) % Neut # (Auto) (1.8-7.0) K/uL Lymph # (Auto) (1.0-4.3) K/uL [place] # (Auto) (0.0-0.8) K/uL Eos # (Auto) (0.0-0.7) K/uL Baso # (Auto) (0.0-0.2) K/uL Neutrophils % (Manual) (50-75) % Band Neutrophils % (0-2) % Lymphocytes % (Manual) (20-40) % Monocytes % (Manual) (0-10) % Differential Comment Platelet Estimate (NORMAL) Large Platelets Polychromasia Hypochromasia (manual) Poikilocytosis (manual Anisocytosis (manual) Macrocytosis (manual) Target Cells Tear Drop Cells Ovalocytes Atkins Cells Acanthocytes (Spur) ESR 72 H (0-20) mm/hr Puncture Site pCO2 (35-45) mm/Hg pO2 (80-100) mm/Hg HCO3 (21-28) mmol/L ABG pH (7.35-7.45) ABG Total CO2 (22-28) mmol/L ABG O2 Saturation (95-98) % ABG Base Excess (-2.0-3.0) mmol/L Romero Test ABG Potassium (3.6-5.2) mmol/L A-a O2 Difference mm/Hg Respiratory Index Sodium 147 (132-148) mmol/l Chloride 114 H (98-107) mmol/L Glucose (65-105) mg/dl Lactate (0.7-2.1) mmol/L Vent Mode Mechanical Rate FiO2 % Tidal Volume PEEP Potassium 3.3 L (3.6-5.2) mmol/L Carbon Dioxide 25 (22-30) mmol/L Anion Gap 11 (10-20) BUN 10 (7-17) mg/dL Creatinine 0.5 L (0.7-1.2) mg/dL Est GFR ( Amer) > 60 Est GFR (Non-Af Amer) > 60 Random Glucose 113 H (65-105) mg/dL Calcium 7.6 L (8.6-10.4) mg/dl Phosphorus 2.3 L (2.5-4.5) mg/dL Magnesium 2.1 (1.6-2.3) mg/dL Ferritin 902.0 ng/mL Total Bilirubin 1.2 (0.2-1.3) mg/dL AST 48 H D (14-36) U/L ALT 56 H (9-52) U/L Alkaline Phosphatase 134 H (38-126) U/L C-Reactive Protein 258.20 H (0.0-9.9) mg/L Total Protein 4.4 L (6.3-8.3) g/dL Albumin 1.9 L (3.5-5.0) g/dL Globulin 2.5 (2.2-3.9) gm/dL Albumin/Globulin Ratio 0.8 L (1.0-2.1) Procalcitonin (0.19-0.49) NG/ML Arterial Blood Potassium (3.6-5.2) mmol/L CMV IgG Ab U/mL CMV IgM Ab AU/mL Influenza Type A Ab (<1:8) titer Influenza Type B Ab (<1:8) titer 11/08/17 11/08/17 11/07/17 Range/Units 06:07 05:17 11:53 WBC 17.0 H (4.8-10.8) K/uL RBC 2.72 L (3.80-5.20) Mil/uL Hgb 8.6 L (11.0-16.0) g/dL Hct 25.2 L (34.0-47.0) % MCV 92.4 (81.0-99.0) fL MCH 31.4 H (27.0-31.0) pg MCHC 34.0 (33.0-37.0) g/dL RDW 19.7 H (11.5-14.5) % Plt Count 37 L (130-400) K/uL MPV 9.7 (7.2-11.7) fL Neut % (Auto) 49.2 L (50.0-75.0) % Lymph % (Auto) 47.0 H (20.0-40.0) % [place] % (Auto) 2.9 (0.0-10.0) % Eos % (Auto) 0.5 (0.0-4.0) % Baso % (Auto) 0.4 (0.0-2.0) % Neut # (Auto) 8.4 H (1.8-7.0) K/uL Lymph # (Auto) 8.0 H (1.0-4.3) K/uL [place] # (Auto) 0.5 (0.0-0.8) K/uL Eos # (Auto) 0.1 (0.0-0.7) K/uL Baso # (Auto) 0.1 (0.0-0.2) K/uL Neutrophils % (Manual) 72 (50-75) % Band Neutrophils % 20 H* (0-2) % Lymphocytes % (Manual) 5 L (20-40) % Monocytes % (Manual) 3 (0-10) % Differential Comment TEST NOT PERFORMED Platelet Estimate Markedly decreased L (NORMAL) Large Platelets Present Polychromasia Slight Hypochromasia (manual) Slight Poikilocytosis (manual Slight Anisocytosis (manual) Moderate Macrocytosis (manual) Slight Target Cells Slight Tear Drop Cells Slight Ovalocytes Slight Atkins Cells Slight Acanthocytes (Spur) Slight ESR (0-20) mm/hr Puncture Site R rad pCO2 36 (35-45) mm/Hg pO2 89 (80-100) mm/Hg HCO3 24.8 (21-28) mmol/L ABG pH 7.43 (7.35-7.45) ABG Total CO2 25.0 (22-28) mmol/L ABG O2 Saturation 97.5 (95-98) % ABG Base Excess -0.1 (-2.0-3.0) mmol/L Romero Test Pos ABG Potassium 3.2 L (3.6-5.2) mmol/L A-a O2 Difference 294.0 mm/Hg Respiratory Index 3.3 Sodium 145.0 (132-148) mmol/l Chloride 117.0 H (98-107) mmol/L Glucose 111 H (65-105) mg/dl Lactate 1.9 (0.7-2.1) mmol/L Vent Mode Prvc Mechanical Rate 14 FiO2 60.0 % Tidal Volume 420 PEEP 5 Potassium (3.6-5.2) mmol/L Carbon Dioxide (22-30) mmol/L Anion Gap (10-20) BUN (7-17) mg/dL Creatinine (0.7-1.2) mg/dL Est GFR ( Amer) Est GFR (Non-Af Amer) Random Glucose (65-105) mg/dL Calcium (8.6-10.4) mg/dl Phosphorus (2.5-4.5) mg/dL Magnesium (1.6-2.3) mg/dL Ferritin ng/mL Total Bilirubin (0.2-1.3) mg/dL AST (14-36) U/L ALT (9-52) U/L Alkaline Phosphatase (38-126) U/L C-Reactive Protein (0.0-9.9) mg/L Total Protein (6.3-8.3) g/dL Albumin (3.5-5.0) g/dL Globulin (2.2-3.9) gm/dL Albumin/Globulin Ratio (1.0-2.1) Procalcitonin 5.00 H (0.19-0.49) NG/ML Arterial Blood Potassium 3.2 L (3.6-5.2) mmol/L CMV IgG Ab U/mL CMV IgM Ab AU/mL Influenza Type A Ab (<1:8) titer Influenza Type B Ab (<1:8) titer 07/19/18 07/18/18 Range/Units 22:15 06:10 WBC (4.8-10.8) K/uL RBC (3.80-5.20) Mil/uL Hgb (11.0-16.0) g/dL Hct (34.0-47.0) % MCV (81.0-99.0) fL MCH (27.0-31.0) pg MCHC (33.0-37.0) g/dL RDW (11.5-14.5) % Plt Count (130-400) K/uL MPV (7.2-11.7) fL Neut % (Auto) (50.0-75.0) % Lymph % (Auto) (20.0-40.0) % [place] % (Auto) (0.0-10.0) % Eos % (Auto) (0.0-4.0) % Baso % (Auto) (0.0-2.0) % Neut # (Auto) (1.8-7.0) K/uL Lymph # (Auto) (1.0-4.3) K/uL [place] # (Auto) (0.0-0.8) K/uL Eos # (Auto) (0.0-0.7) K/uL Baso # (Auto) (0.0-0.2) K/uL Neutrophils % (Manual) (50-75) % Band Neutrophils % (0-2) % Lymphocytes % (Manual) (20-40) % Monocytes % (Manual) (0-10) % Differential Comment Platelet Estimate (NORMAL) Large Platelets Polychromasia Hypochromasia (manual) Poikilocytosis (manual Anisocytosis (manual) Macrocytosis (manual) Target Cells Tear Drop Cells Ovalocytes Atkins Cells Acanthocytes (Spur) ESR (0-20) mm/hr Puncture Site pCO2 (35-45) mm/Hg pO2 (80-100) mm/Hg HCO3 (21-28) mmol/L ABG pH (7.35-7.45) ABG Total CO2 (22-28) mmol/L ABG O2 Saturation (95-98) % ABG Base Excess (-2.0-3.0) mmol/L Romero Test ABG Potassium (3.6-5.2) mmol/L A-a O2 Difference mm/Hg Respiratory Index Sodium (132-148) mmol/l Chloride (98-107) mmol/L Glucose (65-105) mg/dl Lactate (0.7-2.1) mmol/L Vent Mode Mechanical Rate FiO2 % Tidal Volume PEEP Potassium (3.6-5.2) mmol/L Carbon Dioxide (22-30) mmol/L Anion Gap (10-20) BUN (7-17) mg/dL Creatinine (0.7-1.2) mg/dL Est GFR ( Amer) Est GFR (Non-Af Amer) Random Glucose (65-105) mg/dL Calcium (8.6-10.4) mg/dl Phosphorus (2.5-4.5) mg/dL Magnesium (1.6-2.3) mg/dL Ferritin ng/mL Total Bilirubin (0.2-1.3) mg/dL AST (14-36) U/L ALT (9-52) U/L Alkaline Phosphatase (38-126) U/L C-Reactive Protein (0.0-9.9) mg/L Total Protein (6.3-8.3) g/dL Albumin (3.5-5.0) g/dL Globulin (2.2-3.9) gm/dL Albumin/Globulin Ratio (1.0-2.1) Procalcitonin (0.19-0.49) NG/ML Arterial Blood Potassium (3.6-5.2) mmol/L CMV IgG Ab <0.60 U/mL CMV IgM Ab <30.00 AU/mL Influenza Type A Ab 1:8 H (<1:8) titer Influenza Type B Ab 1:16 H (<1:8) titer Laboratory Results - last 24 hr 11/04/17 11/05/17 11/07/17 06:10 22:15 11:53 WBC RBC Hgb Hct MCV MCH MCHC RDW Plt Count MPV Neut % (Auto) Lymph % (Auto) [place] % (Auto) Eos % (Auto) Baso % (Auto) Neut # (Auto) Lymph # (Auto) [place] # (Auto) Eos # (Auto) Baso # (Auto) Neutrophils % (Manual) Band Neutrophils % Lymphocytes % (Manual) Monocytes % (Manual) Differential Comment Platelet Estimate Large Platelets Polychromasia Hypochromasia (manual) Poikilocytosis (manual Anisocytosis (manual) Macrocytosis (manual) Target Cells Tear Drop Cells Ovalocytes Atkins Cells Acanthocytes (Spur) ESR Puncture Site pCO2 pO2 HCO3 ABG pH ABG Total CO2 ABG O2 Saturation ABG Base Excess Romero Test ABG Potassium A-a O2 Difference Respiratory Index Sodium Chloride Glucose Lactate Vent Mode Mechanical Rate FiO2 Tidal Volume PEEP Potassium Carbon Dioxide Anion Gap BUN Creatinine Est GFR ( Amer) Est GFR (Non-Af Amer) Random Glucose Calcium Phosphorus Magnesium Ferritin Total Bilirubin AST ALT Alkaline Phosphatase C-Reactive Protein Total Protein Albumin Globulin Albumin/Globulin Ratio Procalcitonin 5.00 H Arterial Blood Potassium CMV IgG Ab <0.60 CMV IgM Ab <30.00 Influenza Type A Ab 1:8 H Influenza Type B Ab 1:16 H 11/08/17 11/08/17 11/08/17 05:17 06:07 06:07 WBC 17.0 H RBC 2.72 L Hgb 8.6 L Hct 25.2 L MCV 92.4 MCH 31.4 H MCHC 34.0 RDW 19.7 H Plt Count 37 L MPV 9.7 Neut % (Auto) 49.2 L Lymph % (Auto) 47.0 H [place] % (Auto) 2.9 Eos % (Auto) 0.5 Baso % (Auto) 0.4 Neut # (Auto) 8.4 H Lymph # (Auto) 8.0 H [place] # (Auto) 0.5 Eos # (Auto) 0.1 Baso # (Auto) 0.1 Neutrophils % (Manual) 72 Band Neutrophils % 20 H* Lymphocytes % (Manual) 5 L Monocytes % (Manual) 3 Differential Comment TEST NOT PERFORMED Platelet Estimate Markedly decreased L Large Platelets Present Polychromasia Slight Hypochromasia (manual) Slight Poikilocytosis (manual Slight Anisocytosis (manual) Moderate Macrocytosis (manual) Slight Target Cells Slight Tear Drop Cells Slight Ovalocytes Slight Atkins Cells Slight Acanthocytes (Spur) Slight ESR Puncture Site R rad pCO2 36 pO2 89 HCO3 24.8 ABG pH 7.43 ABG Total CO2 25.0 ABG O2 Saturation 97.5 ABG Base Excess -0.1 Romero Test Pos ABG Potassium 3.2 L A-a O2 Difference 294.0 Respiratory Index 3.3 Sodium 145.0 147 Chloride 117.0 H 114 H Glucose 111 H Lactate 1.9 Vent Mode Prvc Mechanical Rate 14 FiO2 60.0 Tidal Volume 420 PEEP 5 Potassium 3.3 L Carbon Dioxide 25 Anion Gap 11 BUN 10 Creatinine 0.5 L Est GFR ( Amer) > 60 Est GFR (Non-Af Amer) > 60 Random Glucose 113 H Calcium 7.6 L Phosphorus 2.3 L Magnesium 2.1 Ferritin Total Bilirubin 1.2 AST 48 H D ALT 56 H Alkaline Phosphatase 134 H C-Reactive Protein Total Protein 4.4 L Albumin 1.9 L Globulin 2.5 Albumin/Globulin Ratio 0.8 L Procalcitonin Arterial Blood Potassium 3.2 L CMV IgG Ab CMV IgM Ab Influenza Type A Ab Influenza Type B Ab 11/08/17 11/08/17 10:26 10:26 WBC RBC Hgb Hct MCV MCH MCHC RDW Plt Count MPV Neut % (Auto) Lymph % (Auto) [place] % (Auto) Eos % (Auto) Baso % (Auto) Neut # (Auto) Lymph # (Auto) [place] # (Auto) Eos # (Auto) Baso # (Auto) Neutrophils % (Manual) Band Neutrophils % Lymphocytes % (Manual) Monocytes % (Manual) Differential Comment Platelet Estimate Large Platelets Polychromasia Hypochromasia (manual) Poikilocytosis (manual Anisocytosis (manual) Macrocytosis (manual) Target Cells Tear Drop Cells Ovalocytes Atkins Cells Acanthocytes (Spur) ESR 72 H Puncture Site pCO2 pO2 HCO3 ABG pH ABG Total CO2 ABG O2 Saturation ABG Base Excess Romero Test ABG Potassium A-a O2 Difference Respiratory Index Sodium Chloride Glucose Lactate Vent Mode Mechanical Rate FiO2 Tidal Volume PEEP Potassium Carbon Dioxide Anion Gap BUN Creatinine Est GFR ( Amer) Est GFR (Non-Af Amer) Random Glucose Calcium Phosphorus Magnesium Ferritin 902.0 Total Bilirubin AST ALT Alkaline Phosphatase C-Reactive Protein 258.20 H Total Protein Albumin Globulin Albumin/Globulin Ratio Procalcitonin Arterial Blood Potassium CMV IgG Ab CMV IgM Ab Influenza Type A Ab Influenza Type B Ab Fingerstick Blood Sugar Results: 99 Review of Systems - Review of Systems Systems not reviewed;Unavailable: Intubated Critical Care Progress Note - Ventilator Checklist Head of Bed 30 Degrees: Yes Daily Sedation Vacation: Yes Daily Assessment of Readiness to Wean: Yes Daily Spontaneous Breathing Trial: Yes PUD Prophalyxis: Yes DVT Prophylaxis: Yes Assessment/Plan (1) Pneumonia Assessment and plan: 51yo F. PMHx chronic back pain, scoliosis, fibromyalgia, multiple sclerosis, gastric bypass. Presented to ED with weakness, anorexia, dyspnea, cough x1day. Admitted to ICU for sepsis 2/2 right multilobar PNA. Intubated for Bronchoscopy (11/05). Neuro: sedated with propofol, transitioning to fentanyl gtt and precedex gtt. Pulm: acute respiratory failure, intubated for bronchoscopy with worsening pneumonia. Therapeutic Bronchoscopy (11/05) not very helpful, minimal secretions, mostly intraparenchymal disease. Worsening PNA on CXR. BAL Culture - Staph aureus, sensitivities pending. CV: hemodynamically stable Hem: anemia stable. No evidence of malignancy on imaging. Worsening thrombocytopenia secondary to sepsis. Consulted Hem/Onc - Dr. Escobar Rheum: considering autoimmune process, or some type of immunosuppresive process , as patient is not improving. F/u labs. Renal: urine output wnl, will continue to monitor. Endo: no acute issues GI: NPO, started tube feeding Jevity@20, goal 40. ID: severe sepsis from community acquired pneumonia, continue Vancomycin, Cefepime, Acylcovir and Micafungin. Flu B, positive, added Tamiflu. ID - Dr. Veras. DVT proph - SCD's, holding a/c with severe thrombocytopenia GI proph - protonix bruner for strict I/O's during acute illness Code status - full code Critical Care Time spent 35 minutes Multi-disciplinary rounds were performed with house staff, nursing, speech therapy, respiratory therapy, pharmacy and nutrition with integrated input from the primary team/attending and other consulting services. The documented time is cumulative and includes review of patient data/exams/labs/chart review and examination of the patient on rounds and throughout the day; time is exclusive of any procedures or teaching time. Current Visit: Yes Status: Acute
--- NOTE | 2017-11-08 17:04 | CP.PCM.PN ---
Subjective - Date & Time of Evaluation Date of Evaluation: 11/08/17 Time of Evaluation: 15:00 - Subjective Subjective: Patient seen and examined. Patient is intubated since bronchoscopy on Thursday. Patient is accompanied by many family members at bedside. Patient's son Terry age 20 representing family. Patient is on sedation at this time. Unable to review of systems secondary to patient's clinical condition. Objective - Vital Signs/Intake and Output Vital Signs (last 24 hours): Temp Pulse Resp BP Pulse Ox 98.4 F 91 H 14 121/87 100 11/08/17 16:00 11/08/17 16:05 11/08/17 16:05 11/08/17 16:05 11/08/17 16:05 Intake and Output: 11/08/17 11/08/17 06:59 18:59 Intake Total 1980.5 1785.1 Output Total 525 435 Balance 1455.5 1350.1 - Medications Medications: Current Medications Acetaminophen/Butalbital/Caffeine (Fioricet) 1 tab PO DAILY [facility] Last Admin: 11/08/17 09:04 Dose: 1 tab Acetylcysteine (Acetylcysteine 20%) 4 ml INH RQ4 [facility] Last Admin: 11/08/17 15:56 Dose: 4 ml Albuterol/Ipratropium (Duoneb 3 Mg/0.5 Mg (3 Ml) Ud) 3 ml INH RQ4 [facility]RI[facility] Last Admin: 11/08/17 15:56 Dose: 3 ml Amitriptyline HCl (Elavil) 25 mg PO DAILY [facility] Benzocaine (Orajel 7.5%) 0 gm MM Q4 PRN Last Admin: 11/06/17 12:47 Dose: 5.1 gm Gabapentin (Neurontin) 600 mg PO DAILY [facility] Guaifenesin (Mucinex La) 600 mg PO BID [facility] Last Admin: 11/08/17 09:04 Dose: 600 mg Azithromycin 500 mg/ Sodium (Chloride) 250 mls @ 250 mls/hr IVPB DAILY [facility] PRN Reason: Protocol Last Admin: 11/08/17 09:09 Dose: 250 mls/hr Vancomycin/Sodium Chloride (Vancomycin 1 Gm/Ns 200 Ml) 1 gm in 200 mls @ 133.333 mls/hr IVPB Q12H [facility] PRN Reason: Protocol Last Admin: 11/08/17 12:05 Dose: 133.333 mls/hr Micafungin Sodium 100 mg/ (Sodium Chloride) 100 mls @ 100 mls/hr IV Q24H [facility] PRN Reason: Protocol Last Admin: 11/08/17 09:20 Dose: 100 mls/hr Propofol (Diprivan) 1,000 mg in 100 mls @ 1.731 mls/hr IV .Q24H PRN; Protocol; 5 MCG/KG/MIN PRN Reason: TITRATE PER MD ORDER Last Titration: 11/08/17 11:53 Dose: 0 mcg/kg/min, 0 mls/hr Cefepime HCl 2 gm/ Dextrose 100 mls @ 100 mls/hr IVPB Q12H [facility] PRN Reason: Protocol Last Admin: 11/08/17 11:34 Dose: 100 mls/hr Acyclovir 500 mg/ Sodium (Chloride) 100 mls @ 100 mls/hr IV Q12H [facility] PRN Reason: Protocol Last Admin: 11/08/17 08:10 Dose: 100 mls/hr Fentanyl Citrate 2,500 mcg/ (Sodium Chloride) 250 mls @ 11.44 mls/hr IV .[id number] [facility]; 2 MCG/KG/HR PRN Reason: Protocol Last Titration: 11/08/17 13:16 Dose: 5 mcg/kg/hr, 28.6 mls/hr Dexmedetomidine HCl 200 mcg/ (Sodium Chloride) 50 mls @ 2.88 mls/hr IV TITR PRN ; Protocol; 0.2 MCG/KG/HR PRN Reason: Agitation Last Admin: 11/08/17 14:56 Dose: 1.4 mcg/kg/hr, 20.19 mls/hr Ibuprofen (Motrin Tab) 400 mg PO Q6H PRN PRN Reason: Fever >100.4 F Last Admin: 11/04/17 21:34 Dose: 400 mg Lactobacillus Acidophilus (Bacid Acidophilus) 1 cap PO BID [facility] Last Admin: 11/08/17 09:04 Dose: 1 cap Nicotine (Nicoderm Cq) 1 patch TD DAILY [facility] Last Admin: 11/08/17 09:04 Dose: 1 patch Oseltamivir Phosphate (Tamiflu Susp) 75 mg PO BID [facility] PRN Reason: Protocol Stop: 11/13/17 11:01 Last Admin: 11/08/17 11:30 Dose: 12.5 ml Pantoprazole Sodium (Protonix Susp) 40 mg PO 0600,1600 [facility] Last Admin: 11/08/17 05:40 Dose: 40 mg Vitamin A (Vitamin A & D Oint Ud Foilpak) 1 ea TOP Q6H PRN PRN Reason: Dry mouth Last Admin: 11/06/17 09:09 Dose: 1 ea - Labs Labs: 11/08/17 06:07 11/08/17 06:07 PT 13.8 SECONDS (9.7-12.2) H 11/06/17 05:51 INR 1.3 11/06/17 05:51 APTT 37 SECONDS (21-34) H 11/06/17 05:51 - Constitutional Appears: Cachectic, Chronically Ill - Head Exam Head Exam: NORMAL INSPECTION - Eye Exam Eye Exam: EOMI - ENT Exam ENT Exam: Mucous Membranes Dry - Respiratory Exam Respiratory Exam: Decreased Breath Sounds, Rales, Rhonchi Additional comments: intubated and vent sounds - Cardiovascular Exam Cardiovascular Exam: REGULAR RHYTHM, +S1, +S2 - GI/Abdominal Exam GI & Abdominal Exam: Soft, Normal Bowel Sounds. absent: Distended, Firm, Guarding, Rigid, Tenderness, Rebound - Extremities Exam Extremities Exam: absent: Pedal Edema, Tenderness - Neurological Exam Additional comments: sedated - Skin Skin Exam: Dry, Normal Color, Warm Additional comments: multiple tattoosdo not appear infected. Attending/Attestation - Attestation I have personally seen and examined this patient.: Yes I have fully participated in the care of the patient.: Yes I have reviewed all pertinent clinical information, including history, physical exam and plan: Yes Notes (Text): 1) Acute Respiratory Distress Health Care Associated Pneumonia Sepsis Bandemia Assessment/Plan * Admit to ICU * Infectious Disease (Dr. Veras) on board-->help appreciated * Criteria: Afebrile, no leukocytosis, left shift noted with lactate 5.1 with repeat 6.0 * Code sepsis 11/03/17 * Elevated procalcitonin: 13.90--->5.00 * Intubated and Bronchoscopy 11/06 * 11/07: Sputum: Staph Aureus (Bronchoscopy); cytology pending * 11/06: Bronchial Washing: gram final * 11/06: Fungal culture: prelim * 11/06: Body Fluid: Staph Aureus * 11/06: Fungal Culture: Prelim * 11/05: No growth after 48 hours X2 * White count increasing * Possible HCAP prior hospitalization * Lactate: 4.5-->6.0-->4.4-->3.6 * Duonebs RQ4 PRN shortness of breathe * Acetrylcysteine 4ml INH RQ6H * Mucinex 600mg PO BID * Motrin 400mg PO Q6H PRN >100.4F * CT head: No intracranial mass, hemorrhage, or evidence of acute infarct. Mild chronic sphenoid sinusitis. possible small exostosis along the superior left temporral calvarium. * CT Chest (11/04/17): multilobar pneumonia of the right lung. Small hiatal hernia. * CT Chest/Abdomen/Pelvis (11/06/17): extensive diffuse infiltrate and consolidation of the right lung. Small left pleural effusion. Mild right sided volume loss with some shift of the heart mediastinum towards the center. Mild mediastinal lymphadenopahty. nonspecific. Nonspecific colitis. predominantly involved the right colon but also involving to a lesser extent the transverse and descending/sigmoind colon. No bowel obstruction. Ascites. Partial gastrectomy and gastrogenunostomy/jejunojenjunostomy. IV ABx: * Azithromycin 500mg IV q daily (active since 11/04/17) * Cefepime 2gm IVPB Q12H (active since 11/07/17) * Micafungin 100mg IVPB Q24H (active since 11/06/17) * Vancomycin 1 gram IVQ12 (active since 11/05/17) * Zovirax 200mg PO 5XD (active since 11/06/17) * Pending CMV, HSV. Mycoplasma IgM * Florastor 250mg PO BID * Blood cultures (11/05/17): no growth after 48 hours X2 * Urine culture (11/04/17): no growth * check LDH-->elevated 2) Sinus Tachycardia Assessment/Plan * Cardiology (Dr. Contreras) on board-->help appreciated * Cleared from cardiac standpoint * Treat infection/sepsis * Became Hypotensive-->brought to ICU * Given Cardizem 20mg IVPX1, Cardizem 5mg IVP X3 in the ED * Cardizem drip d/c * Given Metoprolol 5mg IVP X1 * Needed IV fluids to increase blood pressure * Hgba1c: 4.9 * TSH: 0.64 * Lipid panel: <30, HDL: 16, T, Cholestrol: 71 * Echocardiogram (11/05/17): left ventricle is grossly normal size. Left ventricle systolic function is grossly normal. Right ventricle size and function is normal. Mild tricupsid regurgitation 3) History of Chronic Back Pain History of Scoliosis Fibromylagia Assessment/Plan * held gabapentin given respiratory status * held amitriptyline-->cardio side effects and patient is in sinus tachycardia * Discussed with patient who is aware * Patient has had chronic back problems since age 16 from scoliosis * Patient reports she was for lumbar spine surgery however she was told she needs to meet weight requirement prior to proceeding with surgery * Oxycodone 30mg POq8 PRN pain 4) Tobacco History Assessment/Plan * Start Nicotone Patch daily 5) History of Gastric Bypass (sleeve gastrectomy) Assessment/Plan * About 11 years ago * Hgba1c: 4.9 * TSH: 0.64 * Lipid panel: <30, HDL: 16, T, Cholestrol: 71 * Will start MVI 1 tab PO daily * Will need lifelong MV1, calcium, vitamin D supplements 6) Anemia Assessment/Plan * Patient with known history of anemia when I discussed with her at bedside * Patient has not had GI workup including colonoscopy. * H/H stable * 2units of PRBC 11/05 * Iron low, TIBC low, ferritin: 351 reticulocyte count: 2.2 * Reticulocyte index: 0.17 hypoproliferation of reticulocytes * B12 normal, folate within range * LDH: elevated * Hematology-oncology (Dr. Evelyn Escobar) on case-->help appreciated * 7) Unclear regarding to Multiple Sclerosis Hx Assessment/Plan * Currently not on medication * Diagnosed 8 years ago as per son * Will need to clarify with son how was diagnosed 8) Hx Pancreatitis Assessment/Plan * Noted on 08/2017 admission * Recommended outpatient EUS 9) Transaminitis Assessment/Plan * possible acute phase reactant * Abdominal US (11/04/17): hyperechoic hepatic parenchyma in the interval may indicate diffuse fatty infiltrateion though other etiologies. No common bile duct or intrahepatic biliary dilatation is identified. Moderately distended but otherwise unremarkable appearing gallbladder. Pancreas is poorly visualized. Small right renal cyst. Incidental right pleural effusion is noted. * Hepatitis panel: negative * HIV: negative 10) Electrolyte abnormalities Assessment/Plan * monitor and replete 11) Abdominal Pain Assessment/Plan * Lipase/Amylase: normal * none today 12) Thrombocytopenia * D/C lovenox * Order for HIT/CONSTANTINE: pending * Likely related to sepsis * Fibrongen and fibrin products elevated * Abdominal US (11/04/17): hyperechoic hepatic parenchyma in the interval may indicate diffuse fatty infiltrateion though other etiologies. No common bile duct or intrahepatic biliary dilatation is identified. Moderately distended but otherwise unremarkable appearing gallbladder. Pancreas is poorly visualized. Small right renal cyst. Incidental right pleural effusion is noted. 13) Prophylactic Measures * GI PPX: Protonix 40mg PO daily switch to pepcid 20mg IV qdaily given se: thrombocytopenia * Florastor 250mg PO bid * d/c Lovenox 30mg subq daily-->thrombocytopenia Disposition: Patient is on multiple antibiotics and antifungal to cover for extensive pneumonia. We will need to f/u bronchoscopy results. Procalcition is downtrending. Question is there is an element of immunosuppression affecting patient's ability to fight of infection. Autoimmune workup, and possible malignancy workup. We have consult hematology-oncology. I have endorsed this patient to my colleague, Dr Angela lopez who will follow-up tomorrow.
[2017-11-08] MEDS: Vitamins A & D Oint UD Foilpak TOP PRN (19:53)
[2017-11-09] MEDS: Albuterol-Ipratrop 3 mg / 0.5 (3 ml) UD INH SCH ×7 (00:35→23:57)
[2017-11-09] MEDS: Acetylcysteine 20% Inhal Soln (4ml) INH SCH ×5 (00:35→16:43)
[2017-11-09] MEDS: Vancomycin 1 gm/NS 200 ml 1 GM/200 ML BAG IVPB SCH ×2 (00:48→13:03)
[2017-11-09] MEDS: Dexmedetomidine Hydrochloride 200 MCG in Sodium Chloride 0.9% 48 ML IV PRN ×6 (03:45→22:22)
[2017-11-09 05:45] LABS: ARTERIAL BLOOD GAS HCO3 26.7 mmol/L (21-28); ARTERIAL BLOOD GAS O2 SAT 95.7 % (95-98); ARTERIAL BLOOD GAS PCO2 38 mm/Hg (35-45); ARTERIAL BLOOD GAS PH 7.45 (7.35-7.45); ARTERIAL BLOOD GAS PO2 62 mm/Hg (80-100); ARTERIAL BLOOD GAS TCO2 27.6 mmol/L (22-28)
[2017-11-09 06:16] LABS: HEMOGLOBIN 8.3 g/dL (11.0-16.0); MEAN CELL VOLUME 93.1 fL (81.0-99.0); MEAN CORPUSCULAR HEMOGLOBIN 30.4 pg (27.0-31.0); MEAN CORPUSCULAR HGB CONC 32.7 g/dL (33.0-37.0); MEAN PLATELET VOLUME 9.9 fL (7.2-11.7); RBC 2.71 Mil/uL (3.80-5.20); RED CELL DISTRIBUTION WIDTH 20.5 % (11.5-14.5); WHITE BLOOD COUNT 13.8 K/uL (4.8-10.8)
[2017-11-09 06:22] LABS: ALB/GLOB RATIO 0.8 (1.0-2.1); ALT/SGPT 55 U/L (9-52); AST/SGOT 22 U/L (14-36); BLOOD UREA NITROGEN 12 mg/dL (7-17); CALCIUM 7.6 mg/dl (8.6-10.4); GFR AFRICAN-AMERICAN > 60; GFR NON-AFRICAN AMERICAN > 60
[2017-11-09] MEDS: Pantoprazole 40 mg Susp UD PO SCH ×2 (06:22→16:06)
[2017-11-09] MEDS: Vitamins A & D Oint UD Foilpak TOP PRN (06:22)
[2017-11-09 06:25] LABS: PLATELET COUNT 22 K/uL (130-400)
[2017-11-09] MEDS ORDERED: POLYETHYLENE GLYCOL 3350 17 GM/Dose PACKET PO ONE (07:01)
[2017-11-09] MEDS ORDERED: Albumin Human 25% (12.5 gm/50 ml) IV ONE (07:06)
[2017-11-09] MEDS ORDERED: Potassium Phosphate 15 MMOLE in Sodium Chloride 0.9% 250 ML IVPB ONE (07:06)
[2017-11-09] MEDS: Acyclovir 500 MG in Sodium Chloride 0.9% 100 ML IV SCH ×2 (08:33→20:12)
[2017-11-09] MEDS: Benzocaine 7.5% 5.1 GM TUBE MM PRN (08:36)
[2017-11-09 08:53] LABS: LYMPH # 0.4 K/uL (1.0-4.3); MONO # 0.4 K/uL (0.0-0.8)
--- NOTE | 2017-11-09 08:53 | RAD ---
Date of service: 11/09/2017 HISTORY: evat et tube COMPARISON: 11/08/2017 FINDINGS: LUNGS: Extensive opacity right mid and lower lung with some interval improvement in the extent of opacity in the right apex. Left basilar opacity. Possible pneumonia. Rule out congestive heart failure. PLEURA: Small right pleural effusion. No definite left pleural effusion. CARDIOVASCULAR: ET tube and NG tube unchanged. Right IJ central venous catheter unchanged. OSSEOUS STRUCTURES: No significant abnormalities. VISUALIZED UPPER ABDOMEN: Normal. OTHER FINDINGS: None. IMPRESSION: Bilateral multifocal opacities, right greater than left with some clearing of the right apex. Arnulfo consolidation at right base. Lines and tubes unchanged.
[2017-11-09 09:00] LABS: BANDS 1 % (0-2); LYMPHOCYTE 7 % (20-40); MONOCYTE 4 % (0-10); NEUTROPHIL 88 % (50-75); TOTAL CELLS COUNTED 100
[2017-11-09 09:06] LABS: ANISOCYTOSIS SLIGHT; HYPOCHROMIC SLIGHT; PLATELET ESTIMATE DECREASED (NORMAL); POLYCHROMIC SLIGHT; TARGET CELLS MODERATE
[2017-11-09] MEDS: Azithromycin 500 MG in Sodium Chloride 0.9% 250 ML IVPB SCH (09:59)
[2017-11-09] MEDS: Oseltamivir 6 MG/ML PO SCH ×2 (09:59→17:20)
[2017-11-09] MEDS: Lactobacillus Acidophilus 500 MU Cap PO SCH ×2 (10:02→17:20)
[2017-11-09] MEDS: Apap-Butalbital-Caffeine 325-50-40mg Tab PO SCH (10:27)
[2017-11-09] MEDS: Micafungin 100 MG in Sodium Chloride 0.9% 100 ML IV SCH (11:15)
--- NOTE | 2017-11-09 11:24 | CP.CCUPN ---
CCU Subjective - Physician Review Subjective (Free Text): 51 yo F w/ PMHx of chronic back pain, scoliosis, fibromyalgia, multiple sclerosis, gastric bypass, presented to ED with weakness, anorexia, dyspnea, cough x1day. In ED pt found to be in A flutter w/ rapid rate @155. Cardizem given and pt became hypotensive; however responded to IVF. Admitted to ICU for sepsis 2/2 right multilobar PNA Pt seen and examined at bedside, intubated on low dose sedation. 11/09/17 11:25 CCU Objective - Vital Signs / Intake & Output Vital Signs (Last 4 hours): Vital Signs Temp Pulse Resp BP Pulse Ox 11/09/17 10:01 83 19 127/84 100 11/09/17 09:01 84 19 123/85 100 11/09/17 09:00 98.4 F 100 11/09/17 08:01 79 18 123/86 100 Intake and Output (Last 8hrs): Intake & Output 11/08/17 11/09/17 11/09/17 22:59 06:59 14:59 Intake Total 1001.7 1412.9 1063.0 Output Total 315 260 250 Balance 686.7 1152.9 813.0 Weight 150 lb Intake: IV 200 350 240 Intake, IV Amount 481.7 642.9 623.0 Right Distal Port 228.8 195.8 92.3 Internal Jugular Right Medial Port 152.9 147.1 80.7 Internal Jugular Right Proximal Port 100 300 450 Internal Jugular Tube Feeding 320 320 200 Other 100 Output: Urine 315 260 250 Urine, Voided 315 260 250 Other: # Bowel Movements 0 0 0 - Physical Exam Head: Positive for: Atraumatic, Normocephalic Extroacular Muscles: Positive for: EOMI Mouth: Positive for: Moist Mucous Membranes Nose (External): Positive for: Atraumatic Respiratory/Chest: Positive for: Clear to Auscultation, Good Air Exchange, Decreased Breath Sounds. Negative for: Respiratory Distress, Accessory Muscle Use Cardiovascular: Positive for: Normal S1, S2, Tachycardic Abdomen: Positive for: Normal Bowel Sounds. Negative for: Tenderness, Distention Upper Extremity: Positive for: Normal Inspection. Negative for: Cyanosis Lower Extremity: Positive for: Normal Inspection. Negative for: Edema Neurological: Positive for: GCS=15 Skin: Positive for: Normal Color Psychiatric: Positive for: Other (sedated) - Medications Active Medications: Active Medications Generic Name Dose Route Start Last Admin Trade Name Freq PRN Reason Stop Dose Admin Acetaminophen/Butalbital/Caffeine 1 tab 11/04/17 10:00 11/09/17 10:27 Fioricet PO 1 tab DAILY EMPERATRIZ Administration Acetylcysteine 4 ml 11/06/17 08:13 11/09/17 07:30 Acetylcysteine 20% INH 4 ml RQ4 EMPERATRIZ Administration Albuterol/Ipratropium 3 ml 11/06/17 08:13 11/09/17 07:31 Duoneb 3 Mg/0.5 Mg (3 Ml) Ud INH 3 ml RQ4 EMPERATRIZ Administration Amitriptyline HCl 25 mg 11/04/17 10:00 Elavil PO DAILY EMPERATRIZ Benzocaine 0 gm 11/06/17 08:15 11/09/17 08:36 Orajel 7.5% MM 5.1 gm Q4 PRN Administration Gabapentin 600 mg 11/04/17 10:00 Neurontin PO DAILY EMPERATRIZ Azithromycin 500 mg/ Sodium 250 mls @ 250 mls/hr 11/04/17 10:00 11/09/17 09: 59 Chloride IVPB 250 mls/hr DAILY EMPERATRIZ Administration Protocol Vancomycin/Sodium Chloride 1 gm in 200 mls @ 133.333 mls/hr 11/05/17 01:00 00:48 Vancomycin 1 Gm/Ns 200 Ml IVPB 133.333 mls/hr Q12H EMPERATRIZ Administration Protocol Micafungin Sodium 100 mg/ 100 mls @ 100 mls/hr 11/06/17 10:15 11/09/17 11:15 Sodium Chloride IV 100 mls/hr Q24H EMPERATRIZ Administration Protocol Cefepime HCl 2 gm/ Dextrose 100 mls @ 100 mls/hr 11/07/17 00:00 11/08/17 23: 36 IVPB 100 mls/hr Q12H EMPERATRIZ Administration Protocol Acyclovir 500 mg/ Sodium 100 mls @ 100 mls/hr 11/06/17 20:00 11/09/17 08:33 Chloride IV 100 mls/hr Q12H EMPERATRIZ Administration Protocol Fentanyl Citrate 2,500 mcg/ 250 mls @ 11.44 mls/hr 11/07/17 09:30 11/09/17 10 :00 Sodium Chloride IV 2 mcg/kg/hr .[id number] EMPERATRIZ 11.44 mls/hr Protocol Titration 2 MCG/KG/HR Dexmedetomidine HCl 200 mcg/ 50 mls @ 2.88 mls/hr 11/08/17 09:43 11/09/17 10: 00 Sodium Chloride IV 1 mcg/kg/hr TITR PRN 14.42 mls/hr Agitation Titration Protocol 0.2 MCG/KG/HR Potassium Phosphate 15 mmole/ 255 mls @ 42.5 mls/hr 11/09/17 07:06 11/09/17 08:41 Sodium Chloride IVPB 11/09/17 13:05 42.5 mls/hr ONCE ONE Administration Ibuprofen 400 mg 11/04/17 01:02 11/08/17 23:39 Motrin Tab PO 400 mg Q6H PRN Administration Fever >100.4 F Lactobacillus Acidophilus 1 cap 11/07/17 18:00 11/09/17 10:02 Bacid Acidophilus PO 1 cap BID EMPERATRIZ Administration Nicotine 1 patch 11/04/17 10:00 11/09/17 10:27 Nicoderm Cq TD 1 patch DAILY EMPERATRIZ Administration Oseltamivir Phosphate 75 mg 11/08/17 11:00 11/09/17 09:59 Tamiflu Susp PO 11/13/17 11:01 75 ml BID EMPERATRIZ Administration Protocol Pantoprazole Sodium 40 mg 11/07/17 16:00 11/09/17 06:22 Protonix Susp PO 40 mg 0600,1600 EMPERATRIZ Administration Vitamin A 1 ea 11/04/17 10:30 11/09/17 06:22 Vitamin A & D Oint Ud Foilpak TOP 1 ea Q6H PRN Administration Dry mouth - Patient Studies Lab Studies: Microbiology Studies 11/07/17 06:10 Gram Stain - Final Sputum Sputum Culture - Final Staphylococcus Aureus 11/05/17 22:15 Blood Culture - Preliminary Blood-Venous NO GROWTH AFTER 3 DAYS 11/05/17 22:15 Blood Culture - Preliminary Blood-Venous NO GROWTH AFTER 3 DAYS 11/06/17 20:05 Gram Stain - Final Body Fluid - Bronchial Washing Body Fluid Culture - Final Staphylococcus Aureus Lab Studies 11/09/17 11/09/17 11/09/17 Range/Units 05:50 05:50 05:30 WBC 13.8 H (4.8-10.8) K/uL RBC 2.71 L (3.80-5.20) Mil/uL Hgb 8.3 L (11.0-16.0) g/dL Hct 25.3 L (34.0-47.0) % MCV 93.1 (81.0-99.0) fL MCH 30.4 (27.0-31.0) pg MCHC 32.7 L (33.0-37.0) g/dL RDW 20.5 H (11.5-14.5) % Plt Count 22 L* D (130-400) K/uL MPV 9.9 (7.2-11.7) fL Neut % (Auto) 94.0 H (50.0-75.0) % Lymph % (Auto) 3.0 L (20.0-40.0) % Ralls % (Auto) 3.0 (0.0-10.0) % Eos % (Auto) 0.0 (0.0-4.0) % Baso % (Auto) 0.0 (0.0-2.0) % Neut # (Auto) 13.0 H (1.8-7.0) K/uL Lymph # (Auto) 0.4 L (1.0-4.3) K/uL Ralls # (Auto) 0.4 (0.0-0.8) K/uL Eos # (Auto) 0.0 (0.0-0.7) K/uL Baso # (Auto) 0.0 (0.0-0.2) K/uL Neutrophils % (Manual) 88 H (50-75) % Band Neutrophils % 1 (0-2) % Lymphocytes % (Manual) 7 L (20-40) % Monocytes % (Manual) 4 (0-10) % Platelet Estimate Decreased L (NORMAL) Polychromasia Slight Hypochromasia (manual) Slight Anisocytosis (manual) Slight Target Cells Moderate ESR (0-20) mm/hr Puncture Site R brac pCO2 38 (35-45) mm/Hg pO2 62 L (80-100) mm/Hg HCO3 26.7 (21-28) mmol/L ABG pH 7.45 (7.35-7.45) ABG Total CO2 27.6 (22-28) mmol/L ABG O2 Saturation 95.7 (95-98) % ABG Base Excess 2.4 (-2.0-3.0) mmol/L Romero Test Na ABG Potassium 3.5 L (3.6-5.2) mmol/L A-a O2 Difference 247.0 mm/Hg Respiratory Index 4.0 Sodium 148 147.0 (132-148) mmol/l Chloride 115 H 120.0 H (98-107) mmol/L Glucose 155 H (65-105) mg/dl Lactate 1.9 (0.7-2.1) mmol/L Vent Mode Prvc Mechanical Rate 14 FiO2 50.0 % Tidal Volume 420 PEEP 5 Potassium 3.7 (3.6-5.2) mmol/L Carbon Dioxide 26 (22-30) mmol/L Anion Gap 11 (10-20) BUN 12 (7-17) mg/dL Creatinine 0.5 L (0.7-1.2) mg/dL Est GFR ( Amer) > 60 Est GFR (Non-Af Amer) > 60 POC Glucose (mg/dL) (65-110) mg/dL Random Glucose 150 H (65-105) mg/dL Calcium 7.6 L (8.6-10.4) mg/dl Phosphorus 2.0 L (2.5-4.5) mg/dL Magnesium 2.1 (1.6-2.3) mg/dL Total Bilirubin 0.9 (0.2-1.3) mg/dL AST 22 (14-36) U/L ALT 55 H (9-52) U/L Alkaline Phosphatase 125 (38-126) U/L Total Protein 4.5 L (6.3-8.3) g/dL Albumin 2.0 L (3.5-5.0) g/dL Globulin 2.5 (2.2-3.9) gm/dL Albumin/Globulin Ratio 0.8 L (1.0-2.1) Arterial Blood Potassium 3.5 L (3.6-5.2) mmol/L Mycoplasma pneumon IgG (<=0.90) Mycoplasma pneumon IgM (<770) U/mL 11/08/17 11/07/17 11/07/17 Range/Units 10:26 17:42 12:23 WBC (4.8-10.8) K/uL RBC (3.80-5.20) Mil/uL Hgb (11.0-16.0) g/dL Hct (34.0-47.0) % MCV (81.0-99.0) fL MCH (27.0-31.0) pg MCHC (33.0-37.0) g/dL RDW (11.5-14.5) % Plt Count (130-400) K/uL MPV (7.2-11.7) fL Neut % (Auto) (50.0-75.0) % Lymph % (Auto) (20.0-40.0) % Ralls % (Auto) (0.0-10.0) % Eos % (Auto) (0.0-4.0) % Baso % (Auto) (0.0-2.0) % Neut # (Auto) (1.8-7.0) K/uL Lymph # (Auto) (1.0-4.3) K/uL Ralls # (Auto) (0.0-0.8) K/uL Eos # (Auto) (0.0-0.7) K/uL Baso # (Auto) (0.0-0.2) K/uL Neutrophils % (Manual) (50-75) % Band Neutrophils % (0-2) % Lymphocytes % (Manual) (20-40) % Monocytes % (Manual) (0-10) % Platelet Estimate (NORMAL) Polychromasia Hypochromasia (manual) Anisocytosis (manual) Target Cells ESR 72 H (0-20) mm/hr Puncture Site pCO2 (35-45) mm/Hg pO2 (80-100) mm/Hg HCO3 (21-28) mmol/L ABG pH (7.35-7.45) ABG Total CO2 (22-28) mmol/L ABG O2 Saturation (95-98) % ABG Base Excess (-2.0-3.0) mmol/L Romero Test ABG Potassium (3.6-5.2) mmol/L A-a O2 Difference mm/Hg Respiratory Index Sodium (132-148) mmol/l Chloride (98-107) mmol/L Glucose (65-105) mg/dl Lactate (0.7-2.1) mmol/L Vent Mode Mechanical Rate FiO2 % Tidal Volume PEEP Potassium (3.6-5.2) mmol/L Carbon Dioxide (22-30) mmol/L Anion Gap (10-20) BUN (7-17) mg/dL Creatinine (0.7-1.2) mg/dL Est GFR ( Amer) Est GFR (Non-Af Amer) POC Glucose (mg/dL) 140 H 123 H (65-110) mg/dL Random Glucose (65-105) mg/dL Calcium (8.6-10.4) mg/dl Phosphorus (2.5-4.5) mg/dL Magnesium (1.6-2.3) mg/dL Total Bilirubin (0.2-1.3) mg/dL AST (14-36) U/L ALT (9-52) U/L Alkaline Phosphatase (38-126) U/L Total Protein (6.3-8.3) g/dL Albumin (3.5-5.0) g/dL Globulin (2.2-3.9) gm/dL Albumin/Globulin Ratio (1.0-2.1) Arterial Blood Potassium (3.6-5.2) mmol/L Mycoplasma pneumon IgG (<=0.90) Mycoplasma pneumon IgM (<770) U/mL 11/05/17 Range/Units 22:15 WBC (4.8-10.8) K/uL RBC (3.80-5.20) Mil/uL Hgb (11.0-16.0) g/dL Hct (34.0-47.0) % MCV (81.0-99.0) fL MCH (27.0-31.0) pg MCHC (33.0-37.0) g/dL RDW (11.5-14.5) % Plt Count (130-400) K/uL MPV (7.2-11.7) fL Neut % (Auto) (50.0-75.0) % Lymph % (Auto) (20.0-40.0) % Ralls % (Auto) (0.0-10.0) % Eos % (Auto) (0.0-4.0) % Baso % (Auto) (0.0-2.0) % Neut # (Auto) (1.8-7.0) K/uL Lymph # (Auto) (1.0-4.3) K/uL Ralls # (Auto) (0.0-0.8) K/uL Eos # (Auto) (0.0-0.7) K/uL Baso # (Auto) (0.0-0.2) K/uL Neutrophils % (Manual) (50-75) % Band Neutrophils % (0-2) % Lymphocytes % (Manual) (20-40) % Monocytes % (Manual) (0-10) % Platelet Estimate (NORMAL) Polychromasia Hypochromasia (manual) Anisocytosis (manual) Target Cells ESR (0-20) mm/hr Puncture Site pCO2 (35-45) mm/Hg pO2 (80-100) mm/Hg HCO3 (21-28) mmol/L ABG pH (7.35-7.45) ABG Total CO2 (22-28) mmol/L ABG O2 Saturation (95-98) % ABG Base Excess (-2.0-3.0) mmol/L Romero Test ABG Potassium (3.6-5.2) mmol/L A-a O2 Difference mm/Hg Respiratory Index Sodium (132-148) mmol/l Chloride (98-107) mmol/L Glucose (65-105) mg/dl Lactate (0.7-2.1) mmol/L Vent Mode Mechanical Rate FiO2 % Tidal Volume PEEP Potassium (3.6-5.2) mmol/L Carbon Dioxide (22-30) mmol/L Anion Gap (10-20) BUN (7-17) mg/dL Creatinine (0.7-1.2) mg/dL Est GFR ( Amer) Est GFR (Non-Af Amer) POC Glucose (mg/dL) (65-110) mg/dL Random Glucose (65-105) mg/dL Calcium (8.6-10.4) mg/dl Phosphorus (2.5-4.5) mg/dL Magnesium (1.6-2.3) mg/dL Total Bilirubin (0.2-1.3) mg/dL AST (14-36) U/L ALT (9-52) U/L Alkaline Phosphatase (38-126) U/L Total Protein (6.3-8.3) g/dL Albumin (3.5-5.0) g/dL Globulin (2.2-3.9) gm/dL Albumin/Globulin Ratio (1.0-2.1) Arterial Blood Potassium (3.6-5.2) mmol/L Mycoplasma pneumon IgG <=0.90 (<=0.90) Mycoplasma pneumon IgM 47 (<770) U/mL Laboratory Results - last 24 hr 11/05/17 11/07/17 11/07/17 22:15 12:23 17:42 WBC RBC Hgb Hct MCV MCH MCHC RDW Plt Count MPV Neut % (Auto) Lymph % (Auto) Ralls % (Auto) Eos % (Auto) Baso % (Auto) Neut # (Auto) Lymph # (Auto) Ralls # (Auto) Eos # (Auto) Baso # (Auto) Neutrophils % (Manual) Band Neutrophils % Lymphocytes % (Manual) Monocytes % (Manual) Platelet Estimate Polychromasia Hypochromasia (manual) Anisocytosis (manual) Target Cells ESR Puncture Site pCO2 pO2 HCO3 ABG pH ABG Total CO2 ABG O2 Saturation ABG Base Excess Romero Test ABG Potassium A-a O2 Difference Respiratory Index Sodium Chloride Glucose Lactate Vent Mode Mechanical Rate FiO2 Tidal Volume PEEP Potassium Carbon Dioxide Anion Gap BUN Creatinine Est GFR ( Amer) Est GFR (Non-Af Amer) POC Glucose (mg/dL) 123 H 140 H Random Glucose Calcium Phosphorus Magnesium Total Bilirubin AST ALT Alkaline Phosphatase Total Protein Albumin Globulin Albumin/Globulin Ratio Arterial Blood Potassium Mycoplasma pneumon IgG <=0.90 Mycoplasma pneumon IgM 47 11/08/17 11/09/17 11/09/17 10:26 05:30 05:50 WBC 13.8 H RBC 2.71 L Hgb 8.3 L Hct 25.3 L MCV 93.1 MCH 30.4 MCHC 32.7 L RDW 20.5 H Plt Count 22 L* D MPV 9.9 Neut % (Auto) 94.0 H Lymph % (Auto) 3.0 L Ralls % (Auto) 3.0 Eos % (Auto) 0.0 Baso % (Auto) 0.0 Neut # (Auto) 13.0 H Lymph # (Auto) 0.4 L Ralls # (Auto) 0.4 Eos # (Auto) 0.0 Baso # (Auto) 0.0 Neutrophils % (Manual) 88 H Band Neutrophils % 1 Lymphocytes % (Manual) 7 L Monocytes % (Manual) 4 Platelet Estimate Decreased L Polychromasia Slight Hypochromasia (manual) Slight Anisocytosis (manual) Slight Target Cells Moderate ESR 72 H Puncture Site R brac pCO2 38 pO2 62 L HCO3 26.7 ABG pH 7.45 ABG Total CO2 27.6 ABG O2 Saturation 95.7 ABG Base Excess 2.4 Romero Test Na ABG Potassium 3.5 L A-a O2 Difference 247.0 Respiratory Index 4.0 Sodium 147.0 Chloride 120.0 H Glucose 155 H Lactate 1.9 Vent Mode Prvc Mechanical Rate 14 FiO2 50.0 Tidal Volume 420 PEEP 5 Potassium Carbon Dioxide Anion Gap BUN Creatinine Est GFR ( Amer) Est GFR (Non-Af Amer) POC Glucose (mg/dL) Random Glucose Calcium Phosphorus Magnesium Total Bilirubin AST ALT Alkaline Phosphatase Total Protein Albumin Globulin Albumin/Globulin Ratio Arterial Blood Potassium 3.5 L Mycoplasma pneumon IgG Mycoplasma pneumon IgM 11/09/17 05:50 WBC RBC Hgb Hct MCV MCH MCHC RDW Plt Count MPV Neut % (Auto) Lymph % (Auto) Ralls % (Auto) Eos % (Auto) Baso % (Auto) Neut # (Auto) Lymph # (Auto) Ralls # (Auto) Eos # (Auto) Baso # (Auto) Neutrophils % (Manual) Band Neutrophils % Lymphocytes % (Manual) Monocytes % (Manual) Platelet Estimate Polychromasia Hypochromasia (manual) Anisocytosis (manual) Target Cells ESR Puncture Site pCO2 pO2 HCO3 ABG pH ABG Total CO2 ABG O2 Saturation ABG Base Excess Romero Test ABG Potassium A-a O2 Difference Respiratory Index Sodium 148 Chloride 115 H Glucose Lactate Vent Mode Mechanical Rate FiO2 Tidal Volume PEEP Potassium 3.7 Carbon Dioxide 26 Anion Gap 11 BUN 12 Creatinine 0.5 L Est GFR ( Amer) > 60 Est GFR (Non-Af Amer) > 60 POC Glucose (mg/dL) Random Glucose 150 H Calcium 7.6 L Phosphorus 2.0 L Magnesium 2.1 Total Bilirubin 0.9 AST 22 ALT 55 H Alkaline Phosphatase 125 Total Protein 4.5 L Albumin 2.0 L Globulin 2.5 Albumin/Globulin Ratio 0.8 L Arterial Blood Potassium Mycoplasma pneumon IgG Mycoplasma pneumon IgM Fingerstick Blood Sugar Results: 150 Review of Systems - Review of Systems Systems not reviewed;Unavailable: Intubated - Cardiovascular Cardiovascular: absent: Chest Pain Assessment/Plan - Assessment and Plan (Free Text) Assessment: 51 yo F admitted to ICU for sepsis 2/2 to multilobar right sided PNA. Pt intubated(11/06). Neuro: -Precedex low dose sedation, titrate as tolerated -fentanyl CV: -A. flutter-stable -cardio consult Dr. Contreras Pulm: -acute hypoxic respiratory failure 2/2 right multilobar PNA -pt intubated and bronched(11/06) -BAL cx grew S. Aureus -acetylcysteine, duonebs -CPAP trials as tolerated GI: Nutrition, on Jevity : monitor o/p ID: -sepsis 2/2 CAP -f/u on BAL specimin rheumatological, cytology -Azithromycin, acyclovir, cefepime, micafungin, vanco, tamiflu -ID consult Dr. Veras Hem: -thrombocytopenia, plts 22, 1U planned transfusion -anemia, stable -Heme consult Dr. Escobar Ppx: -protonix -contraindication to DVT ppx, thrombocytopenia
[2017-11-09] MEDS: Cefepime 2 GM in Dextrose 5% In Water 100 ML IVPB SCH (12:30)
[2017-11-09 12:48] LABS: ANTI SREPTOLYSIN O NEGATIVE (NEGATIVE)
--- NOTE | 2017-11-09 16:22 | CP.PCM.PN ---
Subjective - Date & Time of Evaluation Date of Evaluation: 11/09/17 Time of Evaluation: 01:15 - Subjective Subjective: dictated Objective - Vital Signs/Intake and Output Vital Signs (last 24 hours): Temp Pulse Resp BP Pulse Ox 97.9 F 99 H 14 120/92 H 96 11/09/17 14:30 11/09/17 15:06 11/09/17 15:06 11/09/17 15:06 11/09/17 15:06 Intake and Output: 11/09/17 11/09/17 06:59 18:59 Intake Total 1959.4 2137.6 Output Total 415 430 Balance 1544.4 1707.6 - Medications Medications: Current Medications Acetaminophen/Butalbital/Caffeine (Fioricet) 1 tab PO DAILY EMPERATRIZ Last Admin: 11/09/17 10:27 Dose: 1 tab Acetylcysteine (Acetylcysteine 20%) 4 ml INH RQ4 EMPERATRIZ Last Admin: 11/09/17 13:36 Dose: 4 ml Albuterol/Ipratropium (Duoneb 3 Mg/0.5 Mg (3 Ml) Ud) 3 ml INH RQ4 EMPERATRIZ Last Admin: 11/09/17 13:36 Dose: 3 ml Amitriptyline HCl (Elavil) 25 mg PO DAILY EMPERATRIZ Benzocaine (Orajel 7.5%) 0 gm MM Q4 PRN Last Admin: 11/09/17 08:36 Dose: 5.1 gm Gabapentin (Neurontin) 600 mg PO DAILY EMPERATRIZ Vancomycin/Sodium Chloride (Vancomycin 1 Gm/Ns 200 Ml) 1 gm in 200 mls @ 133.333 mls/hr IVPB Q12H EMPERATRIZ PRN Reason: Protocol Last Admin: 11/09/17 13:03 Dose: 133.333 mls/hr Cefepime HCl 2 gm/ Dextrose 100 mls @ 100 mls/hr IVPB Q12H EMPERATRIZ PRN Reason: Protocol Last Admin: 11/09/17 12:30 Dose: 100 mls/hr Acyclovir 500 mg/ Sodium (Chloride) 100 mls @ 100 mls/hr IV Q12H EMPERATRIZ PRN Reason: Protocol Last Admin: 11/09/17 08:33 Dose: 100 mls/hr Fentanyl Citrate 2,500 mcg/ (Sodium Chloride) 250 mls @ 11.44 mls/hr IV .[id number] EMPERATRIZ; 2 MCG/KG/HR PRN Reason: Protocol Last Titration: 11/09/17 10:00 Dose: 2 mcg/kg/hr, 11.44 mls/hr Dexmedetomidine HCl 200 mcg/ (Sodium Chloride) 50 mls @ 2.88 mls/hr IV TITR PRN ; Protocol; 0.2 MCG/KG/HR PRN Reason: Agitation Last Admin: 11/09/17 16:06 Dose: 1 mcg/kg/hr, 14.42 mls/hr Ibuprofen (Motrin Tab) 400 mg PO Q6H PRN PRN Reason: Fever >100.4 F Last Admin: 11/08/17 23:39 Dose: 400 mg Lactobacillus Acidophilus (Bacid Acidophilus) 1 cap PO BID EMPERATRIZ Last Admin: 11/09/17 10:02 Dose: 1 cap Nicotine (Nicoderm Cq) 1 patch TD DAILY EMPERATRIZ Last Admin: 11/09/17 10:27 Dose: 1 patch Oseltamivir Phosphate (Tamiflu Susp) 75 mg PO BID EMPERATRIZ PRN Reason: Protocol Stop: 11/13/17 11:01 Last Admin: 11/09/17 09:59 Dose: 75 ml Pantoprazole Sodium (Protonix Susp) 40 mg PO 0600,1600 EMPERATRIZ Last Admin: 11/09/17 16:06 Dose: 40 mg Vitamin A (Vitamin A & D Oint Ud Foilpak) 1 ea TOP Q6H PRN PRN Reason: Dry mouth Last Admin: 11/09/17 06:22 Dose: 1 ea - Labs Labs: 11/09/17 05:50 11/09/17 05:50 PT 13.8 SECONDS (9.7-12.2) H 11/06/17 05:51 INR 1.3 11/06/17 05:51 APTT 37 SECONDS (21-34) H 11/06/17 05:51
--- NOTE | 2017-11-09 19:28 | CP.PCM.PN ---
Subjective - Date & Time of Evaluation Date of Evaluation: 11/09/17 Time of Evaluation: 14:00 - Subjective Subjective: Hospitalist Progress Note Patient was seen and examined at 2 PM ICU Bed 2 Patient is intubated, awake but unable to answer ROS questions. At time of my exam, patient had large bowel movements. Spoke with ICU Nurse Milli who cleaned patient with [employer] and there is no evidence of any ulcerations on any of the hoang prominences. - Constitutional Appears: Cachetic, Chronically Ill - Head Exam Head Exam: NORMAL INSPECTION - Eye Exam Eye Exam: EOMI (patient did follow instructions when asked to follow light), PERRLA - ENT Exam ENT Exam: Mucous Membranes Dry - Respiratory Exam Respiratory Exam: Decreased Breath Sounds, Rales, Rhonchi Additional comments: intubated and vent sounds (course breath sounds throughout with inspiration and expiration) - Cardiovascular Exam Cardiovascular Exam: REGULAR RHYTHM, +S1, +S2 (however limited due to vent sound interfering with auscultation) - GI/Abdominal Exam GI & Abdominal Exam: Soft, Hyperactive Bowel Sounds. absent: Distended, Firm, Guarding, Rigid, Tenderness, Rebound - Extremities Exam Extremities Exam: absent: Pedal Edema, Tenderness - Neurological Exam Additional comments: Unable to perform due to patient being intubated - Skin Skin Exam: Dry, Normal Color, Warm Additional comments: multiple tattoos Assessment and Plan 1) Acute Respiratory Distress Health Care Associated Pneumonia Sepsis Bandemia Assessment/Plan * Admited to ICU * Infectious Disease (Dr. Veras) on board-->help appreciated * Criteria: Afebrile, no leukocytosis, left shift noted with lactate 5.1 with repeat 6.0 * Code sepsis 11/03/17 * Elevated procalcitonin: 13.90--->5.00 * Bronchoscopy 11/06/17 and Intubated subsequently and currently on Precedex Drip * 11/07: Sputum: Staph aureus (Bronchoscopy); cytology pending * 11/06: Bronchial Washing: Staph aureus and NO fungal elements * 11/06: Fungal culture: none seen * 11/05: Blood culture: No growth to date * 11/04: Urine culture: No growth * Possible HCAP prior hospitalization * Lactate: 4.5-->6.0-->4.4-->3.6 * Duonebs RQ4 PRN shortness of breathe * Acetrylcysteine 4ml INH RQ6H * Mucinex 600mg PO BID * Motrin 400mg PO Q6H PRN >100.4F * CT head: No intracranial mass, hemorrhage, or evidence of acute infarct. Mild chronic sphenoid sinusitis. possible small exostosis along the superior left temporral calvarium. * CT Chest (11/04/17): multilobar pneumonia of the right lung. Small hiatal hernia. * CT Chest/Abdomen/Pelvis (11/06/17): extensive diffuse infiltrate and consolidation of the right lung. Small left pleural effusion. Mild right sided volume loss with some shift of the heart mediastinum towards the center. Mild mediastinal lymphadenopahty. nonspecific. Nonspecific colitis. predominantly involved the right colon but also involving to a lesser extent the transverse and descending/sigmoind colon. No bowel obstruction. Ascites. Partial gastrectomy and gastrogenunostomy/jejunojenjunostomy. * Chest X Ray (11/09/17): bilateral multifocal opacities right greater than left with ros consolidation at right lung base. IV ABx: * Azithromycin 500mg IV q daily (active since 11/04/17) and Micafungin 100mg IVPB Q24H (active since 11/06/17) were D/C'd 11/09/17 * Cefepime 2gm IVPB Q12H (active since 11/07/17) * Vancomycin 1 gram IVQ12 (active since 11/05/17) * Tamiflu 75 mg PO 2x/day (11/09/17 through 11/13/17) * Acyclovir 500 mg IV Q12H 2) Sinus Tachycardia Assessment/Plan * Cardiology (Dr. Contreras) on board-->help appreciated * Cleared from cardiac standpoint * Treat infection/sepsis * Became Hypotensive-->brought to ICU * Given Cardizem 20mg IVPX1, Cardizem 5mg IVP X3 in the ED * Cardizem drip d/c * Given Metoprolol 5mg IVP X1 * Needed IV fluids to increase blood pressure * Hgba1c: 4.9 * TSH: 0.64 * Lipid panel: <30, HDL: 16, T, Cholestrol: 71 * Echocardiogram (11/05/17): left ventricle is grossly normal size. Left ventricle systolic function is grossly normal. Right ventricle size and function is normal. Mild tricupsid regurgitation 3) History of Chronic Back Pain History of Scoliosis Fibromylagia Assessment/Plan * held gabapentin given respiratory status * held amitriptyline-->cardio side effects and patient is in sinus tachycardia * Discussed with patient who is aware * Patient has had chronic back problems since age 16 from scoliosis * Patient reports she was for lumbar spine surgery however she was told she needs to meet weight requirement prior to proceeding with surgery * Oxycodone 30mg POq8 PRN pain 4) Tobacco History Assessment/Plan * Start Nicotine Patch daily 5) History of Gastric Bypass (sleeve gastrectomy) Assessment/Plan * About 11 years ago * Hgba1c: 4.9 * TSH: 0.64 * Lipid panel: <30, HDL: 16, T, Cholestrol: 71 * Will start MVI 1 tab PO daily * Will need lifelong MV1, calcium, vitamin D supplements 6) Anemia Assessment/Plan * Patient with known history of anemia when I discussed with her at bedside * Patient has not had GI workup including colonoscopy. * H/H stable * 2units of PRBC 11/05/17 * Iron low, TIBC low, ferritin: 351 reticulocyte count: 2.2 * Reticulocyte index: 0.17 hypoproliferation of reticulocytes * B12 normal, folate within range * LDH: elevated * Hematology-oncology (Dr. Evelyn Escobar) on case-->help appreciated * 7) Unclear regarding to Multiple Sclerosis Hx Assessment/Plan * Currently not on medication * Diagnosed 8 years ago as per son * Will need to clarify with son how was diagnosed 8) Hx Pancreatitis Assessment/Plan * Noted on 08/2017 admission * Recommended outpatient EUS 9) Transaminitis Assessment/Plan * possible acute phase reactant * Abdominal US (11/04/17): hyperechoic hepatic parenchyma in the interval may indicate diffuse fatty infiltrateion though other etiologies. No common bile duct or intrahepatic biliary dilatation is identified. Moderately distended but otherwise unremarkable appearing gallbladder. Pancreas is poorly visualized. Small right renal cyst. Incidental right pleural effusion is noted. * Hepatitis panel: negative * HIV: negative 10) Electrolyte abnormalities Assessment/Plan * monitor and replete 11) Abdominal Pain Assessment/Plan * Lipase/Amylase: normal 12) Thrombocytopenia * D/C lovenox * Ordered HIT/CONSTANTINE: pending * Likely related to sepsis * Fibrinogen and fibrin products elevated * Abdominal US (11/04/17): hyperechoic hepatic parenchyma in the interval may indicate diffuse fatty infiltrateion though other etiologies. No common bile duct or intrahepatic biliary dilatation is identified. Moderately distended but otherwise unremarkable appearing gallbladder. Pancreas is poorly visualized. Small right renal cyst. Incidental right pleural effusion is noted. 13) Prophylactic Measures * GI PPX: Protonix 40mg PO daily * Lactobacillus 1 cap PO BID * NO Lovenox/Heparin secondary to Thrombocytopenia * Fentanyl 2 mcg/kg/hr Follow up: SCL-70 Alpha 1 Antitrypsin Ab FRED Screen ANCA Lupus Panel RF HLA B27 Cory Gunter D.O. Objective - Vital Signs/Intake and Output Vital Signs (last 24 hours): Temp Pulse Resp BP Pulse Ox 99.4 F 93 H 26 H 98/65 L 100 11/09/17 17:00 11/09/17 18:17 11/09/17 18:17 11/09/17 18:17 11/09/17 18:17 Intake and Output: 11/09/17 11/10/17 18:59 06:59 Intake Total 2433.8 Output Total 580 Balance 1853.8 - Medications Medications: Current Medications Acetaminophen/Butalbital/Caffeine (Fioricet) 1 tab PO DAILY EMPERATRIZ Last Admin: 11/09/17 10:27 Dose: 1 tab Acetylcysteine (Acetylcysteine 20%) 4 ml INH RQ4 EMPERATRIZ Last Admin: 11/09/17 16:43 Dose: 4 ml Albuterol/Ipratropium (Duoneb 3 Mg/0.5 Mg (3 Ml) Ud) 3 ml INH RQ4 EMPERATRIZ Last Admin: 11/09/17 16:43 Dose: 3 ml Amitriptyline HCl (Elavil) 25 mg PO DAILY EMPERATRIZ Benzocaine (Orajel 7.5%) 0 gm MM Q4 PRN Last Admin: 11/09/17 08:36 Dose: 5.1 gm Gabapentin (Neurontin) 600 mg PO DAILY EMPERATRIZ Vancomycin/Sodium Chloride (Vancomycin 1 Gm/Ns 200 Ml) 1 gm in 200 mls @ 133.333 mls/hr IVPB Q12H EMPERATRIZ PRN Reason: Protocol Last Admin: 11/09/17 13:03 Dose: 133.333 mls/hr Cefepime HCl 2 gm/ Dextrose 100 mls @ 100 mls/hr IVPB Q12H EMPERATRIZ PRN Reason: Protocol Last Admin: 11/09/17 12:30 Dose: 100 mls/hr Acyclovir 500 mg/ Sodium (Chloride) 100 mls @ 100 mls/hr IV Q12H EMPERATRIZ PRN Reason: Protocol Last Admin: 11/09/17 08:33 Dose: 100 mls/hr Fentanyl Citrate 2,500 mcg/ (Sodium Chloride) 250 mls @ 11.44 mls/hr IV .[id number] EMPERATRIZ; 2 MCG/KG/HR PRN Reason: Protocol Last Admin: 11/09/17 16:53 Dose: 4 mcg/kg/hr, 22.88 mls/hr Dexmedetomidine HCl 200 mcg/ (Sodium Chloride) 50 mls @ 2.88 mls/hr IV TITR PRN ; Protocol; 0.2 MCG/KG/HR PRN Reason: Agitation Last Titration: 11/09/17 16:10 Dose: 1.2 mcg/kg/hr, 17.3 mls/hr Ibuprofen (Motrin Tab) 400 mg PO Q6H PRN PRN Reason: Fever >100.4 F Last Admin: 11/08/17 23:39 Dose: 400 mg Lactobacillus Acidophilus (Bacid Acidophilus) 1 cap PO BID EMPERATRIZ Last Admin: 11/09/17 17:20 Dose: 1 cap Nicotine (Nicoderm Cq) 1 patch TD DAILY EMPERATRIZ Last Admin: 11/09/17 10:27 Dose: 1 patch Oseltamivir Phosphate (Tamiflu Susp) 75 mg PO BID EMPERATRIZ PRN Reason: Protocol Stop: 11/13/17 11:01 Last Admin: 11/09/17 17:20 Dose: 12.5 ml Pantoprazole Sodium (Protonix Susp) 40 mg PO 0600,1600 EMPERATRIZ Last Admin: 11/09/17 16:06 Dose: 40 mg Vitamin A (Vitamin A & D Oint Ud Foilpak) 1 ea TOP Q6H PRN PRN Reason: Dry mouth Last Admin: 11/09/17 06:22 Dose: 1 ea - Labs Labs: 11/09/17 05:50 11/09/17 05:50 PT 13.8 SECONDS (9.7-12.2) H 11/06/17 05:51 INR 1.3 11/06/17 05:51 APTT 37 SECONDS (21-34) H 11/06/17 05:51
--- NOTE | 2017-11-09 22:18 | PN ---
DATE: 11/09/2017 INFECTIOUS DISEASE FOLLOWUP SUBJECTIVE: The patient is intubated, remains sedated and she is going to get platelets now as her platelets have dropped to 22. PHYSICAL EXAMINATION: VITAL SIGNS: T-max is 97.9, pulse is 95, blood pressure 122/96, respirations remain on the vent of 24. HEENT: Head is atraumatic, normocephalic. She is intubated. NECK: Supple. LUNGS: Coarse breath sounds. HEART: S1 and S2 are regular. ABDOMEN: Soft. Nontender. No guarding. No rigidity present. EXTREMITIES: Have no edema. LABORATORY DATA: Labs are noted. Labs show white count is 13.8 today, slightly better; hemoglobin is 8.3; hematocrit 25.3; platelet count is 22. BUN is 12, creatinine 0.5. Her labs: FRED is negative. Serology came out that Mycoplasma legionella is negative, so I will take that out. CMV IgG and IgM are negative. DNA PCR is pending. Hepatitis A, B, C are negative. ASO is negative. Strep pneumo is negative. Her body fluid bronch washing showed Staph aureus, and the Staph aureus is methicillin sensitive, and she is on Maxipime at this time, but I will leave the vanco on for now until she is extubated. Preliminary fungal stain was negative, so we will take away the Mycamine, and Tamiflu has been added yesterday as flu titers were present. I am not sure if they were due to infection or due to injection for prevention, but at this time, I would assume that she had flu and has post-flu Staph aureus pneumonia, and she has been debilitated with fibromyalgia and multiple sclerosis and immunocompromise, and now with severe thrombocytopenia. Would discontinue erythromycin. Continue vancomycin, Maxipime, acyclovir for now, and the Tamiflu, and we will follow. Christiano Veras MD
[2017-11-10] MEDS: Cefepime 2 GM in Dextrose 5% In Water 100 ML IVPB SCH ×2 (00:18→12:33)
[2017-11-10] MEDS: Vancomycin 1 gm/NS 200 ml 1 GM/200 ML BAG IVPB SCH ×2 (01:04→13:47)
[2017-11-10] MEDS: Dexmedetomidine Hydrochloride 200 MCG in Sodium Chloride 0.9% 48 ML IV PRN ×4 (02:43→15:25)
[2017-11-10] MEDS: Albuterol-Ipratrop 3 mg / 0.5 (3 ml) UD INH SCH ×5 (03:15→19:07)
[2017-11-10 05:39] LABS: ARTERIAL BLOOD GAS HCO3 26.3 mmol/L (21-28); ARTERIAL BLOOD GAS HEMOGLOBIN 7.3 g/dL (11.7-17.4); ARTERIAL BLOOD GAS O2 SAT 95.4 % (95-98); ARTERIAL BLOOD GAS PCO2 34 mm/Hg (35-45); ARTERIAL BLOOD GAS PH 7.48 (7.35-7.45); ARTERIAL BLOOD GAS PO2 62 mm/Hg (80-100); ARTERIAL BLOOD GAS TCO2 26.3 mmol/L (22-28)
[2017-11-10] MEDS: Pantoprazole 40 mg Susp UD PO SCH ×2 (05:44→16:57)
[2017-11-10 06:28] LABS: INR 1.4; PROTHROMBIN TIME 15.7 SECONDS (9.7-12.2)
[2017-11-10 06:32] LABS: ALB/GLOB RATIO 0.8 (1.0-2.1); ALBUMIN 2.1 g/dL (3.5-5.0); ALT/SGPT 49 U/L (9-52); AST/SGOT 27 U/L (14-36); BLOOD UREA NITROGEN 15 mg/dL (7-17); CALCIUM 7.7 mg/dl (8.6-10.4); GFR AFRICAN-AMERICAN > 60; GFR NON-AFRICAN AMERICAN > 60
[2017-11-10 06:45] LABS: BASO % 0.1 % (0.0-2.0); EOS # 0.1 K/uL (0.0-0.7); EOS % 0.4 % (0.0-4.0); HEMOGLOBIN 7.4 g/dL (11.0-16.0); LYMPH # 0.5 K/uL (1.0-4.3); LYMPH % 3.5 % (20.0-40.0); MEAN CELL VOLUME 93.2 fL (81.0-99.0); MEAN CORPUSCULAR HEMOGLOBIN 30.5 pg (27.0-31.0); MEAN CORPUSCULAR HGB CONC 32.7 g/dL (33.0-37.0); MEAN PLATELET VOLUME 11.5 fL (7.2-11.7); MONO # 0.3 K/uL (0.0-0.8); NEUT # 13.1 K/uL (1.8-7.0); NRBC % 0.3 % (0.0-2.0); PLATELET COUNT 72 K/uL (130-400); RBC 2.44 Mil/uL (3.80-5.20); RED CELL DISTRIBUTION WIDTH 19.6 % (11.5-14.5)
[2017-11-10 08:00] LABS: ANISOCYTOSIS SLIGHT; LYMPHOCYTE 2 % (20-40); MONOCYTE 2 % (0-10); NEUTROPHIL 96 % (50-75); PLATELET ESTIMATE DECREASED (NORMAL); TOTAL CELLS COUNTED 100
[2017-11-10 08:01] LABS: HYPOCHROMIC SLIGHT; POLYCHROMIC SLIGHT; TARGET CELLS MODERATE
--- NOTE | 2017-11-10 08:25 | RAD ---
Date of service: 11/10/2017 HISTORY: intubated COMPARISON: 11/09/2017. FINDINGS: Endotracheal tube terminates 2.6 cm proximal to the jay. The nasogastric tube terminates in the stomach. The right IJV line terminates at the cavoatrial junction LUNGS: There is interval worsening of confluent airspace disease nearly completely opacifying the right lung. There is also worsening airspace disease in the left upper lobe and lower lobe. PLEURA: Bilateral pleural effusions, no pneumothorax apparent. CARDIOVASCULAR: Difficult to evaluate due to extensive airspace disease in both lungs. OSSEOUS STRUCTURES: No significant abnormalities. VISUALIZED UPPER ABDOMEN: Normal. OTHER FINDINGS: None. IMPRESSION: Worsening presumable multifocal pneumonia in both lungs, worse on the right. Persistent pleural effusions. Stable position of support line and tubes.
[2017-11-10] MEDS: Acyclovir 500 MG in Sodium Chloride 0.9% 100 ML IV SCH ×2 (08:29→19:59)
[2017-11-10] MEDS: Oseltamivir 6 MG/ML PO SCH ×2 (09:50→17:31)
[2017-11-10] MEDS: Lactobacillus Acidophilus 500 MU Cap PO SCH ×2 (09:50→17:31)
[2017-11-10] MEDS: Sodium Chloride 0.45% 1,000 ML IV SCH ×2 (09:52→21:42)
[2017-11-10] MEDS ORDERED: Potassium Phosphate 15 MMOLE in Dextrose 5% In Water 250 ML IVPB ONE (10:00)
[2017-11-10] MEDS ORDERED: Propofol 10 mg/ml Inj (20 ML) IV ONE (10:10)
[2017-11-10] MEDS ORDERED: Propofol 10 mg/ml Inj (20 ML) ONE (10:16)
[2017-11-10] MEDS: Apap-Butalbital-Caffeine 325-50-40mg Tab PO SCH (10:48)
--- NOTE | 2017-11-10 11:38 | CP.CCUPN ---
<Kendra Pate - Last Filed: 11/10/17 11:59> CCU Subjective - Physician Review Subjective (Free Text): 51 yo F w/ PMHx of chronic back pain, scoliosis, fibromyalgia, multiple sclerosis, gastric bypass, presented to ED with weakness, anorexia, dyspnea, cough x1day. In ED pt found to be in A flutter w/ rapid rate @155. Cardizem given and pt became hypotensive; however responded to IVF. Admitted to ICU for sepsis 2/2 right multilobar PNA Pt seen and examined at bedside, intubated on low dose sedation. Desaturating on CPAP, unable to extubate. Hgb dropping. 11/10/17 11:35 CCU Objective - Vital Signs / Intake & Output Vital Signs (Last 4 hours): Vital Signs Temp Pulse Resp BP Pulse Ox 11/10/17 11:19 97.9 F 103 H 30 H 116/85 11/10/17 11:16 99 H 24 116/85 100 11/10/17 11:04 98.0 F 104 H 30 H 120/86 11/10/17 11:01 104 H 31 H 120/86 95 11/10/17 11:00 104 H 30 H 94 L 11/10/17 10:09 111 H 39 H 125/94 H 86 L 11/10/17 10:00 112 H 34 H 70 L 11/10/17 09:09 97 H 28 H 97/68 L 91 L 11/10/17 09:00 97 H 22 100 11/10/17 08:00 98 F 98 H 24 111/75 98 Intake and Output (Last 8hrs): Intake & Output 11/09/17 11/10/17 11/10/17 22:59 06:59 14:59 Intake Total 978.7 1241.0 605.0 Output Total 345 270 155 Balance 633.7 971.0 450.0 Weight 151 lb 9.6 oz Intake: IV 150 350 30 Intake, IV Amount 408.7 571.0 260.0 Right Distal Port 173.2 155.8 145.6 Internal Jugular Right Medial Port 135.5 115.2 14.4 Internal Jugular Right Proximal Port 100 300 100 Internal Jugular Oral 100 Tube Feeding 320 320 200 Blood Product 0 Red Blood Cells Cpd As1 0 Lr Unit [id number] Other 100 15 Red Blood Cells Cpd As1 15 Lr Unit [id number] Output: Urine 345 270 155 Urine, Voided 345 270 155 Other: # Bowel Movements 0 0 0 - Physical Exam Head: Positive for: Atraumatic, Normocephalic Extroacular Muscles: Positive for: EOMI Mouth: Positive for: Moist Mucous Membranes Nose (External): Positive for: Atraumatic Respiratory/Chest: Positive for: Clear to Auscultation, Good Air Exchange, Decreased Breath Sounds. Negative for: Respiratory Distress, Accessory Muscle Use Cardiovascular: Positive for: Normal S1, S2, Tachycardic Abdomen: Positive for: Normal Bowel Sounds. Negative for: Tenderness, Distention Upper Extremity: Positive for: Normal Inspection. Negative for: Cyanosis Lower Extremity: Positive for: Normal Inspection. Negative for: Edema Neurological: Positive for: GCS=15 Skin: Positive for: Normal Color Psychiatric: Positive for: Other (sedated) - Medications Active Medications: Active Medications Generic Name Dose Route Start Last Admin Trade Name Freq PRN Reason Stop Dose Admin Acetaminophen/Butalbital/Caffeine 1 tab 11/04/17 10:00 11/10/17 10:48 Fioricet PO 1 tab DAILY EMEPRATRIZ Administration Albuterol/Ipratropium 3 ml 11/06/17 08:13 11/10/17 07:56 Duoneb 3 Mg/0.5 Mg (3 Ml) Ud INH 3 ml RQ4 EMPERATRIZ Administration Amitriptyline HCl 25 mg 11/04/17 10:00 Elavil PO DAILY EMPERATRIZ Benzocaine 0 gm 11/06/17 08:15 11/09/17 08:36 Orajel 7.5% MM 5.1 gm Q4 PRN Administration Gabapentin 600 mg 11/04/17 10:00 Neurontin PO DAILY EMPERATRIZ Vancomycin/Sodium Chloride 1 gm in 200 mls @ 133.333 mls/hr 11/05/17 01:00 01:04 Vancomycin 1 Gm/Ns 200 Ml IVPB 133.333 mls/hr Q12H EMPERATRIZ Administration Protocol Cefepime HCl 2 gm/ Dextrose 100 mls @ 100 mls/hr 11/07/17 00:00 11/10/17 00: 18 IVPB 100 mls/hr Q12H EMPERATRIZ Administration Protocol Acyclovir 500 mg/ Sodium 100 mls @ 100 mls/hr 11/06/17 20:00 11/10/17 08:29 Chloride IV 100 mls/hr Q12H EMPERATRIZ Administration Protocol Fentanyl Citrate 2,500 mcg/ 250 mls @ 11.44 mls/hr 11/07/17 09:30 11/10/17 02 :45 Sodium Chloride IV 3.02 mcg/kg/hr .[id number] EMPERATRIZ 17.3 mls/hr Protocol Administration 2 MCG/KG/HR Dexmedetomidine HCl 200 mcg/ 50 mls @ 2.88 mls/hr 11/08/17 09:43 11/10/17 10: 08 Sodium Chloride IV 1.1 mcg/kg/hr TITR PRN 15.86 mls/hr Agitation Titration Protocol 0.2 MCG/KG/HR Sodium Chloride 1,000 mls @ 75 mls/hr 11/10/17 09:15 11/10/17 09:52 Sodium Chloride 0.45% IV 75 mls/hr .[id number] EMPREATRIZ Administration Potassium Phosphate 15 mmole/ 255 mls @ 42.5 mls/hr 11/10/17 10:00 11/10/17 10:48 Dextrose IVPB 11/10/17 15:59 42.5 mls/hr ONCE ONE Administration Ibuprofen 400 mg 11/04/17 01:02 11/09/17 20:11 Motrin Tab PO 400 mg Q6H PRN Administration Fever >100.4 F Lactobacillus Acidophilus 1 cap 11/07/17 18:00 11/10/17 09:50 Bacid Acidophilus PO 1 cap BID EMPERATRIZ Administration Lorazepam 2 mg 11/10/17 10:16 Ativan IVP Q3H PRN Anxiety Nicotine 1 patch 11/04/17 10:00 11/10/17 09:52 Nicoderm Cq TD 1 patch DAILY EMPERATRIZ Administration Oseltamivir Phosphate 75 mg 11/08/17 11:00 11/10/17 09:50 Tamiflu Susp PO 11/13/17 11:01 12.5 ml BID EMPERATRIZ Administration Protocol Pantoprazole Sodium 40 mg 11/07/17 16:00 11/10/17 05:44 Protonix Susp PO 40 mg 0600,1600 EMPERATRIZ Administration Vitamin A 1 ea 11/04/17 10:30 11/09/17 06:22 Vitamin A & D Oint Ud Foilpak TOP 1 ea Q6H PRN Administration Dry mouth - Patient Studies Lab Studies: Microbiology Studies 11/06/17 20:05 Fungal Culture - Final Bronchial Washings Lesa Albicans 11/06/17 15:45 Fungal Culture - Final Other: Please Indicate Lesa Albicans 11/05/17 22:15 Blood Culture - Preliminary Blood-Venous NO GROWTH AFTER 4 DAYS 11/05/17 22:15 Blood Culture - Preliminary Blood-Venous NO GROWTH AFTER 4 DAYS Lab Studies 11/10/17 11/10/17 11/10/17 Range/Units 09:43 09:43 06:13 WBC (4.8-10.8) K/uL RBC (3.80-5.20) Mil/uL Hgb (11.0-16.0) g/dL Hct (34.0-47.0) % MCV (81.0-99.0) fL MCH (27.0-31.0) pg MCHC (33.0-37.0) g/dL RDW (11.5-14.5) % Plt Count (130-400) K/uL MPV (7.2-11.7) fL Neut % (Auto) (50.0-75.0) % Lymph % (Auto) (20.0-40.0) % Talbot % (Auto) (0.0-10.0) % Eos % (Auto) (0.0-4.0) % Baso % (Auto) (0.0-2.0) % Neut # (Auto) (1.8-7.0) K/uL Lymph # (Auto) (1.0-4.3) K/uL Talbot # (Auto) (0.0-0.8) K/uL Eos # (Auto) (0.0-0.7) K/uL Baso # (Auto) (0.0-0.2) K/uL Neutrophils % (Manual) (50-75) % Lymphocytes % (Manual) (20-40) % Monocytes % (Manual) (0-10) % Platelet Estimate (NORMAL) Polychromasia Hypochromasia (manual) Anisocytosis (manual) Target Cells PT 15.7 H (9.7-12.2) SECONDS INR 1.4 APTT 27 (21-34) SECONDS Puncture Site pCO2 (35-45) mm/Hg pO2 (80-100) mm/Hg HCO3 (21-28) mmol/L ABG pH (7.35-7.45) ABG Total CO2 (22-28) mmol/L ABG O2 Saturation (95-98) % ABG Base Excess (-2.0-3.0) mmol/L ABG Hemoglobin (11.7-17.4) g/dL ABG Carboxyhemoglobin (0.5-1.5) % POC ABG HHb (Measured) (0.0-5.0) % ABG Methemoglobin (0.0-3.0) % Romero Test A-a O2 Difference mm/Hg Respiratory Index Hgb O2 Saturation (95.0-98.0) % Vent Mode Mechanical Rate FiO2 % Tidal Volume PEEP Sodium (132-148) mmol/L Potassium (3.6-5.2) mmol/L Chloride (98-107) mmol/L Carbon Dioxide (22-30) mmol/L Anion Gap (10-20) BUN (7-17) mg/dL Creatinine (0.7-1.2) mg/dL Est GFR ( Amer) Est GFR (Non-Af Amer) POC Glucose (mg/dL) (65-110) mg/dL Random Glucose (65-105) mg/dL Calcium (8.6-10.4) mg/dl Phosphorus (2.5-4.5) mg/dL Magnesium (1.6-2.3) mg/dL Total Bilirubin (0.2-1.3) mg/dL AST (14-36) U/L ALT (9-52) U/L Alkaline Phosphatase (38-126) U/L Total Protein (6.3-8.3) g/dL Albumin (3.5-5.0) g/dL Globulin (2.2-3.9) gm/dL Albumin/Globulin Ratio (1.0-2.1) Random Vancomycin 18.0 ug/mL FRED 6 Profile (NEGATIVE) A-PM Scleroderma 100 Ab Heparin-induced Plt Ab (Negative) Anti-Staphylolysin O (NEGATIVE) Blood Type A NEGATIVE Antibody Screen Negative 11/10/17 11/10/17 11/10/17 Range/Units 06:13 06:13 05:57 WBC 14.0 H (4.8-10.8) K/uL RBC 2.44 L (3.80-5.20) Mil/uL Hgb 7.4 L (11.0-16.0) g/dL Hct 22.7 L (34.0-47.0) % MCV 93.2 (81.0-99.0) fL MCH 30.5 (27.0-31.0) pg MCHC 32.7 L (33.0-37.0) g/dL RDW 19.6 H (11.5-14.5) % Plt Count 72 L D (130-400) K/uL MPV 11.5 (7.2-11.7) fL Neut % (Auto) 94.0 H (50.0-75.0) % Lymph % (Auto) 3.5 L (20.0-40.0) % Talbot % (Auto) 2.0 (0.0-10.0) % Eos % (Auto) 0.4 (0.0-4.0) % Baso % (Auto) 0.1 (0.0-2.0) % Neut # (Auto) 13.1 H (1.8-7.0) K/uL Lymph # (Auto) 0.5 L (1.0-4.3) K/uL Talbot # (Auto) 0.3 (0.0-0.8) K/uL Eos # (Auto) 0.1 (0.0-0.7) K/uL Baso # (Auto) 0.0 (0.0-0.2) K/uL Neutrophils % (Manual) 96 H (50-75) % Lymphocytes % (Manual) 2 L (20-40) % Monocytes % (Manual) 2 (0-10) % Platelet Estimate Decreased L (NORMAL) Polychromasia Slight Hypochromasia (manual) Slight Anisocytosis (manual) Slight Target Cells Moderate PT (9.7-12.2) SECONDS INR APTT (21-34) SECONDS Puncture Site pCO2 (35-45) mm/Hg pO2 (80-100) mm/Hg HCO3 (21-28) mmol/L ABG pH (7.35-7.45) ABG Total CO2 (22-28) mmol/L ABG O2 Saturation (95-98) % ABG Base Excess (-2.0-3.0) mmol/L ABG Hemoglobin (11.7-17.4) g/dL ABG Carboxyhemoglobin (0.5-1.5) % POC ABG HHb (Measured) (0.0-5.0) % ABG Methemoglobin (0.0-3.0) % Romero Test A-a O2 Difference mm/Hg Respiratory Index Hgb O2 Saturation (95.0-98.0) % Vent Mode Mechanical Rate FiO2 % Tidal Volume PEEP Sodium 152 H (132-148) mmol/L Potassium 3.5 L (3.6-5.2) mmol/L Chloride 116 H (98-107) mmol/L Carbon Dioxide 27 (22-30) mmol/L Anion Gap 13 (10-20) BUN 15 (7-17) mg/dL Creatinine 0.5 L (0.7-1.2) mg/dL Est GFR ( Amer) > 60 Est GFR (Non-Af Amer) > 60 POC Glucose (mg/dL) 198 H (65-110) mg/dL Random Glucose 166 H (65-105) mg/dL Calcium 7.7 L (8.6-10.4) mg/dl Phosphorus 2.0 L (2.5-4.5) mg/dL Magnesium 2.0 (1.6-2.3) mg/dL Total Bilirubin 0.7 (0.2-1.3) mg/dL AST 27 (14-36) U/L ALT 49 (9-52) U/L Alkaline Phosphatase 126 (38-126) U/L Total Protein 4.7 L (6.3-8.3) g/dL Albumin 2.1 L (3.5-5.0) g/dL Globulin 2.7 (2.2-3.9) gm/dL Albumin/Globulin Ratio 0.8 L (1.0-2.1) Random Vancomycin ug/mL FRED 6 Profile (NEGATIVE) A-PM Scleroderma 100 Ab Heparin-induced Plt Ab (Negative) Anti-Staphylolysin O (NEGATIVE) Blood Type Antibody Screen 11/10/17 11/10/17 11/09/17 Range/Units 05:22 00:25 17:49 WBC (4.8-10.8) K/uL RBC (3.80-5.20) Mil/uL Hgb (11.0-16.0) g/dL Hct (34.0-47.0) % MCV (81.0-99.0) fL MCH (27.0-31.0) pg MCHC (33.0-37.0) g/dL RDW (11.5-14.5) % Plt Count (130-400) K/uL MPV (7.2-11.7) fL Neut % (Auto) (50.0-75.0) % Lymph % (Auto) (20.0-40.0) % Talbot % (Auto) (0.0-10.0) % Eos % (Auto) (0.0-4.0) % Baso % (Auto) (0.0-2.0) % Neut # (Auto) (1.8-7.0) K/uL Lymph # (Auto) (1.0-4.3) K/uL Talbot # (Auto) (0.0-0.8) K/uL Eos # (Auto) (0.0-0.7) K/uL Baso # (Auto) (0.0-0.2) K/uL Neutrophils % (Manual) (50-75) % Lymphocytes % (Manual) (20-40) % Monocytes % (Manual) (0-10) % Platelet Estimate (NORMAL) Polychromasia Hypochromasia (manual) Anisocytosis (manual) Target Cells PT (9.7-12.2) SECONDS INR APTT (21-34) SECONDS Puncture Site Rb pCO2 34 L (35-45) mm/Hg pO2 62 L (80-100) mm/Hg HCO3 26.3 (21-28) mmol/L ABG pH 7.48 H (7.35-7.45) ABG Total CO2 26.3 (22-28) mmol/L ABG O2 Saturation 95.4 (95-98) % ABG Base Excess 1.8 (-2.0-3.0) mmol/L ABG Hemoglobin 7.3 L (11.7-17.4) g/dL ABG Carboxyhemoglobin 1.5 (0.5-1.5) % POC ABG HHb (Measured) 4.5 (0.0-5.0) % ABG Methemoglobin 0.7 (0.0-3.0) % Romero Test Na A-a O2 Difference 252.0 mm/Hg Respiratory Index 4.1 Hgb O2 Saturation 93.3 L (95.0-98.0) % Vent Mode Prvc Mechanical Rate 14 FiO2 50.0 % Tidal Volume 420 PEEP 5 Sodium (132-148) mmol/L Potassium (3.6-5.2) mmol/L Chloride (98-107) mmol/L Carbon Dioxide (22-30) mmol/L Anion Gap (10-20) BUN (7-17) mg/dL Creatinine (0.7-1.2) mg/dL Est GFR ( Amer) Est GFR (Non-Af Amer) POC Glucose (mg/dL) 125 H 127 H (65-110) mg/dL Random Glucose (65-105) mg/dL Calcium (8.6-10.4) mg/dl Phosphorus (2.5-4.5) mg/dL Magnesium (1.6-2.3) mg/dL Total Bilirubin (0.2-1.3) mg/dL AST (14-36) U/L ALT (9-52) U/L Alkaline Phosphatase (38-126) U/L Total Protein (6.3-8.3) g/dL Albumin (3.5-5.0) g/dL Globulin (2.2-3.9) gm/dL Albumin/Globulin Ratio (1.0-2.1) Random Vancomycin ug/mL FRED 6 Profile (NEGATIVE) A-PM Scleroderma 100 Ab Heparin-induced Plt Ab (Negative) Anti-Staphylolysin O (NEGATIVE) Blood Type Antibody Screen 11/09/17 11/08/17 11/08/17 Range/Units 12:18 11:50 10:26 WBC (4.8-10.8) K/uL RBC (3.80-5.20) Mil/uL Hgb (11.0-16.0) g/dL Hct (34.0-47.0) % MCV (81.0-99.0) fL MCH (27.0-31.0) pg MCHC (33.0-37.0) g/dL RDW (11.5-14.5) % Plt Count (130-400) K/uL MPV (7.2-11.7) fL Neut % (Auto) (50.0-75.0) % Lymph % (Auto) (20.0-40.0) % Talbot % (Auto) (0.0-10.0) % Eos % (Auto) (0.0-4.0) % Baso % (Auto) (0.0-2.0) % Neut # (Auto) (1.8-7.0) K/uL Lymph # (Auto) (1.0-4.3) K/uL Talbot # (Auto) (0.0-0.8) K/uL Eos # (Auto) (0.0-0.7) K/uL Baso # (Auto) (0.0-0.2) K/uL Neutrophils % (Manual) (50-75) % Lymphocytes % (Manual) (20-40) % Monocytes % (Manual) (0-10) % Platelet Estimate (NORMAL) Polychromasia Hypochromasia (manual) Anisocytosis (manual) Target Cells PT (9.7-12.2) SECONDS INR APTT (21-34) SECONDS Puncture Site pCO2 (35-45) mm/Hg pO2 (80-100) mm/Hg HCO3 (21-28) mmol/L ABG pH (7.35-7.45) ABG Total CO2 (22-28) mmol/L ABG O2 Saturation (95-98) % ABG Base Excess (-2.0-3.0) mmol/L ABG Hemoglobin (11.7-17.4) g/dL ABG Carboxyhemoglobin (0.5-1.5) % POC ABG HHb (Measured) (0.0-5.0) % ABG Methemoglobin (0.0-3.0) % Romero Test A-a O2 Difference mm/Hg Respiratory Index Hgb O2 Saturation (95.0-98.0) % Vent Mode Mechanical Rate FiO2 % Tidal Volume PEEP Sodium (132-148) mmol/L Potassium (3.6-5.2) mmol/L Chloride (98-107) mmol/L Carbon Dioxide (22-30) mmol/L Anion Gap (10-20) BUN (7-17) mg/dL Creatinine (0.7-1.2) mg/dL Est GFR ( Amer) Est GFR (Non-Af Amer) POC Glucose (mg/dL) 128 H 110 (65-110) mg/dL Random Glucose (65-105) mg/dL Calcium (8.6-10.4) mg/dl Phosphorus (2.5-4.5) mg/dL Magnesium (1.6-2.3) mg/dL Total Bilirubin (0.2-1.3) mg/dL AST (14-36) U/L ALT (9-52) U/L Alkaline Phosphatase (38-126) U/L Total Protein (6.3-8.3) g/dL Albumin (3.5-5.0) g/dL Globulin (2.2-3.9) gm/dL Albumin/Globulin Ratio (1.0-2.1) Random Vancomycin ug/mL FRED 6 Profile Negative (NEGATIVE) A-PM Scleroderma 100 Ab Heparin-induced Plt Ab (Negative) Anti-Staphylolysin O Negative (NEGATIVE) Blood Type Antibody Screen 11/08/17 11/06/17 Range/Units 10:26 05:51 WBC (4.8-10.8) K/uL RBC (3.80-5.20) Mil/uL Hgb (11.0-16.0) g/dL Hct (34.0-47.0) % MCV (81.0-99.0) fL MCH (27.0-31.0) pg MCHC (33.0-37.0) g/dL RDW (11.5-14.5) % Plt Count (130-400) K/uL MPV (7.2-11.7) fL Neut % (Auto) (50.0-75.0) % Lymph % (Auto) (20.0-40.0) % Talbot % (Auto) (0.0-10.0) % Eos % (Auto) (0.0-4.0) % Baso % (Auto) (0.0-2.0) % Neut # (Auto) (1.8-7.0) K/uL Lymph # (Auto) (1.0-4.3) K/uL Talbot # (Auto) (0.0-0.8) K/uL Eos # (Auto) (0.0-0.7) K/uL Baso # (Auto) (0.0-0.2) K/uL Neutrophils % (Manual) (50-75) % Lymphocytes % (Manual) (20-40) % Monocytes % (Manual) (0-10) % Platelet Estimate (NORMAL) Polychromasia Hypochromasia (manual) Anisocytosis (manual) Target Cells PT (9.7-12.2) SECONDS INR APTT (21-34) SECONDS Puncture Site pCO2 (35-45) mm/Hg pO2 (80-100) mm/Hg HCO3 (21-28) mmol/L ABG pH (7.35-7.45) ABG Total CO2 (22-28) mmol/L ABG O2 Saturation (95-98) % ABG Base Excess (-2.0-3.0) mmol/L ABG Hemoglobin (11.7-17.4) g/dL ABG Carboxyhemoglobin (0.5-1.5) % POC ABG HHb (Measured) (0.0-5.0) % ABG Methemoglobin (0.0-3.0) % Romero Test A-a O2 Difference mm/Hg Respiratory Index Hgb O2 Saturation (95.0-98.0) % Vent Mode Mechanical Rate FiO2 % Tidal Volume PEEP Sodium (132-148) mmol/L Potassium (3.6-5.2) mmol/L Chloride (98-107) mmol/L Carbon Dioxide (22-30) mmol/L Anion Gap (10-20) BUN (7-17) mg/dL Creatinine (0.7-1.2) mg/dL Est GFR ( Amer) Est GFR (Non-Af Amer) POC Glucose (mg/dL) (65-110) mg/dL Random Glucose (65-105) mg/dL Calcium (8.6-10.4) mg/dl Phosphorus (2.5-4.5) mg/dL Magnesium (1.6-2.3) mg/dL Total Bilirubin (0.2-1.3) mg/dL AST (14-36) U/L ALT (9-52) U/L Alkaline Phosphatase (38-126) U/L Total Protein (6.3-8.3) g/dL Albumin (3.5-5.0) g/dL Globulin (2.2-3.9) gm/dL Albumin/Globulin Ratio (1.0-2.1) Random Vancomycin ug/mL FRED 6 Profile (NEGATIVE) A-PM Scleroderma 100 Ab TNP Heparin-induced Plt Ab Negative (Negative) Anti-Staphylolysin O (NEGATIVE) Blood Type Antibody Screen Laboratory Results - last 24 hr 11/06/17 11/08/17 11/08/17 05:51 10:26 10:26 WBC RBC Hgb Hct MCV MCH MCHC RDW Plt Count MPV Neut % (Auto) Lymph % (Auto) Talbot % (Auto) Eos % (Auto) Baso % (Auto) Neut # (Auto) Lymph # (Auto) Talbot # (Auto) Eos # (Auto) Baso # (Auto) Neutrophils % (Manual) Lymphocytes % (Manual) Monocytes % (Manual) Platelet Estimate Polychromasia Hypochromasia (manual) Anisocytosis (manual) Target Cells PT INR APTT Puncture Site pCO2 pO2 HCO3 ABG pH ABG Total CO2 ABG O2 Saturation ABG Base Excess ABG Hemoglobin ABG Carboxyhemoglobin POC ABG HHb (Measured) ABG Methemoglobin Romero Test A-a O2 Difference Respiratory Index Hgb O2 Saturation Vent Mode Mechanical Rate FiO2 Tidal Volume PEEP Sodium Potassium Chloride Carbon Dioxide Anion Gap BUN Creatinine Est GFR ( Amer) Est GFR (Non-Af Amer) POC Glucose (mg/dL) Random Glucose Calcium Phosphorus Magnesium Total Bilirubin AST ALT Alkaline Phosphatase Total Protein Albumin Globulin Albumin/Globulin Ratio Random Vancomycin FRED 6 Profile Negative A-PM Scleroderma 100 Ab TNP Heparin-induced Plt Ab Negative Anti-Staphylolysin O Negative Blood Type Antibody Screen 11/08/17 11/09/17 11/09/17 11:50 12:18 17:49 WBC RBC Hgb Hct MCV MCH MCHC RDW Plt Count MPV Neut % (Auto) Lymph % (Auto) Talbot % (Auto) Eos % (Auto) Baso % (Auto) Neut # (Auto) Lymph # (Auto) Talbot # (Auto) Eos # (Auto) Baso # (Auto) Neutrophils % (Manual) Lymphocytes % (Manual) Monocytes % (Manual) Platelet Estimate Polychromasia Hypochromasia (manual) Anisocytosis (manual) Target Cells PT INR APTT Puncture Site pCO2 pO2 HCO3 ABG pH ABG Total CO2 ABG O2 Saturation ABG Base Excess ABG Hemoglobin ABG Carboxyhemoglobin POC ABG HHb (Measured) ABG Methemoglobin Romero Test A-a O2 Difference Respiratory Index Hgb O2 Saturation Vent Mode Mechanical Rate FiO2 Tidal Volume PEEP Sodium Potassium Chloride Carbon Dioxide Anion Gap BUN Creatinine Est GFR ( Amer) Est GFR (Non-Af Amer) POC Glucose (mg/dL) 110 128 H 127 H Random Glucose Calcium Phosphorus Magnesium Total Bilirubin AST ALT Alkaline Phosphatase Total Protein Albumin Globulin Albumin/Globulin Ratio Random Vancomycin FRED 6 Profile A-PM Scleroderma 100 Ab Heparin-induced Plt Ab Anti-Staphylolysin O Blood Type Antibody Screen 11/10/17 11/10/17 11/10/17 00:25 05:22 05:57 WBC RBC Hgb Hct MCV MCH MCHC RDW Plt Count MPV Neut % (Auto) Lymph % (Auto) Talbot % (Auto) Eos % (Auto) Baso % (Auto) Neut # (Auto) Lymph # (Auto) Talbot # (Auto) Eos # (Auto) Baso # (Auto) Neutrophils % (Manual) Lymphocytes % (Manual) Monocytes % (Manual) Platelet Estimate Polychromasia Hypochromasia (manual) Anisocytosis (manual) Target Cells PT INR APTT Puncture Site Rb pCO2 34 L pO2 62 L HCO3 26.3 ABG pH 7.48 H ABG Total CO2 26.3 ABG O2 Saturation 95.4 ABG Base Excess 1.8 ABG Hemoglobin 7.3 L ABG Carboxyhemoglobin 1.5 POC ABG HHb (Measured) 4.5 ABG Methemoglobin 0.7 Romero Test Na A-a O2 Difference 252.0 Respiratory Index 4.1 Hgb O2 Saturation 93.3 L Vent Mode Prvc Mechanical Rate 14 FiO2 50.0 Tidal Volume 420 PEEP 5 Sodium Potassium Chloride Carbon Dioxide Anion Gap BUN Creatinine Est GFR ( Amer) Est GFR (Non-Af Amer) POC Glucose (mg/dL) 125 H 198 H Random Glucose Calcium Phosphorus Magnesium Total Bilirubin AST ALT Alkaline Phosphatase Total Protein Albumin Globulin Albumin/Globulin Ratio Random Vancomycin FRED 6 Profile A-PM Scleroderma 100 Ab Heparin-induced Plt Ab Anti-Staphylolysin O Blood Type Antibody Screen 11/10/17 11/10/17 11/10/17 06:13 06:13 06:13 WBC 14.0 H RBC 2.44 L Hgb 7.4 L Hct 22.7 L MCV 93.2 MCH 30.5 MCHC 32.7 L RDW 19.6 H Plt Count 72 L D MPV 11.5 Neut % (Auto) 94.0 H Lymph % (Auto) 3.5 L Talbot % (Auto) 2.0 Eos % (Auto) 0.4 Baso % (Auto) 0.1 Neut # (Auto) 13.1 H Lymph # (Auto) 0.5 L Talbot # (Auto) 0.3 Eos # (Auto) 0.1 Baso # (Auto) 0.0 Neutrophils % (Manual) 96 H Lymphocytes % (Manual) 2 L Monocytes % (Manual) 2 Platelet Estimate Decreased L Polychromasia Slight Hypochromasia (manual) Slight Anisocytosis (manual) Slight Target Cells Moderate PT 15.7 H INR 1.4 APTT 27 Puncture Site pCO2 pO2 HCO3 ABG pH ABG Total CO2 ABG O2 Saturation ABG Base Excess ABG Hemoglobin ABG Carboxyhemoglobin POC ABG HHb (Measured) ABG Methemoglobin Romero Test A-a O2 Difference Respiratory Index Hgb O2 Saturation Vent Mode Mechanical Rate FiO2 Tidal Volume PEEP Sodium 152 H Potassium 3.5 L Chloride 116 H Carbon Dioxide 27 Anion Gap 13 BUN 15 Creatinine 0.5 L Est GFR ( Amer) > 60 Est GFR (Non-Af Amer) > 60 POC Glucose (mg/dL) Random Glucose 166 H Calcium 7.7 L Phosphorus 2.0 L Magnesium 2.0 Total Bilirubin 0.7 AST 27 ALT 49 Alkaline Phosphatase 126 Total Protein 4.7 L Albumin 2.1 L Globulin 2.7 Albumin/Globulin Ratio 0.8 L Random Vancomycin FRED 6 Profile A-PM Scleroderma 100 Ab Heparin-induced Plt Ab Anti-Staphylolysin O Blood Type Antibody Screen 11/10/17 11/10/17 09:43 09:43 WBC RBC Hgb Hct MCV MCH MCHC RDW Plt Count MPV Neut % (Auto) Lymph % (Auto) Talbot % (Auto) Eos % (Auto) Baso % (Auto) Neut # (Auto) Lymph # (Auto) Talbot # (Auto) Eos # (Auto) Baso # (Auto) Neutrophils % (Manual) Lymphocytes % (Manual) Monocytes % (Manual) Platelet Estimate Polychromasia Hypochromasia (manual) Anisocytosis (manual) Target Cells PT INR APTT Puncture Site pCO2 pO2 HCO3 ABG pH ABG Total CO2 ABG O2 Saturation ABG Base Excess ABG Hemoglobin ABG Carboxyhemoglobin POC ABG HHb (Measured) ABG Methemoglobin Romero Test A-a O2 Difference Respiratory Index Hgb O2 Saturation Vent Mode Mechanical Rate FiO2 Tidal Volume PEEP Sodium Potassium Chloride Carbon Dioxide Anion Gap BUN Creatinine Est GFR ( Amer) Est GFR (Non-Af Amer) POC Glucose (mg/dL) Random Glucose Calcium Phosphorus Magnesium Total Bilirubin AST ALT Alkaline Phosphatase Total Protein Albumin Globulin Albumin/Globulin Ratio Random Vancomycin 18.0 FRED 6 Profile A-PM Scleroderma 100 Ab Heparin-induced Plt Ab Anti-Staphylolysin O Blood Type A NEGATIVE Antibody Screen Negative Fingerstick Blood Sugar Results: 127 Review of Systems - Review of Systems Systems not reviewed;Unavailable: Intubated Assessment/Plan - Assessment and Plan (Free Text) Assessment: 51 yo F admitted to ICU for sepsis 2/2 to multilobar right sided PNA. Pt intubated(11/06). Neuro: -Precedex low dose sedation, titrate as tolerated -fentanyl -ativan 2mg q3 prn CV: -A. flutter-stable -cardio consult Dr. Contreras Pulm: -acute hypoxic respiratory failure 2/2 right multilobar PNA -pt intubated and bronched(11/06) -BAL cx grew S. Aureus, Lesa -acetylcysteine, duonebs -CPAP trials as tolerated -still unable to wean GI: Nutrition, on Jevity : monitor urine o/p ID: -sepsis 2/2 CAP -f/u on BAL specimin rheumatological, cytology -acyclovir, cefepime, vanco, tamiflu -ID consult Dr. Veras Hem: Thrombocytopenia-stable @72 -1U(11/09) Anemia, hgb 7.4 -1U PRBC(11/10) -Heme consult Dr. Escobar Electrolytes Hypophosphatemia -15mmol Hypokalemia -20mEq Ppx: -protonix -contraindication to DVT ppx, thrombocytopenia Case discussed w/ Dr. Ashkan Pate PGY 1 <Lamont Luther - Last Filed: 11/10/17 18:46> CCU Objective - Vital Signs / Intake & Output Vital Signs (Last 4 hours): Vital Signs Temp Pulse Resp BP Pulse Ox 11/10/17 17:03 112 H 35 H 102/76 100 11/10/17 17:00 128 H 22 97 11/10/17 16:54 101.9 F H 11/10/17 16:36 123 H 34 H 131/99 H 98 11/10/17 16:30 118 H 32 H 100 11/10/17 16:00 98.3 F 109 H 20 100 11/10/17 15:30 97 H 30 H 99/70 L 100 11/10/17 15:03 106 H 28 H 104/82 98 11/10/17 15:00 117 H 35 H 100 11/10/17 14:30 104 H 32 H 117/86 99 Intake and Output (Last 8hrs): Intake & Output 11/10/17 11/10/17 11/10/17 06:59 14:59 22:59 Intake Total 1241.0 1337.1 777.1 Output Total 270 255 70 Balance 971.0 1082.1 707.1 Weight 151 lb 9.6 oz Intake: IV 350 50 50 Intake, IV Amount 571.0 487.1 627.1 Right Distal Port 155.8 245.2 99.6 Internal Jugular Right Medial Port 115.2 14.4 400 Internal Jugular Right Proximal Port 300 227.5 127.5 Internal Jugular Oral 130 20 Tube Feeding 320 320 80 Blood Product 325 Red Blood Cells Cpd As1 325 Lr Unit [id number] Other 25 Red Blood Cells Cpd As1 25 Lr Unit [id number] Output: Urine 270 255 70 Urine, Voided 270 255 70 Other: # Bowel Movements 0 0 1 - Medications Active Medications: Active Medications Generic Name Dose Route Start Last Admin Trade Name Freq PRN Reason Stop Dose Admin Acetaminophen 650 mg 11/10/17 16:47 11/10/17 16:54 Tylenol 650mg/20.3ml Solution Ud PO 650 mg Q4 PRN Administration Temperature > 100.4 Acetaminophen/Butalbital/Caffeine 1 tab 11/04/17 10:00 11/10/17 10:48 Fioricet PO 1 tab DAILY EMPERATRIZ Administration Albuterol/Ipratropium 3 ml 11/06/17 08:13 11/10/17 15:56 Duoneb 3 Mg/0.5 Mg (3 Ml) Ud INH 3 ml RQ4 EMPERATRIZ Administration Amitriptyline HCl 25 mg 11/04/17 10:00 Elavil PO DAILY EMPERATRIZ Benzocaine 0 gm 11/06/17 08:15 11/09/17 08:36 Orajel 7.5% MM 5.1 gm Q4 PRN Administration Gabapentin 600 mg 11/04/17 10:00 Neurontin PO DAILY EMPERATRIZ Vancomycin/Sodium Chloride 1 gm in 200 mls @ 133.333 mls/hr 11/05/17 01:00 13:47 Vancomycin 1 Gm/Ns 200 Ml IVPB 133.333 mls/hr Q12H EMPERATRIZ Administration Protocol Cefepime HCl 2 gm/ Dextrose 100 mls @ 100 mls/hr 11/07/17 00:00 11/10/17 12: 33 IVPB 100 mls/hr Q12H EMPERATRIZ Administration Protocol Acyclovir 500 mg/ Sodium 100 mls @ 100 mls/hr 11/06/17 20:00 11/10/17 08:29 Chloride IV 100 mls/hr Q12H EMPERATRIZ Administration Protocol Fentanyl Citrate 2,500 mcg/ 250 mls @ 11.44 mls/hr 11/07/17 09:30 11/10/17 02 :45 Sodium Chloride IV 3.02 mcg/kg/hr .[id number] EMPERATRIZ 17.3 mls/hr Protocol Administration 2 MCG/KG/HR Dexmedetomidine HCl 200 mcg/ 50 mls @ 2.88 mls/hr 11/08/17 09:43 11/10/17 15: 25 Sodium Chloride IV 1.1 mcg/kg/hr TITR PRN 15.86 mls/hr Agitation Administration Protocol 0.2 MCG/KG/HR Sodium Chloride 1,000 mls @ 75 mls/hr 11/10/17 09:15 11/10/17 09:52 Sodium Chloride 0.45% IV 75 mls/hr .[id number] EMPERATRIZ Administration Micafungin Sodium 100 mg/ 100 mls @ 100 mls/hr 11/10/17 14:00 11/10/17 14:55 Sodium Chloride IV 11/21/17 14:01 100 mls/hr Q24H EMPERATRIZ Administration Protocol Acetaminophen 650 mg/ 65 mls @ 400 mls/hr 11/10/17 17:49 Miscellaneous IV 11/10/17 18:03 ONCE ONE Ibuprofen 400 mg 11/04/17 01:02 11/09/17 20:11 Motrin Tab PO 400 mg Q6H PRN Administration Fever >100.4 F Lactobacillus Acidophilus 1 cap 11/07/17 18:00 11/10/17 09:50 Bacid Acidophilus PO 1 cap BID EMPERATRIZ Administration Lorazepam 2 mg 11/10/17 10:16 11/10/17 14:56 Ativan IVP 2 mg Q3H PRN Administration Anxiety Nicotine 1 patch 11/04/17 10:00 11/10/17 09:52 Nicoderm Cq TD 1 patch DAILY EMPERATRIZ Administration Oseltamivir Phosphate 75 mg 11/08/17 11:00 11/10/17 17:31 Tamiflu Susp PO 11/13/17 11:01 12.5 ml BID EMPERATRIZ Administration Protocol Pantoprazole Sodium 40 mg 11/07/17 16:00 11/10/17 16:57 Protonix Susp PO 40 mg 0600,1600 EMPERATRIZ Administration Vitamin A 1 ea 11/04/17 10:30 11/09/17 06:22 Vitamin A & D Oint Ud Foilpak TOP 1 ea Q6H PRN Administration Dry mouth - Patient Studies Lab Studies: Microbiology Studies 11/06/17 20:05 Mycobacterial Culture - Preliminary Other: Please Indicate 11/06/17 20:05 Fungal Culture - Final Bronchial Washings Lesa Albicans 11/06/17 15:45 Fungal Culture - Final Other: Please Indicate Lesa Albicans 11/05/17 22:15 Blood Culture - Preliminary Blood-Venous NO GROWTH AFTER 4 DAYS 11/05/17 22:15 Blood Culture - Preliminary Blood-Venous NO GROWTH AFTER 4 DAYS Lab Studies 11/10/17 11/10/17 11/10/17 Range/Units 17:45 13:37 11:49 WBC (4.8-10.8) K/uL RBC (3.80-5.20) Mil/uL Hgb (11.0-16.0) g/dL Hct (34.0-47.0) % MCV (81.0-99.0) fL MCH (27.0-31.0) pg MCHC (33.0-37.0) g/dL RDW (11.5-14.5) % Plt Count (130-400) K/uL MPV (7.2-11.7) fL Neut % (Auto) (50.0-75.0) % Lymph % (Auto) (20.0-40.0) % Talbot % (Auto) (0.0-10.0) % Eos % (Auto) (0.0-4.0) % Baso % (Auto) (0.0-2.0) % Neut # (Auto) (1.8-7.0) K/uL Lymph # (Auto) (1.0-4.3) K/uL Talbot # (Auto) (0.0-0.8) K/uL Eos # (Auto) (0.0-0.7) K/uL Baso # (Auto) (0.0-0.2) K/uL Neutrophils % (Manual) (50-75) % Lymphocytes % (Manual) (20-40) % Monocytes % (Manual) (0-10) % Platelet Estimate (NORMAL) Polychromasia Hypochromasia (manual) Anisocytosis (manual) Target Cells PT (9.7-12.2) SECONDS INR APTT (21-34) SECONDS Puncture Site pCO2 (35-45) mm/Hg pO2 (80-100) mm/Hg HCO3 (21-28) mmol/L ABG pH (7.35-7.45) ABG Total CO2 (22-28) mmol/L ABG O2 Saturation (95-98) % ABG Base Excess (-2.0-3.0) mmol/L ABG Hemoglobin (11.7-17.4) g/dL ABG Carboxyhemoglobin (0.5-1.5) % POC ABG HHb (Measured) (0.0-5.0) % ABG Methemoglobin (0.0-3.0) % Romero Test A-a O2 Difference mm/Hg Respiratory Index Hgb O2 Saturation (95.0-98.0) % Vent Mode Mechanical Rate FiO2 % Tidal Volume PEEP Sodium (132-148) mmol/L Potassium (3.6-5.2) mmol/L Chloride (98-107) mmol/L Carbon Dioxide (22-30) mmol/L Anion Gap (10-20) BUN (7-17) mg/dL Creatinine (0.7-1.2) mg/dL Est GFR ( Amer) Est GFR (Non-Af Amer) POC Glucose (mg/dL) 183 H 166 H (65-110) mg/dL Random Glucose (65-105) mg/dL Calcium (8.6-10.4) mg/dl Phosphorus (2.5-4.5) mg/dL Magnesium (1.6-2.3) mg/dL Total Bilirubin (0.2-1.3) mg/dL AST (14-36) U/L ALT (9-52) U/L Alkaline Phosphatase (38-126) U/L Total Protein (6.3-8.3) g/dL Albumin (3.5-5.0) g/dL Globulin (2.2-3.9) gm/dL Albumin/Globulin Ratio (1.0-2.1) UF Heparin Interp (Negative) Stool Occult Blood Negative (NEGATIVE) Random Vancomycin ug/mL Proteinase 3 (PR3) (<1.0) AI Myeloperoxidase Ab (<1.0) AI Heparin-induced Plt Ab (Negative) CONSTANTINE UFH Low Dose 0.1 % Release CONSTANTINE UFH Low Dose 0.5 % Release CONSTANTINE UFH High Dose 100 % Release Blood Type Antibody Screen 11/10/17 11/10/17 11/10/17 Range/Units 11:40 09:43 09:43 WBC (4.8-10.8) K/uL RBC (3.80-5.20) Mil/uL Hgb (11.0-16.0) g/dL Hct (34.0-47.0) % MCV (81.0-99.0) fL MCH (27.0-31.0) pg MCHC (33.0-37.0) g/dL RDW (11.5-14.5) % Plt Count (130-400) K/uL MPV (7.2-11.7) fL Neut % (Auto) (50.0-75.0) % Lymph % (Auto) (20.0-40.0) % Talbot % (Auto) (0.0-10.0) % Eos % (Auto) (0.0-4.0) % Baso % (Auto) (0.0-2.0) % Neut # (Auto) (1.8-7.0) K/uL Lymph # (Auto) (1.0-4.3) K/uL Talbot # (Auto) (0.0-0.8) K/uL Eos # (Auto) (0.0-0.7) K/uL Baso # (Auto) (0.0-0.2) K/uL Neutrophils % (Manual) (50-75) % Lymphocytes % (Manual) (20-40) % Monocytes % (Manual) (0-10) % Platelet Estimate (NORMAL) Polychromasia Hypochromasia (manual) Anisocytosis (manual) Target Cells PT (9.7-12.2) SECONDS INR APTT (21-34) SECONDS Puncture Site Lr pCO2 34 L (35-45) mm/Hg pO2 119 H (80-100) mm/Hg HCO3 26.3 (21-28) mmol/L ABG pH 7.48 H (7.35-7.45) ABG Total CO2 26.3 (22-28) mmol/L ABG O2 Saturation 98.3 H (95-98) % ABG Base Excess 1.8 (-2.0-3.0) mmol/L ABG Hemoglobin 8.1 L (11.7-17.4) g/dL ABG Carboxyhemoglobin 1.1 (0.5-1.5) % POC ABG HHb (Measured) 1.7 (0.0-5.0) % ABG Methemoglobin 1.1 (0.0-3.0) % Romero Test Pos A-a O2 Difference 552.0 mm/Hg Respiratory Index 4.6 Hgb O2 Saturation 96.1 (95.0-98.0) % Vent Mode Mechanical Rate 14 FiO2 100.0 % Tidal Volume 420 PEEP 5 Sodium (132-148) mmol/L Potassium (3.6-5.2) mmol/L Chloride (98-107) mmol/L Carbon Dioxide (22-30) mmol/L Anion Gap (10-20) BUN (7-17) mg/dL Creatinine (0.7-1.2) mg/dL Est GFR ( Amer) Est GFR (Non-Af Amer) POC Glucose (mg/dL) (65-110) mg/dL Random Glucose (65-105) mg/dL Calcium (8.6-10.4) mg/dl Phosphorus (2.5-4.5) mg/dL Magnesium (1.6-2.3) mg/dL Total Bilirubin (0.2-1.3) mg/dL AST (14-36) U/L ALT (9-52) U/L Alkaline Phosphatase (38-126) U/L Total Protein (6.3-8.3) g/dL Albumin (3.5-5.0) g/dL Globulin (2.2-3.9) gm/dL Albumin/Globulin Ratio (1.0-2.1) UF Heparin Interp (Negative) Stool Occult Blood (NEGATIVE) Random Vancomycin 18.0 ug/mL Proteinase 3 (PR3) (<1.0) AI Myeloperoxidase Ab (<1.0) AI Heparin-induced Plt Ab (Negative) CONSTANTINE UFH Low Dose 0.1 % Release CONSTANTINE UFH Low Dose 0.5 % Release CONSTANTINE UFH High Dose 100 % Release Blood Type A NEGATIVE Antibody Screen Negative 11/10/17 11/10/17 11/10/17 Range/Units 06:13 06:13 06:13 WBC 14.0 H (4.8-10.8) K/uL RBC 2.44 L (3.80-5.20) Mil/uL Hgb 7.4 L (11.0-16.0) g/dL Hct 22.7 L (34.0-47.0) % MCV 93.2 (81.0-99.0) fL MCH 30.5 (27.0-31.0) pg MCHC 32.7 L (33.0-37.0) g/dL RDW 19.6 H (11.5-14.5) % Plt Count 72 L D (130-400) K/uL MPV 11.5 (7.2-11.7) fL Neut % (Auto) 94.0 H (50.0-75.0) % Lymph % (Auto) 3.5 L (20.0-40.0) % Talbot % (Auto) 2.0 (0.0-10.0) % Eos % (Auto) 0.4 (0.0-4.0) % Baso % (Auto) 0.1 (0.0-2.0) % Neut # (Auto) 13.1 H (1.8-7.0) K/uL Lymph # (Auto) 0.5 L (1.0-4.3) K/uL Talbot # (Auto) 0.3 (0.0-0.8) K/uL Eos # (Auto) 0.1 (0.0-0.7) K/uL Baso # (Auto) 0.0 (0.0-0.2) K/uL Neutrophils % (Manual) 96 H (50-75) % Lymphocytes % (Manual) 2 L (20-40) % Monocytes % (Manual) 2 (0-10) % Platelet Estimate Decreased L (NORMAL) Polychromasia Slight Hypochromasia (manual) Slight Anisocytosis (manual) Slight Target Cells Moderate PT 15.7 H (9.7-12.2) SECONDS INR 1.4 APTT 27 (21-34) SECONDS Puncture Site pCO2 (35-45) mm/Hg pO2 (80-100) mm/Hg HCO3 (21-28) mmol/L ABG pH (7.35-7.45) ABG Total CO2 (22-28) mmol/L ABG O2 Saturation (95-98) % ABG Base Excess (-2.0-3.0) mmol/L ABG Hemoglobin (11.7-17.4) g/dL ABG Carboxyhemoglobin (0.5-1.5) % POC ABG HHb (Measured) (0.0-5.0) % ABG Methemoglobin (0.0-3.0) % Romero Test A-a O2 Difference mm/Hg Respiratory Index Hgb O2 Saturation (95.0-98.0) % Vent Mode Mechanical Rate FiO2 % Tidal Volume PEEP Sodium 152 H (132-148) mmol/L Potassium 3.5 L (3.6-5.2) mmol/L Chloride 116 H (98-107) mmol/L Carbon Dioxide 27 (22-30) mmol/L Anion Gap 13 (10-20) BUN 15 (7-17) mg/dL Creatinine 0.5 L (0.7-1.2) mg/dL Est GFR ( Amer) > 60 Est GFR (Non-Af Amer) > 60 POC Glucose (mg/dL) (65-110) mg/dL Random Glucose 166 H (65-105) mg/dL Calcium 7.7 L (8.6-10.4) mg/dl Phosphorus 2.0 L (2.5-4.5) mg/dL Magnesium 2.0 (1.6-2.3) mg/dL Total Bilirubin 0.7 (0.2-1.3) mg/dL AST 27 (14-36) U/L ALT 49 (9-52) U/L Alkaline Phosphatase 126 (38-126) U/L Total Protein 4.7 L (6.3-8.3) g/dL Albumin 2.1 L (3.5-5.0) g/dL Globulin 2.7 (2.2-3.9) gm/dL Albumin/Globulin Ratio 0.8 L (1.0-2.1) UF Heparin Interp (Negative) Stool Occult Blood (NEGATIVE) Random Vancomycin ug/mL Proteinase 3 (PR3) (<1.0) AI Myeloperoxidase Ab (<1.0) AI Heparin-induced Plt Ab (Negative) CONSTANTINE UFH Low Dose 0.1 % Release CONSTANTINE UFH Low Dose 0.5 % Release CONSTANTINE UFH High Dose 100 % Release Blood Type Antibody Screen 11/10/17 11/10/17 11/10/17 Range/Units 05:57 05:22 00:25 WBC (4.8-10.8) K/uL RBC (3.80-5.20) Mil/uL Hgb (11.0-16.0) g/dL Hct (34.0-47.0) % MCV (81.0-99.0) fL MCH (27.0-31.0) pg MCHC (33.0-37.0) g/dL RDW (11.5-14.5) % Plt Count (130-400) K/uL MPV (7.2-11.7) fL Neut % (Auto) (50.0-75.0) % Lymph % (Auto) (20.0-40.0) % Talbot % (Auto) (0.0-10.0) % Eos % (Auto) (0.0-4.0) % Baso % (Auto) (0.0-2.0) % Neut # (Auto) (1.8-7.0) K/uL Lymph # (Auto) (1.0-4.3) K/uL Talbot # (Auto) (0.0-0.8) K/uL Eos # (Auto) (0.0-0.7) K/uL Baso # (Auto) (0.0-0.2) K/uL Neutrophils % (Manual) (50-75) % Lymphocytes % (Manual) (20-40) % Monocytes % (Manual) (0-10) % Platelet Estimate (NORMAL) Polychromasia Hypochromasia (manual) Anisocytosis (manual) Target Cells PT (9.7-12.2) SECONDS INR APTT (21-34) SECONDS Puncture Site Rb pCO2 34 L (35-45) mm/Hg pO2 62 L (80-100) mm/Hg HCO3 26.3 (21-28) mmol/L ABG pH 7.48 H (7.35-7.45) ABG Total CO2 26.3 (22-28) mmol/L ABG O2 Saturation 95.4 (95-98) % ABG Base Excess 1.8 (-2.0-3.0) mmol/L ABG Hemoglobin 7.3 L (11.7-17.4) g/dL ABG Carboxyhemoglobin 1.5 (0.5-1.5) % POC ABG HHb (Measured) 4.5 (0.0-5.0) % ABG Methemoglobin 0.7 (0.0-3.0) % Romero Test Na A-a O2 Difference 252.0 mm/Hg Respiratory Index 4.1 Hgb O2 Saturation 93.3 L (95.0-98.0) % Vent Mode Prvc Mechanical Rate 14 FiO2 50.0 % Tidal Volume 420 PEEP 5 Sodium (132-148) mmol/L Potassium (3.6-5.2) mmol/L Chloride (98-107) mmol/L Carbon Dioxide (22-30) mmol/L Anion Gap (10-20) BUN (7-17) mg/dL Creatinine (0.7-1.2) mg/dL Est GFR ( Amer) Est GFR (Non-Af Amer) POC Glucose (mg/dL) 198 H 125 H (65-110) mg/dL Random Glucose (65-105) mg/dL Calcium (8.6-10.4) mg/dl Phosphorus (2.5-4.5) mg/dL Magnesium (1.6-2.3) mg/dL Total Bilirubin (0.2-1.3) mg/dL AST (14-36) U/L ALT (9-52) U/L Alkaline Phosphatase (38-126) U/L Total Protein (6.3-8.3) g/dL Albumin (3.5-5.0) g/dL Globulin (2.2-3.9) gm/dL Albumin/Globulin Ratio (1.0-2.1) UF Heparin Interp (Negative) Stool Occult Blood (NEGATIVE) Random Vancomycin ug/mL Proteinase 3 (PR3) (<1.0) AI Myeloperoxidase Ab (<1.0) AI Heparin-induced Plt Ab (Negative) CONSTANTINE UFH Low Dose 0.1 % Release CONSTANTINE UFH Low Dose 0.5 % Release CONSTANTINE UFH High Dose 100 % Release Blood Type Antibody Screen 11/08/17 11/06/17 Range/Units 10:26 05:51 WBC (4.8-10.8) K/uL RBC (3.80-5.20) Mil/uL Hgb (11.0-16.0) g/dL Hct (34.0-47.0) % MCV (81.0-99.0) fL MCH (27.0-31.0) pg MCHC (33.0-37.0) g/dL RDW (11.5-14.5) % Plt Count (130-400) K/uL MPV (7.2-11.7) fL Neut % (Auto) (50.0-75.0) % Lymph % (Auto) (20.0-40.0) % Talbot % (Auto) (0.0-10.0) % Eos % (Auto) (0.0-4.0) % Baso % (Auto) (0.0-2.0) % Neut # (Auto) (1.8-7.0) K/uL Lymph # (Auto) (1.0-4.3) K/uL Talbot # (Auto) (0.0-0.8) K/uL Eos # (Auto) (0.0-0.7) K/uL Baso # (Auto) (0.0-0.2) K/uL Neutrophils % (Manual) (50-75) % Lymphocytes % (Manual) (20-40) % Monocytes % (Manual) (0-10) % Platelet Estimate (NORMAL) Polychromasia Hypochromasia (manual) Anisocytosis (manual) Target Cells PT (9.7-12.2) SECONDS INR APTT (21-34) SECONDS Puncture Site pCO2 (35-45) mm/Hg pO2 (80-100) mm/Hg HCO3 (21-28) mmol/L ABG pH (7.35-7.45) ABG Total CO2 (22-28) mmol/L ABG O2 Saturation (95-98) % ABG Base Excess (-2.0-3.0) mmol/L ABG Hemoglobin (11.7-17.4) g/dL ABG Carboxyhemoglobin (0.5-1.5) % POC ABG HHb (Measured) (0.0-5.0) % ABG Methemoglobin (0.0-3.0) % Romero Test A-a O2 Difference mm/Hg Respiratory Index Hgb O2 Saturation (95.0-98.0) % Vent Mode Mechanical Rate FiO2 % Tidal Volume PEEP Sodium (132-148) mmol/L Potassium (3.6-5.2) mmol/L Chloride (98-107) mmol/L Carbon Dioxide (22-30) mmol/L Anion Gap (10-20) BUN (7-17) mg/dL Creatinine (0.7-1.2) mg/dL Est GFR ( Amer) Est GFR (Non-Af Amer) POC Glucose (mg/dL) (65-110) mg/dL Random Glucose (65-105) mg/dL Calcium (8.6-10.4) mg/dl Phosphorus (2.5-4.5) mg/dL Magnesium (1.6-2.3) mg/dL Total Bilirubin (0.2-1.3) mg/dL AST (14-36) U/L ALT (9-52) U/L Alkaline Phosphatase (38-126) U/L Total Protein (6.3-8.3) g/dL Albumin (3.5-5.0) g/dL Globulin (2.2-3.9) gm/dL Albumin/Globulin Ratio (1.0-2.1) UF Heparin Interp Negative (Negative) Stool Occult Blood (NEGATIVE) Random Vancomycin ug/mL Proteinase 3 (PR3) <1.0 (<1.0) AI Myeloperoxidase Ab <1.0 (<1.0) AI Heparin-induced Plt Ab Negative (Negative) CONSTANTINE UFH Low Dose 0.1 0 % Release CONSTANTINE UFH Low Dose 0.5 0 % Release CONSTANTINE UFH High Dose 100 0 % Release Blood Type Antibody Screen Laboratory Results - last 24 hr 11/06/17 11/08/17 11/10/17 05:51 10:26 00:25 WBC RBC Hgb Hct MCV MCH MCHC RDW Plt Count MPV Neut % (Auto) Lymph % (Auto) Talbot % (Auto) Eos % (Auto) Baso % (Auto) Neut # (Auto) Lymph # (Auto) Talbot # (Auto) Eos # (Auto) Baso # (Auto) Neutrophils % (Manual) Lymphocytes % (Manual) Monocytes % (Manual) Platelet Estimate Polychromasia Hypochromasia (manual) Anisocytosis (manual) Target Cells PT INR APTT Puncture Site pCO2 pO2 HCO3 ABG pH ABG Total CO2 ABG O2 Saturation ABG Base Excess ABG Hemoglobin ABG Carboxyhemoglobin POC ABG HHb (Measured) ABG Methemoglobin Romero Test A-a O2 Difference Respiratory Index Hgb O2 Saturation Vent Mode Mechanical Rate FiO2 Tidal Volume PEEP Sodium Potassium Chloride Carbon Dioxide Anion Gap BUN Creatinine Est GFR ( Amer) Est GFR (Non-Af Amer) POC Glucose (mg/dL) 125 H Random Glucose Calcium Phosphorus Magnesium Total Bilirubin AST ALT Alkaline Phosphatase Total Protein Albumin Globulin Albumin/Globulin Ratio UF Heparin Interp Negative Stool Occult Blood Random Vancomycin Proteinase 3 (PR3) <1.0 Myeloperoxidase Ab <1.0 Heparin-induced Plt Ab Negative CONSTANTINE UFH Low Dose 0.1 0 CONSTANTINE UFH Low Dose 0.5 0 CONSTANTINE UFH High Dose 100 0 Blood Type Antibody Screen 11/10/17 11/10/17 11/10/17 05:22 05:57 06:13 WBC 14.0 H RBC 2.44 L Hgb 7.4 L Hct 22.7 L MCV 93.2 MCH 30.5 MCHC 32.7 L RDW 19.6 H Plt Count 72 L D MPV 11.5 Neut % (Auto) 94.0 H Lymph % (Auto) 3.5 L Talbot % (Auto) 2.0 Eos % (Auto) 0.4 Baso % (Auto) 0.1 Neut # (Auto) 13.1 H Lymph # (Auto) 0.5 L Talbot # (Auto) 0.3 Eos # (Auto) 0.1 Baso # (Auto) 0.0 Neutrophils % (Manual) 96 H Lymphocytes % (Manual) 2 L Monocytes % (Manual) 2 Platelet Estimate Decreased L Polychromasia Slight Hypochromasia (manual) Slight Anisocytosis (manual) Slight Target Cells Moderate PT INR APTT Puncture Site Rb pCO2 34 L pO2 62 L HCO3 26.3 ABG pH 7.48 H ABG Total CO2 26.3 ABG O2 Saturation 95.4 ABG Base Excess 1.8 ABG Hemoglobin 7.3 L ABG Carboxyhemoglobin 1.5 POC ABG HHb (Measured) 4.5 ABG Methemoglobin 0.7 Romero Test Na A-a O2 Difference 252.0 Respiratory Index 4.1 Hgb O2 Saturation 93.3 L Vent Mode Prvc Mechanical Rate 14 FiO2 50.0 Tidal Volume 420 PEEP 5 Sodium Potassium Chloride Carbon Dioxide Anion Gap BUN Creatinine Est GFR ( Amer) Est GFR (Non-Af Amer) POC Glucose (mg/dL) 198 H Random Glucose Calcium Phosphorus Magnesium Total Bilirubin AST ALT Alkaline Phosphatase Total Protein Albumin Globulin Albumin/Globulin Ratio UF Heparin Interp Stool Occult Blood Random Vancomycin Proteinase 3 (PR3) Myeloperoxidase Ab Heparin-induced Plt Ab CONSTANTINE UFH Low Dose 0.1 CONSTANTINE UFH Low Dose 0.5 CONSTANTINE UFH High Dose 100 Blood Type Antibody Screen 11/10/17 11/10/17 11/10/17 06:13 06:13 09:43 WBC RBC Hgb Hct MCV MCH MCHC RDW Plt Count MPV Neut % (Auto) Lymph % (Auto) Talbot % (Auto) Eos % (Auto) Baso % (Auto) Neut # (Auto) Lymph # (Auto) Talbot # (Auto) Eos # (Auto) Baso # (Auto) Neutrophils % (Manual) Lymphocytes % (Manual) Monocytes % (Manual) Platelet Estimate Polychromasia Hypochromasia (manual) Anisocytosis (manual) Target Cells PT 15.7 H INR 1.4 APTT 27 Puncture Site pCO2 pO2 HCO3 ABG pH ABG Total CO2 ABG O2 Saturation ABG Base Excess ABG Hemoglobin ABG Carboxyhemoglobin POC ABG HHb (Measured) ABG Methemoglobin Romero Test A-a O2 Difference Respiratory Index Hgb O2 Saturation Vent Mode Mechanical Rate FiO2 Tidal Volume PEEP Sodium 152 H Potassium 3.5 L Chloride 116 H Carbon Dioxide 27 Anion Gap 13 BUN 15 Creatinine 0.5 L Est GFR ( Amer) > 60 Est GFR (Non-Af Amer) > 60 POC Glucose (mg/dL) Random Glucose 166 H Calcium 7.7 L Phosphorus 2.0 L Magnesium 2.0 Total Bilirubin 0.7 AST 27 ALT 49 Alkaline Phosphatase 126 Total Protein 4.7 L Albumin 2.1 L Globulin 2.7 Albumin/Globulin Ratio 0.8 L UF Heparin Interp Stool Occult Blood Random Vancomycin 18.0 Proteinase 3 (PR3) Myeloperoxidase Ab Heparin-induced Plt Ab CONSTANTINE UFH Low Dose 0.1 CONSTANTINE UFH Low Dose 0.5 CONSTANTINE UFH High Dose 100 Blood Type Antibody Screen 11/10/17 11/10/17 11/10/17 09:43 11:40 11:49 WBC RBC Hgb Hct MCV MCH MCHC RDW Plt Count MPV Neut % (Auto) Lymph % (Auto) Talbot % (Auto) Eos % (Auto) Baso % (Auto) Neut # (Auto) Lymph # (Auto) Talbot # (Auto) Eos # (Auto) Baso # (Auto) Neutrophils % (Manual) Lymphocytes % (Manual) Monocytes % (Manual) Platelet Estimate Polychromasia Hypochromasia (manual) Anisocytosis (manual) Target Cells PT INR APTT Puncture Site Lr pCO2 34 L pO2 119 H HCO3 26.3 ABG pH 7.48 H ABG Total CO2 26.3 ABG O2 Saturation 98.3 H ABG Base Excess 1.8 ABG Hemoglobin 8.1 L ABG Carboxyhemoglobin 1.1 POC ABG HHb (Measured) 1.7 ABG Methemoglobin 1.1 Romero Test Pos A-a O2 Difference 552.0 Respiratory Index 4.6 Hgb O2 Saturation 96.1 Vent Mode Mechanical Rate 14 FiO2 100.0 Tidal Volume 420 PEEP 5 Sodium Potassium Chloride Carbon Dioxide Anion Gap BUN Creatinine Est GFR ( Amer) Est GFR (Non-Af Amer) POC Glucose (mg/dL) 166 H Random Glucose Calcium Phosphorus Magnesium Total Bilirubin AST ALT Alkaline Phosphatase Total Protein Albumin Globulin Albumin/Globulin Ratio UF Heparin Interp Stool Occult Blood Random Vancomycin Proteinase 3 (PR3) Myeloperoxidase Ab Heparin-induced Plt Ab CONSTANTINE UFH Low Dose 0.1 CONSTANTINE UFH Low Dose 0.5 CONSTANTINE UFH High Dose 100 Blood Type A NEGATIVE Antibody Screen Negative 11/10/17 11/10/17 13:37 17:45 WBC RBC Hgb Hct MCV MCH MCHC RDW Plt Count MPV Neut % (Auto) Lymph % (Auto) Talbot % (Auto) Eos % (Auto) Baso % (Auto) Neut # (Auto) Lymph # (Auto) Talbot # (Auto) Eos # (Auto) Baso # (Auto) Neutrophils % (Manual) Lymphocytes % (Manual) Monocytes % (Manual) Platelet Estimate Polychromasia Hypochromasia (manual) Anisocytosis (manual) Target Cells PT INR APTT Puncture Site pCO2 pO2 HCO3 ABG pH ABG Total CO2 ABG O2 Saturation ABG Base Excess ABG Hemoglobin ABG Carboxyhemoglobin POC ABG HHb (Measured) ABG Methemoglobin Romero Test A-a O2 Difference Respiratory Index Hgb O2 Saturation Vent Mode Mechanical Rate FiO2 Tidal Volume PEEP Sodium Potassium Chloride Carbon Dioxide Anion Gap BUN Creatinine Est GFR ( Amer) Est GFR (Non-Af Amer) POC Glucose (mg/dL) 183 H Random Glucose Calcium Phosphorus Magnesium Total Bilirubin AST ALT Alkaline Phosphatase Total Protein Albumin Globulin Albumin/Globulin Ratio UF Heparin Interp Stool Occult Blood Negative Random Vancomycin Proteinase 3 (PR3) Myeloperoxidase Ab Heparin-induced Plt Ab CONSTANTINE UFH Low Dose 0.1 CONSTANTINE UFH Low Dose 0.5 CONSTANTINE UFH High Dose 100 Blood Type Antibody Screen Attending/Attestation - Attestation I have personally seen and examined this patient.: Yes I have fully participated in the care of the patient.: Yes I have reviewed all pertinent clinical information: Yes Notes (Text): 11/10/17 18:43 patient seen and examinedin the intensive care unit. case discussed with house staff in the morning rounds patient tolerated CPAP for 2 hours and later became tachypneic patient spiked fever Chest x-ray consistent with bilateral infiltrate started on antifungal for positive Lesa Continue vancomycin and follow-up level Start patient on propofol and start Precedex IV albumin and fluid
[2017-11-10 11:44] LABS: ABG ALLEN TEST POS; ARTERIAL BLOOD GAS HCO3 26.3 mmol/L (21-28); ARTERIAL BLOOD GAS HEMOGLOBIN 8.1 g/dL (11.7-17.4); ARTERIAL BLOOD GAS O2 SAT 98.3 % (95-98); ARTERIAL BLOOD GAS PCO2 34 mm/Hg (35-45); ARTERIAL BLOOD GAS PH 7.48 (7.35-7.45); ARTERIAL BLOOD GAS PO2 119 mm/Hg (80-100); ARTERIAL BLOOD GAS TCO2 26.3 mmol/L (22-28)
[2017-11-10] MEDS ORDERED: Micafungin 100 MG in Sodium Chloride 0.9% 100 ML IV SCH (14:00)
[2017-11-10] MEDS ORDERED: Albumin Human 25% (12.5 gm/50 ml) IV ONE (15:23)
[2017-11-10] MEDS ORDERED: Acetaminophen 650mg/20.3ml solution UD PO PRN (16:47)
[2017-11-10] MEDS ORDERED: PREMIXED IV ONE (17:49)
[2017-11-10] MEDS ORDERED: ACETAMINOPHEN IV ONE (17:49)
[2017-11-10] MEDS: Propofol 10 mg/ml 1,000 MG/100 ML VIAL IV PRN (18:21)
[2017-11-10] MEDS ORDERED: Sodium Chloride 0.9% 500 ML IV ONE (18:40)
--- NOTE | 2017-11-10 18:44 | CP.PCM.CON ---
History of Present Illness - History of Present Illness History of Present Illness: 51 year old female with a history of multiple sclerosis, fibromyalgia, gastric bypass, presenting with weakness, currently with septic shock, respiratory failure on vent support from pneumonia, with anemia, thrombocytopenia, and leukocytosis. I am unable to obtain a history from the patient as she is vented. Review of her blood work shows she was admitted with a normal platelet count which has nadired at 22,000 and hgb elvis at 6.7. There is no overt signs of significant bleeding and bruising. Past medical, surgical, family, social history cannot be obtained. Allergies: NKDA Review of systems cannot be obtained. Past Patient History - Past Medical History & Family History Past Medical History?: Yes - Past Social History Smoking Status: Light Smoker < 10 Cigarettes Daily - CARDIAC Hx Cardiac Disorders: No - PULMONARY Hx Respiratory Disorders: No - NEUROLOGICAL Hx Multiple Sclerosis: Yes - HEENT Hx HEENT Problems: No - RENAL Hx Chronic Kidney Disease: No - ENDOCRINE/METABOLIC Hx Endocrine Disorders: No - HEMATOLOGICAL/ONCOLOGICAL Hx Blood Disorders: No - INTEGUMENTARY Hx Dermatological Problems: No - MUSCULOSKELETAL/RHEUMATOLOGICAL Hx Fractures: Yes (Disc fx secondary t fall) - GASTROINTESTINAL Hx Gastrointestinal Disorders: No - GENITOURINARY/GYNECOLOGICAL Hx Genitourinary Disorders: No - PSYCHIATRIC Hx Substance Use: No - SURGICAL HISTORY Hx Surgeries: Yes Hx Orthopedic Surgery: Yes (Back surgery) Other/Comment: Back Surgery - ANESTHESIA Hx Anesthesia: Yes Hx Anesthesia Reactions: No Hx Malignant Hyperthermia: No Meds Allergies/Adverse Reactions: Allergies Allergy/AdvReac Type Severity Reaction Status Date / Time seafood Allergy Uncoded 11/03/17 20:20 - Medications Medications: Current Medications Acetaminophen (Tylenol 650mg/20.3ml Solution Ud) 650 mg PO Q4 PRN PRN Reason: Temperature > 100.4 Last Admin: 11/10/17 16:54 Dose: 650 mg Acetaminophen/Butalbital/Caffeine (Fioricet) 1 tab PO DAILY [facility] Last Admin: 11/10/17 10:48 Dose: 1 tab Albuterol/Ipratropium (Duoneb 3 Mg/0.5 Mg (3 Ml) Ud) 3 ml INH RQ4 [facility] Last Admin: 11/10/17 15:56 Dose: 3 ml Amitriptyline HCl (Elavil) 25 mg PO DAILY [facility] Benzocaine (Orajel 7.5%) 0 gm MM Q4 PRN Last Admin: 11/09/17 08:36 Dose: 5.1 gm Gabapentin (Neurontin) 600 mg PO DAILY [facility] Vancomycin/Sodium Chloride (Vancomycin 1 Gm/Ns 200 Ml) 1 gm in 200 mls @ 133.333 mls/hr IVPB Q12H [facility] PRN Reason: Protocol Last Admin: 11/10/17 13:47 Dose: 133.333 mls/hr Cefepime HCl 2 gm/ Dextrose 100 mls @ 100 mls/hr IVPB Q12H [facility] PRN Reason: Protocol Last Admin: 11/10/17 12:33 Dose: 100 mls/hr Acyclovir 500 mg/ Sodium (Chloride) 100 mls @ 100 mls/hr IV Q12H [facility] PRN Reason: Protocol Last Admin: 11/10/17 08:29 Dose: 100 mls/hr Fentanyl Citrate 2,500 mcg/ (Sodium Chloride) 250 mls @ 11.44 mls/hr IV .[id number] [facility]; 2 MCG/KG/HR PRN Reason: Protocol Last Titration: 11/10/17 18:31 Dose: 0 mcg/kg/hr, 0 mls/hr Dexmedetomidine HCl 200 mcg/ (Sodium Chloride) 50 mls @ 2.88 mls/hr IV TITR PRN ; Protocol; 0.2 MCG/KG/HR PRN Reason: Agitation Last Titration: 11/10/17 18:30 Dose: 0 mcg/kg/hr, 0 mls/hr Sodium Chloride (Sodium Chloride 0.45%) 1,000 mls @ 75 mls/hr IV .[id number] [facility] Last Admin: 11/10/17 09:52 Dose: 75 mls/hr Micafungin Sodium 100 mg/ (Sodium Chloride) 100 mls @ 100 mls/hr IV Q24H [facility] PRN Reason: Protocol Stop: 11/21/17 14:01 Last Admin: 11/10/17 14:55 Dose: 100 mls/hr Propofol (Diprivan) 1,000 mg in 100 mls @ 2.063 mls/hr IV .Q24H PRN; Protocol; 5 MCG/KG/MIN PRN Reason: TITRATE PER MD ORDER Last Admin: 11/10/17 18:21 Dose: 5 mcg/kg/min, 2.063 mls/hr Sodium Chloride (Sodium Chloride 0.9%) 500 mls @ 1,000 mls/hr IV .Q30M ONE Stop: 11/10/17 19:09 Ibuprofen (Motrin Tab) 400 mg PO Q6H PRN PRN Reason: Fever >100.4 F Last Admin: 11/09/17 20:11 Dose: 400 mg Lactobacillus Acidophilus (Bacid Acidophilus) 1 cap PO BID [facility] Last Admin: 11/10/17 17:31 Dose: 1 cap Lorazepam (Ativan) 2 mg IVP Q3H PRN PRN Reason: Anxiety Last Admin: 11/10/17 18:15 Dose: 2 mg Nicotine (Nicoderm Cq) 1 patch TD DAILY [facility] Last Admin: 11/10/17 09:52 Dose: 1 patch Oseltamivir Phosphate (Tamiflu Susp) 75 mg PO BID [facility] PRN Reason: Protocol Stop: 11/13/17 11:01 Last Admin: 11/10/17 17:31 Dose: 12.5 ml Pantoprazole Sodium (Protonix Susp) 40 mg PO 0600,1600 [facility] Last Admin: 11/10/17 16:57 Dose: 40 mg Vitamin A (Vitamin A & D Oint Ud Foilpak) 1 ea TOP Q6H PRN PRN Reason: Dry mouth Last Admin: 11/09/17 06:22 Dose: 1 ea Physical Exam - Head Exam Head Exam: ATRAUMATIC - Eye Exam Eye Exam: Normal appearance - ENT Exam ENT Exam: Mucous Membranes Dry - Respiratory Exam Respiratory Exam: Decreased Breath Sounds - Cardiovascular Exam Cardiovascular Exam: +S1, +S2 - GI/Abdominal Exam GI & Abdominal Exam: Normal Bowel Sounds - Extremities Exam Extremities exam: Positive for: pedal edema - Skin Skin Exam: Warm Results - Vital Signs Recent Vital Signs: Last Vital Signs Temp 101.9 F H 11/10/17 16:54 Pulse 112 H 11/10/17 17:03 Resp 35 H 11/10/17 17:03 BP 102/76 11/10/17 17:03 Pulse Ox 100 11/10/17 17:03 - Labs Result Diagrams: 11/10/17 06:13 11/10/17 06:13 Labs: Laboratory Results - last 24 hr 11/06/17 11/08/17 11/10/17 05:51 10:26 00:25 WBC RBC Hgb Hct MCV MCH MCHC RDW Plt Count MPV Neut % (Auto) Lymph % (Auto) [place] % (Auto) Eos % (Auto) Baso % (Auto) Neut # (Auto) Lymph # (Auto) [place] # (Auto) Eos # (Auto) Baso # (Auto) Neutrophils % (Manual) Lymphocytes % (Manual) Monocytes % (Manual) Platelet Estimate Polychromasia Hypochromasia (manual) Anisocytosis (manual) Target Cells PT INR APTT Puncture Site pCO2 pO2 HCO3 ABG pH ABG Total CO2 ABG O2 Saturation ABG Base Excess ABG Hemoglobin ABG Carboxyhemoglobin POC ABG HHb (Measured) ABG Methemoglobin Romero Test A-a O2 Difference Respiratory Index Hgb O2 Saturation Vent Mode Mechanical Rate FiO2 Tidal Volume PEEP Sodium Potassium Chloride Carbon Dioxide Anion Gap BUN Creatinine Est GFR ( Amer) Est GFR (Non-Af Amer) POC Glucose (mg/dL) 125 H Random Glucose Calcium Phosphorus Magnesium Total Bilirubin AST ALT Alkaline Phosphatase Total Protein Albumin Globulin Albumin/Globulin Ratio UF Heparin Interp Negative Stool Occult Blood Random Vancomycin Proteinase 3 (PR3) <1.0 Myeloperoxidase Ab <1.0 Heparin-induced Plt Ab Negative CONSTANTINE UFH Low Dose 0.1 0 CONSTANTINE UFH Low Dose 0.5 0 CONSTANTINE UFH High Dose 100 0 Blood Type Antibody Screen 11/10/17 11/10/17 11/10/17 05:22 05:57 06:13 WBC 14.0 H RBC 2.44 L Hgb 7.4 L Hct 22.7 L MCV 93.2 MCH 30.5 MCHC 32.7 L RDW 19.6 H Plt Count 72 L D MPV 11.5 Neut % (Auto) 94.0 H Lymph % (Auto) 3.5 L [place] % (Auto) 2.0 Eos % (Auto) 0.4 Baso % (Auto) 0.1 Neut # (Auto) 13.1 H Lymph # (Auto) 0.5 L [place] # (Auto) 0.3 Eos # (Auto) 0.1 Baso # (Auto) 0.0 Neutrophils % (Manual) 96 H Lymphocytes % (Manual) 2 L Monocytes % (Manual) 2 Platelet Estimate Decreased L Polychromasia Slight Hypochromasia (manual) Slight Anisocytosis (manual) Slight Target Cells Moderate PT INR APTT Puncture Site Rb pCO2 34 L pO2 62 L HCO3 26.3 ABG pH 7.48 H ABG Total CO2 26.3 ABG O2 Saturation 95.4 ABG Base Excess 1.8 ABG Hemoglobin 7.3 L ABG Carboxyhemoglobin 1.5 POC ABG HHb (Measured) 4.5 ABG Methemoglobin 0.7 Romero Test Na A-a O2 Difference 252.0 Respiratory Index 4.1 Hgb O2 Saturation 93.3 L Vent Mode Prvc Mechanical Rate 14 FiO2 50.0 Tidal Volume 420 PEEP 5 Sodium Potassium Chloride Carbon Dioxide Anion Gap BUN Creatinine Est GFR ( Amer) Est GFR (Non-Af Amer) POC Glucose (mg/dL) 198 H Random Glucose Calcium Phosphorus Magnesium Total Bilirubin AST ALT Alkaline Phosphatase Total Protein Albumin Globulin Albumin/Globulin Ratio UF Heparin Interp Stool Occult Blood Random Vancomycin Proteinase 3 (PR3) Myeloperoxidase Ab Heparin-induced Plt Ab CONSTANTINE UFH Low Dose 0.1 CONSTANTINE UFH Low Dose 0.5 CONSTANTINE UFH High Dose 100 Blood Type Antibody Screen 11/10/17 11/10/17 11/10/17 06:13 06:13 09:43 WBC RBC Hgb Hct MCV MCH MCHC RDW Plt Count MPV Neut % (Auto) Lymph % (Auto) [place] % (Auto) Eos % (Auto) Baso % (Auto) Neut # (Auto) Lymph # (Auto) [place] # (Auto) Eos # (Auto) Baso # (Auto) Neutrophils % (Manual) Lymphocytes % (Manual) Monocytes % (Manual) Platelet Estimate Polychromasia Hypochromasia (manual) Anisocytosis (manual) Target Cells PT 15.7 H INR 1.4 APTT 27 Puncture Site pCO2 pO2 HCO3 ABG pH ABG Total CO2 ABG O2 Saturation ABG Base Excess ABG Hemoglobin ABG Carboxyhemoglobin POC ABG HHb (Measured) ABG Methemoglobin Romero Test A-a O2 Difference Respiratory Index Hgb O2 Saturation Vent Mode Mechanical Rate FiO2 Tidal Volume PEEP Sodium 152 H Potassium 3.5 L Chloride 116 H Carbon Dioxide 27 Anion Gap 13 BUN 15 Creatinine 0.5 L Est GFR ( Amer) > 60 Est GFR (Non-Af Amer) > 60 POC Glucose (mg/dL) Random Glucose 166 H Calcium 7.7 L Phosphorus 2.0 L Magnesium 2.0 Total Bilirubin 0.7 AST 27 ALT 49 Alkaline Phosphatase 126 Total Protein 4.7 L Albumin 2.1 L Globulin 2.7 Albumin/Globulin Ratio 0.8 L UF Heparin Interp Stool Occult Blood Random Vancomycin 18.0 Proteinase 3 (PR3) Myeloperoxidase Ab Heparin-induced Plt Ab CONSTANTINE UFH Low Dose 0.1 CONSTANTINE UFH Low Dose 0.5 CONSTANTINE UFH High Dose 100 Blood Type Antibody Screen 11/10/17 11/10/17 11/10/17 09:43 11:40 11:49 WBC RBC Hgb Hct MCV MCH MCHC RDW Plt Count MPV Neut % (Auto) Lymph % (Auto) [place] % (Auto) Eos % (Auto) Baso % (Auto) Neut # (Auto) Lymph # (Auto) [place] # (Auto) Eos # (Auto) Baso # (Auto) Neutrophils % (Manual) Lymphocytes % (Manual) Monocytes % (Manual) Platelet Estimate Polychromasia Hypochromasia (manual) Anisocytosis (manual) Target Cells PT INR APTT Puncture Site Lr pCO2 34 L pO2 119 H HCO3 26.3 ABG pH 7.48 H ABG Total CO2 26.3 ABG O2 Saturation 98.3 H ABG Base Excess 1.8 ABG Hemoglobin 8.1 L ABG Carboxyhemoglobin 1.1 POC ABG HHb (Measured) 1.7 ABG Methemoglobin 1.1 Romero Test Pos A-a O2 Difference 552.0 Respiratory Index 4.6 Hgb O2 Saturation 96.1 Vent Mode Mechanical Rate 14 FiO2 100.0 Tidal Volume 420 PEEP 5 Sodium Potassium Chloride Carbon Dioxide Anion Gap BUN Creatinine Est GFR ( Amer) Est GFR (Non-Af Amer) POC Glucose (mg/dL) 166 H Random Glucose Calcium Phosphorus Magnesium Total Bilirubin AST ALT Alkaline Phosphatase Total Protein Albumin Globulin Albumin/Globulin Ratio UF Heparin Interp Stool Occult Blood Random Vancomycin Proteinase 3 (PR3) Myeloperoxidase Ab Heparin-induced Plt Ab CONSTANTINE UFH Low Dose 0.1 CONSTANTINE UFH Low Dose 0.5 CONSTANTINE UFH High Dose 100 Blood Type A NEGATIVE Antibody Screen Negative 11/10/17 11/10/17 13:37 17:45 WBC RBC Hgb Hct MCV MCH MCHC RDW Plt Count MPV Neut % (Auto) Lymph % (Auto) [place] % (Auto) Eos % (Auto) Baso % (Auto) Neut # (Auto) Lymph # (Auto) [place] # (Auto) Eos # (Auto) Baso # (Auto) Neutrophils % (Manual) Lymphocytes % (Manual) Monocytes % (Manual) Platelet Estimate Polychromasia Hypochromasia (manual) Anisocytosis (manual) Target Cells PT INR APTT Puncture Site pCO2 pO2 HCO3 ABG pH ABG Total CO2 ABG O2 Saturation ABG Base Excess ABG Hemoglobin ABG Carboxyhemoglobin POC ABG HHb (Measured) ABG Methemoglobin Romero Test A-a O2 Difference Respiratory Index Hgb O2 Saturation Vent Mode Mechanical Rate FiO2 Tidal Volume PEEP Sodium Potassium Chloride Carbon Dioxide Anion Gap BUN Creatinine Est GFR ( Amer) Est GFR (Non-Af Amer) POC Glucose (mg/dL) 183 H Random Glucose Calcium Phosphorus Magnesium Total Bilirubin AST ALT Alkaline Phosphatase Total Protein Albumin Globulin Albumin/Globulin Ratio UF Heparin Interp Stool Occult Blood Negative Random Vancomycin Proteinase 3 (PR3) Myeloperoxidase Ab Heparin-induced Plt Ab CONSTANTINE UFH Low Dose 0.1 CONSTANTINE UFH Low Dose 0.5 CONSTANTINE UFH High Dose 100 Blood Type Antibody Screen Assessment & Plan (1) Anemia Assessment and Plan: will check retic count, b12, folate, ferritin, FOBT to further characterize transfusion support PRN Status: Acute (2) Thrombocytopenia Assessment and Plan: will review peripheral smear likely sepsis related Status: Acute (3) Leukocytosis Assessment and Plan: on antibiotics Status: Acute (4) Coagulopathy Assessment and Plan: mild, likely nutritional will check fibrinogen Thank you for this interesting consult. Status: Acute
[2017-11-10 19:00] LABS: ARTERIAL BLOOD GAS HCO3 22.6 mmol/L (21-28); ARTERIAL BLOOD GAS PCO2 33 mm/Hg (35-45); ARTERIAL BLOOD GAS PH 7.41 (7.35-7.45); ARTERIAL BLOOD GAS PO2 67 mm/Hg (80-100); ARTERIAL BLOOD GAS TCO2 21.9 mmol/L (22-28)
--- NOTE | 2017-11-10 20:15 | CP.PCM.PN ---
Subjective - Date & Time of Evaluation Date of Evaluation: 11/10/17 Time of Evaluation: 12:30 - Subjective Subjective: Hospitalist Progress Note Patient was seen and examined at 12:30 PM ICU Bed 2 Patient is intubated, awake but unable to answer ROS questions. She does shake her head NO when asking whether she had any chest pain, abdominal pain, headache. Spoke with ICU Nurse and patient did have bowel movement today - Constitutional Appears: Cachetic, Chronically Ill - Head Exam Head Exam: NORMAL INSPECTION - Eye Exam Eye Exam: EOMI (patient did follow instructions when asked to follow light), PERRLA - ENT Exam ENT Exam: Mucous Membranes Dry - Respiratory Exam Respiratory Exam: Decreased Breath Sounds, Rales, Rhonchi Additional comments: intubated and vent sounds (course breath sounds throughout with inspiration and expiration) - Cardiovascular Exam Cardiovascular Exam: REGULAR RHYTHM, +S1, +S2 (however limited due to vent sound interfering with auscultation) - GI/Abdominal Exam GI & Abdominal Exam: Soft, Hyperactive Bowel Sounds. absent: Distended, Firm, Guarding, Rigid, Tenderness, Rebound - Extremities Exam Extremities Exam: 1+ Pitting Edema bilateral lower legs from ankles to mid tibias - Neurological Exam Additional comments: Unable to perform due to patient being intubated - Skin Skin Exam: Dry, Normal Color, Warm Additional comments: multiple tattoos Assessment and Plan 1) Acute Respiratory Distress Health Care Associated Pneumonia Sepsis Bandemia Assessment/Plan * Admited to ICU * Infectious Disease (Dr. Veras) on board-->help appreciated * Criteria: Afebrile, no leukocytosis, left shift noted with lactate 5.1 with repeat 6.0 * Code sepsis 11/03/17 * Elevated procalcitonin: 13.90--->5.00 * Bronchoscopy 11/06/17 and Intubated subsequently and currently on Precedex Drip * 11/07: Sputum: Staph aureus (Bronchoscopy); cytology pending * 11/06: Bronchial Washing: Staph aureus and Lesa * 11/06: Fungal culture: none seen * 11/05: Blood culture: No growth to date * 11/04: Urine culture: No growth * Possible HCAP prior hospitalization * Lactate: 4.5-->6.0-->4.4-->3.6 * Duonebs RQ4 PRN shortness of breathe * Acetrylcysteine 4ml INH RQ6H * Mucinex 600mg PO BID * Motrin 400mg PO Q6H PRN >100.4F * CT head: No intracranial mass, hemorrhage, or evidence of acute infarct. Mild chronic sphenoid sinusitis. possible small exostosis along the superior left temporral calvarium. * CT Chest (11/04/17): multilobar pneumonia of the right lung. Small hiatal hernia. * CT Chest/Abdomen/Pelvis (11/06/17): extensive diffuse infiltrate and consolidation of the right lung. Small left pleural effusion. Mild right sided volume loss with some shift of the heart mediastinum towards the center. Mild mediastinal lymphadenopahty. nonspecific. Nonspecific colitis. predominantly involved the right colon but also involving to a lesser extent the transverse and descending/sigmoind colon. No bowel obstruction. Ascites. Partial gastrectomy and gastrogenunostomy/jejunojenjunostomy. * Chest X Ray (11/09/17): bilateral multifocal opacities right greater than left with ros consolidation at right lung base. IV ABx: * Azithromycin 500mg IV q daily was active from 11/04/17 through 11/09/17 * Cefepime 2gm IVPB Q12H (active since 11/07/17) * Vancomycin 1 gram IVQ12 (active since 11/05/17) * Tamiflu 75 mg PO 2x/day (11/09/17 through 11/13/17) * Acyclovir 500 mg IV Q12H * Micafungin 100mg IVPB Q24H was restarted 11/10/17 2) Sinus Tachycardia Assessment/Plan * Cardiology (Dr. Contreras) on board-->help appreciated * Cleared from cardiac standpoint * Treat infection/sepsis * Became Hypotensive-->brought to ICU * Given Cardizem 20mg IVPX1, Cardizem 5mg IVP X3 in the ED * Cardizem drip d/c * Given Metoprolol 5mg IVP X1 * Needed IV fluids to increase blood pressure * Hgba1c: 4.9 * TSH: 0.64 * Lipid panel: <30, HDL: 16, T, Cholestrol: 71 * Echocardiogram (11/05/17): left ventricle is grossly normal size. Left ventricle systolic function is grossly normal. Right ventricle size and function is normal. Mild tricupsid regurgitation 3) History of Chronic Back Pain History of Scoliosis Fibromylagia Assessment/Plan * held gabapentin given respiratory status * held amitriptyline-->cardio side effects and patient is in sinus tachycardia * Discussed with patient who is aware * Patient has had chronic back problems since age 16 from scoliosis * Patient reports she was for lumbar spine surgery however she was told she needs to meet weight requirement prior to proceeding with surgery * Oxycodone 30mg POq8 PRN pain 4) Tobacco History Assessment/Plan * Nicotine Patch 5) History of Gastric Bypass (sleeve gastrectomy) Assessment/Plan * About 11 years ago * Hgba1c: 4.9 * TSH: 0.64 * Lipid panel: <30, HDL: 16, T, Cholestrol: 71 * Will start MVI 1 tab PO daily * Will need lifelong MV1, calcium, vitamin D supplements 6) Anemia Assessment/Plan * Patient with known history of anemia when I discussed with her at bedside at the time of admission * Patient has not had GI workup including colonoscopy. * H/H currently at 7.4/22.7 * 2units of PRBC 11/05/17 * Iron low, TIBC low, ferritin: 351 reticulocyte count: 2.2 * Reticulocyte index: 0.17 hypoproliferation of reticulocytes * B12 normal, folate within range * LDH: elevated * Hematology-oncology (Dr. Evelyn Escobar) on case-->help appreciated * 7) Unclear regarding to Multiple Sclerosis Hx Assessment/Plan * When asking patient 11/10/17 whether she had a history of MS, she shook her head "NO" 8) Hx Pancreatitis Assessment/Plan * Noted on 08/2017 admission * Recommended outpatient EUS 9) Transaminitis Assessment/Plan * Possible acute phase reactant * Abdominal US (11/04/17): hyperechoic hepatic parenchyma in the interval may indicate diffuse fatty infiltrateion though other etiologies. No common bile duct or intrahepatic biliary dilatation is identified. Moderately distended but otherwise unremarkable appearing gallbladder. Pancreas is poorly visualized. Small right renal cyst. Incidental right pleural effusion is noted. * Hepatitis panel: negative * HIV: negative 10) Electrolyte abnormalities Assessment/Plan * monitor and replete 11) Abdominal Pain Assessment/Plan * Lipase/Amylase: normal 12) Thrombocytopenia * D/C lovenox * HIT negative * Likely related to sepsis * Fibrinogen and fibrin products elevated * Abdominal US (11/04/17): hyperechoic hepatic parenchyma in the interval may indicate diffuse fatty infiltrateion though other etiologies. No common bile duct or intrahepatic biliary dilatation is identified. Moderately distended but otherwise unremarkable appearing gallbladder. Pancreas is poorly visualized. Small right renal cyst. Incidental right pleural effusion is noted. 13) Prophylactic Measures * GI PPX: Protonix 40mg PO daily * Lactobacillus 1 cap PO BID * NO Lovenox/Heparin secondary to Thrombocytopenia * Fentanyl 2 mcg/kg/hr * Jevity via NGT FRED profile is negative Cory Gunter D.O. Objective - Vital Signs/Intake and Output Vital Signs (last 24 hours): Temp Pulse Resp BP Pulse Ox 100.2 F H 104 H 21 85/57 L 98 11/10/17 18:30 11/10/17 19:14 11/10/17 19:14 11/10/17 19:14 11/10/17 19:14 Intake and Output: 11/10/17 11/11/17 18:59 06:59 Intake Total 2662.4 642.1 Output Total 345 30 Balance 2317.4 612.1 - Medications Medications: Current Medications Acetaminophen (Tylenol 650mg/20.3ml Solution Ud) 650 mg PO Q4 PRN PRN Reason: Temperature > 100.4 Last Admin: 11/10/17 16:54 Dose: 650 mg Acetaminophen/Butalbital/Caffeine (Fioricet) 1 tab PO DAILY [facility] Last Admin: 11/10/17 10:48 Dose: 1 tab Albuterol/Ipratropium (Duoneb 3 Mg/0.5 Mg (3 Ml) Ud) 3 ml INH RQ4 [facility]MPERATRIZ Last Admin: 11/10/17 19:07 Dose: 3 ml Amitriptyline HCl (Elavil) 25 mg PO DAILY [facility] Benzocaine (Orajel 7.5%) 0 gm MM Q4 PRN Last Admin: 11/09/17 08:36 Dose: 5.1 gm Gabapentin (Neurontin) 600 mg PO DAILY [facility] Vancomycin/Sodium Chloride (Vancomycin 1 Gm/Ns 200 Ml) 1 gm in 200 mls @ 133.333 mls/hr IVPB Q12H [facility] PRN Reason: Protocol Last Admin: 11/10/17 13:47 Dose: 133.333 mls/hr Cefepime HCl 2 gm/ Dextrose 100 mls @ 100 mls/hr IVPB Q12H [facility] PRN Reason: Protocol Last Admin: 11/10/17 12:33 Dose: 100 mls/hr Acyclovir 500 mg/ Sodium (Chloride) 100 mls @ 100 mls/hr IV Q12H [facility] PRN Reason: Protocol Last Admin: 11/10/17 19:59 Dose: 100 mls/hr Sodium Chloride (Sodium Chloride 0.45%) 1,000 mls @ 75 mls/hr IV .[id number] [facility] Last Admin: 11/10/17 09:52 Dose: 75 mls/hr Micafungin Sodium 100 mg/ (Sodium Chloride) 100 mls @ 100 mls/hr IV Q24H [facility] PRN Reason: Protocol Stop: 11/21/17 14:01 Last Admin: 11/10/17 14:55 Dose: 100 mls/hr Propofol (Diprivan) 1,000 mg in 100 mls @ 2.063 mls/hr IV .Q24H PRN; Protocol; 5 MCG/KG/MIN PRN Reason: TITRATE PER MD ORDER Last Titration: 11/10/17 18:53 Dose: 10 mcg/kg/min, 4.126 mls/hr Norepinephrine Bitartrate 4 mg (/ Dextrose) 254 mls @ 15.24 mls/hr IV .[id number] PRN; Protocol; 4 MCG/MIN PRN Reason: TITRATE PER MD ORDER Ibuprofen (Motrin Tab) 400 mg PO Q6H PRN PRN Reason: Fever >100.4 F Last Admin: 11/09/17 20:11 Dose: 400 mg Lactobacillus Acidophilus (Bacid Acidophilus) 1 cap PO BID [facility] Last Admin: 11/10/17 17:31 Dose: 1 cap Lorazepam (Ativan) 2 mg IVP Q3H PRN PRN Reason: Anxiety Last Admin: 11/10/17 18:15 Dose: 2 mg Nicotine (Nicoderm Cq) 1 patch TD DAILY [facility] Last Admin: 11/10/17 09:52 Dose: 1 patch Oseltamivir Phosphate (Tamiflu Susp) 75 mg PO BID [facility] PRN Reason: Protocol Stop: 11/13/17 11:01 Last Admin: 11/10/17 17:31 Dose: 12.5 ml Pantoprazole Sodium (Protonix Susp) 40 mg PO 0600,1600 [facility] Last Admin: 11/10/17 16:57 Dose: 40 mg Vitamin A (Vitamin A & D Oint Ud Foilpak) 1 ea TOP Q6H PRN PRN Reason: Dry mouth Last Admin: 11/09/17 06:22 Dose: 1 ea - Labs Labs: 11/10/17 06:13 11/10/17 06:13 PT 15.7 SECONDS (9.7-12.2) H 11/10/17 06:13 INR 1.4 11/10/17 06:13 APTT 27 SECONDS (21-34) 11/10/17 06:13
[2017-11-10 20:51] LABS: ARTERIAL BLOOD GAS HCO3 15.6 mmol/L (21-28); ARTERIAL BLOOD GAS O2 SAT 96.1 % (95-98); ARTERIAL BLOOD GAS PCO2 57 mm/Hg (35-45); ARTERIAL BLOOD GAS PH 7.11 (7.35-7.45); ARTERIAL BLOOD GAS PO2 89 mm/Hg (80-100); ARTERIAL BLOOD GAS TCO2 19.8 mmol/L (22-28)
[2017-11-10] MEDS ORDERED: Sodium Bicarbonate (8.4%) 50 Meq Syringe ONE (20:57)
[2017-11-10] MEDS ORDERED: Sodium Bicarbonate 8.4% 150 MEQ in Dextrose 5% In Water 1,000 ML IV SCH (21:00)
[2017-11-10] MEDS ORDERED: Sodium Bicarbonate (8.4%) 50 Meq Syringe IVP ONE (21:19)
[2017-11-10 22:39] LABS: ARTERIAL BLOOD GAS HCO3 15.1 mmol/L (21-28); ARTERIAL BLOOD GAS O2 SAT 93.7 % (95-98); ARTERIAL BLOOD GAS PCO2 53 mm/Hg (35-45); ARTERIAL BLOOD GAS PH 7.12 (7.35-7.45); ARTERIAL BLOOD GAS PO2 74 mm/Hg (80-100); ARTERIAL BLOOD GAS TCO2 18.8 mmol/L (22-28)
[2017-11-10] MEDS ORDERED: Norepinephrine 8 MG in Dextrose 5% In Water 500 ML IV PRN (23:00)
[2017-11-10] MEDS: Phenylephrine 30 MG in Dextrose 5% In Water 250 ML IV PRN (23:38)
[2017-11-10] MEDS ORDERED: Dextrose 50% SYRINGE Inj (50 ml) ONE (23:56)
[2017-11-11] MEDS: Cefepime 2 GM in Dextrose 5% In Water 100 ML IVPB SCH (00:16)
--- NOTE | 2017-11-11 00:24 | PCM.SEPTIC ---
Sepsis Progress Note - Reassessment Type Date of Evaluation: 11/11/17 Time of Evaluation: 00:21 Reassessment Type: Non-invasive reassessment - Non Invasive Reassessment Were the most recent vital sign reviewed: Yes Vital Sign (Latest): Temp Pulse Resp BP Pulse Ox 98.1 F 128 H 21 77/50 L 85 L 11/10/17 20:00 11/10/17 23:35 11/10/17 23:35 11/10/17 23:38 11/10/17 23:35 Cardiovascular: Yes: Tachycardia Respiratory: Yes: Decreased Breath Sounds Capillary Refill: Delayed Skin: Pale - Invasive Reassessment (complete 2 of 4) Was a Central Venous Pressure Measurement obtained within 6 Hours after the presentation of septic shock: No Was a central venous oxygen measurement obtained within 6 hours after the presentation of septic shock: No Was a bedside cardiovascular ultrasound performed within 6 hours after the presentation of septic shock: No Was a passive leg raise performed or was a fluid challenge performed within 6 hrs of the initial fluid bolus: No
[2017-11-11] MEDS: Albuterol-Ipratrop 3 mg / 0.5 (3 ml) UD INH SCH ×2 (00:52→03:13)
[2017-11-11] MEDS: Vancomycin 1 gm/NS 200 ml 1 GM/200 ML BAG IVPB SCH (01:35)
[2017-11-11] MEDS: Phenylephrine 30 MG in Dextrose 5% In Water 250 ML IV PRN (04:54)
[2017-11-11] MEDS: Pantoprazole 40 mg Susp UD PO SCH (06:00)
[2017-11-11 06:20] VITALS: TEMP 97.3
[2017-11-11 06:31] LABS: BASO % 0.1 % (0.0-2.0); EOS # 0.1 K/uL (0.0-0.7); EOS % 0.4 % (0.0-4.0); HEMOGLOBIN 9.3 g/dL (11.0-16.0); LYMPH # 0.9 K/uL (1.0-4.3); LYMPH % 4.1 % (20.0-40.0); MEAN CELL VOLUME 103.5 fL (81.0-99.0); MEAN CORPUSCULAR HEMOGLOBIN 30.7 pg (27.0-31.0); MEAN CORPUSCULAR HGB CONC 29.7 g/dL (33.0-37.0); MEAN PLATELET VOLUME 11.7 fL (7.2-11.7); MONO # 0.2 K/uL (0.0-0.8); MONO % 1.1 % (0.0-10.0); NEUT # 21.2 K/uL (1.8-7.0); NEUT % 94.3 % (50.0-75.0); NRBC % 1.4 % (0.0-2.0); PLATELET COUNT 93 K/uL (130-400); RBC 3.04 Mil/uL (3.80-5.20); WHITE BLOOD COUNT 22.5 K/uL (4.8-10.8)
[2017-11-11 06:31] LABS: ARTERIAL BLOOD GAS HCO3 4.5 mmol/L (21-28); ARTERIAL BLOOD GAS O2 SAT 38.5 % (95-98); ARTERIAL BLOOD GAS PCO2 80 mm/Hg (35-45); ARTERIAL BLOOD GAS PO2 26 mm/Hg (80-100); ARTERIAL BLOOD GAS TCO2 14.9 mmol/L (22-28)
[2017-11-11 07:12] LABS: ALB/GLOB RATIO 0.8 (1.0-2.1); ALBUMIN 2.3 g/dL (3.5-5.0); ALT/SGPT 397 U/L (9-52); AST/SGOT 907 U/L (14-36); BLOOD UREA NITROGEN 16 mg/dL (7-17); CALCIUM 7.4 mg/dl (8.6-10.4); GFR AFRICAN-AMERICAN > 60; GFR NON-AFRICAN AMERICAN > 60
[2017-11-11] MEDS: Propofol 10 mg/ml 1,000 MG/100 ML VIAL IV PRN (07:15)
[2017-11-11] MEDS ORDERED: Calcium Chloride 1000 mg/10 ml Syringe IV ONE (08:01)
[2017-11-11] MEDS ORDERED: Sodium Bicarbonate (8.4%) 50 Meq Syringe IVP ONE ×2 (08:01→08:11)
[2017-11-11 08:09] VITALS: BP 114/74; PULSE 97; RESP 34; O2SAT 34
--- NOTE | 2017-11-11 08:10 | RAD ---
Date of service: 11/11/2017 HISTORY: intubated COMPARISON: Portable chest 11/10/2017. FINDINGS: LUNGS: There is a large right pneumothorax the patient rotated toward the left making it difficult to determine whether not there is some element of tension. Clinically correlate further. Right lung appears completely atelectatic. Airspace disease at the left lung is markedly diminished with borderline residual perihilar atelectasis or infiltrate remaining. No left pneumothorax. No pleural effusion bilaterally. Endotracheal tube stable in position as well as right central venous line. PLEURA: As above. CARDIOVASCULAR: Normal cardiac size. No definite pulmonary vascular congestion appreciated. Right center venous line unchanged. OSSEOUS STRUCTURES: No significant abnormalities. VISUALIZED UPPER ABDOMEN: Nasogastric tube is identified with the tip overlap with telemetry leads obscuring its termination. Side hole appears in the distal esophagus. OTHER FINDINGS: None. IMPRESSION: Large right pneumothorax with complete atelectasis right lung. Due to rotation toward the left, is difficult to exclude or evaluate for potential mediastinal shift that would indicate pneumothorax under tension. Clinically correlate. Significantly diminished left-sided pulmonary infiltrate limited perihilar residual. On discussion of this case with nurse at he ICU, patient had at the time interpretation of this exam.
[2017-11-11 08:16] LABS: BANDS 3 % (0-2); LYMPHOCYTE 2 % (20-40); MONOCYTE 4 % (0-10); NEUTROPHIL 91 % (50-75); PLATELET ESTIMATE DECREASED (NORMAL); TOTAL CELLS COUNTED 100
[2017-11-11 08:17] LABS: ANISOCYTOSIS SLIGHT; HYPOCHROMIC SLIGHT; POIKILOCYTOSIS SLIGHT
[2017-11-11 08:18] LABS: GIANT PLATELETS PRESENT; LARGE PLATELETS PRESENT; PLATELET CLUMPS PRESENT
--- NOTE | 2017-11-11 09:01 | CP.CCUPN ---
CCU Subjective - Physician Review Events Since Last Encounter (Free Text): 11/11/17 08:51 Received sign out from overnight case packer Patient was started on pressors, and ARDS protocol last night Patient on ventilator support FiO2 100%, PEEP of 15, tidal volume 350 and respiratory rate 35 with peak airway pressure of 45 Family signed DNR last night soon after sign out patient went into wide complex rhythm/bradycardia Patient given 2 amps of bicarbonate and 1 epinephrine No CPR performed as patient DNR and family does not want any aggressive intervention patient went into asystole and pronounced at 7.54 am CCU Objective - Vital Signs / Intake & Output Vital Signs (Last 4 hours): Vital Signs Temp Pulse Resp BP Pulse Ox 11/11/17 08:00 34 H 11/11/17 07:26 8 L 114/74 11/11/17 07:05 97 H 21 128/87 34 L 11/11/17 07:00 97 H 26 H 40 L 11/11/17 06:45 92 H 23 157/85 H 61 L 11/11/17 06:25 113 H 17 94/74 L 88 L 11/11/17 06:15 113 H 19 114/85 87 L 11/11/17 06:06 114 H 18 100/70 87 L 11/11/17 06:00 97.3 F L 115 H 19 87 L 11/11/17 05:44 115 H 19 91/57 L 85 L 11/11/17 05:43 116 H 20 131/95 H 84 L 11/11/17 05:36 115 H 18 99/79 L 85 L 11/11/17 05:32 115 H 19 84/52 L 85 L 11/11/17 05:24 115 H 19 90/52 L 86 L 11/11/17 05:23 115 H 19 88/60 L 86 L 11/11/17 05:15 114 H 19 68/53 L 86 L 11/11/17 05:06 114 H 20 71/53 L 83 L 11/11/17 04:54 79/56 L Intake and Output (Last 8hrs): Intake & Output 11/10/17 11/11/17 11/11/17 22:59 06:59 14:59 Intake Total 2446.7 2866.0 387.5 Output Total 170 Balance 2276.7 2866.0 387.5 Intake: IV 354 326 70 Intake, IV Amount 1942.7 2540.0 317.5 R Medial Port #2 100 800 100 R Proximal Port #3 330 60 Right Distal Port 147.2 32.8 4.1 Internal Jugular Right Medial Port 840 750 75 Internal Jugular Right Proximal Port 855.5 608 76 Internal Jugular Right Proximal Port 19.2 2.4 Internal Jugular #2 Oral 70 Tube Feeding 80 Output: Urine 170 Urine, Voided 170 Other: # Bowel Movements 0 - Physical Exam Head: Positive for: Atraumatic, Normocephalic Extroacular Muscles: Positive for: EOMI Mouth: Positive for: Moist Mucous Membranes Nose (External): Positive for: Atraumatic Respiratory/Chest: Positive for: Clear to Auscultation, Good Air Exchange, Decreased Breath Sounds. Negative for: Respiratory Distress, Accessory Muscle Use Cardiovascular: Positive for: Normal S1, S2, Tachycardic Abdomen: Positive for: Normal Bowel Sounds. Negative for: Tenderness, Distention Upper Extremity: Positive for: Normal Inspection. Negative for: Cyanosis Lower Extremity: Positive for: Normal Inspection. Negative for: Edema Neurological: Positive for: GCS=15 Skin: Positive for: Normal Color Psychiatric: Positive for: Other (sedated) - Medications Active Medications: Active Medications Generic Name Dose Route Start Last Admin Trade Name Freq PRN Reason Stop Dose Admin Acetaminophen 650 mg 11/10/17 16:47 11/10/17 16:54 Tylenol 650mg/20.3ml Solution Ud PO 650 mg Q4 PRN Administration Temperature > 100.4 Acetaminophen/Butalbital/Caffeine 1 tab 11/04/17 10:00 11/10/17 10:48 Fioricet PO 1 tab DAILY EMPERATRIZ Administration Albuterol/Ipratropium 3 ml 11/06/17 08:13 11/11/17 03:13 Duoneb 3 Mg/0.5 Mg (3 Ml) Ud INH 3 ml RQ4 EMPERATRIZ Administration Amitriptyline HCl 25 mg 11/04/17 10:00 Elavil PO DAILY EMPERATRIZ Benzocaine 0 gm 11/06/17 08:15 11/09/17 08:36 Orajel 7.5% MM 5.1 gm Q4 PRN Administration Gabapentin 600 mg 11/04/17 10:00 Neurontin PO DAILY EMPERATRIZ Hydrocortisone Sodium Succinate 100 mg 11/10/17 23:45 11/11/17 07:15 Solu-Cortef IV 100 mg Q8H EMPERATRIZ Administration Vancomycin/Sodium Chloride 1 gm in 200 mls @ 133.333 mls/hr 11/05/17 01:00 01:35 Vancomycin 1 Gm/Ns 200 Ml IVPB 133.333 mls/hr Q12H EMPERATRIZ Administration Protocol Cefepime HCl 2 gm/ Dextrose 100 mls @ 100 mls/hr 11/07/17 00:00 11/11/17 00: 16 IVPB 100 mls/hr Q12H EMPERATRIZ Administration Protocol Acyclovir 500 mg/ Sodium 100 mls @ 100 mls/hr 11/06/17 20:00 11/10/17 19:59 Chloride IV 100 mls/hr Q12H EMPERATRIZ Administration Protocol Sodium Chloride 1,000 mls @ 75 mls/hr 11/10/17 09:15 11/10/17 21:42 Sodium Chloride 0.45% IV Not Given .[id number] EMPERATRIZ Micafungin Sodium 100 mg/ 100 mls @ 100 mls/hr 11/10/17 14:00 11/10/17 14:55 Sodium Chloride IV 11/21/17 14:01 100 mls/hr Q24H EMPERATRIZ Administration Protocol Propofol 1,000 mg in 100 mls @ 2.063 mls/hr 11/10/17 18:14 11/11/17 07:15 Diprivan IV 10 mcg/kg/min .Q24H PRN 4.126 mls/hr TITRATE PER MD ORDER Administration Protocol 5 MCG/KG/MIN Fentanyl Citrate 2,500 mcg/ 250 mls @ 13.75 mls/hr 11/10/17 21:00 11/10/17 21 :16 Sodium Chloride IV 2 mcg/kg/hr .[id number] EMPERATRIZ 13.75 mls/hr Protocol Administration 2 MCG/KG/HR Sodium Bicarbonate 150 meq/ 1,150 mls @ 100 mls/hr 11/10/17 21:00 11/10/17 21 :41 Dextrose IV 100 mls/hr .[id number] EMPERATRIZ Administration Vasopressin 40 units/ Sodium 42 mls @ 0.63 mls/hr 11/10/17 22:30 11/10/17 22: 30 Chloride IV 0.04 units/min .Q24H EMPERATRIZ 2.52 mls/hr Protocol Administration 0.01 UNITS/MIN Norepinephrine Bitartrate 8 mg 508 mls @ 15.24 mls/hr 11/10/17 23:00 00:00 / Dextrose IV 20 mcg/min .Q24H PRN 76.2 mls/hr TITRATE PER MD ORDER Administration Protocol 4 MCG/MIN Phenylephrine HCl 30 mg/ 253 mls @ 10.12 mls/hr 11/10/17 23:06 11/11/17 06:17 Dextrose IV 180 mcg/min .Q24H PRN 91.08 mls/hr TITRATE PER MD ORDER Titration Protocol 20 MCG/MIN Ibuprofen 400 mg 11/04/17 01:02 11/09/17 20:11 Motrin Tab PO 400 mg Q6H PRN Administration Fever >100.4 F Lactobacillus Acidophilus 1 cap 11/07/17 18:00 11/10/17 17:31 Bacid Acidophilus PO 1 cap BID EMPERATRIZ Administration Lorazepam 2 mg 11/10/17 10:16 11/10/17 18:15 Ativan IVP 2 mg Q3H PRN Administration Anxiety Nicotine 1 patch 11/04/17 10:00 11/10/17 09:52 Nicoderm Cq TD 1 patch DAILY EMPERATRIZ Administration Oseltamivir Phosphate 75 mg 11/08/17 11:00 11/10/17 17:31 Tamiflu Susp PO 11/13/17 11:01 12.5 ml BID EMPERATRIZ Administration Protocol Pantoprazole Sodium 40 mg 11/07/17 16:00 11/11/17 06:00 Protonix Susp PO 40 mg 0600,1600 EMPERATRIZ Administration Vitamin A 1 ea 11/04/17 10:30 11/09/17 06:22 Vitamin A & D Oint Ud Foilpak TOP 1 ea Q6H PRN Administration Dry mouth - Patient Studies Lab Studies: Microbiology Studies 11/05/17 22:15 Blood Culture - Final Blood-Venous NO GROWTH AFTER 5 DAYS Gram Stain - Final TEST NOT PERFORMED 11/05/17 22:15 Blood Culture - Final Blood-Venous NO GROWTH AFTER 5 DAYS Gram Stain - Final TEST NOT PERFORMED 11/06/17 20:05 Mycobacterial Culture - Preliminary Other: Please Indicate 11/06/17 20:05 Fungal Culture - Final Bronchial Washings Lesa Albicans 11/06/17 15:45 Fungal Culture - Final Other: Please Indicate Lesa Albicans Lab Studies 11/11/17 11/11/17 11/11/17 Range/Units 06:25 06:25 05:28 WBC 22.5 H D (4.8-10.8) K/uL RBC 3.04 L (3.80-5.20) Mil/uL Hgb 9.3 L (11.0-16.0) g/dL Hct 31.4 L (34.0-47.0) % MCV 103.5 H D (81.0-99.0) fL MCH 30.7 (27.0-31.0) pg MCHC 29.7 L (33.0-37.0) g/dL RDW 23.0 H (11.5-14.5) % Plt Count 93 L D (130-400) K/uL MPV 11.7 (7.2-11.7) fL Neut % (Auto) 94.3 H (50.0-75.0) % Lymph % (Auto) 4.1 L (20.0-40.0) % [place] % (Auto) 1.1 (0.0-10.0) % Eos % (Auto) 0.4 (0.0-4.0) % Baso % (Auto) 0.1 (0.0-2.0) % Neut # (Auto) 21.2 H (1.8-7.0) K/uL Lymph # (Auto) 0.9 L (1.0-4.3) K/uL [place] # (Auto) 0.2 (0.0-0.8) K/uL Eos # (Auto) 0.1 (0.0-0.7) K/uL Baso # (Auto) 0.0 (0.0-0.2) K/uL Neutrophils % (Manual) 91 H (50-75) % Band Neutrophils % 3 H (0-2) % Lymphocytes % (Manual) 2 L (20-40) % Monocytes % (Manual) 4 (0-10) % Platelet Estimate Decreased L (NORMAL) Plt Clumps, EDTA Present Large Platelets Present Giant Platelets Present Hypochromasia (manual) Slight Poikilocytosis (manual Slight Anisocytosis (manual) Slight Puncture Site pCO2 (35-45) mm/Hg pO2 (80-100) mm/Hg HCO3 (21-28) mmol/L ABG pH (7.35-7.45) ABG Total CO2 (22-28) mmol/L ABG O2 Saturation (95-98) % ABG Base Excess (-2.0-3.0) mmol/L ABG Hemoglobin (11.7-17.4) g/dL ABG Carboxyhemoglobin (0.5-1.5) % POC ABG HHb (Measured) (0.0-5.0) % ABG Methemoglobin (0.0-3.0) % Romero Test ABG Potassium (3.6-5.2) mmol/L A-a O2 Difference mm/Hg Respiratory Index Hgb O2 Saturation (95.0-98.0) % Sodium 147 (132-148) mmol/l Chloride 109 H (98-107) mmol/L Glucose (65-105) mg/dl Lactate (0.7-2.1) mmol/L Vent Mode Mechanical Rate FiO2 % Tidal Volume PEEP Crit Value Called To Crit Value Called By Crit Value Read Back Blood Gas Notified Time Potassium 5.0 (3.6-5.2) mmol/L Carbon Dioxide 12 L (22-30) mmol/L Anion Gap 31 H (10-20) BUN 16 (7-17) mg/dL Creatinine 0.9 (0.7-1.2) mg/dL Est GFR ( Amer) > 60 Est GFR (Non-Af Amer) > 60 POC Glucose (mg/dL) 235 H (65-110) mg/dL Random Glucose 216 H (65-105) mg/dL Calcium 7.4 L (8.6-10.4) mg/dl Phosphorus 8.1 H (2.5-4.5) mg/dL Magnesium 2.1 (1.6-2.3) mg/dL Total Bilirubin 2.3 H (0.2-1.3) mg/dL AST 907 H D (14-36) U/L ALT 397 H D (9-52) U/L Alkaline Phosphatase 142 H (38-126) U/L Total Protein 5.3 L (6.3-8.3) g/dL Albumin 2.3 L (3.5-5.0) g/dL Globulin 3.0 (2.2-3.9) gm/dL Albumin/Globulin Ratio 0.8 L (1.0-2.1) UF Heparin Interp (Negative) Arterial Blood Potassium (3.6-5.2) mmol/L Stool Occult Blood (NEGATIVE) Random Vancomycin ug/mL FRED Nuclear Membr Pat (Negative) Proteinase 3 (PR3) (<1.0) AI Myeloperoxidase Ab (<1.0) AI Thyroperoxidase Ab (<9) IU/mL CONSTANTINE UFH Low Dose 0.1 % Release CONSTANTINE UFH Low Dose 0.5 % Release CONSTANTINE UFH High Dose 100 % Release Blood Type Antibody Screen 11/11/17 11/10/17 11/10/17 Range/Units 05:27 23:41 22:35 WBC (4.8-10.8) K/uL RBC (3.80-5.20) Mil/uL Hgb (11.0-16.0) g/dL Hct (34.0-47.0) % MCV (81.0-99.0) fL MCH (27.0-31.0) pg MCHC (33.0-37.0) g/dL RDW (11.5-14.5) % Plt Count (130-400) K/uL MPV (7.2-11.7) fL Neut % (Auto) (50.0-75.0) % Lymph % (Auto) (20.0-40.0) % [place] % (Auto) (0.0-10.0) % Eos % (Auto) (0.0-4.0) % Baso % (Auto) (0.0-2.0) % Neut # (Auto) (1.8-7.0) K/uL Lymph # (Auto) (1.0-4.3) K/uL [place] # (Auto) (0.0-0.8) K/uL Eos # (Auto) (0.0-0.7) K/uL Baso # (Auto) (0.0-0.2) K/uL Neutrophils % (Manual) (50-75) % Band Neutrophils % (0-2) % Lymphocytes % (Manual) (20-40) % Monocytes % (Manual) (0-10) % Platelet Estimate (NORMAL) Plt Clumps, EDTA Large Platelets Giant Platelets Hypochromasia (manual) Poikilocytosis (manual Anisocytosis (manual) Puncture Site R bra Rba pCO2 80 H* 53 H (35-45) mm/Hg pO2 26 L* 74 L (80-100) mm/Hg HCO3 4.5 L* 15.1 L (21-28) mmol/L ABG pH 6.80 L* 7.12 L* (7.35-7.45) ABG Total CO2 14.9 L 18.8 L (22-28) mmol/L ABG O2 Saturation 38.5 L 93.7 L (95-98) % ABG Base Excess -23.2 L -12.3 L (-2.0-3.0) mmol/L ABG Hemoglobin (11.7-17.4) g/dL ABG Carboxyhemoglobin (0.5-1.5) % POC ABG HHb (Measured) (0.0-5.0) % ABG Methemoglobin (0.0-3.0) % Romero Test Na Na ABG Potassium 4.4 4.4 (3.6-5.2) mmol/L A-a O2 Difference 587.0 573.0 mm/Hg Respiratory Index 22.6 7.7 Hgb O2 Saturation (95.0-98.0) % Sodium 146.0 150.0 H (132-148) mmol/l Chloride 111.0 H 117.0 H (98-107) mmol/L Glucose 207 H 84 (65-105) mg/dl Lactate 15.3 H* 10.1 H* (0.7-2.1) mmol/L Vent Mode Prvc Mechanical Rate 35 30 FiO2 100.0 100.0 % Tidal Volume 250 310 PEEP 18 18 Crit Value Called To Theodore Feldman s Crit Value Called By Julia rene rt Lendl Crit Value Read Back Y Y Blood Gas Notified Time 630 2239 Potassium (3.6-5.2) mmol/L Carbon Dioxide (22-30) mmol/L Anion Gap (10-20) BUN (7-17) mg/dL Creatinine (0.7-1.2) mg/dL Est GFR ( Amer) Est GFR (Non-Af Amer) POC Glucose (mg/dL) 78 (65-110) mg/dL Random Glucose (65-105) mg/dL Calcium (8.6-10.4) mg/dl Phosphorus (2.5-4.5) mg/dL Magnesium (1.6-2.3) mg/dL Total Bilirubin (0.2-1.3) mg/dL AST (14-36) U/L ALT (9-52) U/L Alkaline Phosphatase (38-126) U/L Total Protein (6.3-8.3) g/dL Albumin (3.5-5.0) g/dL Globulin (2.2-3.9) gm/dL Albumin/Globulin Ratio (1.0-2.1) UF Heparin Interp (Negative) Arterial Blood Potassium 4.4 4.4 (3.6-5.2) mmol/L Stool Occult Blood (NEGATIVE) Random Vancomycin ug/mL FRED Nuclear Membr Pat (Negative) Proteinase 3 (PR3) (<1.0) AI Myeloperoxidase Ab (<1.0) AI Thyroperoxidase Ab (<9) IU/mL CONSTANTINE UFH Low Dose 0.1 % Release CONSTANTINE UFH Low Dose 0.5 % Release CONSTANTINE UFH High Dose 100 % Release Blood Type Antibody Screen 11/10/17 11/10/17 11/10/17 Range/Units 20:46 18:56 17:45 WBC (4.8-10.8) K/uL RBC (3.80-5.20) Mil/uL Hgb (11.0-16.0) g/dL Hct (34.0-47.0) % MCV (81.0-99.0) fL MCH (27.0-31.0) pg MCHC (33.0-37.0) g/dL RDW (11.5-14.5) % Plt Count (130-400) K/uL MPV (7.2-11.7) fL Neut % (Auto) (50.0-75.0) % Lymph % (Auto) (20.0-40.0) % [place] % (Auto) (0.0-10.0) % Eos % (Auto) (0.0-4.0) % Baso % (Auto) (0.0-2.0) % Neut # (Auto) (1.8-7.0) K/uL Lymph # (Auto) (1.0-4.3) K/uL [place] # (Auto) (0.0-0.8) K/uL Eos # (Auto) (0.0-0.7) K/uL Baso # (Auto) (0.0-0.2) K/uL Neutrophils % (Manual) (50-75) % Band Neutrophils % (0-2) % Lymphocytes % (Manual) (20-40) % Monocytes % (Manual) (0-10) % Platelet Estimate (NORMAL) Plt Clumps, EDTA Large Platelets Giant Platelets Hypochromasia (manual) Poikilocytosis (manual Anisocytosis (manual) Puncture Site Rba Rba pCO2 57 H 33 L (35-45) mm/Hg pO2 89 67 L (80-100) mm/Hg HCO3 15.6 L 22.6 (21-28) mmol/L ABG pH 7.11 L* 7.41 (7.35-7.45) ABG Total CO2 19.8 L 21.9 L (22-28) mmol/L ABG O2 Saturation 96.1 96.0 (95-98) % ABG Base Excess -11.8 L -2.9 L (-2.0-3.0) mmol/L ABG Hemoglobin (11.7-17.4) g/dL ABG Carboxyhemoglobin (0.5-1.5) % POC ABG HHb (Measured) (0.0-5.0) % ABG Methemoglobin (0.0-3.0) % Romero Test Na Na ABG Potassium 4.4 3.4 L (3.6-5.2) mmol/L A-a O2 Difference 553.0 605.0 mm/Hg Respiratory Index 6.2 9.0 Hgb O2 Saturation (95.0-98.0) % Sodium 149.0 H 149.0 H (132-148) mmol/l Chloride 119.0 H 121.0 H (98-107) mmol/L Glucose 110 H 144 H (65-105) mg/dl Lactate 6.7 H* 3.5 H (0.7-2.1) mmol/L Vent Mode Prvc Prvc Mechanical Rate 14 14 FiO2 100.0 100.0 % Tidal Volume 270 420 PEEP 20 5 Crit Value Called To Francia delgado Crit Value Called By [place] Crit Value Read Back Y Blood Gas Notified Time 2050 Potassium (3.6-5.2) mmol/L Carbon Dioxide (22-30) mmol/L Anion Gap (10-20) BUN (7-17) mg/dL Creatinine (0.7-1.2) mg/dL Est GFR ( Amer) Est GFR (Non-Af Amer) POC Glucose (mg/dL) 183 H (65-110) mg/dL Random Glucose (65-105) mg/dL Calcium (8.6-10.4) mg/dl Phosphorus (2.5-4.5) mg/dL Magnesium (1.6-2.3) mg/dL Total Bilirubin (0.2-1.3) mg/dL AST (14-36) U/L ALT (9-52) U/L Alkaline Phosphatase (38-126) U/L Total Protein (6.3-8.3) g/dL Albumin (3.5-5.0) g/dL Globulin (2.2-3.9) gm/dL Albumin/Globulin Ratio (1.0-2.1) UF Heparin Interp (Negative) Arterial Blood Potassium 4.4 3.4 L (3.6-5.2) mmol/L Stool Occult Blood (NEGATIVE) Random Vancomycin ug/mL FRED Nuclear Membr Pat (Negative) Proteinase 3 (PR3) (<1.0) AI Myeloperoxidase Ab (<1.0) AI Thyroperoxidase Ab (<9) IU/mL CONSTANTINE UFH Low Dose 0.1 % Release CONSTANTINE UFH Low Dose 0.5 % Release CONSTANTINE UFH High Dose 100 % Release Blood Type Antibody Screen 11/10/17 11/10/17 11/10/17 Range/Units 13:37 11:49 11:40 WBC (4.8-10.8) K/uL RBC (3.80-5.20) Mil/uL Hgb (11.0-16.0) g/dL Hct (34.0-47.0) % MCV (81.0-99.0) fL MCH (27.0-31.0) pg MCHC (33.0-37.0) g/dL RDW (11.5-14.5) % Plt Count (130-400) K/uL MPV (7.2-11.7) fL Neut % (Auto) (50.0-75.0) % Lymph % (Auto) (20.0-40.0) % [place] % (Auto) (0.0-10.0) % Eos % (Auto) (0.0-4.0) % Baso % (Auto) (0.0-2.0) % Neut # (Auto) (1.8-7.0) K/uL Lymph # (Auto) (1.0-4.3) K/uL [place] # (Auto) (0.0-0.8) K/uL Eos # (Auto) (0.0-0.7) K/uL Baso # (Auto) (0.0-0.2) K/uL Neutrophils % (Manual) (50-75) % Band Neutrophils % (0-2) % Lymphocytes % (Manual) (20-40) % Monocytes % (Manual) (0-10) % Platelet Estimate (NORMAL) Plt Clumps, EDTA Large Platelets Giant Platelets Hypochromasia (manual) Poikilocytosis (manual Anisocytosis (manual) Puncture Site Lr pCO2 34 L (35-45) mm/Hg pO2 119 H (80-100) mm/Hg HCO3 26.3 (21-28) mmol/L ABG pH 7.48 H (7.35-7.45) ABG Total CO2 26.3 (22-28) mmol/L ABG O2 Saturation 98.3 H (95-98) % ABG Base Excess 1.8 (-2.0-3.0) mmol/L ABG Hemoglobin 8.1 L (11.7-17.4) g/dL ABG Carboxyhemoglobin 1.1 (0.5-1.5) % POC ABG HHb (Measured) 1.7 (0.0-5.0) % ABG Methemoglobin 1.1 (0.0-3.0) % Romero Test Pos ABG Potassium (3.6-5.2) mmol/L A-a O2 Difference 552.0 mm/Hg Respiratory Index 4.6 Hgb O2 Saturation 96.1 (95.0-98.0) % Sodium (132-148) mmol/l Chloride (98-107) mmol/L Glucose (65-105) mg/dl Lactate (0.7-2.1) mmol/L Vent Mode Mechanical Rate 14 FiO2 100.0 % Tidal Volume 420 PEEP 5 Crit Value Called To Crit Value Called By Crit Value Read Back Blood Gas Notified Time Potassium (3.6-5.2) mmol/L Carbon Dioxide (22-30) mmol/L Anion Gap (10-20) BUN (7-17) mg/dL Creatinine (0.7-1.2) mg/dL Est GFR ( Amer) Est GFR (Non-Af Amer) POC Glucose (mg/dL) 166 H (65-110) mg/dL Random Glucose (65-105) mg/dL Calcium (8.6-10.4) mg/dl Phosphorus (2.5-4.5) mg/dL Magnesium (1.6-2.3) mg/dL Total Bilirubin (0.2-1.3) mg/dL AST (14-36) U/L ALT (9-52) U/L Alkaline Phosphatase (38-126) U/L Total Protein (6.3-8.3) g/dL Albumin (3.5-5.0) g/dL Globulin (2.2-3.9) gm/dL Albumin/Globulin Ratio (1.0-2.1) UF Heparin Interp (Negative) Arterial Blood Potassium (3.6-5.2) mmol/L Stool Occult Blood Negative (NEGATIVE) Random Vancomycin ug/mL FRED Nuclear Membr Pat (Negative) Proteinase 3 (PR3) (<1.0) AI Myeloperoxidase Ab (<1.0) AI Thyroperoxidase Ab (<9) IU/mL CONSTANTINE UFH Low Dose 0.1 % Release CONSTANTINE UFH Low Dose 0.5 % Release CONSTANTINE UFH High Dose 100 % Release Blood Type Antibody Screen 11/10/17 11/10/17 11/08/17 Range/Units 09:43 09:43 10:26 WBC (4.8-10.8) K/uL RBC (3.80-5.20) Mil/uL Hgb (11.0-16.0) g/dL Hct (34.0-47.0) % MCV (81.0-99.0) fL MCH (27.0-31.0) pg MCHC (33.0-37.0) g/dL RDW (11.5-14.5) % Plt Count (130-400) K/uL MPV (7.2-11.7) fL Neut % (Auto) (50.0-75.0) % Lymph % (Auto) (20.0-40.0) % [place] % (Auto) (0.0-10.0) % Eos % (Auto) (0.0-4.0) % Baso % (Auto) (0.0-2.0) % Neut # (Auto) (1.8-7.0) K/uL Lymph # (Auto) (1.0-4.3) K/uL [place] # (Auto) (0.0-0.8) K/uL Eos # (Auto) (0.0-0.7) K/uL Baso # (Auto) (0.0-0.2) K/uL Neutrophils % (Manual) (50-75) % Band Neutrophils % (0-2) % Lymphocytes % (Manual) (20-40) % Monocytes % (Manual) (0-10) % Platelet Estimate (NORMAL) Plt Clumps, EDTA Large Platelets Giant Platelets Hypochromasia (manual) Poikilocytosis (manual Anisocytosis (manual) Puncture Site pCO2 (35-45) mm/Hg pO2 (80-100) mm/Hg HCO3 (21-28) mmol/L ABG pH (7.35-7.45) ABG Total CO2 (22-28) mmol/L ABG O2 Saturation (95-98) % ABG Base Excess (-2.0-3.0) mmol/L ABG Hemoglobin (11.7-17.4) g/dL ABG Carboxyhemoglobin (0.5-1.5) % POC ABG HHb (Measured) (0.0-5.0) % ABG Methemoglobin (0.0-3.0) % Romero Test ABG Potassium (3.6-5.2) mmol/L A-a O2 Difference mm/Hg Respiratory Index Hgb O2 Saturation (95.0-98.0) % Sodium (132-148) mmol/l Chloride (98-107) mmol/L Glucose (65-105) mg/dl Lactate (0.7-2.1) mmol/L Vent Mode Mechanical Rate FiO2 % Tidal Volume PEEP Crit Value Called To Crit Value Called By Crit Value Read Back Blood Gas Notified Time Potassium (3.6-5.2) mmol/L Carbon Dioxide (22-30) mmol/L Anion Gap (10-20) BUN (7-17) mg/dL Creatinine (0.7-1.2) mg/dL Est GFR ( Amer) Est GFR (Non-Af Amer) POC Glucose (mg/dL) (65-110) mg/dL Random Glucose (65-105) mg/dL Calcium (8.6-10.4) mg/dl Phosphorus (2.5-4.5) mg/dL Magnesium (1.6-2.3) mg/dL Total Bilirubin (0.2-1.3) mg/dL AST (14-36) U/L ALT (9-52) U/L Alkaline Phosphatase (38-126) U/L Total Protein (6.3-8.3) g/dL Albumin (3.5-5.0) g/dL Globulin (2.2-3.9) gm/dL Albumin/Globulin Ratio (1.0-2.1) UF Heparin Interp (Negative) Arterial Blood Potassium (3.6-5.2) mmol/L Stool Occult Blood (NEGATIVE) Random Vancomycin 18.0 ug/mL FRED Nuclear Membr Pat (Negative) Proteinase 3 (PR3) <1.0 (<1.0) AI Myeloperoxidase Ab <1.0 (<1.0) AI Thyroperoxidase Ab (<9) IU/mL CONSTANTINE UFH Low Dose 0.1 % Release CONSTANTINE UFH Low Dose 0.5 % Release CONSTANTINE UFH High Dose 100 % Release Blood Type A NEGATIVE Antibody Screen Negative 11/08/17 11/06/17 Range/Units 10:26 05:51 WBC (4.8-10.8) K/uL RBC (3.80-5.20) Mil/uL Hgb (11.0-16.0) g/dL Hct (34.0-47.0) % MCV (81.0-99.0) fL MCH (27.0-31.0) pg MCHC (33.0-37.0) g/dL RDW (11.5-14.5) % Plt Count (130-400) K/uL MPV (7.2-11.7) fL Neut % (Auto) (50.0-75.0) % Lymph % (Auto) (20.0-40.0) % [place] % (Auto) (0.0-10.0) % Eos % (Auto) (0.0-4.0) % Baso % (Auto) (0.0-2.0) % Neut # (Auto) (1.8-7.0) K/uL Lymph # (Auto) (1.0-4.3) K/uL [place] # (Auto) (0.0-0.8) K/uL Eos # (Auto) (0.0-0.7) K/uL Baso # (Auto) (0.0-0.2) K/uL Neutrophils % (Manual) (50-75) % Band Neutrophils % (0-2) % Lymphocytes % (Manual) (20-40) % Monocytes % (Manual) (0-10) % Platelet Estimate (NORMAL) Plt Clumps, EDTA Large Platelets Giant Platelets Hypochromasia (manual) Poikilocytosis (manual Anisocytosis (manual) Puncture Site pCO2 (35-45) mm/Hg pO2 (80-100) mm/Hg HCO3 (21-28) mmol/L ABG pH (7.35-7.45) ABG Total CO2 (22-28) mmol/L ABG O2 Saturation (95-98) % ABG Base Excess (-2.0-3.0) mmol/L ABG Hemoglobin (11.7-17.4) g/dL ABG Carboxyhemoglobin (0.5-1.5) % POC ABG HHb (Measured) (0.0-5.0) % ABG Methemoglobin (0.0-3.0) % Romero Test ABG Potassium (3.6-5.2) mmol/L A-a O2 Difference mm/Hg Respiratory Index Hgb O2 Saturation (95.0-98.0) % Sodium (132-148) mmol/l Chloride (98-107) mmol/L Glucose (65-105) mg/dl Lactate (0.7-2.1) mmol/L Vent Mode Mechanical Rate FiO2 % Tidal Volume PEEP Crit Value Called To Crit Value Called By Crit Value Read Back Blood Gas Notified Time Potassium (3.6-5.2) mmol/L Carbon Dioxide (22-30) mmol/L Anion Gap (10-20) BUN (7-17) mg/dL Creatinine (0.7-1.2) mg/dL Est GFR ( Amer) Est GFR (Non-Af Amer) POC Glucose (mg/dL) (65-110) mg/dL Random Glucose (65-105) mg/dL Calcium (8.6-10.4) mg/dl Phosphorus (2.5-4.5) mg/dL Magnesium (1.6-2.3) mg/dL Total Bilirubin (0.2-1.3) mg/dL AST (14-36) U/L ALT (9-52) U/L Alkaline Phosphatase (38-126) U/L Total Protein (6.3-8.3) g/dL Albumin (3.5-5.0) g/dL Globulin (2.2-3.9) gm/dL Albumin/Globulin Ratio (1.0-2.1) UF Heparin Interp Negative (Negative) Arterial Blood Potassium (3.6-5.2) mmol/L Stool Occult Blood (NEGATIVE) Random Vancomycin ug/mL FRED Nuclear Membr Pat Negative (Negative) Proteinase 3 (PR3) (<1.0) AI Myeloperoxidase Ab (<1.0) AI Thyroperoxidase Ab 1 (<9) IU/mL CONSTANTINE UFH Low Dose 0.1 0 % Release CONSTANTINE UFH Low Dose 0.5 0 % Release CONSTANTINE UFH High Dose 100 0 % Release Blood Type Antibody Screen Laboratory Results - last 24 hr 11/06/17 11/08/17 11/08/17 05:51 10:26 10:26 WBC RBC Hgb Hct MCV MCH MCHC RDW Plt Count MPV Neut % (Auto) Lymph % (Auto) [place] % (Auto) Eos % (Auto) Baso % (Auto) Neut # (Auto) Lymph # (Auto) [place] # (Auto) Eos # (Auto) Baso # (Auto) Neutrophils % (Manual) Band Neutrophils % Lymphocytes % (Manual) Monocytes % (Manual) Platelet Estimate Plt Clumps, EDTA Large Platelets Giant Platelets Hypochromasia (manual) Poikilocytosis (manual Anisocytosis (manual) Puncture Site pCO2 pO2 HCO3 ABG pH ABG Total CO2 ABG O2 Saturation ABG Base Excess ABG Hemoglobin ABG Carboxyhemoglobin POC ABG HHb (Measured) ABG Methemoglobin Romero Test ABG Potassium A-a O2 Difference Respiratory Index Hgb O2 Saturation Sodium Chloride Glucose Lactate Vent Mode Mechanical Rate FiO2 Tidal Volume PEEP Crit Value Called To Crit Value Called By Crit Value Read Back Blood Gas Notified Time Potassium Carbon Dioxide Anion Gap BUN Creatinine Est GFR ( Amer) Est GFR (Non-Af Amer) POC Glucose (mg/dL) Random Glucose Calcium Phosphorus Magnesium Total Bilirubin AST ALT Alkaline Phosphatase Total Protein Albumin Globulin Albumin/Globulin Ratio UF Heparin Interp Negative Arterial Blood Potassium Stool Occult Blood Random Vancomycin FRED Nuclear Membr Pat Negative Proteinase 3 (PR3) <1.0 Myeloperoxidase Ab <1.0 Thyroperoxidase Ab 1 CONSTANTINE UFH Low Dose 0.1 0 CONSTANTINE UFH Low Dose 0.5 0 CONSTANTINE UFH High Dose 100 0 Blood Type Antibody Screen 11/10/17 11/10/17 11/10/17 09:43 09:43 11:40 WBC RBC Hgb Hct MCV MCH MCHC RDW Plt Count MPV Neut % (Auto) Lymph % (Auto) [place] % (Auto) Eos % (Auto) Baso % (Auto) Neut # (Auto) Lymph # (Auto) [place] # (Auto) Eos # (Auto) Baso # (Auto) Neutrophils % (Manual) Band Neutrophils % Lymphocytes % (Manual) Monocytes % (Manual) Platelet Estimate Plt Clumps, EDTA Large Platelets Giant Platelets Hypochromasia (manual) Poikilocytosis (manual Anisocytosis (manual) Puncture Site Lr pCO2 34 L pO2 119 H HCO3 26.3 ABG pH 7.48 H ABG Total CO2 26.3 ABG O2 Saturation 98.3 H ABG Base Excess 1.8 ABG Hemoglobin 8.1 L ABG Carboxyhemoglobin 1.1 POC ABG HHb (Measured) 1.7 ABG Methemoglobin 1.1 Romero Test Pos ABG Potassium A-a O2 Difference 552.0 Respiratory Index 4.6 Hgb O2 Saturation 96.1 Sodium Chloride Glucose Lactate Vent Mode Mechanical Rate 14 FiO2 100.0 Tidal Volume 420 PEEP 5 Crit Value Called To Crit Value Called By Crit Value Read Back Blood Gas Notified Time Potassium Carbon Dioxide Anion Gap BUN Creatinine Est GFR ( Amer) Est GFR (Non-Af Amer) POC Glucose (mg/dL) Random Glucose Calcium Phosphorus Magnesium Total Bilirubin AST ALT Alkaline Phosphatase Total Protein Albumin Globulin Albumin/Globulin Ratio UF Heparin Interp Arterial Blood Potassium Stool Occult Blood Random Vancomycin 18.0 FRED Nuclear Membr Pat Proteinase 3 (PR3) Myeloperoxidase Ab Thyroperoxidase Ab CONSTANTINE UFH Low Dose 0.1 CONSTANTINE UFH Low Dose 0.5 CONSTANTINE UFH High Dose 100 Blood Type A NEGATIVE Antibody Screen Negative 11/10/17 11/10/17 11/10/17 11:49 13:37 17:45 WBC RBC Hgb Hct MCV MCH MCHC RDW Plt Count MPV Neut % (Auto) Lymph % (Auto) [place] % (Auto) Eos % (Auto) Baso % (Auto) Neut # (Auto) Lymph # (Auto) [place] # (Auto) Eos # (Auto) Baso # (Auto) Neutrophils % (Manual) Band Neutrophils % Lymphocytes % (Manual) Monocytes % (Manual) Platelet Estimate Plt Clumps, EDTA Large Platelets Giant Platelets Hypochromasia (manual) Poikilocytosis (manual Anisocytosis (manual) Puncture Site pCO2 pO2 HCO3 ABG pH ABG Total CO2 ABG O2 Saturation ABG Base Excess ABG Hemoglobin ABG Carboxyhemoglobin POC ABG HHb (Measured) ABG Methemoglobin Romero Test ABG Potassium A-a O2 Difference Respiratory Index Hgb O2 Saturation Sodium Chloride Glucose Lactate Vent Mode Mechanical Rate FiO2 Tidal Volume PEEP Crit Value Called To Crit Value Called By Crit Value Read Back Blood Gas Notified Time Potassium Carbon Dioxide Anion Gap BUN Creatinine Est GFR ( Amer) Est GFR (Non-Af Amer) POC Glucose (mg/dL) 166 H 183 H Random Glucose Calcium Phosphorus Magnesium Total Bilirubin AST ALT Alkaline Phosphatase Total Protein Albumin Globulin Albumin/Globulin Ratio UF Heparin Interp Arterial Blood Potassium Stool Occult Blood Negative Random Vancomycin FRED Nuclear Membr Pat Proteinase 3 (PR3) Myeloperoxidase Ab Thyroperoxidase Ab CONSTANTINE UFH Low Dose 0.1 CONSTANTINE UFH Low Dose 0.5 CONSTANTINE UFH High Dose 100 Blood Type Antibody Screen 11/10/17 11/10/17 11/10/17 18:56 20:46 22:35 WBC RBC Hgb Hct MCV MCH MCHC RDW Plt Count MPV Neut % (Auto) Lymph % (Auto) [place] % (Auto) Eos % (Auto) Baso % (Auto) Neut # (Auto) Lymph # (Auto) [place] # (Auto) Eos # (Auto) Baso # (Auto) Neutrophils % (Manual) Band Neutrophils % Lymphocytes % (Manual) Monocytes % (Manual) Platelet Estimate Plt Clumps, EDTA Large Platelets Giant Platelets Hypochromasia (manual) Poikilocytosis (manual Anisocytosis (manual) Puncture Site Rba Rba Rba pCO2 33 L 57 H 53 H pO2 67 L 89 74 L HCO3 22.6 15.6 L 15.1 L ABG pH 7.41 7.11 L* 7.12 L* ABG Total CO2 21.9 L 19.8 L 18.8 L ABG O2 Saturation 96.0 96.1 93.7 L ABG Base Excess -2.9 L -11.8 L -12.3 L ABG Hemoglobin ABG Carboxyhemoglobin POC ABG HHb (Measured) ABG Methemoglobin Romero Test Na Na Na ABG Potassium 3.4 L 4.4 4.4 A-a O2 Difference 605.0 553.0 573.0 Respiratory Index 9.0 6.2 7.7 Hgb O2 Saturation Sodium 149.0 H 149.0 H 150.0 H Chloride 121.0 H 119.0 H 117.0 H Glucose 144 H 110 H 84 Lactate 3.5 H 6.7 H* 10.1 H* Vent Mode Prvc Prvc Mechanical Rate 14 14 30 FiO2 100.0 100.0 100.0 Tidal Volume 420 270 310 PEEP 5 20 18 Crit Value Called To Francia delgado Crit Value Called By Dakota Duncan Crit Value Read Back Y Y Blood Gas Notified Time 2050 2239 Potassium Carbon Dioxide Anion Gap BUN Creatinine Est GFR ( Amer) Est GFR (Non-Af Amer) POC Glucose (mg/dL) Random Glucose Calcium Phosphorus Magnesium Total Bilirubin AST ALT Alkaline Phosphatase Total Protein Albumin Globulin Albumin/Globulin Ratio UF Heparin Interp Arterial Blood Potassium 3.4 L 4.4 4.4 Stool Occult Blood Random Vancomycin FRED Nuclear Membr Pat Proteinase 3 (PR3) Myeloperoxidase Ab Thyroperoxidase Ab CONSTANTINE UFH Low Dose 0.1 CONSTANTINE UFH Low Dose 0.5 CONSTANTINE UFH High Dose 100 Blood Type Antibody Screen 11/10/17 11/11/17 11/11/17 23:41 05:27 05:28 WBC RBC Hgb Hct MCV MCH MCHC RDW Plt Count MPV Neut % (Auto) Lymph % (Auto) [place] % (Auto) Eos % (Auto) Baso % (Auto) Neut # (Auto) Lymph # (Auto) [place] # (Auto) Eos # (Auto) Baso # (Auto) Neutrophils % (Manual) Band Neutrophils % Lymphocytes % (Manual) Monocytes % (Manual) Platelet Estimate Plt Clumps, EDTA Large Platelets Giant Platelets Hypochromasia (manual) Poikilocytosis (manual Anisocytosis (manual) Puncture Site R bra pCO2 80 H* pO2 26 L* HCO3 4.5 L* ABG pH 6.80 L* ABG Total CO2 14.9 L ABG O2 Saturation 38.5 L ABG Base Excess -23.2 L ABG Hemoglobin ABG Carboxyhemoglobin POC ABG HHb (Measured) ABG Methemoglobin Romero Test Na ABG Potassium 4.4 A-a O2 Difference 587.0 Respiratory Index 22.6 Hgb O2 Saturation Sodium 146.0 Chloride 111.0 H Glucose 207 H Lactate 15.3 H* Vent Mode Prvc Mechanical Rate 35 FiO2 100.0 Tidal Volume 250 PEEP 18 Crit Value Called To Theodore lu rn Crit Value Called By Julia rene rt Crit Value Read Back Y Blood Gas Notified Time 630 Potassium Carbon Dioxide Anion Gap BUN Creatinine Est GFR ( Amer) Est GFR (Non-Af Amer) POC Glucose (mg/dL) 78 235 H Random Glucose Calcium Phosphorus Magnesium Total Bilirubin AST ALT Alkaline Phosphatase Total Protein Albumin Globulin Albumin/Globulin Ratio UF Heparin Interp Arterial Blood Potassium 4.4 Stool Occult Blood Random Vancomycin FRED Nuclear Membr Pat Proteinase 3 (PR3) Myeloperoxidase Ab Thyroperoxidase Ab CONSTANTINE UFH Low Dose 0.1 CONSTANTINE UFH Low Dose 0.5 CONSTANTINE UFH High Dose 100 Blood Type Antibody Screen 11/11/17 11/11/17 06:25 06:25 WBC 22.5 H D RBC 3.04 L Hgb 9.3 L Hct 31.4 L MCV 103.5 H D MCH 30.7 MCHC 29.7 L RDW 23.0 H Plt Count 93 L D MPV 11.7 Neut % (Auto) 94.3 H Lymph % (Auto) 4.1 L [place] % (Auto) 1.1 Eos % (Auto) 0.4 Baso % (Auto) 0.1 Neut # (Auto) 21.2 H Lymph # (Auto) 0.9 L [place] # (Auto) 0.2 Eos # (Auto) 0.1 Baso # (Auto) 0.0 Neutrophils % (Manual) 91 H Band Neutrophils % 3 H Lymphocytes % (Manual) 2 L Monocytes % (Manual) 4 Platelet Estimate Decreased L Plt Clumps, EDTA Present Large Platelets Present Giant Platelets Present Hypochromasia (manual) Slight Poikilocytosis (manual Slight Anisocytosis (manual) Slight Puncture Site pCO2 pO2 HCO3 ABG pH ABG Total CO2 ABG O2 Saturation ABG Base Excess ABG Hemoglobin ABG Carboxyhemoglobin POC ABG HHb (Measured) ABG Methemoglobin Romero Test ABG Potassium A-a O2 Difference Respiratory Index Hgb O2 Saturation Sodium 147 Chloride 109 H Glucose Lactate Vent Mode Mechanical Rate FiO2 Tidal Volume PEEP Crit Value Called To Crit Value Called By Crit Value Read Back Blood Gas Notified Time Potassium 5.0 Carbon Dioxide 12 L Anion Gap 31 H BUN 16 Creatinine 0.9 Est GFR ( Amer) > 60 Est GFR (Non-Af Amer) > 60 POC Glucose (mg/dL) Random Glucose 216 H Calcium 7.4 L Phosphorus 8.1 H Magnesium 2.1 Total Bilirubin 2.3 H AST 907 H D ALT 397 H D Alkaline Phosphatase 142 H Total Protein 5.3 L Albumin 2.3 L Globulin 3.0 Albumin/Globulin Ratio 0.8 L UF Heparin Interp Arterial Blood Potassium Stool Occult Blood Random Vancomycin FRED Nuclear Membr Pat Proteinase 3 (PR3) Myeloperoxidase Ab Thyroperoxidase Ab CONSTANTINE UFH Low Dose 0.1 CONSTANTINE UFH Low Dose 0.5 CONSTANTINE UFH High Dose 100 Blood Type Antibody Screen EKG/Cardiology Studies: Cardiology / EKG Studies 11/10/17 20:12 EKG [ELECTROCARDIOGRAM] Stat Comment: Mode Of Transportation: Reason For Exam: tachycardia Fingerstick Blood Sugar Results: 235
--- NOTE | 2017-11-11 09:44 | CP.PCM.PRO ---
Pronouncement of Note - Clinical Findings Physical Exam: No Response Verbal/Painful Stimuli, Absent Peripheral Pulses{ Carotid & Femoral}, Absent Heart & Breath Sounds, No Pupillary Light Reflex, No Corneal Reflex, Pupils Fixed & Dilated, Absence of Vital Signs - Pronouncement Time Time of Pronouncement of : 07:54 - Notifications Pronouncement Notifications: Family Notified Manager [employer] Notified: No - Autopsy Autopsy Requested: No - [place] [id number]
--- NOTE | 2017-11-11 11:41 | CARD ---
APPROVED REPORT Date of service: 11/10/2017 EKG Measurement Heart [id number] <Conclusion> Sinus tachycardia T wave abnormality, consider anterior ischemia Abnormal ECG
[2017-11-11 17:48] LABS: SCL-70 ANTIBODY <1.0 AI (<1.0)
[2017-11-11 18:27] LABS: % CD4 (T HELPER CELL) 52 Percent (30-61); % CD8 (SUPPRESSOR T CELL) 8 Percent (12-42); ABSOLUTE CD3 CELLS 318 Cells/mcL (840-3060); ABSOLUTE CD4 CELLS 276 Cells/mcL (490-1740); ABSOLUTE CD8 CELLS 41 Cells/mcL (180-1170); ABSOLUTE LYMPHOCYTES 528 Cells/mcL (850-3900); HELPER/SUPPRESSOR RATIO 6.69 Ratio (0.86-5.00)
== END 2017-11-11 08:10 | DRG 581 ==
LOC: C.ER 20:12 → C.9I 23:39 → EEVIPCON 23:39
PROVIDERS: ADMIT Family Medicine; ATTEND Family Medicine
PROC: 02HV33Z Insertion of Infusion Device into Superior Vena Cava, Percutaneous Approach (ICD-10-PCS; principal; 2017-11-04)
PROC: 5A09457 Assistance with Respiratory Ventilation, 24-96 Consecutive Hours, Continuous Positive Airway Pressure (ICD-10-PCS; 2017-11-04)
PROC: 30233N1 Transfusion of Nonautologous Red Blood Cells into Peripheral Vein, Percutaneous Approach (ICD-10-PCS; 2017-11-05)
PROC: 0B9K8ZX Drainage of Right Lung, Via Natural or Artificial Opening Endoscopic, Diagnostic (ICD-10-PCS; 2017-11-06)
PROC: 0BH18EZ Insertion of Endotracheal Airway into Trachea, Via Natural or Artificial Opening Endoscopic (ICD-10-PCS; 2017-11-06)
PROC: 5A1955Z Respiratory Ventilation, Greater than 96 Consecutive Hours (ICD-10-PCS; 2017-11-06)
DX: A41.9 Sepsis, unspecified organism (principal); R65.21 Severe sepsis with septic shock; J96.01 Acute respiratory failure with hypoxia; J10.00 Influenza due to other identified influenza virus with unspecified type of pneumonia; G35 Multiple sclerosis; E87.6 Hypokalemia; I48.92 Unspecified atrial flutter; I07.1 Rheumatic tricuspid insufficiency; J90 Pleural effusion, not elsewhere classified; D69.6 Thrombocytopenia, unspecified; F17.210 Nicotine dependence, cigarettes, uncomplicated; M79.7 Fibromyalgia; R63.6 Underweight; Z66 Do not resuscitate; Z98.84 Bariatric surgery status; J32.3 Chronic sphenoidal sinusitis; M41.9 Scoliosis, unspecified; K52.9 Noninfective gastroenteritis and colitis, unspecified; D64.9 Anemia, unspecified